=== PATIENT | female | born 1970 | race Caucasian/White ===

== ENCOUNTER 2022-02-21 08:33 | Emergency (ER) | payer MEDICAID, SELFPAY ==
[2022-02-21 08:35] VITALS: BP 126/90; PULSE 88; RESP 18; TEMP 36.3; O2SAT 99; BMI 25.0
--- NOTE | 2022-02-21 08:50 | CT_ITS ---
EXAM: CT HEAD WITHOUT INTRAVENOUS CONTRAST CLINICAL INDICATION: pain TECHNIQUE: Multiple axial images were obtained of the head without intravenous contrast. This CT exam was performed using one or more of the following dose reduction techniques: automated exposure control, adjustment of the mA and/or kV according to patient size, and/or use of iterative reconstruction technique. This report was created using [employer] report generation technology. COMPARISON: None. FINDINGS: BRAIN AND EXTRA-AXIAL SPACES: Unremarkable. No intra- or extra-axial hemorrhage. No evidence of acute infarct. No intracranial mass or mass effect. There is preservation of the garcia/white matter interface. Posterior fossa structures are unremarkable. Ventricles are appropriate for age. No hydrocephalus. Basal cisterns are patent. BONES/JOINTS: Unremarkable. No discrete lytic or blastic abnormalities. SINUSES: Unremarkable as visualized. Clear. MASTOID AIR CELLS: Unremarkable. Clear. ORBITS: Visualized globes, extraocular muscles, optic nerves and retrobulbar fat appear unremarkable. CT/Brain/Head without Contrast IMPRESSION: No acute abnormality. Electronically Signed: Price Ngo MD at 9:26 EDT ,
--- NOTE | 2022-02-21 08:50 | CT_ITS ---
EXAM: CT CERVICAL SPINE WITHOUT INTRAVENOUS CONTRAST CLINICAL INDICATION: pain TECHNIQUE: Helically acquired images were obtained of the cervical spine without intravenous contrast. 2D reformatted images were reviewed. This CT exam was performed using one or more of the following dose reduction techniques: automated exposure control, adjustment of the mA and/or kV according to patient size, and/or use of iterative reconstruction technique. This report was created using [employer] report generation technology. COMPARISON: None. FINDINGS: VERTEBRAE: Loss of the cervical lordosis suggestive of muscle spasm. No fracture. No traumatic subluxation. No discrete lytic or blastic abnormality. Normal craniocervical junction and cervicothoracic junction. DISCS/SPINAL CANAL/NEURAL FORAMINA: C5-6 disc space narrowing. Mild narrowing of the C5-6 neural foramina related to uncinate joint hypertrophy. SOFT TISSUES: Unremarkable. No prevertebral soft tissue swelling. LYMPH NODES: Unremarkable. No cervical adenopathy. LUNG APICES: Unremarkable as visualized. Clear. CT/Spine Cervical without Contras IMPRESSION: 1. No acute fracture or subluxation. 2. C5-6 spondylosis. Electronically Signed: Price Ngo MD at 9:28 EDT ,
--- NOTE | 2022-02-21 08:51 | EX.ED.DYSGE1 ---
HPI History of Present Illness Chief Complaint: Headache Detail of Chief Complaint: Headache, neck pain, nausea, Informant: patient Onset/Context/Timing Onset: Days Context: Gradual Onset Current Severity: Moderate Maximum Severity: Severe Narrative Narrative: Patient presents secondary to neck and right shoulder pain for the past 3 days. She describes spasm and stiffness. Yesterday she developed a headache along with nausea and vomiting. No fall or recent trauma. No fever or chills. She does report paresthesias in the bilateral hands. No chest pain. [facility] Medical History Herniated disc History of ITP Home Medications cyclobenzaprine 10 mg PO BID PRN #10 tab 02/21/22 [Rx Last Taken Unknown] hydrocodone-acetaminophen 1 tab PO Q6H PRN 3 Days #10 tab 02/21/22 [Rx Last Taken Unknown] naproxen [Naprosyn] 500 mg PO BID PRN #20 tab 02/21/22 [Rx Last Taken Unknown] Allergy/AdvReac Type Severity Reaction Status Date / Time erythromycin base Allergy Nausea Verified 02/21/22 08:34 Penicillins Allergy Nausea Verified 02/21/22 08:34 Social History Smoking Status: Current every day smoker tobacco type: cigarettes ROS ROS ED Constitutional Constitutional ED: Denies chills or fever(s) Eyes Eyes: Denies change in vision ENT ENT ED: Denies sore throat Cardiovascular Cardiovascular: Denies chest pain or palpitations Respiratory/Chest Respiratory/Chest: Denies cough or dyspnea Gastrointestinal Gastrointestinal: Reports nausea and vomiting; Denies abdominal pain or diarrhea Genitourinary Genitourinary ED: Denies dysuria Musculoskeletal Musculoskeletal: Reports arthralgias and neck pain; Denies back pain Integumentary Denies rash Neurologic Neurologic: Reports headache(s); Denies weakness Allergic/Immunologic Allergic/Immunologic ED: Denies urticaria EXAM Physical Exam Const Vital Signs: 02/21/22 08:35 Temperature 97.3 F L Temperature Source Temporal Pulse Rate 88 Respiratory Rate 18 Blood Pressure 126/90 H Blood Pressure Mean 102 Pulse Ox 99 Oxygen Delivery Method Room Air Positive well nourished and well developed General Appearance ED: well developed HEENT Reports normocephalic, head/scalp atraumatic and moist mucous membranes Eyes PERRL and EOMs intact bilaterally Neck supple Neck Narrative: Tenderness in the bilateral cervical paraspinal muscles. No meningismus. Chest Wall inspection of chest normal and palpation of chest normal Resp normal respiratory effort and clear to auscultation bilaterally Cardio regular rate and regular rhythm GI normal to inspection, nondistended, normoactive bowel sounds Palpation: soft Back/Spine no CVA tenderness Extremity normal to inspection Neuro oriented x3 and no sensory deficits noted Sensorium / Orientation: alert Motor Exam: strength 5/5 throughout Psych Mood & Affect: anxious and tearful Skin no rashes or lesions noted MDM MDM MDM Narrative Medical decision making narrative: Patient initially given Toradol, Valium, Zofran, IV fluids. Lab work obtained along with CT scan of the head and C-spine. Lab Data Attestation: I reviewed the patient's lab results. Labs: Laboratory Results - last 24 hr 02/21/22 02/21/22 09:00 09:00 WBC 10.8 RBC 4.72 Hgb 15.6 H Hct 45.4 MCV 96.2 MCH 33.1 H MCHC 34.4 RDW Std Deviation 46.0 H RDW Coeff of Jeanna 12.9 Plt Count 276 MPV 10.5 Immature Gran % (Auto) 0.300 Neut % (Auto) 70.1 H Lymph % (Auto) 21.7 [place] % (Auto) 6.9 Eos % (Auto) 0.6 Baso % (Auto) 0.4 Absolute Neuts (auto) 7.6 Absolute Lymphs (auto) 2.34 Nucleated RBC % 0 Sodium 138 Potassium 4.5 Chloride 105 Carbon Dioxide 26.0 Anion Gap 7 BUN 10 Creatinine 0.80 Estim Creat Clear Calc 78.76 Est GFR (MDRD) Af Amer 98 Est GFR (MDRD) Non-Af 81 BUN/Creatinine Ratio 12.6 Glucose 85 Calcium 8.6 Radiography Diagnostic Testing: Clinical Impression(s) from Imaging Studies Brain CT 02/21/22 08:50 IMPRESSION: No acute abnormality. Electronically Signed: Price Ngo MD at 9:26 EDT Reading Location ID and State: [facility] / [place] Tel , Service support , Cervical Spine CT 02/21/22 08:50 IMPRESSION: 1. No acute fracture or subluxation. 2. C5-6 spondylosis. Electronically Signed: Price Ngo MD at 9:28 EDT , Treatment and Re-Evaluation Narrative: CT scans reveal chronic changes. Lab work unremarkable. On repeat evaluation patient still tearful and in pain. She is given dose of morphine and Phenergan. Lidoderm patches applied topically. At this time patient resting more comfortably. She does have significant muscle spasm will require analgesics at home over the next several days. She is an appointment to establish new primary care physician next week at the [facility]. Prescriptions will be sent to [facility] pharmacy for her. Return instructions given. Discharge Plan Triage Chief Complaint: Headache ED Provider: Inocencia Cervantes Dx/Rx/DC Orders Clinical Impression: Cervical paraspinal muscle spasm, Cervical radiculopathy, Cephalgia Instructions: ED Headache Unspecified, ED Neck Spasm, No Trauma, ED Radiculopathy, Cervical Prescriptions: New naproxen [Naprosyn] 500 mg tablet 500 mg PO BID PRN (Reason: pain) Qty: 20 RF: 0 hydrocodone-acetaminophen 5-325 mg tablet 1 tab PO Q6H PRN (Reason: pain) 3 Days Qty: 10 RF: 0 cyclobenzaprine 10 mg tablet 10 mg PO BID PRN (Reason: muscle spasm) Qty: 10 RF: 0 Primary Care Provider: Care Physician,No Primary Referrals: Care Physician,No Primary [Primary Care Provider] - Activity Restrictions/Additional Instructions: Follow-up with your new PCP next week as scheduled. Disposition Disposition: Home, Self Care
[2022-02-21] MEDS: Ondansetron 4 MG/2 ML Vial IV (08:58)
[2022-02-21] MEDS: 0.9% Normal Saline 1,000 ML 999 ML IV (08:58)
[2022-02-21] MEDS: Ketorolac 30 MG/ML Syringe IV (08:58)
[2022-02-21] MEDS: diazePAM 5 MG Tablet 2.5 MG PO (08:58)
[2022-02-21 09:12] LABS: Absolute Lymphocyte Count 2.34 X10^3/uL (0.83-4.51); Absolute Neutrophil Count 7.6 X10^3/uL (2.0-7.7); Basophil# 0.04 X10^3/uL; Basophil% 0.4 % (0-1); Eosinophil# 0.06 X10^3/uL; Eosinophils% 0.6 % (0-5); Hematocrit 45.4 % (37-47); Hemoglobin 15.6 g/dL (12.0-15.0); Lymphocyte # 2.34 X10^3/ul (0.83-4.51); Lymphocyte % 21.7 % (19-41); Mean Corp Hgb Conc 34.4 g/dL (32-36); Mean Corpuscular Hgb 33.1 pg (27.0-32.0); Mean Corpuscular Volume 96.2 fL (81-99); Mean Platelet Vol. 10.5 fl (6.2-12.0); Monocyte# 0.74 X10^3/uL; Monocyte% 6.9 % (0-10); NRBC Flagged by Analyzer 0 % (0-5); Neutrophil # 7.57 X10^3/uL (2.7-7.7); Neutrophil % 70.1 % (47-70); Platelet Count 276 K/mm3 (150-450); RBC Distribution Width CV 12.9 % (11.6-14.6); Red Blood Count 4.72 M/mm3 (4.2-5.4); White Blood Count 10.8 K/mm3 (4.4-11.0)
[2022-02-21 09:25] LABS: Anion Gap 7 (5-15); BUN 10 mg/dL (7-18); BUN/Creat Ratio 12.6 RATIO (10-20); Calcium,Total 8.6 mg/dL (8.5-10.1); Chloride 105 mmol/L (98-107); EST Glomerular Filtration Rate 81 mL/min (>60); Est Glom Filt Rate - Afr Amer 98 mL/min (>60); Estimated Creatinine Clearance 78.76 ml/min; Glucose 85 mg/dL (74-106); Potassium 4.5 mmol/L (3.5-5.1); Sodium Level 138 mmol/L (136-145)
[2022-02-21] MEDS: Lidocaine 5% Patch 1 PATCH TOPICAL (09:40)
[2022-02-21] MEDS: proMETHazine 25 MG Tablet 12.5 MG PO (09:42)
[2022-02-21] MEDS: Morphine 4 MG/ML Syringe IV (09:44)
[2022-02-21 10:39] VITALS: BP 124/77; PULSE 62; RESP 17; O2SAT 98
== END 2022-02-21 10:43 | disposition home or self-care (01) ==
PROVIDERS: Emergency Provider Emergency Medicine; Visit Provider Emergency Medicine
DX: M54.12 Radiculopathy, cervical region (principal); M62.830 Muscle spasm of back; M54.2 Cervicalgia; R11.0 Nausea; M25.511 Pain in right shoulder; R51.9 Headache, unspecified; F17.210 Nicotine dependence, cigarettes, uncomplicated; Z79.1 Long term (current) use of non-steroidal anti-inflammatories (NSAID); Z79.899 Other long term (current) drug therapy
CPT/HCPCS: 70450; 72125; 80048; 85025; 96361; 96374; 96375; 99284; J7030; A4216; J2405

== ENCOUNTER → 2025-04-04 | Outpatient (CLI) | payer MEDICAID, SELFPAY ==
--- NOTE | 2025-04-04 12:58 | RAD_ITS ---
PROCEDURE: LUMBAR SPINE 2 OR 3 VIEWS 04/04/2025 REASON FOR EXAM: LOW BACK PAIN TECHNIQUE: 2 view(s) of the lumbar spine COMPARISON: None FINDINGS: Vertebrae: Minimal anterior spondylosis at the L2-L3 level. Discs: Disc space heights are preserved. Alignment: No evidence of scoliosis. Other: Moderate amount of fecal material is seen in the colon. RAD/Lumbar Spine 2 or 3 Views IMPRESSION: Degenerative changes at the L2-L3 level. Reading Location: [place] [id number]
--- NOTE | 2025-04-04 13:00 | RAD_ITS ---
PROCEDURE: FOOT MIN 3 VIEWS 04/04/2025 REASON FOR EXAM: PAIN Posterior foot pain. TECHNIQUE: 3 views of the right foot. COMPARISON: None FINDINGS: Bones: Plantar calcaneal spur. Joints: Normal alignment. Mild degenerative changes at the 1st metatarsophalangeal joint. Soft tissues: Soft tissues are unremarkable. Other: RAD/Foot min 3 Views IMPRESSION: Plantar calcaneal spur. Reading Location: [id number]
== END | disposition home or self-care (01) ==
LOC: MTRAD 12:54
PROVIDERS: Referring Provider Physician Assistant; Visit Provider Physician Assistant
DX: M54.50 Low back pain, unspecified (principal); M79.671 Pain in right foot
CPT/HCPCS: 72100; 73630

== ENCOUNTER 2025-04-11 14:24 | Emergency (ER) | payer MEDICAID, SELFPAY ==
[2025-04-11 14:24] VITALS: BP 125/86; PULSE 84; RESP 16; TEMP 36.8; O2SAT 99
[2025-04-11 14:26] VITALS: BMI 27.0
--- NOTE | 2025-04-11 15:19 | EDS_ITS ---
HPI History of Present Illness Chief Complaint: Back Onset/Context/Timing Onset: Today Context: Sudden Onset Injury: bending Timing: Continuous Quality: Burning Location: Lumbar, Buttock and Right Leg Worsened by: improves with Ambulation and - (Standing) Relieved by: Nothing Associated Symptoms Associated Symptoms: Radiation to Right Leg; Negative for Numbness, Tingling, Radiation to Left Leg, Fever, Abdominal Pain, Dysuria, Unable to Ambulate, Unable to Transfer, Urinary Retention, Urinary Incontinence, Constipation or Fecal Incontinence Narrative Narrative: Patient presents with low back pain that became worse today. Patient states her pain is in her lower lumbar area. Patient states she was bending forward today and she felt a pop. Patient states the pain radiates down her right leg. Patient states her pain is worse with standing and walking. Patient denies any paresthesias or weakness. Patient denies any bowel or bladder changes. Patient denies any saddle anesthesia. Patient states she has seen [place] [facility] in the past. Patient states she saw them 1 week ago and had x-rays done at that time. Prior similar symptoms: Yes and With Prior Back Pain [facility] Medical History (Updated 04/11/25 @ 18:[address] Ian Dupree, DO) Anxiety and depression Plantar fasciitis of right foot Low back pain Contact with or exposure to other viral diseases URI (upper respiratory infection) Endometriosis History of ITP Herniated disc Home Medications ?Medication ?Instructions ?Recorded ?Last Taken ?Type fluoxetine 20 mg capsule (Prozac) 20 mg PO QDAY #30 ca ps 04/04/25 Unknown Rx gabapentin 300 mg capsule 300 mg PO QHS 04/11/25 Unkno wn History Held on 04/11/25. Instructions: Order Completed oxycodone-acetaminophen 5 mg-325 1 tab PO Q8H PRN pain 3 days #10 04/11/25 Unknown Rx mg tablet (Percocet) tabs prednisone 20 mg tablet 60 mg (3 x 20 mg) PO DAILY # 15 04/11/25 Unknown Rx TABLETS Allergy/AdvReac Type Severity Reaction Status Date / Time erythromycin base Allergy Nausea Verified 04/11/25 14:24 Penicillins Allergy Nausea Verified 04/11/25 14:24 Surgical History Hx of laparoscopy History of section Social History Smoking Status: Current every day smoker tobacco type: cigarettes ROS ROS ED Constitutional Constitutional ED: Denies chills or fever(s) Eyes Eyes: Denies blurry vision or change in vision ENT ENT ED: Denies rhinorrhea or sore throat Cardiovascular Cardiovascular: Denies chest pain or palpitations Respiratory/Chest Respiratory/Chest: Denies cough or dyspnea Gastrointestinal Gastrointestinal: Reports nausea; Denies vomiting Genitourinary Genitourinary ED: Denies dysuria or hematuria Musculoskeletal Musculoskeletal: Reports back pain; Denies neck pain Integumentary Denies abscess or rash Neurologic Neurologic: Denies headache(s) or weakness Allergic/Immunologic Allergic/Immunologic ED: Denies mouth swelling or urticaria EXAM Physical Exam Const Vital Signs: 04/11/25 14:24 04/11/25 16:24 04/11/25 17:53 Temperature 98.2 F 97.8 F Temperature Source Oral Oral Pulse Rate 84 87 92 Respiratory Rate 16 22 H 15 Blood Pressure 125/86 H 121/70 H 139/90 H Blood Pressure Mean 99 87 106 Pulse Ox 99 98 100 Oxygen Delivery Method Room Air Room Air 04/11/25 18:28 Temperature 97.4 F L Temperature Source Oral Pulse Rate 62 Respiratory Rate 17 Blood Pressure 120/75 Blood Pressure Mean 90 Pulse Ox 100 Oxygen Delivery Method Room Air Positive well nourished and well developed General Appearance ED: well developed and NAD HEENT Reports moist mucous membranes Neck supple and no JVD Back/Spine Back/Spine Narrative: There is tenderness and spasm of the lumbar paraspinal muscles on the right. There is mild midline tenderness. There is no bony crepitance or step-off noted. Strength is 5/5 bilaterally in the lower extremities. There are no sensory deficits noted. Deep tendon reflexes are 2/4 bilaterally in the lower extremity. There is pain with straight leg raising on the right at approximately 50 degrees. Lumbar Spine / Lower Back: ROM limited and straight leg raise positive right at 50 degrees Neuro oriented x3 and no sensory deficits noted Sensorium / Orientation: alert Motor Exam: strength 5/5 throughout Deep Tendon Reflexes: Rt Patellar (L4): 2+, Lt Patellar (L4): 2+, Rt Ankle (S1): 2+ and Lt Ankle (S1): 2+ Deep Tendon Reflexes Back: Rt Patellar (L4): 2+, Lt Patellar (L4): 2+, Rt Ankle (S1): 2+ and Lt Ankle (S1): 2+ Psych mental status grossly normal MDM MDM MDM Narrative Medical decision making narrative: Differential diagnosis includes spondylolisthesis, lumbar radiculopathy, com pression fracture, and lumbosacral strain. X-rays of the lumbar spine will be obtained to assess for fracture and spondylolisthesis. Treatment and Re-Evaluation Narrative: Patient was given an injection of morphine. Patient had minimal relief with this. Patient was given injection of Dilaudid. Patient felt better after this. Patient was given prescriptions for Percocet and prednisone. Patient was instructed to follow-up with Dr. Villalpando as an outpatient. Patient was instructed to use ice to her back. Patient was instructed to return if worse in any way. Patient understood and was agreeable with the plan. All questions were answered. Discharge Plan Triage Chief Complaint: Back ED Provider: Ian Dupree Dx/Rx/DC Orders Clinical Impression: Low back pain, Lumbar radiculopathy Instructions: ED Back Pain (Acute or Chronic), ED Sciatica Prescriptions: New oxycodone-acetaminophen [Percocet] 5-325 mg tablet 1 tab PO Q8H PRN (Reason: pain) 3 Days Qty: 10 0RF prednisone 20 mg tablet 60 mg PO DAILY Qty: 15 0RF No Action fluoxetine [Prozac] 20 mg capsule 20 mg PO QDAY Qty: 30 0RF gabapentin 300 mg capsule 300 mg PO QHS Primary Care Provider: Valeria Cesar NP Referrals: Rafat Villalpando MD [Med Staff - Active Staff] - 5-7 Days Valeria Cesar NP, DESIGN DIRECTOR-C [Primary Care Provider] - 5-7 Days Print Language: Persian Disposition Disposition: Home, Self Care
--- NOTE | 2025-04-11 15:35 | RAD_ITS ---
PROCEDURE: LUMBAR SPINE 2 OR 3 VIEWS 04/11/2025 REASON FOR EXAM: INJURY/PAIN TECHNIQUE: LUMBAR SPINE 2 OR 3 VIEWS COMPARISON: 04/08/2025 RAD/Lumbar Spine 2 or 3 Views IMPRESSION: No acute compression fracture or subluxations. No definite listhesis. Minimal multilevel degenerative changes of the lumbar spine most prominent at L2-L3. If there is continued concern for spinal pathol ogy, consider CT/MR for further evaluation. Reading Location: [id number]
[2025-04-11] MEDS: Morphine 4 MG/ML Syringe IM (15:46)
[2025-04-11 16:24] VITALS: BP 121/70; PULSE 87; RESP 22; O2SAT 98
[2025-04-11] MEDS: HYDROmorphone 1 MG/ML Syringe IM (17:45)
[2025-04-11 17:53] VITALS: BP 139/90; PULSE 92; RESP 15; TEMP 36.6; O2SAT 100
[2025-04-11 18:28] VITALS: BP 120/75; PULSE 62; RESP 17; TEMP 36.3; O2SAT 100
[2025-04-11 19:23] VITALS: BP 120/75; PULSE 62; RESP 17; TEMP 36.3; O2SAT 100
== END 2025-04-11 19:24 | disposition home or self-care (01) ==
PROVIDERS: Emergency Provider Emergency Medicine; PCP Nurse Practitioner Family; Visit Provider Emergency Medicine
DX: M54.16 Radiculopathy, lumbar region (principal); X50.1XXA Overexertion from prolonged static or awkward postures, initial encounter; F41.9 Anxiety disorder, unspecified; F32.A Depression, unspecified; Z79.899 Other long term (current) drug therapy; F17.210 Nicotine dependence, cigarettes, uncomplicated
CPT/HCPCS: 72100; 96372; 99282

== ENCOUNTER 2025-04-26 10:29 | Emergency (ER) | payer MEDICAID, SELFPAY ==
[2025-04-26 10:30] VITALS: BP 153/87; PULSE 92; RESP 14; TEMP 36.6; O2SAT 98; BMI 27.3
--- NOTE | 2025-04-26 11:20 | RAD_ITS ---
PROCEDURE: LUMBAR SPINE 2 OR 3 VIEWS 04/26/2025 REASON FOR EXAM: FALL AND PAIN TECHNIQUE: LUMBAR SPINE 2 OR 3 VIEWS COMPARISON: 04/11/2020 FINDINGS: Vertebrae: No fracture or suspicious osseous lesion Discs: Mild disc space narrowing throughout the lumbar spine. Alignment: Alignment is anatomic Other: RAD/Lumbar Spine 2 or 3 Views IMPRESSION: Mild degenerative changes, no acute findings Reading Location: [id number]
--- NOTE | 2025-04-26 11:21 | ED.VIS.BACK ---
HPI History of Present Illness Chief Complaint: Back Informant: patient Onset/Context/Timing Onset: Days Context: Gradual Onset Injury: fall Timing: Continuous Quality: Sharp Location: Lumbar Current Severity: Moderate Maximum Severity: Moderate Worsened by: improves with Movement Relieved by: Nothing Associated Symptoms Associated Symptoms: Radiation to Right Leg; Negative for Unable to Ambulate, Unable to Transfer, Urinary Retention, Urinary Incontinence, Constipation or Fecal Incontinence Narrative Narrative: 54-year-old female history of degenerative disc disease of lumbar spine. Patient states that she had a fall recently. Increased her low back pain. She saw her painter tumbling barrel yesterday who gave her an IM injection of Toradol. Yesterday she tripped and fell at home landing on her buttock causing increased pain in her lower back. Denies any head injury or LOC. No bowel or bladder incontinence. She has an upcoming MRI that they canceled due to her insurance she states. She is to go to physical therapy then determine if she still needs the MRI. Prior similar symptoms: Yes and With Prior Back Pain Recent Illness/Hospitalization: No PFSH PFSH Medical History Anxiety and depression Plantar fasciitis of right foot Low back pain Contact with or exposure to other viral diseases URI (upper respiratory infection) Endometriosis History of ITP Herniated disc Home Medications ?Medication ?Instructions ?Recorded ?Last Taken ?Type fluoxetine 20 mg capsule (Prozac) 20 mg PO QDAY #30 caps 04/04/25 Unknown Rx gabapentin 300 mg capsule 300 mg PO QHS 04/11/25 Unknown History Held on 04/11/25. Instructions: Order Completed oxycodone-acetaminophen 5 mg-325 1 tab PO Q8H PRN pain 3 days #10 04/11/25 Unknown Rx mg tablet (Percocet) tabs prednisone 20 mg tablet 60 mg (3 x 20 mg) PO DAILY #15 04/11/25 Unknown Rx TABLETS oxycodone 5 mg capsule 5 mg PO Q6H PRN pain 3 days #10 04/26/25 Unknown Rx caps Allergy/AdvReac Type Severity Reaction Status Date / Time erythromycin base Allergy Nausea Verified 04/26/25 10:30 Penicillins Allergy Nausea Verified 04/26/25 10:30 Surgical History Hx of laparoscopy History of section Social History Smoking Status: Current every day smoker tobacco type: cigarettes ROS ROS ED ROS Narrative Denies recent illness. Constitutional Constitutional ED: Denies chills or fever(s) Eyes Eyes: Denies blurry vision ENT ENT ED: Denies ear pain Cardiovascular Cardiovascular: Denies chest pain Respiratory/Chest Respiratory/Chest: Denies dyspnea Gastrointestinal Gastrointestinal: Denies abdominal pain, diarrhea, nausea or vomiting Genitourinary Genitourinary ED: Denies dysuria or hematuria Musculoskeletal Musculoskeletal: Reports back pain; Denies arthralgias, myalgias or neck pain Integumentary Denies abscess Neurologic Neurologic: Denies headache(s) Psychiatric Psychiatric: Denies anxiety Endocrine Endocrinology: Denies cold intolerance Hematologic/Lymphatic Hematologic/Lymphatic: Denies easy bleeding Allergic/Immunologic Allergic/Immunologic ED: Denies mouth swelling EXAM Physical Exam Narrative Exam Narrative: 54-year-old female vital signs stable afebrile. She is emotionally upset and tearful. Complaining of back pain. H EENT exam pupils round to light. Extra motions are intact. No trauma to her face or scalp. Nontender. C-spine and trachea nontender. Back thoracic spine nontender. No ecchymosis or bruising. She complains of tenderness over her lumbar spine and paralumbar soft tissue. There is no ecchymosis or bruising. Pelvic girdle intact. Moving all 4 extremities. Normal strength. Normal sensation. No cauda equina. Positive straight leg raise test on the right negative on the left. 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 Neurologically she is awake alert. Answer questions following commands. Const Vital Signs: 04/26/25 10:30 Temperature 98 F Temperature Source Temporal Pulse Rate 92 Respiratory Rate 14 Blood Pressure 153/87 H Blood Pressure Mean 109 Pulse Ox 98 Oxygen Delivery Method Room Air Positive well nourished and well developed; Negative for cachectic, contractures or unkempt General Appearance ED: well developed; Negative for unkempt, cachectic, contractures, NAD or pallor Nutritional Appearance: Negative for cachectic HEENT Reports moist mucous membranes Negative for trauma or tenderness Eyes PERRL and EOMs intact bilaterally Neck no lymphadenopathy, supple and no JVD Resp normal respiratory effort and clear to auscultation bilaterally Effort and Inspection: Negative for pain with movement Auscultation: Negative for rales, rhonchi, wheezes or diminished lung sounds Cardio regular rate, regular rhythm, S1 normal heart sound, S2 normal heart sound and no murmurs GI normal to inspection, nondistended, normoactive bowel sounds, soft to palpation, non-tender, non-distended and no masses Palpation: Negative for tender, guarding or rebound tenderness present Back/Spine normal to inspection and no thoracic nor lumbar tenderness Back/Spine Narrative: Lumbar and paralumbar tenderness. General Back: Negative for CVA tenderness Cervical Spine: Negative for cervical spine tenderness Thoracic Spine / Upper Back: Negative for paraspinal muscle tenderness Lumbar Spine / Lower Back: straight leg raise positive right Extremity normal to inspection and no clubbing, cyanosis or edema General Extremety ED: Negative for edema or tenderness General Extremity: Negative for edema Neuro oriented x3 and no sensory deficits noted Neuro Narrative: Emotionally upset and tearful. Sensorium / Orientation: Negative for alert, confused, lethargic or stuporous Motor Exam: strength 5/5 throughout Psych mental status grossly normal Appearance: Negative for unkempt Mood & Affect: tearful Skin no rashes or lesions noted and no wounds General Skin Exam: Negative for jaundice or pallor Lesions: No lesion noted Rashes: No rashes noted Trauma: Negative for abrasion or puncture Wounds: Negative for wounds noted MDM MDM MDM Narrative Medical decision making narrative: 54-year-old female acute on chronic back pain after a fall. Lumbar spine x-ray being obtained to rule out compression fracture. IV morphine for pain and Zofran to prevent nausea. I do not think she needs any lab work. Repeat exam patient is doing well at 12:30 PM. She will be also given some Toradol for some additional pain. Her pain management physician called her in a muscle relaxant she believes yesterday. I will call her in some limited oxycodone 10 no refill. She will need to follow-up with her pain management physician. And follow-up to see if they can get her this MRI. She does not need acutely right now. She is not having any signs of cauda equina. History & Record Review Discussion w/independent historian: Patient Additional record(s) reviewed:: Prior inpatient record, Prior outpatient record, Prior ED visit and Prior labs Radiography Diagnostic Testing: Clinical Impression(s) from Imaging Studies Lumbar Spine X-Ray 04/26/25 11:20 IMPRESSION: Mild degenerative changes, no acute findings Reading Location: [facility] Discharge Plan Triage Chief Complaint: Back ED Provider: Calin Weber Dx/Rx/DC Orders Clinical Impression: Back pain, History of degenerative disc disease Instructions: ED Back Pain (Acute or Chronic) Prescriptions: New oxycodone 5 mg capsule 5 mg PO Q6H PRN (Reason: pain) 3 Days Qty: 10 0RF No Action fluoxetine [Prozac] 20 mg capsule 20 mg PO QDAY Qty: 30 0RF gabapentin 300 mg capsule 300 mg PO QHS oxycodone-acetaminophen [Percocet] 5-325 mg tablet 1 tab PO Q8H PRN (Reason: pain) 3 Days Qty: 10 0RF prednisone 20 mg tablet 60 mg PO DAILY Qty: 15 0RF Primary Care Provider: Care Physician,No Primary Referrals: Valeria Cesar [employer] PRODUCTION MACHINE OPERATOR, [employer]ODUCTION MACHINE OPERATOR-[employer] [Non-Staff] - As Needed Activity Restrictions/Additional Instructions: Follow-up with your pain management doctor soon as possible. Limited oxycodone for pain. Muscle relaxant as prescribed by your pain management doctor. If not improving follow-up to see then get the lumbar MRI. Return if worsening pain, fever, bowel or bladder incontinence or retention. Or if you are developing weakness in your legs. Print Language: Malawian Disposition Disposition: Home, Self Care
[2025-04-26] MEDS: Ketorolac 30 MG/ML Syringe IV (12:37)
[2025-04-26 12:44] VITALS: BP 143/91; PULSE 64; RESP 18; TEMP 36.6; O2SAT 99
== END 2025-04-26 12:45 | disposition home or self-care (01) ==
PROVIDERS: Emergency Provider Emergency Medicine; Visit Provider Emergency Medicine
DX: M51.369 Other intervertebral disc degeneration, lumbar region without mention of lumbar back pain or lower extremity pain (principal); G89.29 Other chronic pain; F17.210 Nicotine dependence, cigarettes, uncomplicated
CPT/HCPCS: 72100; 96374; 96375; 99282; A4216; J2405

== ENCOUNTER 2025-06-05 16:34 | Observation (INO) | payer MEDICAID, SELFPAY ==
[2025-06-05 16:35] VITALS: BP 144/92; PULSE 85; RESP 18; TEMP 36.8; O2SAT 98; BMI 26.9
--- NOTE | 2025-06-05 16:51 | EDS_ITS ---
HPI History of Present Illness Chief Complaint: Back Detail of Chief Complaint: Back pain Informant: patient Narrative Narrative: Patient presents to the emergency department with complaint of back pain has been ongoing for years. Patient states that she was supposed to have surgery on her back before Dr. Blair left the state to have a fusion at L4 and L5. Her last MRI was more than a year ago. She saw nurse practitioner for Dr. Wallace recently and was told that she would need to try physical therapy first for her back. She describes increased pain since yesterday. No new injury. She complains of pain radiating down her right leg with some numbness and tingling. At times the leg feels weak. She denies loss of sensation in the groin. She denies loss of bowel or bladder function. She denies any new falls or injuries. Patient also tells me she was referred to pain management and saw Dr. Garcia who did some trigger point injections on her. Patient also complains of pain in her neck and pain in her right foot from a heel spur. [facility] Medical History Anxiety and depression Plantar fasciitis of right foot Low back pain Contact with or exposure to other viral diseases URI (upper respiratory infection) Endometriosis History of ITP Herniated disc Home Medications ?Medication ?Instructions ?Recorded ?Last Taken ?Type fluoxetine 20 mg capsule (Prozac) 20 mg PO QDAY #30 ca ps 04/04/25 Unknown Rx gabapentin 300 mg capsule 300 mg PO QHS 04/11/25 Unkno wn History Held on 04/11/25. Instructions: Order Completed oxycodone-acetaminophen 5 mg-325 1 tab PO Q8H PRN pain 3 days #10 04/11/25 Unknown Rx mg tablet (Percocet) tabs prednisone 20 mg tablet 60 mg (3 x 20 mg) PO DAILY # 15 04/11/25 Unknown Rx TABLETS oxycodone 5 mg capsule 5 mg PO Q6H PRN pain 3 days #10 04/26/25 Unknown Rx caps Allergy/AdvReac Type Severity Reaction Status Date / Time erythromycin base Allergy Nausea Verified 06/05/25 16:36 Penicillins Allergy Nausea Verified 06/05/25 16:36 Surgical History Hx of laparoscopy History of section Social History (Updated 06/05/25 @ 16:39 by Elsy Richards) household members: family Smoking Status: Current every day smoker tobacco type: cigarettes ROS ROS ED Review of Systems ROS Unobtainable: other Constitutional Constitutional ED: Reports lethargy; Denies chills, fever(s), sweats or weight loss Eyes Eyes: Denies blurry vision, change in vision or diplopia ENT ENT ED: Denies rhinorrhea or sore throat Cardiovascular Cardiovascular: Denies chest pain, orthopnea or racing heartbeat Respiratory/Chest Respiratory/Chest: Denies cough, dyspnea, dyspnea on exertion, orthopnea or sputum Gastrointestinal Gastrointestinal: Denies abdominal pain, diarrhea, nausea or vomiting Genitourinary Genitourinary ED: Denies dysuria, hematuria or urinary frequency Musculoskeletal Musculoskeletal: Reports back pain; Denies arthralgias, myalgias or neck pain Integumentary Denies abscess, Abrasions or rash Neurologic Neurologic: Denies headache(s) or weakness Psychiatric Psychiatric: Denies anxiety, depression or suicidal thoughts Endocrine Endocrinology: Denies polydipsia, polyphagia or polyuria Hematologic/Lymphatic Hematologic/Lymphatic: Denies easy bleeding, easy bruising or lymphadenopathy Allergic/Immunologic Allergic/Immunologic ED: Denies mouth swelling, tongue swelling or urticaria EXAM Physical Exam Const Vital Signs: 06/05/25 16:35 Temperature 98.3 F Temperature Source Oral Pulse Rate 85 Respiratory Rate 18 Blood Pressure 144/92 H Blood Pressure Mean 109 Pulse Ox 98 Oxygen Delivery Method Room Air Positive well nourished and well developed General Appearance ED: well developed and NAD HEENT Reports TM's clear and moist mucous membranes normocephalic and atraumatic; Negative for trauma or tenderness Tympanic Membrane ED: Yes TM's clear Eyes PERRL and EOMs intact bilaterally General Eye ED: Negative for pale conjunctiva or scleral icterus Neck no lymphadenopathy, supple and no JVD General: Negative for tenderness Chest Wall inspection of chest normal and palpation of chest normal Chest: Negative for tenderness Resp normal respiratory effort and clear to auscultation bilaterally Effort and Inspection: Negative for respiratory distress or pain with movement Auscultation: Negative for rhonchi, wheezes or diminished lung sounds Cardio regular rate, regular rhythm, S1 normal heart sound, S2 normal heart sound and no murmurs Peripheral Pulses: pulses 2+ throughout GI normal to inspection, nondistended, normoactive bowel sounds, soft to palpation, non-tender, non-distended and no masses Back/Spine no CVA tenderness Back/Spine Narrative: Diffuse tenderness palpation over the lumbar spine and lumbar paraspinal musculature bilaterally. Patient has a positive straight leg raise on the right with pain about 30 degrees while seated. Deep tendon reflexes are plus 2 out of 4 bilaterally at the patella and Achilles. Patient has normal L5 extension bilaterally. Patient has normal sensation to light touch. Extremity normal to inspection General Extremety ED: Negative for edema General Extremity: Negative for edema Neuro oriented x3, CN's II-XII intact bilaterally, no sensory deficits noted and gait normal Sensorium / Orientation: awake, alert, oriented to person, oriented to place and oriented to time Motor Exam: strength 5/5 throughout and strength abnormal Psych mental status grossly normal Skin no rashes or lesions noted and no wounds MDM MDM MDM Narrative Medical decision making narrative: Patient presents with acute exacerbation of her chronic back pain. History of sciatica. Following up with pain management and back specialist. Will treat with Dilaudid as well as Norflex and Toradol. Will start on prednisone. Patient was medicated with Dilaudid as well as Toradol. Continue to have pain and was given a second dose of Dilaudid. Continues to complain of significant pain. Discussed case with hospitalist will evaluate patient for admission for pain management and possible further imaging such as MRI tomorrow. Currently do not appreciate any significant red flags for cauda equina. Feel she likely has a lumbar radiculopathy. Discharge Plan Triage Chief Complaint: Back ED Provider: Adrienne Garcia Dx/Rx/DC Orders Clinical Impression: Back pain, Lumbar radiculopathy Prescriptions: No Action fluoxetine [Prozac] 20 mg capsule 20 mg PO QDAY Qty: 30 0RF oxycodone 5 mg capsule 5 mg PO Q6H PRN (Reason: pain) 3 Days Qty: 10 0RF gabapentin 300 mg capsule 300 mg PO QHS oxycodone-acetaminophen [Percocet] 5-325 mg tablet 1 tab PO Q8H PRN (Reason: pain) 3 Days Qty: 10 0RF prednisone 20 mg tablet 60 mg PO DAILY Qty: 15 0RF Primary Care Provider: Duncan Cesar Referrals: Care Physician,No Primary [Non-Staff] - Print Language: [place]i Disposition Disposition: Acute Care Hospital [facility]
[2025-06-05] MEDS: Ketorolac 30 MG/ML Syringe IM (17:10)
[2025-06-05] MEDS: Orphenadrine 60 MG/2 ML Ampul IM (17:11)
--- OUTSIDE RECORDS SUMMARY | 2025-06-05 17:13 | XMS RPT_ITS | CCD ---
Author Organization [facility] Care Team Providers [employer] Counselor Name Role Phone COLON, WENDIE (SW) Unavailable Unavailable COLON, WENDIE (SW) Unavailable Unavailable VUCETIC, BEN E Unavailable Unavailable VUCETIC, BEN E Unavailable Unavailable NO REFERRING Unavailable Unavailable VUCETIC, BEN E Unavailable Unavailable VUCETIC, BEN E Unavailable Unavailable NO REFERRING Unavailable Unavailable IMCA Unavailable Unavailable CHE GARDNER Unavailable Unavailable IMCA Unavailable Unavailable CHE GARDNER Unavailable Unavailable IMCA Unavailable Unavailable CHE GARDNER Unavailable Unavailable Franklin Upton Jr. (Hist) Unavailable Mara Philip MD Primary Care Provider Franklin Upton Jr. (Hist) Unavailable Mara Philip MD Primary Care Provider Alexsandra Gamble MD, Paul Anthony Unavailable Mara Philip MD Primary Care Provider Subramanian PUBLIC RECORDS RESEARCHER.RELIGIOUS ACTIVITIES DIRECTOR, Cristine Unavailable Loco PUBLIC RECORDS RESEARCHER.FAMILY PRACTITIONER, Nava Unavailable Loco PUBLIC RECORDS RESEARCHER.FAMILY PRACTITIONER, Nava Unavailable Care Physician, No Primary Primary Care Provider Unavailable Care Physician, No Primary Referring Provider Un available Erasto Richmond Attending Provider Erasto Richmond Referring Provider Georgie Espitia Attending Provider Marcio MORAN, Dr. Fowler Attending Provider Davy COORDINATOR OF LIBRARY SERVICES-David Lewis Primary Care Provider Dr. Ian Dupree DO Emergency Provider [phone] Dr. Ian Dupree DO Attending Provider [phone] Dr. Calin Weber MD Emergency Provider Care Physician, No Primary Referring Unava ilable Care Physician, No Primary Primary Care Unava ilable Erasto Richmond Attending Unavailable Care Physician, No Primary Primary Care Unava ilable Malcolm Buckley Attending Unavailable Georgie Ashley Attending Unavailable Care Physician, No Primary Referring Unava ilable Care Physician, No Primary Primary Care Unava ilable Care Physician, No Primary Primary Care Unava ilable Erasto Richmond Referring Unavailable Erasto Richmond Attending Unavailable Care Physician, No Primary Primary Care Unava ilable Calin Weber Attending Unavailable Ian Dupree Attending Unavailable David Cesar NP Primary Care Unavailable KATIE JAVIER MD Attending Unavailable KATIE JAVIER MD Admitting Unavailable DAVID CESAR CNP Consulting Unavailable DAVID CESAR CNP Referring Unavailable KATIE JAVIER MD Primary Care Unavailable PROVIDER, UNKNOWN Consulting Unavailable PROVIDER, UNKNOWN Consulting Unavailable GEORGIE ASHLEY Attending Unavailable GEORGIE ASHLEY Admitting Unavailable DAVID CESAR CNP Consulting Unavailable GEORGIE ASHLEY Primary Care Unavailable PROVIDER, UNKNOWN Consulting Unavailable PROVIDER, UNKNOWN Consulting Unavailable DAVID CESAR CNP Attending Unavailable DAVID CESAR CNP Admitting Unavailable DAVID CESAR CNP Primary Care Unavailable DAVID CESAR CNP Consulting Unavailable PROVIDER, UNKNOWN Consulting Unavailable PROVIDER, UNKNOWN Consulting Unavailable DAVID CESAR CNP Consulting Unavailable [facility] Attending Unavailable [facility] Admitting [facility] Primary Care Unavailable PROVIDER, UNKNOWN Consulting Unavailable PROVIDER, UNKNOWN Consulting Unavailable DUNCAN MISTRY DO Attending Unavailable DUNCAN MISTRY DO Admitting Unavailable DAVID CESAR CNP Consulting Unavailable DAVID CESAR CNP Referring Unavailable DUNCAN MISTRY DO Primary Care Unavailable PROVIDER, UNKNOWN Consulting Unavailable PROVIDER, UNKNOWN Consulting Unavailable DAVID CESAR CNP Consulting Unavailable DAVID CESAR CNP Referring Unavailable VALDEZ GTZ Primary Care Unavailable VALDEZ GTZ Attending Unavailable VALDEZ GTZ Admitting Unavailable PROVIDER, UNKNOWN Consulting Unavailable PROVIDER, UNKNOWN Consulting Unavailable DAVID CESAR CNP Referring Unavailable DAVID CESAR CNP Consulting Unavailable TIN RHODES Attending Unavailable TIN RHODES Admitting Unavailable TIN RHODES Primary Care Unavailable PROVIDER, UNKNOWN Consulting Unavailable PROVIDER, UNKNOWN Consulting Unavailable DAVID CESAR CNP Consulting Unavailable HAI, TIP Mcgovern Attending Unavailable HAI, TIP E Admitting Unavailable HAI, TIP E Primary Care Unavailable PROVIDER, UNKNOWN Consulting Unavailable PROVIDER, UNKNOWN Consulting Unavailable DAVID CESAR CNP Referring Unavailable HAI, TIP E Attending Unavailable HAI, TIP E Admitting Unavailable HAI, TIP E Primary Care Unavailable DAVID CESAR CNP Consulting Unavailable PROVIDER, UNKNOWN Consulting Unavailable PROVIDER, UNKNOWN Consulting Unavailable Allergies Allergy Classification Reported Allergen(s) Allergy Type Date of Onset Reaction(s) Facility (14 sources) erythromycin; Translations: [ERYTHROMYCIN] Drug Allergy 7 Other: See Comments, Vomiting [facility] Repository (13 sources) penicillin; Translations: [PENICILLIN] Drug Allergy 7 GI Upset, Vomiting [facility] Repository (1 source) erythromycin; Translations: [ERYTHROCIN] Drug Allergy [facility] Repository (9 sources) Penicillins; Translations: [PENICILLINS] Propensity to adverse reactions (disorder) 2 Nausea [facility] Repository (7 sources) Erythromycin Drug Allergy 2 Nausea [facility] (1 source) Erythromycin Drug Allergy 5 [facility] Repository (1 source) Penicillin Drug Allergy [facility] Repository Medications Current Medications Medication Drug Class(es) Dates Sig (Normalized) Sig (Original) acetaminophen 325 mg / oxyCODONE hydrochloride 5 mg oral tablet (2 sources) Opioid Agonist Start: 04-11-2025 take 1 tablet by mouth every eight hours as needed for pain Oxycodone-Acetaminop hen (Percocet) 5-325 mg tablet Active 1 {tbl} PO Q8H as needed for pain 10 3 0 April 11, 2025 Low back pain Low back pain, unspecified baclofen 10 mg oral tablet (13 sources) gamma-Aminobutyr ic Acid-ergic Agonist Start: 01-31-2022 End: 02-25-2022 take 1 tablet by mouth three times daily as needed for muscle spasms and pain baclofen (LIORESAL) 10 mg tablet Indications: History of herniated intervertebral disc , Muscle strain Take 1 tablet by mouth three times daily as needed (muscle spasms). and back pain. may make drowsy 30 tablet 2 02/25/2022 Active Comment on above: Take 1 tablet by hay th three times daily as needed (muscle spasms). Take 1 tablet by hay th three times daily as needed (muscle spasms). and back pain. may make drowsy escitalopram 10 mg oral tablet (9 sources) Serotonin Reuptake Inhibitor Start: 02-25-2022 End: 02-25-2022 take 1 tablet by mouth once daily for anxiety escitalopram oxalate (LEXAPRO) 10 mg tablet Indications: KATHRIN (generalized anxiety disorder) , Anxiety attack Take 1 tablet by mouth once daily. for anxiety 30 tablet 11 02/25/2022 Active Comment on above: Take 1 tablet by hay th once daily. for anxiety ferrous sulfate 325 mg oral tablet (11 sources) Start: 12-18-2016 take 1 tablet by mouth twice daily ferrous sulfate (IRON) 325 mg (65 mg iron) tablet Indications: Chronic midline low back pain without sciatica , Spinal stenosis, lumbar region, without neurogenic claudication , KATHRIN (generalized anxiety disorder) , Recurrent major depression in partial remission , Malaise and fatigue , Iron deficiency Take 1 tablet by mouth twice daily. 60 tablet 1 12/18/2016 Active Comment on above: Take 1 tablet by hay twice daily. FLUoxetine 20 mg oral capsule (6 sources) Serotonin Reuptake Inhibitor Start: 04-04-2025 take 1 capsule by mouth once daily Fluoxetine (Prozac) 20 mg capsule Active 20 mg PO daily 30 0 April 04, 2025 12:00am gabapentin 300 mg oral capsule (10 sources) Anti-epileptic Agent Start: 04-08-2025 End: 04-11-2025 take 1 capsule by mouth at bedtime Gabapentin 300 mg capsule Active 300 mg PO AT BEDTIME April 11, 2025 12:00am On Hold: Order Completed Start: 12-03-2017 End: 03-14-2022 take 1 tablet by mouth three times daily gabapentin (NEURONTIN) 600 mg tablet Indications: Radiculopathy, lumbar region Take 1 tablet by mouth three times daily for 30 days. 90 tablet 0 12/03/2017 03/14/2022 Discontinued Comment on above: Take 1 tablet by hay th three times daily for 30 days. hydrOXYzine pamoate 25 mg oral capsule (13 sources) Antihistamine Start: 02-01-20 End: 02-26-20 take 1 capsule by mouth three times daily as needed for anxiety hydrOXYzine pamoate (VISTARIL) 25 mg capsule Indications: Anxiety attack Take 1 capsule by mouth three times daily as needed for anxiety. 30 capsule 2 02/25/2022 Active Comment on above: Take 1 capsule by [facility] three times daily as needed. Take 1 capsule by [facility] three times daily as needed for anxiety. meloxicam 15 mg oral tablet (5 sources) Nonsteroidal Anti-inflammatory Drug Start: 02-26-20 End: 03-27-20 take 1 tablet by mouth once daily for pain meloxicam (MOBIC) 15 mg tablet Indications: History of herniated intervertebral disc Take 1 tablet by mouth once daily. for pain. Take with food. for back pain 30 tablet 2 02/25/2022 03/27/2022 Active Comment on above: Take 1 tablet by [facility] once daily. for pain. Take with food. for back pain oxyCODONE hydrochloride 5 mg oral capsule (1 source) Opioid Agonist Start: 04-26-20 take 1 capsule by mouth every six hours as needed for pain Oxycodone 5 mg capsule Active 5 mg PO EVERY 6 HOURS as needed for pain 10 3 0 April 26, 2025 Lumbar radiculopathy Back pain Radiculopathy, lumbar region Dorsalgia, unspecified Start: 04-26-2025 take 1 capsule by [facility] every six hours as needed for pain Oxycodone 5 mg capsule Active 5 mg PO EVERY 6 HOURS as needed for pain 10 3 0 April 26, 2025 Lumbar radiculopathy Back pain Radiculopathy, lumbar region Dorsalgia, unspecified predniSONE 20 mg oral tablet (2 sources) Start: 04-11-2025 take 3 tablets by mouth once daily Prednisone 20 mg tablet Active 60 mg PO DAILY April 11, 2025 12:00am Completed/Discontinued Medications Medication Drug Class(es) Dates Sig (Normalized) Sig (Original) acetaminophen 325 mg / HYDROcodone bitartrate 5 mg oral tablet (8 sources) Opioid Agonist Start: 02-21-2022 End: 07-30-2023 Hydrocodone-Acetamin ophen 5-325 mg tablet Discontinued 1 {tbl} PO EVERY 6 HOURS as needed for pain 10 3 0 February 21, 2022 July 30, 2023 12:25pm Cervical radiculopathy Radiculopathy, cervical region Start: 02-21-2022 take 1 tablet by hay th every six hours Hydrocodone-Acetaminophen Active 1 TABLE T PO EVERY 6 HOURS 10 3 February 21, 2022 10:31am Comment on above: Take 1 tablet by hay th every 6 hours as needed. 24 hr amphetamine aspartate 5 mg / amphetamine sulfate 5 mg / dextroamphetamine saccharate 5 mg / dextroamphetamine sulfate 5 mg extended release oral capsule (6 sources) Central Nervous System Stimulant Start: End: take 2 capsules by mouth once daily Dextroamphetamine-Amp hetamine 20 mg capsule,extended release 24hr Discontinued 40 mg PO DAILY 0 September 12, 2023 1:00am April 11, 2025 6:30pm benzonatate 200 mg oral capsule (6 sources) Non-narcotic Antitussive Start: End: take 1 capsule by mouth three times daily as needed for cough Benzonatate 200 mg capsule Discontinued 200 mg PO THREE TIMES A DAY as needed for cough 20 0 July 30, 2023 12:00am September 12, 2023 1:03pm cyclobenzaprine hydrochloride 10 mg oral tablet (13 sources) Muscle Relaxant Start: End: take 1 tablet by mouth three times daily as needed for muscle spasms Cyclobenzaprine 10 mg tablet Discontinued 10 mg PO THREE TIMES A DAY as needed for muscle spasm 20 5 0 September 12, 2023 1:00am September 16, 2023 1:00am September 17, 2023 1:04am Start: 02-21-2022 End: 07-30-2023 take 1 tablet by mouth twice daily as needed for muscle spasms Cyclobenzaprine 10 mg tablet Discontinued 10 mg PO TWICE A DAY as needed for muscle spasm 10 0 February 21, 2022 12:00am July 30, 2023 12:25pm docusate sodium 50 mg / sennosides, mcc 8.6 mg oral tablet (7 sources) Start: 02-06-2017 End: 03-14-2022 SENEXON-S 8.6-50 mg per tablet ibuprofen 800 mg oral tablet (8 sources) Nonsteroidal Anti-inflammatory Drug Start: 10-23-2017 End: 02-25-2022 take 1 tablet by mouth twice daily as needed ibuprofen (MOTRIN) 800 mg tablet Indications: DDD (degenerative disc disease), lumbar Take 1 tablet by mouth twice daily as needed. 90 tablet 0 10/23/2017 02/25/2022 Discontinued Start: 12-02-2016 End: 02-25-2022 ibuprofen (MOTRIN) 800 mg ta blet Indications: Chronic midline low back pain without sciatica , Spinal stenosis, lumbar region, without neurogenic claudication , KATHRIN (generalized anxiety disorder) , Recurrent major depression in partial remission (HCC) , Malaise and fatigue , Iron deficiency TK 1 T PO 6-8 HOURS PRN 0 12/02/2016 02/25/2022 Discontinued Comment on above: TK 1 T PO 6-8 HOURS PRN Take 1 tablet by hay th twice daily as needed. methocarbamol 750 mg oral tablet (4 sources) Muscle Relaxant Start : 12-03 End: 02-25 take 1 tablet by mouth three times daily methocarbamol (ROBAXIN) 750 mg tablet Take 1 tablet by mouth three times daily. 90 tablet 0 12/03/2017 02/25/2022 Discontinued Comment on above: Take 1 tablet by hay th three times daily. methylPREDNISolone 4 mg oral tablet (12 sources) Corticosteroid Start : 07-30 End: 09-18 take 1 tablet by mouth once Methylprednisolone (Medrol (Ge)) 4 mg tablets,dose pack Discontinued 4 mg PO per package directions September 12, 2023 1:00am September 17, 2023 1:00am September 18, 2023 1:05am naproxen 500 mg oral tablet (8 sources) Nonsteroidal Anti-inflammatory Drug Start : 02-21 End: 07-30 take 1 tablet by mouth twice daily as needed for pain Naproxen (Naprosyn) 500 mg tablet Discontinued 500 mg PO TWICE A DAY as needed for pain February 21, 2022 12:00am July 30, 2023 12:25pm Comment on above: Take 500 mg by mouth twice daily as needed. ondansetron 8 mg disintegrating oral tablet (6 sources) Serotonin-3 Receptor Antagonist Start : 06-04 End: 06-07 take 1 tablet by mouth every eight hours as needed for nausea and vomiting Ondansetron 8 mg tablet,disintegrating Discontinued 8 mg PO Q8H as needed for nausea and vomiting 14 3 0 June 04, 2023 12:00am June 06, 2023 12:00am June 07, 2023 12:10am 12 hr orphenadrine citrate 100 mg extended release oral tablet (6 sources) Muscle Relaxant Start : 04-04 End: 04-11 take 1 tablet by mouth once daily as needed for pain Orphenadrine Citrate 100 mg tablet extended release Discontinued 100 mg PO DAILY as needed for pain 14 0 April 04, 2025 12:00am April 11, 2025 3:51pm sertraline 50 mg oral tablet (4 sources) Serotonin Reuptake Inhibitor Start : 03-07 End: 02-25 take 1 tablet by mouth once daily sertraline (ZOLOFT) 50 mg tablet Indications: Chronic midline low back pain without sciatica Take 1 tablet by mouth once daily. 30 tablet 1 03/07/2017 02/25/2022 Discontinued Comment on above: Take 1 tablet by hay once daily. sulfamethoxazole 800 mg / trimethoprim 160 mg oral tablet (7 sources) Dihydrofolate Reductase Inhibitor Antibacterial, Sulfonamide Antimicrobial Start : 02-04 End: 03-14 sulfamethoxazole-trimet hoprim (BACTRIM DS,SEPTRA DS) 800-160 mg per tablet traMADol hydrochloride 50 mg oral tablet (5 sources) Opioid Agonist Start : 03-14 End: 03-21 take 1 tablet by mouth twice daily as needed for pain traMADol (ULTRAM) 50 mg tablet Indications: History of herniated intervertebral disc Take 1 tablet by mouth twice daily as needed for pain for up to 7 days. 14 tablet 0 03/14/2022 03/21/2022 Start: 02-25-2022 End: 03-04-2022 take 1 tablet by mouth twice daily as needed for pain traMADol (ULTRAM) 50 mg tablet Indications: History of herniated intervertebral disc Take 1 tablet by mouth twice daily as needed for pain for up to 7 days. 14 tablet 0 02/25/2022 03/04/2022 Active Comment on above: Take 1 tablet by hay twice daily as needed for pain for up to 7 days. Problems Active Problems Problem Classification Problem Date Documented Date Episodic/Chronic Administrative/social admission (1 source) Unspecified housing or economic circumstance; Translations: [Housing instability] Episodic Anxiety disorders (20 sources) Anxiety attack ; Translations: [Panic disorder [episodic paroxysmal anxiety]] Onset: 12-18-2016 Chronic Headache; including migraine (7 sources) Headache; Translations: [Headache] 03-01-2022 Episodic Immunizations and screening for infectious disease (6 sources) Contact with or exposure to other viral diseases 07-30-2023 Episodic Mood disorders (11 sources) Recurrent major depression in partial remission; Translations: [Major depressive disorder, recurrent, in partial remission] Onset: 12-18-2016 12-18-2016 Chronic Noninfectious gastroenteritis (6 sources) Gastroenteritis; Translations: [Noninfective gastroenteritis and colitis, unspecified] 06-04-2023 Episodic Other connective tissue disease (7 sources) Spasm of cervical paraspinous muscle; Translations: [Other muscle spasm] 03-01-2022 Episodic Other connective tissue disease (6 sources) Tendonitis of right shoulder; Translations: [Other enthesopathies, not elsewhere classified] 09-12-2023 Episodic Other connective tissue disease (10 sources) Plantar fasciitis of right foot; Translations: [Plantar fascial fibromatosis] 04-04-2025 Episodic Other connective tissue disease (1 source) H/O: osteoarthritis; Translations: [Personal history of other diseases of the musculoskeletal system and connective tissue] 04-26-2025 Episodic Other connective tissue disease (1 source) Plantar fascial fibromatosis; Translations: [Plantar fascial fibromatosis] Onset: 04-08-2025 Episodic Other injuries and conditions due to external causes (2 sources) Muscle strain; Translations: [Other injury of unspecified body region, initial encounter] Episodic Other screening for suspected conditions (not mental disorders or infectious disease) (4 sources) Patient encounter status; Translations: [Encounter for screening mammogram for malignant neoplasm of breast] Episodic Other upper respiratory infections (6 sources) Upper respiratory infection; Translations: [Acute upper respiratory infection, unspecified] 07-30-2023 Episodic Residual codes; unclassified (1 source) Pain, unspecified; Translations: [Pain, unspecified] Onset: 04-04-2025 Episodic Spondylosis; intervertebral disc disorders; other back problems (20 sources) Other intervertebral disc degeneration, lumbar region; Translations: [Degeneration of lumbar intervertebral disc] Onset: 02-24-2017 02-24-2017 Chronic Unclassified (2 sources) Unknown / UNK(Unknown) Onset: 08-07-2017 Unclassified (6 sources) M54.50 - Low back pain, unspecified Unclassified (7 sources) Plantar fasciitis of right foot; Translations: [M72.2 - Plantar fascial fibromatosis] Unclassified (1 source) Low back pain, unspecified; Translations: [Low back pain, unspecified] Onset: 05-03-2025 Past or Other Problems Problem Classification Problem Date Documented Date Episodic/Chronic Malaise and fatigue (11 sources) Malaise and fatigue; Translations: [Other malaise] Onset: 12-18-2016 12-18-2016 Episodic Nutritional deficiencies (11 sources) Iron deficiency; Translations: [Iron deficiency] Onset: 12-18-2016 12-18-2016 Episodic Other connective tissue disease (10 sources) H/O: musculoskeletal disease; Translations: [Personal history of other diseases of the musculoskeletal system and connective tissue] Onset: 02-25-2022 Episodic Other hematologic conditions (9 sources) History of immune thrombocytopenia; Translations: [Personal history of diseases of the blood and blood-forming organs and certain disorders involving the immune mechanism] Onset: 10-27-2002 Episodic Spondylosis; intervertebral disc disorders; other back problems (20 sources) Low back pain; Translations: [Chronic low back pain] Onset: 12-18-2016 Resolved: 03-07-2017 12-18-2016 Episodic Results Test Name Value Interpretation Reference Range Facility ED MED ADMINISTRATION DETAIL on 05-23-2025 ED MED ADMINISTRATION DETAIL [facility] Medication Administration Record [address] [address] [id number] 05/09/2025 Patient: JOSEP STANLEY Sex: Female : 1970 Age: 54y MEASUREMENTS: Wt: 74.8 kg, Ht/Howie: 66.0 in, BMI: 26.63 ALLERGIES: Penicillins, erythromycin base Medication Ordered Medication Administration Date/Time KetorOLAC 17:37 05/09 KetorOLAC (Toradol) IVP 15 mg given via Site# 1. Given (Toradol) IVP 15 mg Allergies verified and confirmed 5 rights. IV patency established. IV 17:37 05/09/2025 (NOW x1) site checked: no pain, redness, or swelling. IV flushed thoroughly Valdez Culp pre-medication administration. IVP given by physician. Information R.N. reviewed with patient. Medication Wastage: 15 mg wasted. - 17:38 Scanned Valdez Culp R.N. Zofran IVP 4 mg 17:38 05/09 Zofran IVP 4 mg given via Site# 1. IV patency Given (NOW x1) established. IV site checked: no pain, redness, or swelling. IV 17:38 05/09/2025 flushed thoroughly pre-medication administration. IVP given by Valdez Culp nurse. Information reviewed with patient. Verbalizes R.N. understanding. - 17:38 Valdez Culp R.N. Scanned HYDROmorphone 17:44 05/09 HYDROmorphone (Dilaudid) IVP 0.5 mg given via Given (Dilaudid) IVP 0.5 Site# 1. Confirmed 5 rights. IV patency established. IV site checked: 17:44 05/09/2025 mg (NOW x1, HIGH no pain, redness, or swelling. IV flushed thoroughly pre-medication Valdez Culp, ALERT administration. IVP given by nurse. Information reviewed with R.NHeike MEDICATION) patient. Verbalizes understanding. Medication Wastage: 0.5 mg Scanned wasted. - 17:45 Valdez Culp R.N. 1 of 2 [facility] Medication Ordered Medication Administration Date/Time DIAZepam IVP 1 mg 17:38 05/09 DIAZepam IVP 1 mg given via Site# 1. Allergies Given (NOW x1) verified and confirmed 5 rights. IV patency established. IV site 17:38 05/09/2025 checked: no pain, redness, or swelling. IV flushed thoroughly Valdez Culp pre-medication administration. IVP given by nurse. Information R.N. reviewed with patient. Verbalizes understanding. Medication Scanned Wastage: 9 mg wasted. - 17:39 Valdez Culp, R.N. HYDROmorphone 18:36 07/14 HYDROmorphone (Dilaudid) IVP 1 mg given via Site# Given (Dilaudid) IVP 1 mg 1. Allergies verified and confirmed 5 rights. IV patency established. 18:36 05/09/2025 (NOW x1, HIGH IV site checked: no pain, redness, or swelling. IV flushed thoroughly Valdez Culp, ALERT pre-medication administration. IVP given by nurse. Information R.N. MEDICATION) reviewed with patient. Verbalizes understanding. - 18:37 Valdez Culp, R.N. DIAZepam IVP 1 mg 18:36 05/09 DIAZepam IVP 1 mg given via Site# 1. Allergies Given (NOW x1) verified and confirmed 5 rights. IV patency established. IV site 18:36 05/09/2025 checked: no pain, redness, or swelling. IV flushed thoroughly Valdez Culp, pre-medication administration. IVP given by nurse. Information R.N. reviewed with patient. Verbalizes understanding. Medication Scanned Wastage: 9 mg wasted. - 18:36 Valdez Culp, R.N. 2 of 2 Normal [facility] ED NURSES CLINICAL NOTEon ED NURSES CLINICAL NOTE Nurse Narrative Nurse Clinical Narrative [address] [address] [id number] 05/09/2025 16:32:00 Patient: JOSEP STANLEY Sex: Female : 1970 Age: 54y Disposition: Discharge to Home Disposition Decision Time: 19:22 05/09/2025 Departure Time: 19:58 05/09/2025 TRIAGE Arrived by private vehicle. Historian: (patient). Primary physician (None). Triage time: 16:52 05/09/2025. Acuity: LEVEL 3. Chief Complaint: BACK PAIN. This started today. ( Pt reports she got several trigger injections; pt reports was being seen with Violet Cesar and reports mother has had to travel to [facility] d/t her Mother and missed 3 appointments and was dismissed, offers has been attempting to do Physical Therapy and pain management). The patient has had trouble walking. No history of recent trauma. SEPSIS SCREEN: NEGATIVE. SIRS criteria negative: heart rate greater than 90. No possible sources of infection. -- 17:02 05/09/25 ROMARIO Panchal R.N. 16:56 05/09/25. BP: 139/96 MAP: 110. HR: 96. RR: 18. O2 saturation: 100% Temperature: 98.8 F. -- 16:57 05/09/25 ROMARIO Panchal R.N. 16:59 05/09/25. Pain level now 08/05. -- 16:59 05/09/25 ROMARIO Panchal R.N. Measurements: 17:00 05/09/25 Wt: 74.8 kg, Ht/Howie: 66.0 in, BMI: 26.63 -- 17:00 05/09/25 ROMARIO Panchal R.N. Medications: 1 of 4 Nurse Narrative tramadol 50 mg tablet: 1 tablet every four to six hours while awake as needed for pain. -- 17:05 05/09/25 ROMARIO Panchal R.N. orphenadrine citrate ER 100 mg tablet,extended release: 100 mg once a day.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 [facility],[address] [place], [place] [id number] Creatinine [Mass/Vol] 1.23 mg/dL High 0.55 - 1.02 [facility] Comment on above: Performed By: #### 2 21140 #### [facility],[address] [place] [address] eGFR 46 ML/MINUTE Low 60 - 999 [facility] Comment on above: Performed By: #### 2 00426 #### [facility],[address],[place] [address] eGFR(AA) 55 ML/MINUTE Low 60 - 999 [facility] Comment on above: Result Comment: ACCO RDING TO THE NATIONAL KIDNEY DISEASE EDUCATION PROGRAM(NKDE), A NORMAL eGFR IS A VALUE GREATER THAN OR EQUAL TO 60 ML/MIN/1.73 SQ METERS. CHRONIC KIDNEY DISEASE: <60mL/MIN/1.73 SQ METERS KIDNEY FAILURE: <15mL/MIN/1.73 SQ METERS THIS TEST SHOULD ONLY BE USED FOR PATIENTS 18 YEARS OF AGE AND OLDER. Performed By: #### 2 21274 #### [facility],[address] [place] [address] 35613 Globulin (S) [Mass/Vol] 3.8 g/dL Normal 1.5 - 3.8 [facility] Comment on above: Performed By: #### 2 15771 #### [facility],[address] [place] [address] 66555 Glucose [Mass/Vol] 114 mg/dL High 74 - 106 [facility] Comment on above: Performed By: #### 2 54997 #### [facility],[address] [place] [address] 10535 Potassium [Moles/Vol] 3.8 mmol/L Normal 3.5 - 5.1 [facility] Comment on above: Performed By: #### 2 46107 #### [facility],[address] [place] [address] 20686 Protein [Mass/Vol] 7.6 g/dL Normal 6.4 - 8.2 [facility] Comment on above: Performed By: #### 2 52162 #### [facility],[address] [place] [address] 62911 Sodium [Moles/Vol] 142 mmol/L Normal 136 - 145 [facility] Comment on above: Performed By: #### 2 16199 #### [facility],[address] [place] [address] 70160 Urea nitrogen [Mass/Vol] 12 mg/dL Normal 7 - 18 [facility] Comment on above: Performed By: #### 2 61072 #### [facility],[address] [facility] [address] ED MED ADMINISTRATION DETAIL on 04-08-2025 ED MED ADMINISTRATION DETAIL [facility] Maker Medication Administration Record [address] [place] [address] [id number] 04/08/2025 Patient: JOSEP STANLEY Sex: Female : 1970 Age: 54y MEASUREMENTS: Wt: 74.8 kg, Ht/Howie: 66.0 in, BMI: 26.63 ALLERGIES: Penicillins, erythromycin base Medication Ordered Medication Administration Date/Time LORazepam 12:41 04/08 LORazepam (Ativan) IVP 1 mg given via Site# 1. Given (Ativan) IVP 1 mg Allergies verified and confirmed 5 rights. IV patency established. IV 12:41 04/08/2025 (NOW x1) site checked: no pain, redness, or swelling. IV flushed thoroughly Mariah Fournier R.N. pre-medication administration. IVP given by nurse. Information Scanned reviewed with patient. Verbalizes understanding. Medication Wastage: 1 mg wasted. - 12:41 Mariah Fournier R.N. 14:31 04/08 Medication Response: Symptoms have improved. The patient feels better. - 14:56 Mariah Fournier R.N. IV NS 0.9 % 1000 13:22 04/08 IV NS 0.9 % 1000 mL started in bag#1 1000 mL at Started mL at 999 mL/hr 999 mL/hr via Site# 1. Allergies verified and confirmed 5 rights. IV 13:22 04/08/2025 (NOW x1) patency established. IV site checked: no pain, redness, or swelling. Mariah Fournier R.N. IV flushed thoroughly pre-medication administration. Information Stopped reviewed with patient. Verbalizes understanding. - 13:22 Mariah 14:51 04/08/2025 Joya Fournier R.N. Scanned 14:04/08 Medication Discontinued: bag #1 infused upon discharge. Total amount infused: 1000 mL. - 14:56 Mariah Fournier R.N. 1 of 1 Normal [facility] ED NURSES CLINICAL NOTEon ED NURSES CLINICAL NOTE Nurse Narrative Nurse Clinical Narrative [facility] [address] [place] [address] [phone] 04/08/2025 12:23:00 Patient: JOSEP STANLEY Sex: Female : 1970 Age: 54y Disposition: Discharge to Home Disposition Decision Time: 14:44 04/08/2025 Departure Time: 14:57 04/08/2025 TRIAGE Arrived by private vehicle. Historian: (patient). Triage time: 12:25 04/08/2025. Acuity: LEVEL 3. Chief Complaint: ANXIETY and (Shaky, anxious). Onset: today. The patient has had anxiety. SEPSIS SCREEN: NEGATIVE. SIRS criteria negative: heart rate greater than 90. No possible sources of infection. -- 12:04/08/25 EDT Cami Culp R.N. 12:04/08/25. BP: 168/92 MAP: 117. HR: 120. RR: 20. O2 saturation: 98% Temperature: 99.2 F. Pain level now 0/10. -- 12:04/08/25 EDT Cami Culp R.N. Measurements: 12:04/08/25 Wt: 74.8 kg, Ht/Howie: 66.0 in, BMI: 26.63 -- 12:04/08/25 ROSSANAT Cami Culp R.N. Medications: AdderalL 20 mg tablet: 20 mg twice a day . -- 12:04/08/25 EDT Cami Culp R.N. PROzac 20 mg capsule: 20 mg once a day . -- 12:04/08/25 EDT Cami Culp R.N. orphenadrine citrate ER 100 mg tablet,extended release: 100 mg once a day as needed for muscle spasm. (Pain) -- 12:04/08/25 EDT Cami Culp R.N. 1 of 4 Nurse Narrative 12:04/08/25. Preferred Pharmacy: [facility] -- 12:04/08/25 ROSSANAT Cami Culp R.N. Allergies: Penicillins -- 12:04/08/25 ROSSANAT Cami Culp R.N. erythromycin base -- 12:04/08/25 ROMARIO Culp R.N. Problems: ITP -- 12:04/08/25 ROMARIO Culp R.N. Fibromyalgia -- 12:04/08/25 ROMARIO Culp R.N. Endometriosis -- 12:04/08/25 ROMARIO Culp R.N. Anxiety disorder -- 12:04/08/25 ROMARIO Culp R.N. Surgeries: Laproscopy. (Endometriosis) -- 12:04/08/25 ROMARIO Culp R.N. . (x2) -- 12:04/08/25 ROMARIO Culp R.N. History 12:04/08/25. PAST MEDICAL HX: LNMP: No menstrual periods. The patient is post-menopausal. Denies current . SOCIAL HX: Never smoker. No alcohol use or drug use. The patient has not traveled outside the [place] Infectious disease exposure: No infectious disease exposure. ABUSE ASSESSMENT: The patient answered yes to the question(s) Do you feel safe in your home? and no to the question(s) Are you afraid to go home?. SELF HARM ASSESSMENT: Self harm assessment was performed. The patient answered no to the question(s) Have you recently felt down, depressed, or hopeless? and Do you have thoughts of harming or killing yourself?. FALL RISK ASSESSMENT: Fall risk assessment completed. No risk factors identified. -- 12:04/08/25 ROMARIO Culp R.N. 2 of 4 Nurse Narrative Interventions 12:04/08/25. Advanced care plan discussed with patient. Patient does not have advanced directive. -- 12:04/08/25 ROMARIO Culp R.N. PHYSICAL ASSESSMENT 12:55 04/08/25. GENERAL / NEURO / PSYCH: Alert. Oriented X 4. Appears anxious. Speech within normal limits. Patient's mood/affect appears tearful. Good eye contact. Patient appears well-nourished. RESPIRATORY: Respirations not labored. Breath sounds within normal limits. CVS: Cardiac rhythm: sinus tachycardia. Capillary refill less than 2 seconds. SKIN: Skin intact. Skin is warm and dry. Skin color is within normal limits. -- 12:55 04/08/25 EDT Mariah Fournier R.N. NURSING PROGRESS NOTES 12:41 04/08/25. LORazepam (Ativan) IVP 1 mg given via Site# 1. Allergies verified and confirmed 5 rights. IV patency established. IV site checked: no pain, redness, or swelling. IV flushed thoroughly pre-medication administration. IVP given by nurse. Information reviewed with patient. Verbalizes understanding. Medication Wastage: 1 mg wasted. -- 12:41 04/08/25 EDT Mariah Fournier R.N. 12:53 04/08/25. 12-LEAD EKG: EKG time: (12:49 04/08/2025). 12-Lead EKG was performed by me and shown to the ED physician (12:51 04/08/2025). -- 12:53 04/08/25 EDT Mariah Fournier R.N. 13:22 04/08/25. Rounding: Position: states comfortable. Proximity of possessions / care items: call light within easy reach. Set expectations: asked if they needed anything else at this time. -- 13:32 04/08/25 EDT Mariah Fournier R.N. 13:22 04/08/25. IV NS 0.9 % 1000 mL started in bag#1 1000 mL at 999 mL/hr via Site# 1. Allergies verified and confirmed 5 rights. IV patency established. IV site checked: no pain, redness, or swelling. IV flushed thoroughly pre-medication administration. Information reviewed with patient. Verbalizes understanding. -- 13:04/08/25 EDT Mariah Fournier R.N. 14:31 04/08/25. LORazepam (Ativan) IVP: Medication Response. Symptoms have improved. The patient feels better. -- 14:56 04/08/25 EDT Mariah Fournier R.N. 14:51 04/08/25. IV NS 0.9 %: Medic (more content not included)... Normal [facility] ED ORDER SHEET (CPOE ONLY)on 04-08-2025 ED ORDER SHEET (CPOE ONLY) Order Sheet Order Sheet [place] [address] [place] [address] [id number] 04/08/2025 Patient: JOSEP STANLEY Sex: Female : 1970 Age: 54y MEASUREMENTS: Wt: 74.8 kg, Ht/Howie: 66.0 in, BMI: 26.63 ALLERGIES: Penicillins, erythromycin base MEDICATION/IV/DRIP/FLUID ORDERS Order Description Priority Entered Acknowledged Completed LORazepam (Ativan) IVP1 mg 12:28 04/08/2025 12:41 (NOW x1) Valdez Gtz, 04/08/2025 Sofie Fournier R.N. Reason for ordering with alerts: Benefits outweigh risks --12:28 04/08/2025 Valdez Gtz D.O. IV NS 0.9 %1000 mL at 999 13:18 04/08/2025 13:22 mL/hr (NOW x1) Valdez Gtz, 04/08/2025 Sofie Fournier R.N. LAB ORDERS Order Description Priority Entered Acknowledged Collected Completed CBC w Diff Stat Stat 12:28 04/08/2025 12:44 04/08/2025 13:16 04/08/2025 Mariah Tejeda Lemasters, D.O. R.N. R.NHeike 1 of 3 Order Sheet CMP Stat Stat 12:28 04/08/2025 12:44 04/08/2025 13:16 04/08/2025 Mariah Tejeda Lemasters, D.O. R.N. R.N. Troponin-I Stat Stat 12:28 04/08/2025 12:44 04/08/2025 13:16 04/08/2025 Mariah Tejeda Lemasters, D.O. R.N. RHeikeN. EKG - ED Stat Stat 12:28 04/08/2025 12:52 04/08/2025 13:16 04/08/2025 Mariah Tejeda Lemasters, D.O. R.N. RElsie Urinalysis Stat Stat 12:28 04/08/2025 12:44 04/08/2025 13:16 04/08/2025 Mariah Tejeda Lemasters, D.O. R.N. RElsie Magnesium Stat Stat 12:28 04/08/2025 12:44 04/08/2025 13:16 04/08/2025 Mariah Tejeda Lemasters, D.O. R.N. RElsie DIAGNOSTIC STUDY ORDERS Order Description Priority Entered Acknowledged Completed Chest 1V Stat Stat 12:28 04/08/2025 12:44 13:16 Valdez Gtz, 04/08/2025 04/08/2025 Mariah Scott R.NHeike RElsie Reason for Study: confusion STAFF ORDERS Order Description Priority Entered Acknowledged Collected Completed 2 of 3 Order Sheet [Electronically signed by Valdez Gtz D.O. (04/08/2025 15:19 EDT)] 3 of 3 Normal [facility] ED PHYSICIAN CLINICAL REPORT on 04-08-2025 ED PHYSICIAN CLINICAL REPORT Narrative Physician Clinical Narrative [address] [address] [id number] 04/08/2025 12:23:00 Patient: JOSEP STANLEY Sex: Female : 1970 Age: 54y Disposition: Discharge to Home Disposition Decision Time: 14:44 04/08/2025 Departure Time: 14:57 04/08/2025 Measurements Wt: 74.8 kg, Ht/Howie: 66.0 in, BMI: 26.63 Initial Vital Sign Measured Time BP MAP HR RR O2Sat ETCO2 Temp Pain GCS RTS 12:29 04/08/2025 168/92 117 120 20 98% 99.2 F 0 Time Seen: 12:26 04/08/2025. Arrived- By private vehicle. Historian- patient. HISTORY OF PRESENT ILLNESS Chief Complaint: shaking and palpitations. This started today. (Patient states that she was started on Prozac 1 week ago. Was seen 2 days ago after having similar symptoms while taking Prozac as well as muscle relaxer. Feeling very shaky. Legs feeling very weak. Palpitations. Denies any chest pain or shortness of breath. Patient today took her Prozac with gabapentin. Patient currently has herniated disc for which she is being treated. Denies any headache, vision change, neck pain, nausea, vomiting, abdominal pain, urinary symptoms.). REVIEW OF SYSTEMS CONSTITUTIONAL: No fever or chills. GI: No abdominal pain, nausea or vomiting. 1 of 12 Narrative PAST HISTORY Anxiety disorder Endometriosis Fibromyalgia ITP Surgeries: : (x2) Laproscopy: (Endometriosis) Medications: AdderalL 20 mg tablet: 20 mg twice a day . orphenadrine citrate ER 100 mg tablet,extended release: 100 mg once a day as needed for muscle spasm. (Pain) PROzac 20 mg capsule: 20 mg once a day . Allergies: erythromycin base Penicillins SOCIAL HISTORY No alcohol use. ADDITIONAL NOTES The nursing notes have been reviewed. PHYSICAL EXAM Vital Signs: Have been reviewed. Appearance: Alert. ENT: Pharynx normal. Neck: Normal inspection. Neck supple. CVS: Tachycardia. Heart sounds normal. Pulses normal. Respiratory: No respiratory distress. Breath sounds normal. 2 of 12 Narrative Abdomen: No visible injury. Soft and nontender. Skin: Skin warm and dry. Normal skin color. Extremities: No lower extremity edema. Neuro: No motor deficit. No sensory deficit. LABS, X-RAYS, AND EKG 12-LEAD EKG: EKG time: 12:49 04/08/2025. Normal sinus rhythm. Rate: 90. Normal P waves. Normal QRS complex. Normal ST and T waves. The study has been interpreted contemporaneously by me. Interpretation time: 12:51 04/08/2025. Chest X-ray: No acute disease. The X-rays were independently viewed by me and interpreted by the radiologist. Laboratory Tests: CBC + DIFF Final AUGUSTIN: 04/08/2025 12:35:00 EDT MsgRcvd: 04/08/2025 12:50 EDT Lab Test Result Reference Status Received Comments 04/08/2025 12:50 CBC-COMPLETE CBC + DIFF Final EDT BLOOD COUNT 04/08/2025 12:50 WBC 7.3 x 10/UL 4.5 - 10.8 Final EDT 04/08/2025 12:50 RBC 4.58 x 10/UL 4.10 - 5.30 Final EDT 04/08/2025 12:50 HEMOGLOBIN 14.9 g/dl 12.0 - 16.0 Final EDT 04/08/2025 12:50 HEMATOCRIT 42.9 % 34.0 - 46.0 Final EDT 04/08/2025 12:50 MCV 94 fl 80 - 99 Final EDT 3 Narrative Lab Test Result Reference Status Received Comments 04/08/2025 12:50 MCH 33 pg 27 - 33 Final EDT 04/08/2025 12:50 MCHC 35 X10 3 32 - 36 Final EDT 04/08/2025 12:50 RDW/CV 13.3 % 12.0 - 15.6 Final EDT 04/08/2025 12:50 PLATELET 287 x10/UL 150 - 450 Final EDT 04/08/2025 12:50 AUTOMATED MPV 8.8 fl 6.6 - 10.5 Final EDT DIFFERENTIAL 04/08/2025 12:50 NEUT % 56.6 % 46.0 - 76.0 Final EDT 04/08/2025 12:50 LYMPH % 33.5 % 20.0 - 45.0 Final EDT 04/08/2025 12:50 MONOS % 7.8 % 0.0 - 10.0 Final EDT 04/08/2025 12:50 EO % 1.9 % 0.0 - 7.0 Final EDT 04/08/2025 12:50 BASO % 0.2 % 0.0 - 2.0 Final EDT 04/08/2025 12:50 Lymph # 2.45 x10/UL 0.80 - 2.80 Final EDT 04/08/2025 12:50 Neut # 4.13 x10/UL 1.50 - 7.10 Final EDT 04/08/2025 12:50 P[place]leton # 0.57 x10/UL 0.20 - 1.00 Final EDT 4 12 Narrative Lab Test Result Reference Status Received Comments 04/08/2025 12:50 EO # 0.14 x10/UL 0.00 - 0.50 Final EDT 04/08/2025 12:50 Baso # 0.01 x10/UL 0.00 - 0.10 Final EDT 04/08/2025 12:50 MANUAL DIFF N/A New Order EDT 04/08/2025 12:50 MORPHOLOGY N/A New Order EDT CMP with eGFR Final AUGUSTIN: 04/08/2025 12:35:00 EDT MsgRcvd: 04/08/2025 13:11 EDT Lab Test Result Reference Status Received Comments COMPREHENSIVE 04/08/2025 CMP with eGFR Final METABOLIC 13:11 EDT PANEL 04/08/2025 SODIUM 142 mmol/l 136 - 145 Final 13:11 EDT 04/08/2025 POTASSIUM 3.8 mmol/L 3.5 - 5.1 Final 13:11 EDT 04/08/2025 CHLORIDE 104 mmol/L 98 - 107 Final 13:11 EDT 04/08/2025 CO2 28.9 mmol/L 21.0 - 32.0 Final 13:11 EDT 114 mg/dl 06/ (more content not included)... Normal [facility] ED [facility] BILLon 04-08-2025 ED [facility] [place] [address] [phone] 04/08/2025 Patient: JOSEP STANLEY Sex: Female : 1970 Age: 54y Item Facility Professional Category Description Code Code Quantity Fee Total Drugs Normal Saline 093277 1 $0.00 $0.00 1000cc (573664) Nurse/E/M EMERGENCY 404859 1 $0.00 $0.00 DEPARTMENT VISIT HIGH/URGENT SEVERITY (92814-51) Nurse/IV/IM/Infusions Hydration 783911 1 $0.00 $0.00 additional hour (96120) Nurse/IV/IM/Infusions IVP initial 236926 1 $0.00 $0.00 (66473) Grand Total $0.00 Providers Valdez Gtz D.O. 1 of 2 [facility] Chief Complaint shaking and palpitations. Principal Diagnosis Adverse drug reaction. ICD-10 Codes T88.7xxA: Unspecified adverse effect of drug or medicament, initial encounter 2 of 2 Normal [facility] ED VISIT SUMMARYon ED VISIT SUMMARY Visit Overview Visit Overview [facility] [address] [place] [address] [phone] 04/08/2025 Patient: JOSEP STANLEY Sex: Female : 1970 Age: 54y 04/08/2025 03:19 PM EDT ED Arrival:12:23 04/08/2025 EDT Status:not Recent Travel:no Language:eng Adv Directive:No Isolation Status: Ethnicity:N Fall Risk:no risk Infectious Disease Exposure:no Measurements:5'6 / 167.6 Self-Harm Status:risk Sepsis Screen:negative cm 165.0 lb / 74.8 kg Chief Complaint:ANXIETY and (Shaky, anxious ) ALLERGIES erythromycin base Penicillins HOME MEDICATIONS AdderalL 20 mg tablet: 20 mg twice a day . orphenadrine citrate ER 100 mg tablet,extended release: 100 mg once a day as needed for muscle spasm. (Pain) PROzac 20 mg capsule: 20 mg once a day . 1 3 Visit Overview PAST MEDICAL HISTORY / PROBLEMS Anxiety disorder Endometriosis Fibromyalgia ITP LNMP: No menstrual periods. The patient is post-menopausal PAST SURGICAL HISTORY . (x2) Laproscopy. (Endometriosis) SOCIAL HISTORY Smoking status: No Alcohol use: No Drug use: No ED COURSE MEDICATIONS GIVEN IN EMERGENCY DEPARTMENT 12:41 04/08/25 LORazepam (Ativan) IVP 1 mg 13:22 04/08/25 IV NS 0.9 % 1000 mL 999 mL/hr IV SITE INFORMATION INTAKE OUTPUT REASSESMENT (most recent) 12:55 04/08/25. GENERAL / NEURO / PSYCH: Alert. Oriented X 4. Appears anxious. Speech within normal limits. Patient's mood/affect appears tearful. Good eye contact. Patient appears well-nourished. RESPIRATORY: Respirations not labored. Breath sounds within normal limits. CVS: Cardiac rhythm: sinus tachycardia. Capillary refill less than 2 seconds. SKIN: Skin intact. Skin is warm and dry. Skin color is within normal limits. VITAL SIGNS 2 of 3 Visit Overview First Vitals Last Vitals Temp 12:29 04/08/25 99.2 F Temp 14:52 04/08/25 BP 12:29 04/08/25 168/92 BP 14:52 04/08/25 124/71 HR 12:29 04/08/25 120 HR 14:52 04/08/25 82 RR 12:29 04/08/25 20 RR 14:52 04/08/25 O2 Sat 12:29 04/08/25 98% O2 Sat 14:52 04/08/25 Pain 12:29 04/08/25 0 Pain 14:52 04/08/25 ETCO2 12:29 04/08/25 ETCO2 14:52 04/08/25 GCS 12:29 04/08/25 GCS 14:52 04/08/25 RTS 12:29 04/08/25 RTS 14:52 04/08/25 PROCEDURES NURSING INTERVENTIONS LABS / STUDIES LABS / STUDIES ORDERED CBC w Diff Chest 1V CMP EKG - ED Magnesium Troponin-I Urinalysis CLINICAL IMPRESSION ADVERSE DRUG REACTION 3 of 3 Normal [facility] ED VITALS FLOW SHEETon 04-08 ED VITALS FLOW SHEET Vitals Vital Sign Flow Sheet [address] [place] [address] [phone] 04/08/2025 Patient: JOSEP STANLEY Sex: Female : 1970 Age: 54y Measurements Wt: 74.8 kg, Ht/Howie: 66.0 in, BMI: 26.63 Measured Time BP MAP HR RR O2Sat ETCO2 Temp Pain GCS RTS 14:52 04/08/2025 124/71 79 82 14:49 04/08/2025 73 94% 14:44 04/08/2025 78 95% 14:39 04/08/2025 73 95% 14:37 04/08/2025 120/72 82 82 14:34 04/08/2025 73 95% 14:29 04/08/2025 74 95% 14:24 04/08/2025 77 94% 14:22 04/08/2025 117/73 82 82 14:19 04/08/2025 75 95% 14:14 04/08/2025 79 94% 14:09 04/08/2025 78 94% 14:07 04/08/2025 121/74 83 79 14:04 04/08/2025 91 99% 13:59 04/08/2025 80 95% 1 of 2 Vitals Measured Time BP MAP HR RR O2Sat ETCO2 Temp Pain GCS RTS 13:54 04/08/2025 77 94% 13:52 04/08/2025 120/75 86 76 13:49 04/08/2025 78 94% 13:44 04/08/2025 77 93% 13:39 04/08/2025 75 94% 13:37 04/08/2025 99/53 71 77 13:34 04/08/2025 78 92% 13:29 04/08/2025 77 93% 13:24 04/08/2025 81 93% 13:22 04/08/2025 109/70 78 81 13:19 04/08/2025 93 97% 13:14 04/08/2025 87 95% 13:09 04/08/2025 86 95% 13:07 04/08/2025 109/68 85 85 13:04 04/08/2025 91 94% 12:59 04/08/2025 93 93% 12:29 04/08/2025 168/92 117 120 20 98% 99.2 F 0 2 of 2 Normal [facility] L/S Spine Bending Flex/Uneeda 04-08-2025 L/S Spine Bending Flex/Ext [facility] [address] [place] [address] [id number] L/S Spine Bending Flex/Ext MR#: [id number] Acct: [id number] Name: JOSEP STANLEY Rep #: [id number] : 1970 F 54 From: Luke Sanchez MD PCP: Care Physician,No Primary Status: DEP AMB Study: L/S Spine Bending Flex/Ext Date of Exam: 04/08 Exam# [id number] Ordering Dr: Georgie Ashley EXAM: XR Lumbosacral Spine Flexion/Extension Only, 2 or 3 Views CLINICAL INDICATION: PAIN TECHNIQUE: Lateral flexion/extension views of the lumbar spine and sacrum. COMPARISON: XR Lumbosacral Spine Flexion Extension dated 04/04/2025 FINDINGS: VERTEBRAE: Mild degenerative changes of L2-3. Normal sagittal alignment. No acute fracture or significant dynamic instability. SACRUM/COCCYX: Unremarkable as visualized. No acute fracture. DISC SPACES: See above. SOFT TISSUES: Unremarkable. RAD/L/S Spine Bending Flex/Ext IMPRESSION: No acute fracture or significant dynamic instability. Reading [facility] CC: RED Kelly; No Primary Care Physician Research Associate Molecular Biology: Signed Normal [facility] MAGNESIUMon 04-08-2025 Magnesium [Mass/Vol] 1.9 mg/dL Normal 1.8 - 2.4 [facility] Comment on above: Performed By: #### 2 [id number] ####[facility],[address] [place] [address] Orthopedic Visit Reporton Orthopedic Visit Report [facility] [address] [place] [address] [address] [place] [address] OFFICE VISIT Date of Service: 04/08/25 MR#: [id number] Acct: [id number] Name: JOSEP STANLEY Rep #: [id number] : 1970 Provider: RED Kelly Age/Sex: 54/F Location: [facility].MAISHA Status: Signed with Addenda ADDENDUM by RED Kelly on 05/05/25 at 1513 Assessment and Plan Assessment and Plan (1) Lumbar radiculopathy: Status: Acute Orders: Orders L/S Spine Bending Flex/Ext 04/08/25 RED Kelly M54.50 - Low back pain, unspecified Spine Lumbar (Routine) 04/08/25 RED Kelly M54.16 - Radiculopathy, lumbar region Referrals Podiatry RED Kelly M72.2 - Plantar fascial fibromatosis Medications: New gabapentin 300 mg PO QHS 30 caps 0RF RED Kelly On Hold gabapentin Hold Comment: Order Completed 300 mg PO QHS Juan Diego Pascual Plan Patient has attempted PT and was seen for an evaluation. This increased her pain and PT did not wish to proceed with any more sessions at this time. We will try to proceed with MRI at this time. 05/05/25 1513 Date Georgie Ashley cc: * Signed Intake Vital Signs 04/04/25 12:13 04/08/25 08:24 Height 5 ft 6 in 5 ft 6 in Weight: 167 lb BMI 26.9 Intake Visit Reasons: LUMBAR SPINE Chief Complaint: Lumbar spine pain Accompanied by: Self Is patient in pain?: Yes Pain scale (1-10): 7 Allergies erythromycin base Allergy (Verified 04/08/25 08:30) Nausea Penicillins Allergy (Verified 04/08/25 08:30) Nausea Medications ???Medication ???Instructions ???Recorded ???Confirmed ???Type dextroamphetamine-amphet amine ER 40 mg PO DAILY 09/12/23 04/08/25 H istory 20 mg 24hr capsule,extend release fluoxetine 20 mg capsule (Prozac) 20 mg PO QDAY #30 caps 04/04/25 0 04/08/25 Rx orphenadrine citrate 100 mg 100 mg PO DAILY PRN pain #14 tabs 04/04/25 04/08/25 Rx tablet,extended release gabapentin 300 mg capsule 300 mg PO QHS #30 caps 04/08/25 Rx Have you fallen in the past year?: No PFSH Medical History Anxiety and depression Plantar fasciitis of right foot Low back pain Contact with or exposure to other viral diseases URI (upper respiratory infection) Endometriosis History of ITP Herniated disc Social History Smoking Status: Current every day smoker tobacco type: cigarettes HPI LUMBAR SPINE Details: This documentation accurately reflects the service provided and the decisions made by , RED Kelly 04/08/25 0837. Part of today???s visit was documented by Park Nelson MA, acting as scribe. JOSEP STANLEY is a 54 year old F here today for lumbar spine pain. Patient is having pain in the lower back. The pain is moderate. The pain can be a constant achy, burning, and stabbing pain. The pain has been worsening over the last year. The pain goes down the right leg. Patient states that her cervical spine is pain full as well. This has been going on since 2011. The patient has seen Dr. Blair in the past who a year ago recommended a fusion procedure of her lumbar spine the patient is not certain any details of the surgery. She did not proceed with the surgery at that time. 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 Patient denies any back surgeries. Sitting down for a long period of time makes the pain worse. Walking makes the pain worse in the leg and back. Says that she can only walk about 1 block at most. She then has to sit down to alleviate the pain. The patient gets pain that extends down into her right groin and inner thigh and down the lateral right thigh, and she will also get a sharp pain into her right heel. Patient also reports pain in both the morales and calf. She denies any prior surgeries. The patient was told that both Dr. Blair and a neurologist told her that injections were not recommended for her. She is not able to go to the grocery store for long periods. Staying in one spot for a long period of time increases the pain. The hardest thing is trying to get to sleep. Patient got injections in 2016 in [place]. The injections did help a little bit but only for a brief amount of time. Patient states that she id physical therapy in the past for her back, but it didn't help. Her last physical therapy was in 2016. Patient denies any diabetes, or blood thinners. No heart or lung issues. Hx of 2 c sctions. Patient denies any smoking, or drug use. Patient does have numbness and tingling in the feet and toes on the right side. No cane or walker. She takes Tylenol and Aleve over (more content not included)... Normal [facility] TROPONINon 04-08-2025 HS TROPONIN 4.3 pg/mL Normal 0.0 - 51.4 [facility] Comment on above: Performed By: #### 2 [id number] ####[facility],[address] [place] [address] 39949 URINALYSISon 04-08-2025 Amorphous NONE Normal [facility] Comment on above: Performed By: #### 2 [id number] #### [facility],[address] [place] [address] 49803 Bacteria 1+ Normal [facility] Comment on above: Performed By: #### 2 [id number] #### [facility],[address] [place] [address] 00813 Bilirubin Ql (U) Negative Normal NORMAL: NEGATIVE [facility] Comment on above: Performed By: #### 2 [id number] #### [facility],[address] [place], [place] [id number] Casts NONE Normal [facility] Comment on above: Performed By: #### 2 [id number] #### [facility],[address] [place] [address] 35368 Clarity (U) clear Normal NORMAL: CLEAR [facility] Comment on above: Performed By: #### 2 [id number] #### [facility],[address] [place] [address] 04013 Color (U) mami Normal NORMAL: YELLOW [facility] Comment on above: Performed By: #### 2 [id number] #### [facility],[address] [place] [address] 03327 Crystals LM Nom (Urine sed) NONE Normal [facility] Comment on above: Performed By: #### 2 [id number] #### [facility],[address] [place] [address] 58161 Epi Cells OCC Normal [facility] Comment on above: Performed By: #### 2 [id number] #### [facility],[address] [place] [address] 96884 Glucose Ql (U) NORM Normal NORMAL: NORMAL [facility] Comment on above: Performed By: #### 2 [id number] #### [facility],[address] [place] [address] 87215 Hemoglobin Ql (U) 50 Abnormal NORMAL: NEGATIVE [facility] Comment on above: Performed By: #### 2 [id number] #### [facility],[address] [place] [address] 90461 Ketone 5 Abnormal NORMAL: NEGATIVE [facility] Comment on above: Performed By: #### 2 74578 #### [facility],[address] [place] [address] 67105 Leukocytes 25 Abnormal NORMAL: NEGATIVE [facility] Comment on above: Performed By: #### 2 [id number] #### [facility],[address] [place] [address] 27797 Mucous NONE Normal [facility] Comment on above: Performed By: #### 2 71676 #### [facility],[address] [place] [address] 46531 Nitrite Ql (U) Negative Normal NORMAL: NEGATIVE [facility] Comment on above: Performed By: #### 2 38462 #### [facility],[address] [place] [address] 28837 pH (U) 6.5 [pH] Normal NORMAL: 5.0-8.0 [facility] Comment on above: Performed By: #### 2 48758 #### [facility],[address] [place] [address] 44931 Protein Ql (U) 30 Abnormal NORMAL: NEGATIVE [facility] Comment on above: Performed By: #### 2 46204 #### [facility],[address] [place] [address] 98880 Rbc 0-5 Normal 0-3/hpf [facility] Comment on above: Performed By: #### 2 09503 #### [facility],[address] [place] [address] 66932 Sp [place] 1.015 Normal NORMAL: 1.010-1.030 [facility] Comment on above: Performed By: #### 2 69100 #### [facility],[address] [place] [address] Specimen Type R Normal [facility] Comment on above: Performed By: #### 2 85109 #### [facility],[address] [place] [address] 83023 Urinalysis dipstick W Reflex Microscopic panel (U) SEE BELOW Normal [facility] Comment on above: Result Comment: MICR OSCOPIC Performed By: #### 2 [id number] #### [facility],[address] [place] [address] Urobilinog NORM Normal NORMAL: NORMAL [facility] Comment on above: Performed By: #### 2 37459 #### [facility],[address] [place] [address] Wbc 1-5 Normal 0-5/hpf [facility] Comment on above: Performed By: #### 2 52644 #### [facility],[address] [place], [place] [id number] Yeast NONE Normal [facility] Comment on above: Performed By: #### 2 98005 #### [facility],[address] [place] [address] ED MED ADMINISTRATION DETAIL on 04-05-2025 ED MED ADMINISTRATION DETAIL [facility] Medication Administration Record [address] [place] [address] [id number] 04/04/2025 Patient: JOSEP STANLEY Sex: Female : 1970 Age: 54y MEASUREMENTS: Wt: 72.6 kg, Ht/Howie: 66.0 in, BMI: 25.82 ALLERGIES: Penicillins, erythromycin base Medication Ordered Medication Administration Date/Time LORazepam 00:20 04/05 LORazepam (Ativan) PO 1 mg given. Allergies verified Given (Ativan) PO 1 mg and confirmed 5 rights. Information reviewed with patient including 00:20 04/05/2025 (NOW x1) reason for taking this medication. Verbalizes understanding. - Mayuri Pagan R.N. 00:20 Mayuri Pagan R.N. Not Scanned 1 of 1 Normal [facility] ED NURSES CLINICAL NOTEon ED NURSES CLINICAL NOTE Nurse Narrative Nurse Clinical Narrative [facility] [address] [place] [address] [phone] 04/04/2025 21:51:00 Patient: JOSEP STANLEY Sex: Female : 1970 Age: 54y Disposition: Discharge to Home Disposition Decision Time: 00:30 04/05/2025 Departure Time: 00:43 04/05/2025 TRIAGE Arrived by private vehicle. Historian: (patient). Primary physician (David Cesar). Triage time: 21:56 04/04/2025. Acuity: LEVEL 3. Chief Complaint: NAUSEA (Shakiness, chest tightness, dry mouth). This started today. ( Patient two new medications today, Norflex and Prozac. Patient took medications around 1600. Patient took a shower and went to take a drink out of her water, which she states tasted salty and she spit out her water. Patient has recently been under new stress.). The patient has had weakness. ( Rapid speech). SEPSIS SCREEN: NEGATIVE. SIRS criteria positive: heart rate greater than 90 and respiratory rate greater than 20. No possible sources of infection. -- 22:16 04/04/25 EDT Dimple Suazo R.N. 22:03 04/04/25. HR: 112. Regular and tachycardic. RR: 18. Regular and unlabored. O2 saturation: 100% on room air. -- 22:03 04/04/25 EDT Dimple Suazo R.N. 22:14 04/04/25. BP: 158/101 taken on left arm, while lying. MAP: 120. Temperature: 98.8 F (oral). Pain level now 0/10. -- 22:15 04/04/25 EDT Dimple Suazo R.N. Measurements: 22:15 04/04/25 Wt: 72.6 kg, Ht/Howie: 66.0 in, BMI: 25.82 -- 22:15 04/04/25 ROSSANAT Dimple Suazo R.N. Medications: 1 of 4 Nurse Narrative AdderalL 20 mg tablet: 20 mg twice a day . -- 22:13 04/04/25 EDT Dimple Suazo R.N. PROzac 20 mg capsule: 20 mg once a day . -- 22:13 04/04/25 EDT Dimple Suazo R.N. orphenadrine citrate ER 100 mg tablet,extended release: 100 mg once a day as needed for muscle spasm. (Pain) -- 22:14 04/04/25 EDT Dimple Suazo R.N. Allergies: Penicillins -- 22:04/04/25 EDT Dimple Suazo R.N. erythromycin base -- 22:04/04/25 ROSSANAT Dimple Suazo R.N. Problems: ITP -- 22:04/04/25 ROSSANAT Dimple Suazo R.N. Fibromyalgia -- 22:04/04/25 ROSSANAT Dimple Suazo R.N. Endometriosis -- 22:04/04/25 ROSSANAT Dimple Suazo R.N. Anxiety disorder -- 22:04/04/25 ROSSANAT Dimple Suazo R.N. Surgeries: . (x2) -- 22:04/04/25 ROSSANAT Dimple Suazo R.N. Laproscopy. (Endometriosis) -- 22:04/04/25 ROSSANAT Dimple Suazo R.N. History 21:56 04/04/25. SOCIAL HX: Never smoker. No alcohol use or drug use. The patient has not traveled outside the [place] Infectious disease exposure: No infectious disease exposure. ABUSE ASSESSMENT: The patient answered yes to the question(s) Do you feel safe in your home? and no to the question(s) Are you afraid to go home?. SELF HARM ASSESSMENT: Self harm assessment was performed. The patient answered yes to the question(s) Have you recently felt down, depressed, or hopeless? and no to the question(s) Do you have thoughts of harming or killing yourself?. FALL RISK ASSESSMENT: Fall risk assessment completed. No risk factors identified. -- 22:16 04/04/25 EDT Dimple Suazo R.N. 2 of 4 Nurse Narrative Interventions 21:56 04/04/25. Allergy band on patient. Advanced care plan discussed with patient. Patient does not have advanced directive. -- 22:16 04/04/25 EDT Dimple Suazo R.N. PHYSICAL ASSESSMENT 22:34 04/04/25. GENERAL / NEURO / PSYCH: Alert. Oriented X 4. Appears anxious. HEENT: Pupils equal, round and reactive to light. No facial asymmetry noted. Mucous membranes are pink. RESPIRATORY: Respirations not labored. Chest nontender. Breath sounds within normal limits. CVS: Normal sinus rhythm noted. Capillary refill less than 2 seconds. Pulses within normal limits. GI / : Abdomen soft and nontender and normal bowel sounds. SKIN: Skin intact. Skin is warm and dry. Normal skin turgor. -- 22:34 04/04/25 EDT Mayuri Pagan R.N. NURSING PROGRESS NOTES 22:35 04/04/25. Rounding: Pain: assessed pain level. Position: states comfortable. Set expectations: advised patient of rounding protocol timing and asked if they needed anything else at this time. Two patient identifiers checked. Call light placed in reach. Side rails up x 2. Bed placed in lowest position. Brakes of bed on. -- 22:35 04/04/25 EDT Mayuri Pagan R.N. 00:05 04/05/25. Assisted patient to bathroom; tolerated well. -- 00:05 04/05/25 EDT Dimple Suazo R.N. 00:20 04/05/25. LORazepam (Ativan) PO 1 mg given. Allergies verified and confirmed 5 rights. Information reviewed with patient including reason for taking this medication. Verbalizes understanding. -- 00:20 04/05/25 EDT Mayuri Pagan R.N. 00:40 04/05/25. BP: 146/52 MAP: 98 mmHg. HR: 88 bpm. -- 00:47 04/05/25 EDT Mayuri Pagan R.N. 00:43 04/05/25. HR: 92 bpm. O2 saturation: 99%. -- 00:47 04/05/25 EDT Mayuri Pagan R.N. DISPOSITION / DISCHARGE Departure time: 00:43 04/05 (more content not included)... Normal [facility] ED ORDER SHEET (CPOE ONLY)on 04-05-2025 ED ORDER SHEET (CPOE ONLY) Order Sheet Order Sheet [facility] [address] [place] [address] [id number] 04/04/2025 Patient: JOSEP STANLEY Sex: Female : 1970 Age: 54y MEASUREMENTS: Wt: 72.6 kg, Ht/Howie: 66.0 in, BMI: 25.82 ALLERGIES: Penicillins, erythromycin base MEDICATION/IV/DRIP/FLUID ORDERS Order Description Priority Entered Acknowledged Completed LORazepam (Ativan) IVP1 mg 23:53 04/04/2025 Cancelled: Other (NOW x1) Duncan Mistry D.O. 00:15 EDT Mayuri Pagan R.N. Reason for ordering with alerts: Benefits outweigh risks --23:53 04/04/2025 Duncan Mistry D.O. LORazepam (Ativan) PO1 mg 00:17 04/05/2025 00:19 00:20 (NOW x1) Mayuri Pagan R.N. 04/05/2025 04/05/2025 Verbal Order, Auth by: Joya Hwang R.N. Robert Richter, D.O. Read back and verified Reason for ordering with alerts: Benefits outweigh risks --00:17 04/05/2025 Mayuri Pagan R.N. LAB ORDERS Order Description Priority Entered Acknowledged Collected Completed EKG - ED Stat Stat 22:08 04/04/2025 22:10 04/04/2025 22:16 04/04/2025 Josephine Song R.N. D.OHeike 1 of 2 Order Sheet CMP Stat Stat 22:08 04/04/2025 22:10 04/04/2025 22:33 04/04/2025 Josephine Song R.N. D.OHeike CBC w Diff Stat Stat 22:08 04/04/2025 22:10 04/04/2025 22:33 04/04/2025 Josephine Song R.N. D.O. DIAGNOSTIC STUDY ORDERS Order Description Priority Entered Acknowledged Completed STAFF ORDERS Order Description Priority Entered Acknowledged Collected Completed [Electronically signed by Duncan Mistry D.O. (04/05/2025 01:45 EDT)] 2 of 2 Normal [facility] ED PHYSICIAN CLINICAL REPORT on 04-05-2025 ED PHYSICIAN CLINICAL REPORT Narrative Physician Clinical Narrative [facility] [address] [place] [address] [phone] 04/04/2025 21:51:00 Patient: JOSEP STANLEY Sex: Female : 1970 Age: 54y Disposition: Discharge to Home Disposition Decision Time: 00:30 04/05/2025 Departure Time: 00:43 04/05/2025 Measurements Wt: 72.6 kg, Ht/Howie: 66.0 in, BMI: 25.82 Initial Vital Sign Measured Time BP MAP HR RR O2Sat ETCO2 Temp Pain GCS RTS 22:03 04/04/2025 112 18 100% RA Time Seen: 21:57 04/04/2025. Arrived- By private vehicle. Historian- patient. HISTORY OF PRESENT ILLNESS Chief Complaint: ANXIOUS. (this 54-year-old female presents to ER stating that she was seen at the now clinic this afternoon for some anxiety and muscle spasms. She was given prescription for Prozac and Norflex which she took at 4:00 p.m.. Shortly afterwards she felt very anxious and jittery and slightly confused. She drove here for further evaluation. She states she has chronic low back pain in his seeing Orthopedics for herniated disc this Friday. Patient states she is under a lot of chronic stress at home. Patient denies suicidal or homicidal ideation.). Has been eating. Has not been sleeping. The patient has had anxiety. The symptoms are described as moderate. REVIEW OF SYSTEMS 1 of 8 Narrative CVS: No chest pain or palpitations. GI: No abdominal pain or vomiting. NEUROLOGICAL: No headache, dizziness or weakness. PAST HISTORY See nurses notes. Anxiety disorder Endometriosis Fibromyalgia ITP Surgeries: : (x2) Laproscopy: (Endometriosis) Medications: AdderalL 20 mg tablet: 20 mg twice a day . orphenadrine citrate ER 100 mg tablet,extended release: 100 mg once a day as needed for muscle spasm. (Pain) PROzac 20 mg capsule: 20 mg once a day . Allergies: erythromycin base Penicillins SOCIAL HISTORY Never smoker. ADDITIONAL NOTES The nursing notes have been reviewed. PHYSICAL EXAM Appearance: Alert. (Patient appears anxious). CVS: Tachycardia (111). Respiratory: Painless inspiration. Breath sounds normal. Chest nontender. 2 of 8 Narrative Abdomen: Soft and nontender. Skin: Skin warm. Normal skin color. Normal skin turgor. Extremities: Extremities exhibit normal ROM. No lower extremity edema. Psych / Neuro: Oriented X 3. Cognition normal. Thought process and content normal. Cranial nerves normal (as tested). No motor deficit. No sensory deficit. LABS, X-RAYS, AND EKG 12-LEAD EKG: Tachycardia (ventricular rate 111). Normal P waves. Normal QRS complex. Normal axis. Normal ST and T waves. The EKG appears to be a good tracing. Interpretation time: 22:13 04/04/2025. Laboratory Tests: CBC + DIFF Final AUGUSTIN: 04/04/2025 22:33:00 EDT MsgRcvd: 04/04/2025 22:47 EDT Lab Test Result Reference Status Received Comments 04/04/2025 22:47 CBC-COMPLETE CBC + DIFF Final EDT BLOOD COUNT 04/04/2025 22:47 WBC 8.2 x 10/UL 4.5 - 10.8 Final EDT 04/04/2025 22:47 RBC 4.21 x 10/UL 4.10 - 5.30 Final EDT 04/04/2025 22:47 HEMOGLOBIN 13.9 g/dl 12.0 - 16.0 Final EDT 04/04/2025 22:47 HEMATOCRIT 38.6 % 34.0 - 46.0 Final EDT 04/04/2025 22:47 MCV 92 fl 80 - 99 Final EDT 04/04/2025 22:47 MCH 33 pg 27 - 33 Final EDT 3 of 8 Narrative Lab Test Result Reference Status Received Comments 04/04/2025 22:47 MCHC 36 X10 3 32 - 36 Final EDT 04/04/2025 22:47 RDW/CV 12.6 % 12.0 - 15.6 Final EDT 04/04/2025 22:47 PLATELET 240 x10/UL 150 - 450 Final EDT 04/04/2025 22:47 AUTOMATED MPV 8.6 fl 6.6 - 10.5 Final EDT DIFFERENTIAL 04/04/2025 22:47 NEUT % 61.8 % 46.0 - 76.0 Final EDT 04/04/2025 22:47 LYMPH % 28.4 % 20.0 - 45.0 Final EDT 04/04/2025 22:47 MONOS % 7.8 % 0.0 - 10.0 Final EDT 04/04/2025 22:47 EO % 1.9 % 0.0 - 7.0 Final EDT 04/04/2025 22:47 BASO % 0.2 % 0.0 - 2.0 Final EDT 04/04/2025 22:47 Lymph # 2.33 x10/UL 0.80 - 2.80 Final EDT 04/04/2025 22:47 Neut # 5.06 x10/UL 1.50 - 7.10 Final EDT 04/04/2025 22:47 [place] # 0.64 x10/UL 0.20 - 1.00 Final EDT 04/04/2025 22:47 EO # 0.15 x10/UL 0.00 - 0.50 Final EDT 4 of 8 Narrative Lab Test Result Reference Status Received Comments 04/04/2025 22:47 Baso # 0.01 x10/UL 0.00 - 0.10 Final EDT 04/04/2025 22:47 MANUAL DIFF N/A New Order EDT 04/04/2025 22:47 MORPHOLOGY N/A New Order EDT CMP with eGFR Final AUGUSTIN: 04/04/2025 22:33:00 EDT MsgRcvd: 04/04/2025 23:05 EDT Lab Test Result Reference Status Received Comments COMPREHENSIVE 04/04/2025 CMP with eGFR Final METABOLIC 23:05 EDT PANEL 04/04/2025 SODIUM 138 mmol/l 136 - 145 Final 23:05 EDT 04/04/2025 POTASSIUM 4.0 mmol/L 3.5 - 5.1 Final 23:05 EDT 04/04/2025 CHLORIDE 103 mmol/L 98 - 107 Final 23:05 ED (more content not included)... Normal [facility] ED SUPER BILLon 04-05-2025 ED SUPER BILL Superbill [address] [place] [address] [phone] 04/04/2025 Patient: JOSEP STANLEY Sex: Female : 1970 Age: 54y Item Professional Category Description Facility Code Code Quantity Fee Total Nurse/E/M EMERGENCY 028569 1 $0.00 $0.00 DEPARTMENT VISIT MODERATE SEVERITY (86823-45) Grand Total $0.00 Providers Duncan Mistry D.O. Chief Complaint ANXIOUS. Principal Diagnosis Probable anxiety reaction. Probable adverse drug reaction involving a SSRI (selective serotonin reuptake inhibitor) antidepressant and Prozac and Adderall together. adverse reaction to medications,combination of Prozac and Adderall. 1 of 2 [facility] 2 of 2 [facility] ED VISIT SUMMARYon ED VISIT SUMMARY Visit Overview Visit Overview [address] [place] [address] [id number] 04/04/2025 Patient: JOSEP STANLEY Sex: Female : 1970 Age: 54y 04/05/2025 01:45 AM EDT ED Arrival:21:51 04/04/2025 EDT Status: Recent Travel:no Language:eng Adv Directive:No Isolation Status: Ethnicity:N Fall Risk:no risk Infectious Disease Exposure:no Measurements:5'6 / 167.6 Self-Harm Status:risk Sepsis Screen:negative cm 160.0 lb / 72.6 kg Chief Complaint:NAUSEA, (David Cesar), (Patient two new medications today, Norflex and Prozac. Patient took medications around 1600. Patient took a shower and went to take a drink out of her water, which she states tasted salty and she spit out her water. Patient has recently been under new stress.), (Rapid speech), and (Shakiness, chest tightness, dry mouth) ALLERGIES 1 of 3 Visit Overview erythromycin base Penicillins HOME MEDICATIONS AdderalL 20 mg tablet: 20 mg twice a day . orphenadrine citrate ER 100 mg tablet,extended release: 100 mg once a day as needed for muscle spasm. (Pain) PROzac 20 mg capsule: 20 mg once a day . PAST MEDICAL HISTORY / PROBLEMS Anxiety disorder Endometriosis Fibromyalgia ITP See nurses notes PAST SURGICAL HISTORY . (x2) Laproscopy. (Endometriosis) SOCIAL HISTORY Smoking status: No Alcohol use: No Drug use: No ED COURSE MEDICATIONS GIVEN IN EMERGENCY DEPARTMENT 00:20 04/05/25 LORazepam (Ativan) PO 1 mg IV SITE INFORMATION INTAKE OUTPUT 2 of 3 Visit Overview REASSESMENT (most recent) 22:34 04/04/25. GENERAL / NEURO / PSYCH: Alert. Oriented X 4. Appears anxious. HEENT: Pupils equal, round and reactive to light. No facial asymmetry noted. Mucous membranes are pink. RESPIRATORY: Respirations not labored. Chest nontender. Breath sounds within normal limits. CVS: Normal sinus rhythm noted. Capillary refill less than 2 seconds. Pulses within normal limits. GI / : Abdomen soft and nontender and normal bowel sounds. SKIN: Skin intact. Skin is warm and dry. Normal skin turgor. VITAL SIGNS First Vitals Last Vitals Temp 22:03 04/04/25 Temp 00:43 04/05/25 BP 22:03 04/04/25 BP 00:43 04/05/25 HR 22:03 04/04/25 112 HR 00:43 04/05/25 92 RR 22:03 04/04/25 18 RR 00:43 04/05/25 O2 Sat 22:03 04/04/25 100% RA O2 Sat 00:43 04/05/25 99% Pain 22:03 04/04/25 Pain 00:43 04/05/25 ETCO2 22:03 04/04/25 ETCO2 00:43 04/05/25 GCS 22:03 04/04/25 GCS 00:43 04/05/25 RTS 22:03 04/04/25 RTS 00:43 04/05/25 PROCEDURES NURSING INTERVENTIONS LABS / STUDIES LABS / STUDIES ORDERED CBC w Diff CMP EKG - ED CLINICAL IMPRESSION PROBABLE ADVERSE DRUG REACTION INVOLVING A SSRI (SELECTIVE SEROTONIN REUPTAKE INHIBITOR) ANTIDEPRESSANT AND PROZAC AND ADDERALL TOGETHER PROBABLE ANXIETY REACTION 3 of 3 Normal [facility] ED VITALS FLOW SHEETon 04-05 ED VITALS FLOW SHEET Vitals Vital Sign Flow Sheet [facility] [address] [place] [address] [phone] 04/04/2025 Patient: JOSEP STANLEY Sex: Female : 1970 Age: 54y Measurements Wt: 72.6 kg, Ht/Howie: 66.0 in, BMI: 25.82 Measured Time BP MAP HR RR O2Sat ETCO2 Temp Pain GCS RTS 00:43 04/05/2025 92 99% 00:40 04/05/2025 146/52 98 88 00:38 04/05/2025 106 94% 00:33 04/05/2025 80 97% 00:28 04/05/2025 82 97% 00:24 04/05/2025 133/95 104 98 00:23 04/05/2025 85 97% 00:20 04/05/2025 130/83 93 87 23:58 04/04/2025 91 100% 23:54 04/04/2025 142/84 103 93 23:53 04/04/2025 95 99% 23:48 04/04/2025 106 100% 23:43 04/04/2025 101 100% 23:39 04/04/2025 133/79 97 95 23:38 04/04/2025 98 100% 1 of 2 Vitals Measured Time BP MAP HR RR O2Sat ETCO2 Temp Pain GCS RTS 23:33 04/04/2025 104 100% 23:28 04/04/2025 100 99% 23:24 04/04/2025 147/82 107 100 23:23 04/04/2025 104 99% 23:18 04/04/2025 104 99% 23:13 04/04/2025 108 100% 23:09 04/04/2025 163/87 104 107 23:08 04/04/2025 106 100% 23:03 04/04/2025 107 99% 22:58 04/04/2025 114 100% 22:54 04/04/2025 159/88 111 108 22:53 04/04/2025 107 99% 22:43 04/04/2025 108 97% 22:39 04/04/2025 144/87 98 102 22:38 04/04/2025 98 98% 22:35 04/04/2025 140/79 99 99 22:18 04/04/2025 105 97% 22:14 04/04/2025 158/101 120 98.8 F 0 22:13 04/04/2025 103 99% 22:09 04/04/2025 158/101 111 108 22:08 04/04/2025 108 100% 22:03 04/04/2025 113 99% 22:03 04/04/2025 112 18 100% RA 2 of 2 Normal [facility] CBC + DIFFon 04-04-2025 Baso # 0.01 x10EE3/UL Normal 0.00 - 0.10 [facility] Comment on above: Performed By: #### 2 [id number] #### [facility],[address] [place], [place] [id number] Basophils/100 WBC (Bld) 0.2 % Normal 0.0 - 2.0 [facility] Comment on above: Performed By: #### 2 14747 #### [facility],[address] [place] [address] CBC + DIFF Normal [facility] Comment on above: Result Comment: CBC- COMPLETE BLOOD COUNT Performed By: #### 2 01484 #### [facility],[address] [place] [address] 71494 EO # 0.15 x10EE3/UL Normal 0.00 - 0.50 [facility] Comment on above: Performed By: #### 2 75382 #### [facility],[address] [place] [address] 96692 Eosinophils/100 WBC (Bld) 1.9 % Normal 0.0 - 7.0 [facility] Comment on above: Performed By: #### 2 56005 #### [facility],[address] [place], [place] [id number] Erythrocyte distribution width (RBC) [Ratio] 12.6 % Normal 12.0 - 15.6 [facility] Comment on above: Performed By: #### 2 29279 #### [facility],[address] [place] [address] 85373 Hematocrit (Bld) [Volume fraction] 38.6 % Normal 34.0 - 46.0 [facility] Comment on above: Performed By: #### 2 28244 #### [facility],[address] [place] [address] 74515 Hemoglobin (Bld) [Mass/Vol] 13.9 g/dL Normal 12.0 - 16.0 [facility] Comment on above: Performed By: #### 2 86328 #### [facility],[address] [place] [address] 32430 Lymph # 2.33 x10EE3/UL Normal 0.80 - 2.80 [facility] Comment on above: Performed By: #### 2 72617 #### [facility],[address] [place] [address] 44554 Lymphocytes/100 WBC (Bld) 28.4 % Normal 20.0 - 45.0 [facility] Comment on above: Performed By: #### 2 64668 #### [facility],[address] [place] [address] 24576 MANUAL DIFF N/A Normal [facility] Comment on above: Performed By: #### 2 51582 #### [facility],[address] [place] [address] 18623 MCH (RBC) [Entitic mass] 33 pg Normal 27 - 33 [facility] Comment on above: Performed By: #### 2 07316 #### [facility],[address] [place] [address] 94230 MCHC 36 X10 3 Normal 32 - 36 [facility] Comment on above: Performed By: #### 2 47920 #### [facility],[address] [place] [address] 31941 MCV (RBC) [Entitic vol] 92 fL Normal 80 - 99 [facility] Comment on above: Performed By: #### 2 91779 #### [facility],[address] [place] [address] 73537 [place]leton # 0.64 x10EE3/UL Normal 0.20 - 1.00 [facility] Comment on above: Performed By: #### 2 81547 #### [facility],[address] [place] [address] 58490 MONOS % 7.8 % Normal 0.0 - 10.0 [facility] Comment on above: Performed By: #### 2 03937 #### [facility],[address] [place] [address] 86064 Morphology Rahul (Bld) [Interp] N/A Normal [facility] Comment on above: Performed By: #### 2 37933 #### [facility],[address] [place] [address] 99557 Neut # 5.06 x10EE3/UL Normal 1.50 - 7.10 [facility] Comment on above: Performed By: #### 2 70032 #### [facility],[address] [place] [address] 08285 Neutrophils/100 WBC (Bld) 61.8 % Normal 46.0 - 76.0 [facility] Comment on above: Performed By: #### 2 24464 #### [facility],[address] [place] [address] 96615 PLATELET 240 x10EE3/UL Normal 150 - 450 [facility] Comment on above: Performed By: #### 2 04963 #### [facility],[address] [place] [address] 38814 Platelet mean volume (Bld) [Entitic vol] 8.6 fL Normal 6.6 - 10.5 [facility] Comment on above: Result Comment: AUTO MATED DIFFERENTIAL Performed By: #### 2 80611 #### [facility],[address] [place] [address] 89588 RBC 4.21 x 10EE6/UL Normal 4.10 - 5.30 [facility] Comment on above: Performed By: #### 2 18328 #### [facility],[address] [place] [address] 75079 WBC 8.2 x 10EE3/UL Normal 4.5 - 10.8 [facility] Comment on above: Performed By: #### 2 54912 #### [facility],[address] [place] [address] 43764 CMP with eGFRon 04-04-2025 AGE 54 years Normal [facility] Comment on above: Performed By: #### 2 32423 #### [facility],[address] [place] [address] 24291 Albumin [Mass/Vol] 3.8 g/dL Normal 3.4 - 5.0 [facility] Comment on above: Performed By: #### 2 67788 #### [facility],[address] [place] [address] 74460 Albumin/Globulin [Mass ratio] 1.0 {ratio} Normal 0.9 - 1.6 [facility] Comment on above: Performed By: #### 2 59742 #### [facility],[address] [place] [address] 93441 ALK PHOS 127 U/L High 46 - 116 [facility] Comment on above: Performed By: #### 2 69945 #### [facility],[address] [place] [address] 08324 ALT [Catalytic activity/Vol] 46 U/L Normal 16 - 63 [facility] Comment on above: Performed By: #### 2 99075 #### [facility],[address] [place] [address] 79950 Anion gap [Moles/Vol] 11 mmol/L Normal 10 - 20 [facility] Comment on above: Performed By: #### 2 15509 #### [facility],[address] [place] [address] 58244 AST [Catalytic activity/Vol] 22 U/L Normal 13 - 39 [facility] Comment on above: Performed By: #### 2 39723 #### [facility],[address] [place] [address] 41890 B/C RATIO 14 ratio Normal 0 - 30 [facility] Comment on above: Performed By: #### 2 20258 #### [facility],[address] [place] [address] 76278 Bilirubin [Mass/Vol] 0.4 mg/dL Normal 0.2 - 1.0 [facility] Comment on above: Performed By: #### 2 37936 #### [facility],[address] [place] [address] 67584 Calcium [Mass/Vol] 8.7 mg/dL Normal 8.5 - 10.1 [facility] Comment on above: Performed By: #### 2 90070 #### [facility],[address] [place] [address] 84508 Chloride [Moles/Vol] 103 mmol/L Normal 98 - 107 [facility] Comment on above: Performed By: #### 2 45741 #### [facility],[address] [place] [address] 31745 CMP with eGFR Normal [facility] Comment on above: Result Comment: COMP REHENSIVE METABOLIC PANEL Performed By: #### 2 65007 #### [facility],[address] [place] [address] 60356 CO2 [Moles/Vol] 28.3 mmol/L Normal 21.0 - 32.0 [facility] Comment on above: Performed By: #### 2 61816 #### [facility],[address] [place] [address] 09166 Creatinine [Mass/Vol] 1.00 mg/dL Normal 0.55 - 1.02 [facility] Comment on above: Performed By: #### 2 79109 #### [facility],[address] [place] [address] 55557 eGFR 58 ML/MINUTE Low 60 - 999 [facility] Comment on above: Performed By: #### 2 38852 #### [facility],[address] [place] [address] 85028 GFR/1.73 sq M.predicted among non-blacks MDRD (S/P/Bld) [Vol rate/Area] mL/min/{1.73_m2} Normal 60 - 999 [facility] Comment on above: Result Comment: ACCO RDING TO THE NATIONAL KIDNEY DISEASE EDUCATION PROGRAM(NKDE), A NORMAL eGFR IS A VALUE GREATER THAN OR EQUAL TO 60 ML/MIN/1.73 SQ METERS. CHRONIC KIDNEY DISEASE: <60mL/MIN/1.73 SQ METERS KIDNEY FAILURE: <15mL/MIN/1.73 SQ METERS THIS TEST SHOULD ONLY BE USED FOR PATIENTS 18 YEARS OF AGE AND OLDER. Performed By: #### 2 58196 #### [facility],[address] [place] [address] 86786 Globulin (S) [Mass/Vol] 3.7 g/dL Normal 1.5 - 3.8 [facility] Comment on above: Performed By: #### 2 92518 #### [facility],[address] [place] [address] 58129 Glucose [Mass/Vol] 109 mg/dL High 74 - 106 [facility] Comment on above: Performed By: #### 2 94105 #### [facility],[address] [place] [address] 68556 Potassium [Moles/Vol] 4.0 mmol/L Normal 3.5 - 5.1 [facility] Comment on above: Performed By: #### 2 35126 #### [facility],[address] [place] [address] 50979 Protein [Mass/Vol] 7.5 g/dL Normal 6.4 - 8.2 [facility] Comment on above: Performed By: #### 2 83827 #### [facility],[address] [place] [address] 71132 Sodium [Moles/Vol] 138 mmol/L Normal 136 - 145 [facility] Comment on above: Performed By: #### 2 81272 #### [facility],[address] [place] [address] 85217 Urea nitrogen [Mass/Vol] 14 mg/dL Normal 7 - 18 [facility] Comment on above: Performed By: #### 2 86735 #### [facility],[address] [place] [address] 53001 Foot min 3 Viewson 5 Foot min 3 Views [facility] Services [address] [place] [address] Foot min 3 Views MR#: [id number] Acct: [id number] Name: JOSEP STANLEY ROXANA Rep #: [id number] : 1970 F 54 From: Favian jackson MD PCP: Care Physician,No Primary Status: REG CLI Study: Foot min 3 Views Date of Exam: 04/04/25 Exam# [id number] Ordering Dr: Erasto Perdomo PROCEDURE: FOOT MIN 3 VIEWS 04/04/2025 REASON FOR EXAM: PAIN Posterior foot pain. TECHNIQUE: 3 views of the right foot. COMPARISON: None FINDINGS: Bones: Plantar calcaneal spur. Joints: Normal alignment. Mild degenerative changes at the 1st metatarsophalangeal joint. Soft tissues: Soft tissues are unremarkable. Other: RAD/Foot min 3 Views IMPRESSION: Plantar calcaneal spur. [facility] CC: No Primary Care Physician; RED Moe Research Associate Molecular Biology: Signed Normal [facility] Lumbar Spine 2 or 3 Viewson 04-04-2025 Lumbar Spine 2 or 3 Views [facility] Imaging Services [address] [place] [address]691 Lumbar Spine 2 or 3 Views MR#: [id number] Acct: [id number] Name: JADENJOSEP Rep #: [id number] : 1970 F 54 From: Favian jackson MD PCP: Care Physician,No Primary Status: REG CLI Study: Lumbar Spine 2 or 3 Views Date of Exam: Exam# [id number] Ordering Dr: Erasto Perdomo PROCEDURE: LUMBAR SPINE 2 OR 3 VIEWS 04/04/2025 REASON FOR EXAM: LOW BACK PAIN TECHNIQUE: 2 view(s) of the lumbar spine COMPARISON: None FINDINGS: Vertebrae: Minimal anterior spondylosis at the L2-L3 level. Discs: Disc space heights are preserved. Alignment: No evidence of scoliosis. Other: Moderate amount of fecal material is seen in the colon. RAD/Lumbar Spine 2 or 3 Views IMPRESSION: Degenerative changes at the L2-L3 level. Reading Location: [place] [address] CC: No Primary Care Physician; RED Moe Research Associate Molecular Biology: Signed Normal [facility] Visit Reporton 0 04-04-2025 Urgent Care Visit Report [facility] [address], [address] [place] [id number] OFFICE VISIT Date of Service: 04/04/25 MR#: [id number] Acct: [id number] Name: JOSEP STANLEY Rep #: [id number] : 1970 Provider: RED Moe Age/Sex: 54/F Location: [facility] Status: Signed Intake Vital Signs 07/30/23 12:24 04/04/25 12:13 04/04/25 12:27 Height 5 ft 6 in 5 ft 6 in BP 118/82 H Blood Pressure Location Lt brachial Position Sitting Respiration 14 Pulse 83 Pulse Source Monitor Temp 98.1 F Temp Source Temporal Pulse Oximetry (%) 99 Oxygen Delivery Method room air Intake Visit Reasons: CONCERN FOR BONE SPUR ON R HEEL Chief Complaint: Right arm and elbow pain Allergies erythromycin base Allergy (Verified 04/04/25 12:29) Nausea Penicillins Allergy (Verified 04/04/25 12:29) Nausea Medications ???Medication ???Instructions ???Recorded ???Confirmed ???Type dextroamphetamine-amphet amine ER 40 mg PO DAILY 09/12/23 04/04/25 H istory 20 mg 24hr capsule,extend release fluoxetine 20 mg capsule (Prozac) 20 mg PO QDAY #30 caps 04/04/25 0 04/04/25 Rx orphenadrine citrate 100 mg 100 mg PO DAILY PRN pain #14 tabs 04/04/25 04/04/25 Rx tablet,extended release Nurse's Note: 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 states not sleeping due to the pain tx,tylenol occurring x years, states Hx of back pain [facility] this is contributing to the foot pain [facility] Medical History (Updated 04/04/25 @ 16:10 by Erasto MOON, PA) Anxiety and depression Plantar fasciitis of right foot Low back pain Contact with or exposure to other viral diseases URI (upper respiratory infection) Endometriosis History of ITP Herniated disc Social History Smoking Status: Current every day smoker tobacco type: cigarettes HPI HPI Chief Complaint: Right arm and elbow pain Details: JOSEP STANLEY, is a 54 F who presents to the office today for the following: - Low back and right foot pain, her right lateral and plantar foot has been bothering her for, quite some time and wanted to have it evaluated at this time. She notes pain is intermittent and aggravated to touch and alleviated minimally to sit/rest. She also notes having longstanding history of low back pain with intermittent paresthesias to lower extremities for which she was scheduled to have corrective surgery of an L4-5 herniated disc as she describes several years ago that was never able to follow through on that surgery due to personal issues. She would like to have her foot pain addressed as well as her low back be reevaluated by an orthospine surgeon if possible. - Additionally, patient admits chronic insomnia with sadness/crying continuously due to multiple family issues would like something to help calm her nerves as well as assist her with sleeping more efficiently. He notes no lightheadedness/dizzines s or head trauma in the past. She notes no other associated symptoms and no other alleviating/aggravating factors. ROS Const Constitutional: No other (as above) Exam Const General: cooperative and healthy appearing Orientation: alert and awake Resp Effort Inspection: normal respiratory effort and able to speak in complete sentences Cardio Rate: regular rate Pulses: radial pulses present GI Inspection: normal to inspection Palpation: soft and no hepatosplenomegaly Musc Thoracic/Lumbar Spine: thoracic and lumbar spine normal to inspection, paraspinal tenderness bilaterally in the mid lumbar and in the lower lumbar, no thoracic spinal tenderness and no lumbar spinal tenderness Skin General: no rashes or lesions noted Neuro General: patient alert, patient awake and gait normal Cognition: normal cognition Speech: speech normal Gait: normal gait Motor: muscle tone normal throughout Sensory Exam: no sensory deficits noted Extrem General: normal to inspection, full ROM, capillary refill normal and normal exam except as noted (mild tender to palpate R plantar fascia) Psych Appearance: grossly normal Mental Status: mental status grossly normal Mood: anxious mood (tearful) Affect: sad and tearful Speech and Movement: speech and movement normal Attitude: cooperative Coding Level of Care Code Off vis,est,level 4 Diagnoses Low back pain M54.50 Plantar fasciitis of right foot M72.2 Anxiety and depression F41.9; F32.A Assessment and Plan Assessment and Plan (1) Low back pain: Status: Acute (2) Plantar fasciitis of right foot: Status: Acute (3) Anxiety and depression: Status: Acute Plan: Lumbar and right foot radiographs reveal no acute osseous pathology per my review, pending radio (more content not included)... Normal [facility] CNCOon 02-11-2025 CNCO Letter Text Normal [facility] CNPAudrey 02-11-2025 CNPN Telephone ([facility]) -------- JOSEP STANLEY ([id number]) 1970 F Date Time Provider Department 02/11/25 PAYTON BURNS During your visit today, we recorded the following information about you: Elizabeth Lilly 02/11/2025 3:55 PM Signed No Show Documentation Josep Stanley no showed for an appointment on 02/11/25 with Payton Burns APRN.FAMILY PRACTITIONER at 2:30pm. She was scheduled for New patient visit. I called and left a voice mail message with the patient regarding her missed appointment. Josep stated the reason that she missed her appointment was because N/A . Resources discussed/offered to patient: Reschedule No show determined to be fault of patient: Yes This is the patients first no show in the last 12 months. Patient was rescheduled for N/A. Letter mailed : Yes Is this the Third or Fourth No Show? No Elizabeth Naranjolins February 11, 2025 3:54 PM Allergies As of Date: 02/11/2025 Noted Allergy Reaction ERYTHROMYCIN 12/18/2016 14 - Other: See Comments 11 - Vomiting Comments: Does not remember, it was as a child PENICILLIN 12/18/2016 8 - GI Upset 11 - Vomiting Date Reviewed: 02/25/2022 Reviewed by: Allyssa Patino MA - Fully Assessed Reason for Visit: No Show [1558] Cmt: No Show #1 Prescriptions as of 02/11/2025 - escitalopram oxalate (LEXAPRO) 10 mg tablet Take 1 tablet by mouth once daily. for anxiety - hydrOXYzine pamoate (VISTARIL) 25 mg capsule Take 1 capsule by mouth three times daily as needed for anxiety. - baclofen (LIORESAL) 10 mg tablet Take 1 tablet by mouth three times daily as needed (muscle spasms). and back pain. may make drowsy - ferrous sulfate (IRON) 325 mg (65 mg iron) tablet Take 1 tablet by mouth twice daily. Problem List As Of Date 02/11/2025 Noted Resolved Chronic midline low back pain without sciatica *12/18/2016 Spinal stenosis, lumbar region, without neuroge*12/18/2016 03/07/2017 KATHRIN (generalized anxiety disorder) [F41.1] 12/18/2016 Recurrent major depression in partial remission*12/18/2016 Malaise and fatigue [R53.81, R53.83] 12/18/2016 Iron deficiency [E61.1] 12/18/2016 DDD (degenerative disc disease), lumbar [M51.36*02/24/2017 Bulge of lumbar disc without myelopathy [M51.36*03/07/2017 Radiculopathy, lumbar region [M54.16] 06/13/2017 History of ITP [Z86.2] 2003 History of herniated intervertebral disc [Z87.3*02/25/2022 Encounter Status:Closed by ELIZABETH LILLY on 02/11/25 [facility] Risa 11-30-2024 CNPN Telephone ([facility]) -------- JOSEP STANLEY ([id number]) 1970 F Date Time Provider Department 11/30/24 BRANDY NIXON [facility]AG[facility] During your visit today, we recorded the following information about you: Elizabeth Lilly 11/30/2024 9:31 AM Signed Received a referral for patient to be seen by one of our providers. Made 1st attempt to contact patient to discuss scheduling. Patient did not answer. Left a voicemail requesting patient call the office to schedule. Patient referred for lumbar herniation, find out if she has had MRI or CT outside of [facility]. Allergies As of Date: 11/30/2024 Noted Allergy Reaction ERYTHROMYCIN 12/18/2016 14 - Other: See Comments 11 - Vomiting Comments: Does not remember, it was as a child PENICILLIN 12/18/2016 8 - GI Upset 11 - Vomiting Date Reviewed: 02/25/2022 Reviewed by: Allyssa Patino MA - Fully Assessed Prescriptions as of 11/30/2024 - escitalopram oxalate (LEXAPRO) 10 mg tablet Take 1 tablet by mouth once daily. for anxiety - hydrOXYzine pamoate (VISTARIL) 25 mg capsule Take 1 capsule by mouth three times daily as needed for anxiety. - baclofen (LIORESAL) 10 mg tablet Take 1 tablet by mouth three times daily as needed (muscle spasms). and back pain. may make drowsy - ferrous sulfate (IRON) 325 mg (65 mg iron) tablet Take 1 tablet by mouth twice daily. Problem List As Of Date 11/30/2024 Noted Resolved Chronic midline low back pain without sciatica *12/18/2016 Spinal stenosis, lumbar region, without neuroge*12/18/2016 03/07/2017 KATHRIN (generalized anxiety disorder) [F41.1] 12/18/2016 Recurrent major depression in partial remission*12/18/2016 Malaise and fatigue [R53.81, R53.83] 12/18/2016 Iron deficiency [E61.1] 12/18/2016 DDD (degenerative disc disease), lumbar [M51.36*02/24/2017 Bulge of lumbar disc without myelopathy [M51.36*03/07/2017 Radiculopathy, lumbar region [M54.16] 06/13/2017 History of ITP [Z86.2] 2002 History of herniated intervertebral disc [Z87.3*02/25/2022 Encounter Status:Closed by ELIZABETH LILLY on 11/30/24 [facility] ED MED ADMINISTRATION DETAIL on 11-02-2024 ED MED ADMINISTRATION DETAIL Lure Maker Medication Administration Record [address] [address] [id number] 10/29/2024 Patient: JOSEP STANLEY Sex: Female : 1970 Age: 54y MEASUREMENTS: Wt: 76.2 kg, Ht/Howie: 66.0 in, BMI: 27.12 ALLERGIES: Penicillins, erythromycin base Medication Ordered Medication Administration Date/Time Orphenadrine 20:55 10/29 Orphenadrine (Norflex) IM 60 mg given. Given in the Given (Norflex) IM 60 mg left gluteus fabián. Allergies verified and confirmed 5 rights. 20:55 10/29/2024 (NOW x1) Information reviewed with patient including reason for taking this Allyssa Gaspar, medication, signs of allergic reaction and precautions. Verbalizes R.NHeike understanding. - 20:58 Allyssa Gaspar R.N. Scanned OxyCODONE-APAP 20:54 01 OxyCODONE-APAP 5-325 (Percocet) PO 1 tab given. Given 5-325 (Percocet) PO Allergies verified and confirmed 5 rights. Information reviewed with 20:54 10/29/2024 1 tab (NOW x1) patient including reason for taking this medication, signs of allergic Allyssa Gaspar, reaction and precautions. Verbalizes understanding. - 20:55 Joya Gaspar R.N. Scanned 1 of 2 [facility] Medication Ordered Medication Administration Date/Time HYDROmorphone 22:10 10/29 HYDROmorphone (Dilaudid) IVP 0.5 mg given via Given (Dilaudid) IVP 0.5 Site# 1. Allergies verified and confirmed 5 rights. IV patency 22:10/29/2024 mg (NOW x1, HIGH established. IV site checked: no pain, redness, or swelling. IV Allyssa Gaspar ALERT flushed thoroughly pre-medication administration. IVP given by R.N. MEDICATION) nurse. Information reviewed with patient including reason for taking Scanned this medication, signs of allergic reaction and precautions. Verbalizes understanding. Medication Wastage: 0.5 mg wasted. - 22:11 Allyssa Gaspar R.N. 22:43 10/29 Medication Response: No adverse reaction. Pain is improving. Symptoms have improved. The patient feels better. (Pain rated at a 4 and improving). - 22:44 Allyssa Gaspar R.N. Zofran IVP 4 mg 22:09 10/29 Zofran IVP 4 mg given via Site# 1. Allergies verified Given (NOW x1) and confirmed 5 rights. IV patency established. IV site checked: no 22:10/29/2024 pain, redness, or swelling. IV flushed thoroughly pre-medication Allyssa Gaspar administration. IVP given by nurse. Information reviewed with R.N. patient including reason for taking this medication, signs of allergic Scanned reaction and precautions. Verbalizes understanding. - 22:10 Allyssa Gaspar R.N. IV NS 0.9 % 1000 22:08 10/29 IV NS 0.9 % 1000 mL started in bag#1 1000 mL at Started mL at 999 mL/hr 999 mL/hr via Site# 1. Allergies verified and confirmed 5 rights. IV 22:08 10/29/2024 (NOW x1) patency established. IV site checked: no pain, redness, or swelling. Allyssa Gaspar IV flushed thoroughly pre-medication administration. Information R.N. reviewed with patient including reason for taking this medication, Stopped signs of allergic reaction and precautions. Verbalizes 00:02 10/30/2024 understanding. - 22:10 Joya Valencia R.N. 00:02 10/30 Medication Discontinued: bag #1 completed upon Scanned discharge. Total amount infused: 1000 mL. IV patency established. IV site checked: no pain, redness, or swelling. IV flushed thoroughly post-medication administration. - 00:52 Allyssa Gaspar R.N. 2 of 2 Normal [facility] ED NURSES CLINICAL NOTEon ED NURSES CLINICAL NOTE Nurse Narrative Nurse Clinical Narrative [address] [place] [address] [id number] 10/29/2024 Patient: JOSEP STANLEY Sex: Female : 1970 Age: 54y Disposition: Discharge to Home Disposition Decision Time: 00:14 10/30/2024 Departure Time: 00:10/30/2024 TRIAGE 20:10/29/24. BP: 154/95 MAP: 115. HR: 96. RR: 18. O2 saturation: 98% Temperature: 98.3 F. Pain level now 08/05. -- 20:10/29/24 BLADIMIR Pettit R.N. Arrived by private vehicle. Historian: patient. Accompanied by friend. Primary physician (Davy). Triage time: 20:10/29/2024. Acuity: LEVEL 4. Chief Complaint: BACK PAIN. Alert. No acute distress. (crying). Onset. (July). The patient has had numbness, weakness and tingling. SEPSIS SCREEN: NEGATIVE. SIRS criteria negative. No possible sources of infection. -- 20:10/29/24 BLADIMIR Pettit R.N. Measurements: 20:10/29/24 Wt: 76.2 kg, Ht/Howie: 66.0 in, BMI: 27.12 -- 20:10/29/24 BLADIMIR Pettit R.N. Medications: omeprazole 20 mg capsule,delayed release: 1 capsule twice a day. Stopped 10/29/2024. -- 20:10/29/24 BLADIMIR Pettit R.N. amitriptyline 25 mg tablet: 1 tablet every night at bedtime. -- 20:14 10/29/24 BLADIMIR Pettit R.N. 1 of 4 Nurse Narrative Allergies: Penicillins -- 20:07 10/29/24 BLADIMIR Pettit R.N. erythromycin base -- 20:07 10/29/24 BLADIMIR Pettit R.N. Problems: ITP -- 20:08 10/29/24 BLADIMIR Pettit R.N. Fibromyalgia -- 20:10/29/24 BLADIMIR Pettit R.N. Endometriosis -- 20:10/29/24 BLADIMIR Pettit R.N. ADDITIONAL SURGERIES: -- 20:10/29/24 BLADIMIR Pettit R.N. Laproscopy -- 20:10/29/24 BLADIMIR Pettit R.N. History 20:04 10/29/24. SOCIAL HX: Never smoker. Occasional alcohol use. No drug use. The patient has not traveled outside the [place] Infectious disease exposure: No infectious disease exposure. ABUSE ASSESSMENT: The patient answered yes to the question(s) Do you feel safe in your home? and no to the question(s) Are you afraid to go home?. SELF HARM ASSESSMENT: Self harm assessment was performed. The patient answered no to the question(s) Have you recently felt down, depressed, or hopeless? and Do you have thoughts of harming or killing yourself?. FALL RISK ASSESSMENT: Fall risk assessment completed. No risk factors identified. -- 20:10/29/24 BLADIMIR Pettit R.N. Interventions 20:10/29/24. Identification band and allergy band on patient. -- 20:11 10/29/24 BLADIMIR Pettit R.N. PHYSICAL ASSESSMENT 2 of 4 Nurse Narrative 20:40 10/29/24. To room via wheelchair. ( Pt c/o pain from the right lower back down to right heel). GENERAL / NEURO / PSYCH: Alert. Oriented X 4. Appears in pain. RESPIRATORY: Respirations not labored. Chest nontender. Breath sounds within normal limits. CVS: Normal heart rate and rhythm. Capillary refill less than 2 seconds. GI / : Abdomen soft and nontender. Bowel sounds within normal limits. EXTREMITIES: Limited ROM present in the right hip and right lower leg. BACK: Limited ROM of the back in the lumbar spine (decreased flexion), (decreased extension), (decreased right lateral bending) and (decreased rotation to the right). -- 20:40 10/29/24 BLADIMIR Gaspar R.N. 20:40 10/29/24. Pain level now 9/10. -- 20:40 10/29/24 BLADIMIR Gaspar R.N. NURSING PROGRESS NOTES 20:26 10/29/24. ( Pt to ER 6, MD and RN aware.). -- 20:31 10/29/24 BLADIMIR Pettit R.N. 20:54 10/29/24. OxyCODONE-APAP 5-325 (Percocet) PO 1 tab given. Allergies verified and confirmed 5 rights. Information reviewed with patient including reason for taking this medication, signs of allergic reaction and precautions. Verbalizes understanding. -- 20:55 10/29/24 BLADIMIR Gaspar R.N. 20:55 10/29/24. Orphenadrine (Norflex) IM 60 mg given. Given in the left gluteus fabián. Allergies verified and confirmed 5 rights. Information reviewed with patient including reason for taking this medication, signs of allergic reaction and precautions. Verbalizes understanding. -- 20:58 10/29/24 BLADIMIR Gaspar R.N. 22:08 10/29/24. IV NS 0.9 % 1000 mL started in bag#1 1000 mL at 999 mL/hr via Site# 1. Allergies verified and confirmed 5 rights. IV patency established. IV site checked: no pain, redness, or swelling. IV flushed thoroughly pre-medication administration. Information reviewed with patient including reason for taking this medication, signs of allergic reaction and precautions. Verbalizes understanding. -- 22:10 10/29/24 BLADIMIR Gaspar R.N. 22:09 10/29/24. Zofran IVP 4 mg given via Site# 1. Allergies verified and confirmed 5 rights. IV patency established. IV site checked: no pain, redness, or swelling. IV flushed thoroughly pre-medication administration. IVP given by nurse. Information reviewed with patient (more content not included)... Normal [facility] ED ORDER SHEET (CPOE ONLY)on 11-02-2024 ED ORDER SHEET (CPOE ONLY) Order Sheet Order Sheet [facility] [place] [address] [id number] 10/29/2024 Patient: JOSEP STANLEY Sex: Female : 1970 Age: 54y MEASUREMENTS: Wt: 76.2 kg, Ht/Howie: 66.0 in, BMI: 27.12 ALLERGIES: Penicillins, erythromycin base MEDICATION/IV/DRIP/FLUID ORDERS Order Description Priority Entered Acknowledged Completed Orphenadrine (Norflex) IM60 20:38 10/29/2024 20:40 20:58 mg (NOW x1) Katie Javier M.D. 10/29/2024 10/29/2024 Joya Vazquez, R.NHeike Reason for ordering with alerts: Benefits outweigh risks --20:38 10/29/2024 Katie Javier M.D. OxyCODONE-APAP 5-325 20:38 10/29/2024 20:40 20:55 (Percocet) PO1 tab (NOW x1) Katie Javier M.D. 10/29/2024 10/29/2024 Joya Vazquez, R.NHeike Reason for ordering with alerts: Benefits outweigh risks --20:38 10/29/2024 Katie Javier M.D. HYDROmorphone (Dilaudid) 21:53 10/29/2024 21:54 22:11 IVP0.5 mg (NOW x1, HIGH Katie Javier M.D. 10/29/2024 10/29/2024 ALERT MEDICATION) Joya Vazquez, R.N. Reason for ordering with alerts: Benefits outweigh risks --21:53 10/29/2024 Katie Javier, 1 of 3 Order Rafat Zeng Zofran IVP4 mg (NOW x1) 21:53 10/29/2024 21:54 22:10 Katie Javier M.D. 10/29/2024 10/29/2024 Joya Vazquez R.N. IV NS 0.9 %1000 mL at 999 21:53 10/29/2024 21:54 22:10 mL/hr (NOW x1) Katie Javier M.D. 10/29/2024 10/29/2024 Joya Vazquez R.N. LAB ORDERS Order Description Priority Entered Acknowledged Collected Completed CBC w Diff Stat Stat 21:53 10/29/2024 21:54 10/29/2024 22:19 10/29/2024 Allyssa Murrieta M.D., R.N. [place], R.N. CMP Stat Stat 21:53 10/29/2024 21:54 10/29/2024 22:19 10/29/2024 Allyssa Murrieta M.D., R.N. [place], R.N. Urinalysis Stat Stat 21:53 10/29/2024 21:54 10/29/2024 00:51 10/30/2024 Allyssa Murrieta M.D., R.N. [place], R.NHeike DIAGNOSTIC STUDY ORDERS Order Description Priority Entered Acknowledged Completed CT L-Spine wo Cont Stat Stat 20:39 10/29/2024 20:40 21:00 Katie Javier M.D. 10/29/2024 10/29/2024 Joya Vazquez, R.N. Reason for Study: Lower Back Pain 2 of 3 Order Sheet STAFF ORDERS Order Description Priority Entered Acknowledged Collected Completed [Electronically signed by Katie Javier M.D. (10/30/2024 00:48 EST)] 3 of 3 Normal [facility] ED PHYSICIAN CLINICAL REPORT on 11-02-2024 ED PHYSICIAN CLINICAL REPORT Narrative Physician Clinical Narrative [facility] [address] [place] [address] [phone] 10/29/2024 Patient: JOSEP STANLEY [facility]#: [id number] Sex: Female : 1970 Age: 54y Disposition: Discharge to Home Disposition Decision Time: 00:14 10/30/2024 Measurements Wt: 76.2 kg, Ht/Howie: 66.0 in, BMI: 27.12 Initial Vital Sign Measured Time BP MAP HR RR O2Sat ETCO2 Temp Pain GCS RTS 20:10/29/2024 154/95 115 96 18 98% 98.3 F 10 Time Seen: 20:22 10/29/2024. Historian- patient. HISTORY OF PRESENT ILLNESS Chief Complaint: BACK PAIN; (lower back pain). Additional history - ( Patient is a 54-year-old female, history of lower back pain, stated that she has got some bulging on her L4-L5. She presents to the ED with complaint of worsening lower back pain, radiating to right lower extremity. Described as moderate to severe intensity, worse with movement, described as sharp, burning-like radiating down to a lower leg. She denies any urinary retention or incontinence. Denies any bowel changes as well. Denies any fever chills. She was initially following up with the orthopedic doctor, she states that orthopedic doctor recently moved however. She is supposed to see PCP on Friday, but pain was worse today, prompting her to come to the ED. She denies chest pain, shortness of breath, abdominal pain, nausea vomiting.). REVIEW OF SYSTEMS Negative review of system unless otherwise mentioned in HPI. 1 of 11 Narrative PAST HISTORY Endometriosis Fibromyalgia ITP Surgeries: Laproscopy Medications: amitriptyline 25 mg tablet: 1 tablet every night at bedtime. omeprazole 20 mg capsule,delayed release: 1 capsule twice a day. Stopped 10/29/2024. Allergies: erythromycin base Penicillins SOCIAL HISTORY Never smoker. ADDITIONAL NOTES The nursing notes have been reviewed. PHYSICAL EXAM Vital Signs: Have been reviewed. Appearance: Alert. Oriented X3. No acute distress. Eyes: Pupils equal, round and reactive to light. Eyes normal inspection. Neck: Normal inspection. CVS: Normal heart rate. Respiratory: No respiratory distress. Abdomen: Soft. Back: Normal inspection. No tenderness. Skin: Skin intact. Skin warm. Normal skin color. 2 of 11 Narrative Extremities: Lower extremities exhibit normal ROM. Neuro: Oriented X 3. No motor deficit. No sensory deficit. LABS, X-RAYS, AND EKG Laboratory Tests: CBC + DIFF Final AUGUSTIN: 10/29/2024 21:59:00 EST MsgRcvd: 10/29/2024 22:36 EST Lab Test Result Reference Status Received Comments 10/29/2024 22:36 CBC-COMPLETE CBC + DIFF Final EST BLOOD COUNT 10/29/2024 22:36 WBC 8.2 x 10/UL 4.5 - 10.8 Final EST 10/29/2024 22:36 RBC 4.87 x 10/UL 4.10 - 5.30 Final EST 10/29/2024 22:36 HEMOGLOBIN 15.3 g/dl 12.0 - 16.0 Final EST 10/29/2024 22:36 HEMATOCRIT 45.0 % 34.0 - 46.0 Final EST 10/29/2024 22:36 MCV 92 fl 80 - 99 Final EST 10/29/2024 22:36 MCH 31 pg 27 - 33 Final EST 10/29/2024 22:36 MCHC 34 X10 3 32 - 36 Final EST 10/29/2024 22:36 RDW/CV 13.1 % 12.0 - 15.6 Final EST 3 of 11 Narrative 10/29/2024 22:36 PLATELET 292 x10/UL 150 - 450 Final EST 10/29/2024 22:36 AUTOMATED MPV 8.9 fl 6.6 - 10.5 Final EST DIFFERENTIAL 10/29/2024 22:36 NEUT % 57.5 % 46.0 - 76.0 Final EST 10/29/2024 22:36 LYMPH % 32.7 % 20.0 - 45.0 Final EST 10/29/2024 22:36 MONOS % 7.2 % 0.0 - 10.0 Final EST 10/29/2024 22:36 EO % 2.4 % 0.0 - 7.0 Final EST 10/29/2024 22:36 BASO % 0.2 % 0.0 - 2.0 Final EST 10/29/2024 22:36 Lymph # 2.68 x10/UL 0.80 - 2.80 Final EST 10/29/2024 22:36 Neut # 4.71 x10/UL 1.50 - 7.10 Final EST 10/29/2024 22:36 [place] # 0.59 x10/UL 0.20 - 1.00 Final EST 10/29/2024 22:36 EO # 0.20 x10/UL 0.00 - 0.50 Final EST 10/29/2024 22:36 Baso # 0.01 x10/UL 0.00 - 0.10 Final EST 10/29/2024 22:36 MANUAL DIFF N/A New Order EST 10/29/2024 22:36 MORPHOLOGY N/A New Order EST 4 of 11 Narrative CMP with eGFR Final AUGUSTIN: 10/29/2024 21:59:00 EST MsgRcvd: 10/29/2024 22:48 EST Lab Test Result Reference Status Received Comments COMPREHENSIVE 10/29/2024 CMP with eGFR Final METABOLIC 22:48 EST PANEL 10/29/2024 SODIUM 139 mmol/l 136 - 145 Final 22:48 EST 10/29/2024 POTASSIUM 4.5 mmol/L 3.5 - 5.1 Final 22:48 EST 10/29/2024 CHLORIDE 100 mmol/L 98 - 107 Final 22:48 EST 10/29/2024 CO2 27.4 mmol/L 21.0 - 32.0 Final 22:48 EST 10/29/2024 GLUCOSE 94 mg/dl 74 - 106 Final 22:48 EST 10/29/2024 BUN 15 mg/dl 7 - 18 Final 22:48 EST 10/29/2024 CREATININE 0.96 mg/dl 0.55 - 1.02 Final 22:48 EST 10/29/2024 AST/SGOT 25 U/L 13 - 39 Final 22:48 EST 121 U/L 10/29/2024 ALK PHOS Above high 46 - 116 Final 22:48 EST normal 10/29/ (more content not included)... Normal [facility] ED SUPER BILLon 11-02-2024 ED SUPER BILL [facility] [address] [place] [address] [phone] 10/29/2024 Patient: JOSEP STANLEY Sex: Female : 1970 Age: 54y Item Facility Professional Category Description Code Code Quantity Fee Total Nurse/E/M EMERGENCY 146675 1 $0.00 $0.00 DEPARTMENT VISIT HIGH/URGENT SEVERITY (37952-75) Nurse/IV/IM/Infusions Hydration 724200 2 $0.00 $0.00 additional hour (87511) Nurse/IV/IM/Infusions IM/SQ (09014) 044968 1 $0.00 $0.00 Nurse/IV/IM/Infusions IVP additional 140377 1 $0.00 $0.00 push (26415) Nurse/IV/IM/Infusions IVP initial 894924 1 $0.00 $0.00 (25061) Grand Total $0.00 Providers Katie Javier M.D. 1 of 2 [facility] Chief Complaint BACK PAIN; (lower back pain). Principal Diagnosis Acute right sided sciatica with low back pain. ICD-10 Codes M54.41: Lumbago with sciatica, right side 2 of 2 Normal [facility] ED VISIT SUMMARYon ED VISIT SUMMARY Visit Overview Visit Overview [address] [place] [address] [phone] 10/29/2024 Patient: JOSEP STANLEY Sex: Female : 1970 Age: 54y 11/02/2024 10:39 AM EST ED Arrival:19:34 10/29/2024 EST Status: Recent Travel:no Language:eng Adv Directive: Isolation Status: Ethnicity:N Fall Risk:no risk Infectious Disease Exposure:no Measurements:5'6 / 167.6 Self-Harm Status:risk Sepsis Screen:negative cm 168.0 lb / 76.2 kg Chief Complaint:BACK PAIN, (Davy ), (crying ), and (July ) ALLERGIES erythromycin base Penicillins HOME MEDICATIONS amitriptyline 25 mg tablet: 1 tablet every night at bedtime. omeprazole 20 mg capsule,delayed release: 1 capsule twice a day. Stopped 10/29/2024. PAST MEDICAL HISTORY / PROBLEMS Endometriosis 1 of 3 Visit Overview Fibromyalgia ITP PAST SURGICAL HISTORY Laproscopy SOCIAL HISTORY Smoking status: No Alcohol use: Yes Drug use: No ED COURSE MEDICATIONS GIVEN IN EMERGENCY DEPARTMENT 20:54 10/29/24 OxyCODONE-APAP 5-325 (Percocet) PO 1 tab 20:55 10/29/24 Orphenadrine (Norflex) IM 60 mg 22:08 10/29/24 IV NS 0.9 % 1000 mL 999 mL/hr 22:09 10/29/24 Zofran IVP 4 mg 22:10 10/29/24 HYDROmorphone (Dilaudid) IVP 0.5 mg IV SITE INFORMATION INTAKE OUTPUT REASSESMENT (most recent) 20:40 10/29/24. To room via wheelchair. ( Pt c/o pain from the right lower back down to right heel). GENERAL / NEURO / PSYCH: Alert. Oriented X 4. Appears in pain. RESPIRATORY: Respirations not labored. Chest nontender. Breath sounds within normal limits. CVS: Normal heart rate and rhythm. Capillary refill less than 2 seconds. GI / : Abdomen soft and nontender. Bowel sounds within normal limits. EXTREMITIES: Limited ROM present in the right hip and right lower leg. BACK: Limited ROM of the back in the lumbar spine (decreased flexion), (decreased extension), (decreased right lateral bending) and (decreased rotation to the right). VITAL SIGNS 2 of 3 Visit Overview First Vitals Last Vitals Temp 20:10/29/24 98.3 F Temp 00:19 10/30/24 BP 20:10/29/24 154/95 BP 00:19 10/30/24 HR 20:01 10/29/24 96 HR 00:19 10/30/24 81 RR 20:01 10/29/24 18 RR 00:19 10/30/24 O2 Sat 20:01 10/29/24 98% O2 Sat 00:10/30/24 96% Pain 20:01 10/29/24 10 Pain 00:19 10/30/24 ETCO2 20:01 10/29/24 ETCO2 00:19 10/30/24 GCS 20:01 10/29/24 GCS 00:19 10/30/24 RTS 20:01 10/29/24 RTS 00:10/30/24 PROCEDURES NURSING INTERVENTIONS LABS / STUDIES LABS / STUDIES ORDERED CBC w Diff CMP CT L-Spine wo Cont Urinalysis LABS / STUDIES PENDING IMPORT CT LUMBAR W/O CONTRAST CLINICAL IMPRESSION ACUTE RIGHT SIDED SCIATICA WITH LOW BACK PAIN 3 of 3 Normal [facility] ED VITALS FLOW SHEETon 11-02 ED VITALS FLOW SHEET Vitals Vital Sign Flow Sheet [facility] [address] [place] [address] [phone] 10/29/2024 Patient: JOSEP STANLEY Sex: Female : 1970 Age: 54y Measurements Wt: 76.2 kg, Ht/Howie: 66.0 in, BMI: 27.12 Measured Time BP MAP HR RR O2Sat ETCO2 Temp Pain GCS RTS 00:19 10/30/2024 81 96% 00:18 10/30/2024 127/89 101 78 00:15 10/30/2024 16 4 23:24 10/29/2024 81 99% 23:19 10/29/2024 74 96% 23:14 10/29/2024 75 96% 23:09 10/29/2024 74 95% 23:04 10/29/2024 78 97% 22:59 10/29/2024 83 97% 22:54 10/29/2024 78 94% 22:49 10/29/2024 78 96% 22:44 10/29/2024 83 96% 22:39 10/29/2024 85 93% 22:34 10/29/2024 91 93% 22:29 10/29/2024 79 92% 1 of 2 Vitals Measured Time BP MAP HR RR O2Sat ETCO2 Temp Pain GCS RTS 22:24 10/29/2024 83 90% 22:19 10/29/2024 82 95% 22:14 10/29/2024 84 97% 22:09 10/29/2024 82 97% 22:04 10/29/2024 85 97% 21:59 10/29/2024 89 98% 21:54 10/29/2024 90 97% 21:49 10/29/2024 151/94 112 94 21:49 10/29/2024 98 98% 20:40 10/29/2024 9 20:01 10/29/2024 154/95 115 96 18 98% 98.3 F 10 2 of 2 Normal [facility] URINALYSISon 10-30-2024 Amorphous NONE Normal [facility] Comment on above: Performed By: #### 2 [id number] #### [facility],[address] [place] [address] 75876 Bacteria TRACE Normal [facility] Comment on above: Performed By: #### 2 [id number] #### [facility],[address] [place] [address] 17073 Bilirubin Ql (U) Negative Normal NORMAL: NEGATIVE [facility] Comment on above: Performed By: #### 2 28324 #### [facility],[address] [place] [address] 16052 Casts NONE Normal [facility] Comment on above: Performed By: #### 2 65578 #### [facility],[address] [place], [place] [id number] Clarity (U) sl.cloudy Normal NORMAL: CLEAR [facility] Comment on above: Performed By: #### 2 66032 #### [facility],[address] [place], [place] [id number] Color (U) yellow Normal NORMAL: YELLOW [facility] Comment on above: Performed By: #### 2 46217 #### [facility],[address] [place] [address] 36074 Crystals LM Nom (Urine sed) NONE Normal [facility] Comment on above: Performed By: #### 2 82221 #### [facility],[address] [place] [address] 77579 Epi Cells FEW Normal [facility] Comment on above: Performed By: #### 2 89220 #### [facility],[address] [place] [address] 68449 Glucose Ql (U) NORM Normal NORMAL: NORMAL [facility] Comment on above: Performed By: #### 2 28324 #### [facility],[address] [place] [address] 69497 Hemoglobin Ql (U) 25 Abnormal NORMAL: NEGATIVE [facility] Comment on above: Performed By: #### 2 15782 #### [facility],[address] [place], [place] [id number] Ketone Negative Normal NORMAL: NEGATIVE [facility] Comment on above: Performed By: #### 2 01875 #### [facility],[address] [place] [address] 95697 Leukocytes Negative Normal NORMAL: NEGATIVE [facility] Comment on above: Performed By: #### 2 17075 #### [facility],[address] [place], [place] [id number] Mucous TRACE Normal [facility] Comment on above: Performed By: #### 2 57344 #### [facility],[address] [place] [address] Nitrite Ql (U) Negative Normal NORMAL: NEGATIVE [facility] Comment on above: Performed By: #### 2 76567 #### [facility],[address] [place] [address] pH (U) 6.5 [pH] Normal NORMAL: 5.0-8.0 [facility] Comment on above: Performed By: #### 2 04286 #### [facility],[address] [place] [address] Protein Ql (U) 15 Abnormal NORMAL: NEGATIVE [facility] Comment on above: Performed By: #### 2 30104 #### [facility],[address] [place] [address] Rbc 0-5 Normal 0-3/hpf [facility] Comment on above: Performed By: #### 2 92538 #### [facility],[address] [place], [place] [id number] Sp [place] 1.015 Normal NORMAL: 1.010-1.030 [facility] Comment on above: Performed By: #### 2 78549 #### [facility],[address] [place] [address] Specimen Type R Normal [facility] Comment on above: Performed By: #### 2 27943 #### [facility],[address] [place], [place] [id number] Urinalysis dipstick W Reflex Microscopic panel (U) SEE BELOW Normal [facility] Comment on above: Result Comment: MICR OSCOPIC Performed By: #### 2 44960 #### [facility],[address] [place] [address] Urobilinog NORM Normal NORMAL: NORMAL [facility] Comment on above: Performed By: #### 2 61942 #### [facility],[address] [place] [address] Wbc NONE Normal 0-5/hpf [facility] Comment on above: Performed By: #### 2 87115 #### [facility],[address] [place] [address] Yeast NONE Normal [facility] Comment on above: Performed By: #### 2 86346 #### [facility],[address] [place], [place] [id number] CBC + DIFFon 10-29-2024 Baso # 0.01 x10EE3/UL Normal 0.00 - 0.10 [facility] Comment on above: Performed By: #### 2 30288 #### [facility],[address] [place] [address] 63557 Basophils/100 WBC (Bld) 0.2 % Normal 0.0 - 2.0 [facility] Comment on above: Performed By: #### 2 86455 #### [facility],[address] [place], [place] [id number] CBC + DIFF Normal [facility] Comment on above: Result Comment: CBC- COMPLETE BLOOD COUNT Performed By: #### 2 81018 #### [facility],[address] [place] [address] 08117 EO # 0.20 x10EE3/UL Normal 0.00 - 0.50 [facility] Comment on above: Performed By: #### 2 14407 #### [facility],[address] [place] [address] 12877 Eosinophils/100 WBC (Bld) 2.4 % Normal 0.0 - 7.0 [facility] Comment on above: Performed By: #### 2 76586 #### [facility],[address] [place] [address] Erythrocyte distribution width (RBC) [Ratio] 13.1 % Normal 12.0 - 15.6 [facility] Comment on above: Performed By: #### 2 26654 #### [facility],[address] [place] [address] 47295 Hematocrit (Bld) [Volume fraction] 45.0 % Normal 34.0 - 46.0 [facility] Comment on above: Performed By: #### 2 11721 #### [facility],[address] [place] [address] Hemoglobin (Bld) [Mass/Vol] 15.3 g/dL Normal 12.0 - 16.0 [facility] Comment on above: Performed By: #### 2 53350 #### [facility],[address] [place] [address] 78426 Lymph # 2.68 x10EE3/UL Normal 0.80 - 2.80 [facility] Comment on above: Performed By: #### 2 00184 #### [facility],[address] [place] [address] 06081 Lymphocytes/100 WBC (Bld) 32.7 % Normal 20.0 - 45.0 [facility] Comment on above: Performed By: #### 2 75447 #### [facility],[address] [place] [address] 18354 MANUAL DIFF N/A Normal [facility] Comment on above: Performed By: #### 2 97426 #### [facility],[address] [place] [address] 57355 MCH (RBC) [Entitic mass] 31 pg Normal 27 - 33 [facility] Comment on above: Performed By: #### 2 25093 #### [facility],[address] [place] [address] 76159 MCHC 34 X10 3 Normal 32 - 36 [facility] Comment on above: Performed By: #### 2 39406 #### [facility],[address] [place] [address] 86730 MCV (RBC) [Entitic vol] 92 fL Normal 80 - 99 [facility] Comment on above: Performed By: #### 2 38643 #### [facility],[address] [place] [address] 79055 [place] # 0.59 x10EE3/UL Normal 0.20 - 1.00 [facility] Comment on above: Performed By: #### 2 28445 #### [facility],[address] [place] [address] 76235 MONOS % 7.2 % Normal 0.0 - 10.0 [facility] Comment on above: Performed By: #### 2 69615 #### [facility],[address] [place] [address] 84795 Morphology Rahul (Bld) [Interp] N/A Normal [facility] Comment on above: Performed By: #### 2 26514 #### [facility],[address] [place] [address] 44859 Neut # 4.71 x10EE3/UL Normal 1.50 - 7.10 [facility] Comment on above: Performed By: #### 2 18024 #### [facility],[address] [place] [address] 98021 Neutrophils/100 WBC (Bld) 57.5 % Normal 46.0 - 76.0 [facility] Comment on above: Performed By: #### 2 43133 #### [facility],[address] [place] [address] 61494 PLATELET 292 x10EE3/UL Normal 150 - 450 [facility] Comment on above: Performed By: #### 2 87710 #### [facility],[address] [place] [address] 20715 Platelet mean volume (Bld) [Entitic vol] 8.9 fL Normal 6.6 - 10.5 [facility] Comment on above: Result Comment: AUTO MATED DIFFERENTIAL Performed By: #### 2 07957 #### [facility],[address] [place] [address] 19821 RBC 4.87 x 10EE6/UL Normal 4.10 - 5.30 [facility] Comment on above: Performed By: #### 2 37295 #### [facility],[address] [place] [address] 67245 WBC 8.2 x 10EE3/UL Normal 4.5 - 10.8 [facility] Comment on above: Performed By: #### 2 09149 #### [facility],[address] [place], [place] [id number] CMP with eGFRon 10-29-2024 AGE 54 years Normal [facility] Comment on above: Performed By: #### 2 82808 #### [facility],[address] [place] [address] 83958 Albumin [Mass/Vol] 3.9 g/dL Normal 3.4 - 5.0 [facility] Comment on above: Performed By: #### 2 51126 #### [facility],[address] [place] [address] 34823 Albumin/Globulin [Mass ratio] 1.2 {ratio} Normal 0.9 - 1.6 [facility] Comment on above: Performed By: #### 2 47515 #### [facility],[address] [place] [address] 88394 ALK PHOS 121 U/L High 46 - 116 [facility] Comment on above: Performed By: #### 2 47540 #### [facility],[address] [place] [address] 71519 ALT [Catalytic activity/Vol] 62 U/L Normal 16 - 63 [facility] Comment on above: Performed By: #### 2 36228 #### [facility],[address] [place] [address] Anion gap [Moles/Vol] 16 mmol/L Normal 10 - 20 [facility] Comment on above: Performed By: #### 2 [id number] #### [facility],[address] [place] [address] 67433 AST [Catalytic activity/Vol] 25 U/L Normal 13 - 39 [facility] Comment on above: Performed By: #### 2 01650 #### [facility],[address] [place] [address] 25915 B/C RATIO 16 ratio Normal 0 - 30 [facility] Comment on above: Performed By: #### 2 87167 #### [facility],[address] [place] [address] 31938 Bilirubin [Mass/Vol] 0.3 mg/dL Normal 0.2 - 1.0 [facility] Comment on above: Performed By: #### 2 64027 #### [facility],[address] [place] [address] 98416 Calcium [Mass/Vol] 9.1 mg/dL Normal 8.5 - 10.1 [facility] Comment on above: Performed By: #### 2 95753 #### [facility],[address] [place] [address] 36630 Chloride [Moles/Vol] 100 mmol/L Normal 98 - 107 [facility] Comment on above: Performed By: #### 2 25952 #### [facility],[address] [place] [address] 32404 CMP with eGFR Normal [facility] Comment on above: Result Comment: COMP REHENSIVE METABOLIC PANEL Performed By: #### 2 73714 #### [facility],[address] [place] [address] 95929 CO2 [Moles/Vol] 27.4 mmol/L Normal 21.0 - 32.0 [facility] Comment on above: Performed By: #### 2 22092 #### [facility],[address] [place] [address] 63204 Creatinine [Mass/Vol] 0.96 mg/dL Normal 0.55 - 1.02 [facility] Comment on above: Performed By: #### 2 84122 #### [facility],[address] [place] [address] GFR/1.73 sq M.predicted among non-blacks MDRD (S/P/Bld) [Vol rate/Area] mL/min/{1.73_m2} Normal 60 - 999 [facility] Comment on above: Performed By: #### 2 32354 #### [place] [address] Result Comment: ACCO RDING TO THE NATIONAL KIDNEY DISEASE EDUCATION PROGRAM(NKDE), A NORMAL eGFR IS A VALUE GREATER THAN OR EQUAL TO 60 ML/MIN/1.73 SQ METERS. CHRONIC KIDNEY DISEASE: <60mL/MIN/1.73 SQ METERS KIDNEY FAILURE: <15mL/MIN/1.73 SQ METERS THIS TEST SHOULD ONLY BE USED FOR PATIENTS 18 YEARS OF AGE AND OLDER. Globulin (S) [Mass/Vol] 3.3 g/dL Normal 1.5 - 3.8 [facility] Comment on above: Performed By: #### 2 00941 #### [address] [address] Glucose [Mass/Vol] 94 mg/dL Normal 74 - 106 [facility] Comment on above: Performed By: #### 2 22066 #### [address] [address] Potassium [Moles/Vol] 4.5 mmol/L Normal 3.5 - 5.1 [facility] Comment on above: Performed By: #### 2 37732 #### [address] [address] Protein [Mass/Vol] 7.2 g/dL Normal 6.4 - 8.2 [facility] Comment on above: Performed By: #### 2 21352 #### [facility],[address] [place] [address] 17493 Sodium [Moles/Vol] 139 mmol/L Normal 136 - 145 [facility] Comment on above: Performed By: #### 2 63419 #### [facility],[address] [place] [address] 82219 Urea nitrogen [Mass/Vol] 15 mg/dL Normal 7 - 18 [facility] Comment on above: Performed By: #### 2 24536 #### [facility],[address] [place] [address] LUMBAR W/O CONTRASTon CT LUMBAR W/O CONTRAST [place] [address] Patient: JOSEP STANLEY Phone#: : 1970 Age: 54 Gender: F Pt. Type: ER Account: [id number] Location: [facility] Ordering: DR. KATIE JAVIER Exam Date: 10/29/2024/21:02 Family Phys: DAVID DAVY Charge Code: 988038 Physician: Humphreys Order #: [id number] Dose#: [id number] PROCEDURE: CT LUMBAR SPINE WITHOUT CONTRAST COMPARISON: [facility], CT, LUMBAR SPINE W/O CON, 01/26/2024, 12:46. INDICATIONS: Lower back pain. TECHNIQUE: After obtaining the patient's consent, multi-planar CT images were created without intravenous contrast material. All CT scans at this facility use dose modulation, iterative reconstruction, and/or weight based dosing when appropriate to reduce radiation dose to as low as reasonably achievable. IV CONTRAST: No IV contrast used,0.0ml TOTAL DOSE: 18.00 CTDIvol(mGy) FINDINGS: PARASPINAL AREA: Normal with no visible mass. BONES: Vertebral bodies are maintained in height and alignment. No fracture or subluxation. LUMBAR DISC LEVELS: L1-L2: No significant disc/facet abnormality, spinal stenosis, or foraminal stenosis. L2-L3: No significant disc/facet abnormality, spinal stenosis, or foraminal stenosis. L3-L4: No significant disc/facet abnormality, spinal stenosis, or foraminal stenosis. L4-L5: Circumferential disc bulge, stone lightly eccentric to the right. Disc bulge contributes to mild bilateral foraminal narrowing L5-S1: No significant disc/facet abnormality, spinal stenosis, or foraminal stenosis. CONCLUSION: Circumferential disc bulge at L4-5 contributes to mild bilateral foraminal narrowing Dictated by: Daly Oconnor MD on 10/30/2024 at 22:06 Approved by: Daly Oconnor MD on 10/30/2024 at 22:15 [facility] FACILITY CODING SUMMARYon FACILITY CODING SUMMARY Facility Coding Facility Coding Summary [address] [address] [id number] 08/07/2024 Patient: JOSEP STANLEY Sex: Female : 1970 Age: 54y Providers: Jeremias Mcdonough D.O. and Tip Jones D.O. DIAGNOSTIC WORKUP Chief Complaint ABDOMINAL PAIN. -- Jeremias Mcdonough D.O. Principal Diagnosis Chronic generalized abdominal pain of undetermined cause. -- Jeremias Mcdonough D.O. ICD-10 Codes R10.84: Generalized abdominal pain PROCEDURES Procedures from Providers: Procedures from Nurses/Facility: Injection Bentyl IM (CPT: 48555) IV Hydration (CPT: 18456 X2) IV Push Zofran IVP (CPT: 69777) IV Push Protonix (Pantoprazole) IVP (CPT: 35121) IV Push KetorOLAC (Toradol) IVP (CPT: 65117) IV Push MORPHine IVP (CPT: 87088) IV Push Zofran IVP (CPT: 09358) 1 of 2 Facility Coding SUPPLIES [facility] 18475-88 This is a partial abstract of information documented in the full record. [employer] must use independent judgment in selecting codes. CPT copyright 2022 [employer]. All Rights Reserved. 2 of 2 [facility] MED ADMINISTRATION DETAILon 08-08-2024 MED ADMINISTRATION DETAIL [facility] Medication Administration Record [place] [address] [facility] [place] [address] [id number] 08/07/2024 Patient: JOSEP STANLEY Sex: Female : 1970 Age: 54y MEASUREMENTS: Wt: 71.7 kg, Ht/Howie: 66.0 in, BMI: 25.50 ALLERGIES: Penicillins, erythromycin base Medication Ordered Medication Administration Date/Time KetorOLAC 20:34 08/07 KetorOLAC (Toradol) IVP 30 mg given via Site# 1. Given (Toradol) IVP 30 mg Allergies verified and confirmed 5 rights. IV patency established. IV 20:34 08/07/2024 (NOW x1) site checked: no pain, redness, or swelling. IV flushed thoroughly Vinayak Shana, R.N. pre-medication administration. IVP given by nurse. Information Scanned reviewed with patient. Verbalizes understanding. - 20:35 Vinayak Shana, R.N. IV NS 0.9 % 1000 20:30 08/07 IV NS 0.9 % 1000 mL started in bag#1 1000 mL at Started mL at 250 mL/hr 250 mL/hr via Site# 1. Allergies verified and confirmed 5 rights. IV 20:30 08/07/2024 (NOW x1) patency established. IV site checked: no pain, redness, or swelling. Vinayak Shana, R.N. IV flushed thoroughly pre-medication administration. Information Stopped reviewed with patient. - 20:31 Vinayak Shana, R.N. 22:43 08/07/2024 Vinayak Shana, R.N. 22:43 08/07 Medication Discontinued: bag #1 discontinued. Total Scanned amount infused: 1000 mL. IV patency established. IV site checked: no pain, redness, or swelling. IV flushed thoroughly post-medication administration. - 22:43 Vinayak Shana, R.N. Zofran IVP 4 mg 20:32 08/07 Zofran IVP 4 mg given via Site# 1. Confirmed 5 rights. Given (NOW x1) IVP given by nurse. Information reviewed with patient including 20:32 08/07/2024 reason for taking this medication. Verbalizes understanding. - Vinayak Shana, RHeikeNHeike 20:32 Vinayak Saldana R.N. Scanned 1 of 2 [facility] [employer] Medication Ordered Medication Administration Date/Time MORPHine IVP 2 20:32 10 MORPHine IVP 2 mg given via Site# 1. Allergies Given mg (NOW x1, HIGH verified and confirmed 5 rights. IV patency established. IV site 20:32 08/07/2024 ALERT checked: no pain, redness, or swelling. IV flushed thoroughly Vinayak Saldana R.N. MEDICATION) pre-medication administration. IVP given by nurse. Information Scanned reviewed with patient including reason for taking this medication and sedative warning. Verbalizes understanding. - 20:33 Vinayak Saldana R.N. GI Cocktail PO 20:48 10 GI Cocktail PO given. Allergies verified and confirmed Given (Maalox Oral 30 mL, 5 rights. Information reviewed with patient including reason for 20:48 08/07/2024 Lidocaine Viscous taking this medication. Verbalizes understanding. (Gi cocktail would Vinayak Saldana R.N. Mouth/Throat 5 mL, not scan). - 20:48 Vinayak Saldana R.N. Not Scanned hyoscyamine Sublingual 0.125 mg) (NOW x1) Bentyl IM 20 mg 22:32 08/07 Bentyl IM 20 mg given. Given in the right deltoid and Given left deltoid (split dose). Information reviewed with patient including 22:32 08/07/2024 reason for taking this medication. Verbalizes understanding. - Vinayak Saldana R.N. 22:32 Vinayak Saldana R.N. Not Scanned Protonix 22:25 08/07 Protonix (Pantoprazole) IVP 40 mg given via Site# 1. Given (Pantoprazole) IVP Confirmed 5 rights. IV patency established. IV site checked: no 22:25 08/07/2024 40 mg (NOW x1) pain, redness, or swelling. IV flushed thoroughly pre-medication Vinayak Saldana, R.N. administration. IVP given by nurse. Information reviewed with Scanned patient including reason for taking this medication. Verbalizes understanding. - 22:26 Vinayak Saldana, R.N. Zofran IVP 4 mg 22:41 08/07 Zofran IVP 4 mg given via Site# 1. Allergies verified Given (NOW x1) and confirmed 5 rights. IV patency established. IV site checked: no 22:41 08/07/2024 pain, redness, or swelling. IV flushed thoroughly pre-medication Vinayak Saldana R.N. administration. IVP given by nurse. Information reviewed with Scanned patient including reason for taking this medication. Verbalizes understanding. - 22:41 Vinayak Saldana R.N. 2 of 2 Normal [facility] NURSES CLINICAL REPORT (NOTE S)on 08-08-2024 NURSES CLINICAL REPORT (NOTES) Nurse Narrative Nurse Clinical Narrative [place] [address] [place] [address] [id number] 08/07/2024 Patient: JOSEP STANLEY Sex: Female : 1970 Age: 54y Disposition: Discharge to Home Disposition Decision Time: 22:33 08/07/2024 Departure Time: 23:05 08/07/2024 TRIAGE Arrived by private vehicle. Primary physician (davy). Triage time: 19:23 08/07/2024. Chief Complaint: ABDOMINAL PAIN and NAUSEA. Alert. No acute distress. Onset. (this morning, worsening). The patient has had nausea and abdominal pain. No vomiting. SEPSIS SCREEN: NEGATIVE. SIRS criteria negative. No possible sources of infection. -- :08/07/24 ROMARIO Pettit R.N. 19:08/07/24. BP: 141/88 MAP: 106. HR: 85. RR: 16. O2 saturation: 97% Temperature: 97.2 F. Pain level now 8/10. -- 19:28 08/07/24 ROMARIO Pettit R.N. Acuity: LEVEL 3. 19:08/07/24. -- 19:08/07/24 ROMARIO Pettit R.N. Measurements: 19:08/07/24 Wt: 71.7 kg, Ht/Howie: 66.0 in, BMI: 25.50 -- 08/07/24 ROMARIO Pettit R.N. Medications: 1 of 5 Nurse Narrative amphetamine ER 20 mg tablet, immediate and extended release 24 hour: twice a day . -- 19:08/07/24 ROMARIO Pettit R.N. omeprazole 20 mg capsule,delayed release: 1 capsule twice a day. -- 22:45 08/07/24 EDT Jeremias Mcdonough D.O. Allergies: Penicillins -- 19:08/07/24 ROMARIO Pettit R.N. erythromycin base -- 19:08/07/24 ROSSANAT Tameka Pettit R.N. Problems: ITP -- 19:08/07/24 ROMARIO Pettit R.N. Fibromyalgia -- 19:08/07/24 ROSSANAT Tameka Pettit R.N. Endometriosis -- 19:08/07/24 ROMARIO Pettit R.N. 19:08/07/24. Preferred pharmacy ([facility]). -- 19:08/07/24 ROMARIO Pettit R.N. ADDITIONAL SURGERIES: -- 19:08/07/24 ROMARIO Pettit R.N. History 19:08/07/24. SOCIAL HX: Never smoker. Alcohol use; consumes beer occasionally and wine occasionally. No drug use. The patient has not traveled outside the [place] Infectious disease exposure: No infectious disease exposure. ABUSE ASSESSMENT: The patient answered yes to the question(s) Do you feel safe in your home? and no to the question(s) Are you afraid to go home?. SELF HARM ASSESSMENT: Self harm assessment was performed. The patient answered no to the question(s) Have you recently felt down, depressed, or hopeless? and Do you have thoughts of harming or killing yourself?. 2 of 5 Nurse Narrative FALL RISK ASSESSMENT: Fall risk assessment completed. No risk factors identified. -- 19:08/07/24 ROMARIO Pettit R.N. 19:08/07/24. PAST MEDICAL HX: No menstrual periods. -- 19:08/07/24 ROMARIO Pettit R.N. Interventions 19:08/07/24. Identification band and allergy band on patient. -- 19:29 08/07/24 ROMARIO Pettit R.N. PHYSICAL ASSESSMENT 20:04 08/07/24. Ambulatory to room. GENERAL / NEURO / PSYCH: Alert. Oriented X 4. Appears anxious. The patient appears in pain and appears anxious. HEENT: Mucous membranes are pink. RESPIRATORY: Respirations not labored. Breath sounds within normal limits. CVS: Normal sinus rhythm noted. Capillary refill less than 2 seconds. GI / : The patient has had nausea. Abdominal tenderness in the left upper quadrant, left side of the abdomen and left lower quadrant. Abnormal bowel sounds present (Hypoactive). No abdominal distention or diarrhea. No emesis noted. SKIN: Skin is warm. -- 20:14 08/07/24 EDT Vinayak Saldana R.N. NURSING PROGRESS NOTES 19:54 08/07/24. HR: 84 bpm. O2 saturation: 98%. -- 23:06 08/07/24 EDT Vinayak Saldana R.N. 20:02 08/07/24. HR: 79 bpm. O2 saturation: 95%. -- 23:06 08/07/24 EDT Vinayak Saldana R.N. 20:17 08/07/24. Monitoring of patient in place; (refused at this time due to anxiety). Patient gowned. Reassurance given. Two patient identifiers checked. Call light placed in reach. Side rails up x 1. Bed placed in lowest position. Brakes of bed on. -- 20:17 08/07/24 EDShubham Saldana R.N. 20:21 08/07/24. Site #1 started via IV in the right antecubital space with a 20g angiocath with aseptic technique and good blood return; 2 attempts. Blood drawn: rainbow set and garcia tube(s). Saline lock flushed with 5 mL saline. -- 20:31 08/07/24 EDT Vinayak Saldana, R.N. 20:30 08/07/24. IV NS 0.9 % 1000 mL started in bag#1 1000 mL at 250 mL/hr via Site# 1. Allergies verified and confirmed 5 rights. IV patency established. IV site checked: no pain, redness, or swelling. IV flushed thoroughly pre-medication administration. Information reviewed with patient. -- 20:31 08/07/24 EDT Vinayak Saldana R.N. 20:32 08/07/24. Zofran IVP 4 mg given via Site# 1. Confirmed 5 rights. IVP given by nurse. Information reviewed with patient including reason for taking this medication. Verbalizes understanding. -- 20:32 08/07/24 EDT Vinayak Saldana R.N. 3 of 5 Nurse Narrative (more content not included)... Normal [facility] ORDER SHEET (CPOE ONLY)on ORDER SHEET (CPOE ONLY) Order Sheet Order Sheet [place] [address] [facility] [place] [address] [id number] 08/07/2024 Patient: JOSEP STANLEY Sex: Female : 1970 Age: 54y MEASUREMENTS: Wt: 71.7 kg, Ht/Howie: 66.0 in, BMI: 25.50 ALLERGIES: Penicillins, erythromycin base MEDICATION/IV/DRIP/FLUID ORDERS Order Description Priority Entered Acknowledged Completed KetorOLAC (Toradol) IVP30 mg 20:27 08/07/2024 20:27 20:35 (NOW x1) Jeremias Mcdonough D.O. 08/07/2024 08/07/2024 Joya Dale R.NHeike IV NS 0.9 %1000 mL at 250 20:27 08/07/2024 20:27 20:31 mL/hr (NOW x1) Jeremias Mcdonough D.O. 08/07/2024 08/07/2024 Joya Dale R.N. Zofran IVP4 mg (NOW x1) 20:27 08/07/2024 20:27 20:32 Violet RussellOHeike 08/07/2024 08/07/2024 Joya Dale R.NHeike MORPHine IVP2 mg (NOW x1, 20:27 08/07/2024 20:27 20:33 HIGH ALERT MEDICATION) Jeremias Mcdonough D.O. 08/07/2024 08/07/2024 Joya Dale R.NHeike Reason for ordering with alerts: Benefits outweigh risks --20:27 08/07/2024 Jeremias Mcdonough D.O. GI Cocktail PO(Maalox Oral 30 20:28 08/07/2024 20:35 20:48 mL, Lidocaine Viscous Jermeias Mcdonough D.O. 08/07/2024 08/07/2024 Mouth/Throat 5 mL, hyoscyamine Leslie DaleNHeike Saldana R.N. 1 of 4 Order Sheet Sublingual 0.125 mg) (NOW x1) Bentyl IM20 mg 21:48 08/07/2024 22:16 22:32 Tip Jones, 08/07/2024 08/07/2024 VioletOJoya Page R.N. Protonix (Pantoprazole) IVP40 21:49 08/07/2024 22:16 22:26 mg (NOW x1) Tip Jones, 08/07/2024 08/07/2024 Joya Garibay RElsie Reason for ordering with alerts: Benefits outweigh risks --21:49 08/07/2024 Tip Jones D.O. Zofran IVP4 mg (NOW x1) 22:40 08/07/2024 22:40 22:41 Vinayak Saldana R.N. 08/07/2024 08/07/2024 Verbal Order, Auth by: Joya Dale R.N. Timothy Omley, D.O. Read back and verified Reason for ordering with alerts: Clinical consideration given --22:40 08/07/2024 Vinayak Saldana R.N. LAB ORDERS Order Description Priority Entered Acknowledged Collected Completed CBC w Diff Stat Stat 20:16 08/07/2024 20:17 08/07/2024 Vinayak Collier R.N. D.O. CMP Stat Stat 20:16 08/07/2024 20:17 08/07/2024 Vinayak Collier R.N. D.O. Troponin-I (Sched: q3h Stat 20:16 08/07/2024 20:17 08/07/2024 X2); Stat 1 of 2 Vinayak Collier R.N. D.OHeike 2 of 4 Order Sheet Troponin-I (Sched: q3h Stat 20:16 08/07/2024 X2); Stat 2 of 2 Tip Jones D.O. Urinalysis Stat Stat 20:16 08/07/2024 20:17 08/07/2024 Vinayak Collier R.N. D.O. EKG - ED Stat Stat 20:16 08/07/2024 20:17 08/07/2024 20:17 08/07/2024 Vinayak Collier R.N. Seth Lapp RHeikeNHeike LazoO. Lactate, Serum Stat Stat 20:16 08/07/2024 20:17 08/07/2024 20:18 08/07/2024 Vinayak Collier R.N. Seth Lapp RHeikeNHeike Oscar.O. Lipase Stat Stat 20:16 08/07/2024 20:17 08/07/2024 Vinayak Collier R.N. D.OHeike DIAGNOSTIC STUDY ORDERS Order Description Priority Entered Acknowledged Completed CT ABD/PEL w IV Cont Stat Stat 20:16 08/07/2024 20:18 22:18 Tip Jones 08/07/2024 08/07/2024 Joya Garibay R.NHeike Order Comments: 20:16 08/07/2024: Status: Not . Tip Jones D.O. Reason for Study: Abdominal Pain STAFF ORDERS Order Description Priority Entered Acknowledged Collected Completed IV Saline Lock 20:16 08/07/2024 20:18 08/07/2024 3 of 4 Order Sheet Vinayak Collier R.N. DHeikeOHeike [Electronically signed by Tip Jones D.O. (08/08/2024 15:25 EDT)] [Electronically signed by Jeremias Mcdonough D.O. (08/08/2024 22:53 EDT)] 4 of 4 Normal [facility] PHYS CLINICAL REPORT AND ADD ENon 08-08-2024 PHYS CLINICAL REPORT AND ADDEN Narrative Physician Clinical [facility] [address] [place] [id number] [phone] 08/07/2024 [id number] Sex: Female : 1970 Age: 54y Disposition: Discharge to Home Disposition Decision Time: 22:33 08/07/2024 Departure Time: 23:05 08/07/2024 Measurements Wt: 71.7 kg, Ht/Howie: 66.0 in, BMI: 25.50 Initial Vital Sign Measured Time BP MAP HR RR O2Sat ETCO2 Temp Pain GCS RTS 19:28 08/07/2024 141/88 106 85 16 97% 97.2 F 8 Time Seen: 19:45 08/07/2024. Arrived- By private vehicle. Historian- patient. HISTORY OF PRESENT ILLNESS Chief Complaint: ABDOMINAL PAIN. This started 2 weeks. It is described as burning and diffuse and it is described as located in the periumbilical area. The patient has had nausea. No loss of appetite, vomiting or diarrhea. REVIEW OF SYSTEMS RESPIRATORY: No difficulty breathing. CVS: The patient has had chest pain. CONSTITUTIONAL: No fever or chills. : No difficulty with urination. GI: The patient has had constipation. No black stools or bloody stools. PAST HISTORY Endometriosis 1 of 10 Narrative Fibromyalgia ITP Surgeries: Medications: amphetamine ER 20 mg tablet, immediate and extended release 24 hour: twice a day . omeprazole 20 mg capsule,delayed release: 1 capsule twice a day. Allergies: erythromycin base Penicillins SOCIAL HISTORY Never smoker. No alcohol use. ADDITIONAL NOTES The nursing notes have been reviewed. LABS, X-RAYS, AND EKG Laboratory Tests: CBC + DIFF Final AUGUSTIN: 08/07/2024 20:00:00 EDT MsgRcvd: 08/07/2024 20:45 EDT Lab Test Result Reference Status Received Comments 08/07/2024 20:45 CBC-COMPLETE CBC + DIFF Final EDT BLOOD COUNT 08/07/2024 20:45 WBC 7.3 x 10/UL 4.5 - 10.8 Final EDT 2 of 10 Narrative 08/07/2024 20:45 RBC 4.39 x 10/UL 4.10 - 5.30 Final EDT 08/07/2024 20:45 HEMOGLOBIN 14.4 g/dl 12.0 - 16.0 Final EDT 08/07/2024 20:45 HEMATOCRIT 41.2 % 34.0 - 46.0 Final EDT 08/07/2024 20:45 MCV 94 fl 80 - 99 Final EDT 08/07/2024 20:45 MCH 33 pg 27 - 33 Final EDT 08/07/2024 20:45 MCHC 35 X10 3 32 - 36 Final EDT 08/07/2024 20:45 RDW/CV 12.8 % 12.0 - 15.6 Final EDT 08/07/2024 20:45 PLATELET 243 x10/UL 150 - 450 Final EDT 08/07/2024 20:45 AUTOMATED MPV 9.6 fl 6.6 - 10.5 Final EDT DIFFERENTIAL 08/07/2024 20:45 NEUT % 62.0 % 46.0 - 76.0 Final EDT 08/07/2024 20:45 LYMPH % 28.0 % 20.0 - 45.0 Final EDT 08/07/2024 20:45 MONOS % 8.3 % 0.0 - 10.0 Final EDT 08/07/2024 20:45 EO % 1.6 % 0.0 - 7.0 Final EDT 08/07/2024 20:45 BASO % 0.2 % 0.0 - 2.0 Final EDT 3 of 10 Narrative 08/07/2024 20:45 Lymph # 2.03 x10/UL 0.80 - 2.80 Final EDT 08/07/2024 20:45 Neut # 4.50 x10/UL 1.50 - 7.10 Final EDT 08/07/2024 20:45 Pendleton # 0.60 x10/UL 0.20 - 1.00 Final EDT 08/07/2024 20:45 EO # 0.12 x10/UL 0.00 - 0.50 Final EDT 08/07/2024 20:45 Baso # 0.01 x10/UL 0.00 - 0.10 Final EDT 08/07/2024 20:45 MANUAL DIFF N/A New Order EDT 08/07/2024 20:45 MORPHOLOGY N/A New Order EDT CMP with eGFR Final AUGUSTIN: 08/07/2024 20:00:00 EDT MsgRcvd: 08/07/2024 20:41 EDT Lab Test Result Reference Status Received Comments COMPREHENSIVE 08/07/2024 CMP with eGFR Final METABOLIC 20:41 EDT PANEL 08/07/2024 SODIUM 140 mmol/l 136 - 145 Final 20:41 EDT 08/07/2024 POTASSIUM 3.7 mmol/L 3.5 - 5.1 Final 20:41 EDT 08/07/2024 CHLORIDE 106 mmol/L 98 - 107 Final 20:41 EDT 4 of 10 Narrative 08/07/2024 CO2 28.7 mmol/L 21.0 - 32.0 Final 20:41 EDT 118 mg/dl 08/07/2024 GLUCOSE Above high 74 - 106 Final 20:41 EDT normal 08/07/2024 BUN 18 mg/dl 7 - 18 Final 20:41 EDT 1.20 mg/dl 08/07/2024 CREATININE Above high 0.55 - 1.02 Final 20:41 EDT normal 08/07/2024 AST/SGOT 23 U/L 13 - 39 Final 20:41 EDT 08/07/2024 ALK PHOS 96 U/L 46 - 116 Final 20:41 EDT 08/07/2024 CALCIUM 9.1 mg/dl 8.5 - 10.1 Final 20:41 EDT TOTAL 08/07/2024 7.6 g/dl 6.4 - 8.2 Final PROTEIN 20:41 EDT 08/07/2024 ALBUMIN 3.8 g/dL 3.4 - 5.0 Final 20:41 EDT 08/07/2024 GLOBULIN 3.8 G/DL 1.5 - 3.8 Final 20:41 EDT 08/07/2024 A/G RATIO 1.0 0.9 - 1.6 Final 20:41 EDT 08/07/2024 TOTAL BILI 0.4 mg/dl 0.2 - 1.0 Final 20:41 EDT 08/07/2024 B/C RATIO 15 ratio 0 - 30 Final 20:41 EDT 5 of 10 Narrative 08/07/2024 ALT/SGPT 34 U/L 16 - 63 Final 20:41 EDT 9 mmol/L 08/07/2024 ANION GAP 10 - 20 Final Below low normal 20:41 EDT 08/07/2024 AGE 54 years Final 20:41 EDT 47 ML/MINUTE 08/07/2024 eGFR 60 - 999 Final Below low normal 20:41 EDT ACCORDING TO THE NATIONAL KIDNEY DISEASE EDUCATION PROGRAM(NKDE), A NORMAL eGFR IS A VALUE GREATER THAN OR E (more content not included)... Normal [facility] PHYS CODING SUMMARY HEAD ANIMAL KEEPER AB Hinojosa 08-08-2024 PHYS CODING SUMMARY HEAD ANIMAL KEEPER ABST Coding Summary Coding Summary [place] [address] [place] [address] [phone] 08/07/2024 Patient: JOSEP STANLEY Sex: Female : 1970 Age: 54y ICD-10 Codes R10.84: Generalized abdominal pain This is a partial abstract of information documented in the full record. [employer] must use independent judgment in selecting codes. CPT copyright 2022 [employer]. All Rights Reserved. 1 of 1 [facility] SUPER BILLon 08-08-2024 [address]PER [address] [place] [address] [phone] 08/07/2024 Patient: JOSEP STANLEY Sex: Female : 1970 Age: 54y Facility Professional Category Item Description Code Code Quantity Fee Total Drugs Normal Saline 081729 1 $0.00 $0.00 1000cc (158900) Nurse/E/M EMERGENCY 831912 1 $0.00 $0.00 DEPT VISIT HIGH SEVERITYFUNCJ (87758-29) Nurse/IV/IM/Infusions Hydration 906587 2 $0.00 $0.00 additional hour (43795) Nurse/IV/IM/Infusions IM/SQ (28937) 591317 1 $0.00 $0.00 Nurse/IV/IM/Infusions IVP additional 063742 3 $0.00 $0.00 push (89773) Nurse/IV/IM/Infusions IVP initial (84721) 442767 1 $0.00 $0.00 Nurse/IV/IM/Infusions IVP same med [id number] 1 $0.00 $0.00 (31 min apart) ([id number]) Grand $0.00 Total 1 of 2 Superbill Providers Sofie Collier D.O. Chief Complaint ABDOMINAL PAIN. Principal Diagnosis Chronic generalized abdominal pain of undetermined cause. ICD-10 Codes R10.84: Generalized abdominal pain 2 of 2 Normal [facility] VISIT SUMMARYon 08-08-2024 VISIT SUMMARY Visit Overview Visit Overview [facility] [address] [place] [address] [phone] 08/07/2024 Patient: JOSEP STANLEY Sex: Female : 1970 Age: 54y 08/08/2024 10:53 PM EDT ED Arrival:19:17 08/07/2024 EDT Status:not Recent Travel:no Language:eng Adv Directive: Isolation Status: Ethnicity:N Fall Risk:no risk Infectious Disease Exposure:no Measurements:5'6 / 167.6 Self-Harm Status:risk Sepsis Screen:negative cm 158.0 lb / 71.7 kg Chief Complaint:ABDOMINAL PAIN, NAUSEA, (davy ), and (this morning, worsening ) ALLERGIES erythromycin base Penicillins HOME MEDICATIONS amphetamine ER 20 mg tablet, immediate and extended release 24 hour: twice a day . omeprazole 20 mg capsule,delayed release: 1 capsule twice a day. PAST MEDICAL HISTORY / PROBLEMS 1 of 3 Visit Overview Endometriosis Fibromyalgia ITP No menstrual periods PAST SURGICAL HISTORY SOCIAL HISTORY Smoking status: No Alcohol use: Yes Drug use: No ED COURSE MEDICATIONS GIVEN IN EMERGENCY DEPARTMENT 20:30 08/07/24 IV NS 0.9 % 1000 mL 250 mL/hr 20:32 08/07/24 Zofran IVP 4 mg 20:32 08/07/24 MORPHine IVP 2 mg 20:34 08/07/24 KetorOLAC (Toradol) IVP 30 mg 20:48 08/07/24 GI Cocktail PO 22:25 08/07/24 Protonix (Pantoprazole) IVP 40 mg 22:32 08/07/24 Bentyl IM 20 mg 22:41 08/07/24 Zofran IVP 4 mg IV SITE INFORMATION INTAKE OUTPUT REASSESMENT (most recent) 22:07 08/07/24. Reassessment after medication administered. Pain still present but improving. Nausea still present but improving. Reassessment after fluids administered. Call light placed in reach. Side rails up x 2. VITAL SIGNS 2 of 3 Visit Overview First Vitals Last Vitals Temp 19:28 08/07/24 97.2 F Temp 23:04 08/07/24 BP 19:28 08/07/24 141/88 BP 23:04 08/07/24 143/85 HR 19:28 08/07/24 85 HR 23:04 08/07/24 53 RR 19:28 08/07/24 16 RR 23:04 08/07/24 O2 Sat 19:28 08/07/24 97% O2 Sat 23:04 08/07/24 Pain 19:28 08/07/24 8 Pain 23:04 08/07/24 ETCO2 19:28 08/07/24 ETCO2 23:04 08/07/24 GCS 19:28 08/07/24 GCS 23:04 08/07/24 RTS 19:28 08/07/24 RTS 23:04 08/07/24 PROCEDURES NURSING INTERVENTIONS LABS / STUDIES LABS / STUDIES ORDERED CBC w Diff CMP CT ABD/PEL w IV Cont EKG - ED Lactate, Serum Lipase Troponin-I Troponin-I Urinalysis CLINICAL IMPRESSION CHRONIC GENERALIZED ABDOMINAL PAIN OF UNDETERMINED CAUSE 3 of 3 Normal [facility] CBC + DIFFon 08-07-2024 Baso # 0.01 x10EE3/UL Normal 0.00 - 0.10 [facility] Comment on above: Performed By: #### 2 [id number] #### [facility],[address] [place] [address] Basophils/100 WBC (Bld) 0.2 % Normal 0.0 - 2.0 [facility] Comment on above: Performed By: #### 2 80926 #### [facility],[address] [place] [address] CBC + DIFF Normal [facility] Comment on above: Result Comment: CBC- COMPLETE BLOOD COUNT Performed By: #### 2 53542 #### [facility],[address] [place] [address] EO # 0.12 x10EE3/UL Normal 0.00 - 0.50 [facility] Comment on above: Performed By: #### 2 41831 #### [facility],[address] [place] [address] Eosinophils/100 WBC (Bld) 1.6 % Normal 0.0 - 7.0 [facility] Comment on above: Performed By: #### 2 82485 #### [facility],[address] [place], [place] [address] Erythrocyte distribution width (RBC) [Ratio] 12.8 % Normal 12.0 - 15.6 [facility] Comment on above: Performed By: #### 2 41394 #### [facility],[address] [place] [address] Hematocrit (Bld) [Volume fraction] 41.2 % Normal 34.0 - 46.0 [facility] Comment on above: Performed By: #### 2 86297 #### [place] [address] Hemoglobin (Bld) [Mass/Vol] 14.4 g/dL Normal 12.0 - 16.0 [facility] Comment on above: Performed By: #### 2 83008 #### [facility],[address] [place] [address] Lymph # 2.03 x10EE3/UL Normal 0.80 - 2.80 [facility] Comment on above: Performed By: #### 2 32805 #### [facility],[address] [place], [place] [address] Lymphocytes/100 WBC (Bld) 28.0 % Normal 20.0 - 45.0 [facility] Comment on above: Performed By: #### 2 50003 #### [address] [address] MANUAL DIFF N/A Normal [facility] Comment on above: Performed By: #### 2 32767 #### [address] [address] MCH (RBC) [Entitic mass] 33 pg Normal 27 - 33 [facility] Comment on above: Performed By: #### 2 50110 #### [facility],[address] [place] [address]697 MCHC 35 X10 3 Normal 32 - 36 [facility] Comment on above: Performed By: #### 2 34456 #### [facility],[address] [place] [address] MCV (RBC) [Entitic vol] 94 fL Normal 80 - 99 [facility] Comment on above: Performed By: #### 2 95177 #### [facility],[address] [place] [address] [place] # 0.60 x10EE3/UL Normal 0.20 - 1.00 [facility] Comment on above: Performed By: #### 2 25858 #### [facility],[address] [place] [address] 15812 MONOS % 8.3 % Normal 0.0 - 10.0 [facility] Comment on above: Performed By: #### 2 76774 #### [facility],[address] [place] [address]209 Morphology Rahul (Bld) [Interp] N/A Normal [facility] Comment on above: Performed By: #### 2 21622 #### [facility],[address] [place] [address]59 Neut # 4.50 x10EE3/UL Normal 1.50 - 7.10 [facility] Comment on above: Performed By: #### 2 81254 #### [facility],[address] [place] [address]64 Neutrophils/100 WBC (Bld) 62.0 % Normal 46.0 - 76.0 [facility] Comment on above: Performed By: #### 2 92156 #### [facility],[address] [place] [address]208 PLATELET 243 x10EE3/UL Normal 150 - 450 [facility] Comment on above: Performed By: #### 2 61417 #### [facility],[address] [place] [address] Platelet mean volume (Bld) [Entitic vol] 9.6 fL Normal 6.6 - 10.5 [facility] Comment on above: Result Comment: AUTO MATED DIFFERENTIAL Performed By: #### 2 84005 #### [facility],[address] [place] [address] RBC 4.39 x 10EE6/UL Normal 4.10 - 5.30 [facility] Comment on above: Performed By: #### 2 44475 #### [facility],[address] [place] [address] WBC 7.3 x 10EE3/UL Normal 4.5 - 10.8 [facility] Comment on above: Performed By: #### 2 47800 #### [facility],[address] [place] [address] CMP with eGFRon 08-07-2024 AGE 54 years Normal [facility] Comment on above: Performed By: #### 2 40013 #### [facility],[address] [place] [address] Albumin [Mass/Vol] 3.8 g/dL Normal 3.4 - 5.0 [facility] Comment on above: Performed By: #### 2 70258 #### [facility],[address] [place], [place] [id number] Albumin/Globulin [Mass ratio] 1.0 {ratio} Normal 0.9 - 1.6 [facility] Comment on above: Performed By: #### 2 56633 #### [facility],[address] [place], [place] [id number] ALK PHOS 96 U/L Normal 46 - 116 [facility] Comment on above: Performed By: #### 2 82709 #### [facility],[address],[place] [address] ALT [Catalytic activity/Vol] 34 U/L Normal 16 - 63 [facility] Comment on above: Performed By: #### 2 34878 #### [facility],[address] [place] [address] Anion gap [Moles/Vol] 9 mmol/L Low 10 - 20 [facility] Comment on above: Performed By: #### 2 43991 #### [facility],[address] [place] [address] AST [Catalytic activity/Vol] 23 U/L Normal 13 - 39 [facility] Comment on above: Performed By: #### 2 66126 #### [facility],[address] [place] [address] B/C RATIO 15 ratio Normal 0 - 30 [facility] Comment on above: Performed By: #### 2 92652 #### [facility],[address] [place] [address] Bilirubin [Mass/Vol] 0.4 mg/dL Normal 0.2 - 1.0 [facility] Comment on above: Performed By: #### 2 82154 #### [facility],[address] [place] [address] Calcium [Mass/Vol] 9.1 mg/dL Normal 8.5 - 10.1 [facility] Comment on above: Performed By: #### 2 62318 #### [facility],[address] [place] [address] Chloride [Moles/Vol] 106 mmol/L Normal 98 - 107 [facility] Comment on above: Performed By: #### 2 73846 #### [facility],[address] [place], [place] [id number] CMP with eGFR Normal [facility] Comment on above: Result Comment: COMP REHENSIVE METABOLIC PANEL Performed By: #### 2 68391 #### [facility],[address] [place], [place] [id number] CO2 [Moles/Vol] 28.7 mmol/L Normal 21.0 - 32.0 [facility] Comment on above: Performed By: #### 2 22591 #### [facility],[address] [place] [address] Creatinine [Mass/Vol] 1.20 mg/dL High 0.55 - 1.02 [facility] Comment on above: Performed By: #### 2 83045 #### [facility],[address] [place] [address] eGFR 47 ML/MINUTE Low 60 - 999 [facility] Comment on above: Performed By: #### 2 57111 #### [facility],[address] [place] [address] eGFR(AA) 57 ML/MINUTE Low 60 - 999 [facility] Comment on above: Result Comment: ACCO RDING TO THE NATIONAL KIDNEY DISEASE EDUCATION PROGRAM(NKDE), A NORMAL eGFR IS A VALUE GREATER THAN OR EQUAL TO 60 ML/MIN/1.73 SQ METERS. CHRONIC KIDNEY DISEASE: <60mL/MIN/1.73 SQ METERS KIDNEY FAILURE: <15mL/MIN/1.73 SQ METERS THIS TEST SHOULD ONLY BE USED FOR PATIENTS 18 YEARS OF AGE AND OLDER. Performed By: #### 2 03637 #### [facility],[address] [place] [address] Globulin (S) [Mass/Vol] 3.8 g/dL Normal 1.5 - 3.8 [facility] Comment on above: Performed By: #### 2 58683 #### [facility],[address] [place] [address]174 Glucose [Mass/Vol] 118 mg/dL High 74 - 106 [facility] Comment on above: Performed By: #### 2 75101 #### [facility],[address] [place] [address] Potassium [Moles/Vol] 3.7 mmol/L Normal 3.5 - 5.1 [facility] Comment on above: Performed By: #### 2 47436 #### [facility],[address] [place] [address] Protein [Mass/Vol] 7.6 g/dL Normal 6.4 - 8.2 [facility] Comment on above: Performed By: #### 2 69994 #### [facility],[address] [place] [address] Sodium [Moles/Vol] 140 mmol/L Normal 136 - 145 [facility] Comment on above: Performed By: #### 2 86040 #### [facility],[address] [place] [address] Urea nitrogen [Mass/Vol] 18 mg/dL Normal 7 - 18 [facility] Comment on above: Performed By: #### 2 68184 #### [facility],[address] [place], [place] [address] CT ABDOMEN/PELVIS [facility] 2023 CT ABDOMEN/PELVIS [place] [address] Patient: JOSEP STANLEY Phone#: : 1970 Age: 54 Gender: F Pt. Type: ER Account: [id number] Location: [facility] Ordering: TIP JONES Exam Date: 08/07/2024/21:10 Family Phys: DAVID CESAR Charge Code: 611353 Physician: Humphreys Order #: [id number] Dose#: 13.4 mGy PROCEDURE: CT ABDOMEN/PELVIS WITH CONTRAST COMPARISON: [facility], CT, ABDOMEN/PELVIS W CON, 07/24/2023, 9:26. INDICATIONS: Abdominal pain. TECHNIQUE: After obtaining the patient's consent, CT images were created with non-ionic intravenous contrast material. All CT scans at this facility use dose modulation, iterative reconstruction, and/or weight based dosing when appropriate to reduce radiation dose to as low as reasonably achievable. IV CONTRAST: Omnipaque 350,80ml TOTAL DOSE: 13.4 CTDIvol(mGy) FINDINGS: LIVER: Fatty changes of the liver present. There is no evidence of focal abnormality. BILIARY: The gallbladder is mildly contracted. There is no evidence of biliary dilatation. PANCREAS: Normal. No lesion, fluid collection, ductal dilatation, or atrophy. SPLEEN: Normal. No enlargement or focal lesion. KIDNEYS: Normal. No mass, obstruction, or calcification. ADRENALS: Normal. No mass or enlargement. AORTA/VASCULAR: Normal. No aneurysm or dissection. RETROPERITONEUM: Normal. No mass or adenopathy. BOWEL/MESENTERY: Moderate stool retention. ABDOMINAL WALL: Normal. No mass or hernia. URINARY BLADDER: Normal. No visible focal wall thickening, lesion, or calculus. PELVIC NODES: Normal. No adenopathy. PELVIC ORGANS: Normal. No visible mass. Pelvic organs appropriate for patient age. BONES: Normal. No bony lesion or fracture. LUNG BASES: Normal. No visible pulmonary or pleural disease. OTHER: Negative. CONCLUSION: 1. There is no evidence of acute abdominal or pelvic abnormality. Continued Report - Page 2 of 2 Patient: JOSEP STANLEY Phone#: : 1970 Age: 54 Gender: F Pt. Type: ER Account: [id number] Location: 052 Ordering: TIP JONES Exam Date: 08/07/2024/21:10 Family Phys: DAVID CESAR Charge Code: 577894 Physician: Humphreys Order #: [id number] Dose#: 13.4 mGy 2. Moderate stool retention. Dictated by: Sonal Kimble MD on 08/09/2024 at 11:46 Approved by: Sonal Kimble MD on 08/09/2024 at 11:49 Normal [facility] LACTATEon 08-07-2024 Lactate [Moles/Vol] 0.6 mmol/L Normal 0.4 - 2.0 [facility] Comment on above: Performed By: #### 2 34367 #### [facility],[address] [place] [address] LIPASEon 08-07-2024 Lipase [Catalytic activity/Vol] 31.0 U/L Normal 15.0 - 78.0 [facility] Comment on above: Result Comment: *PLE ASE NOTE THAT RANGES FOR LIPASE HAVE CHANGED OF 10/24/23 DUE TO AN ASSAY UPDATE BY THE REGULATORY LEADER.THE NEW ASSAY RANGE IS 6-250 U/L, WITH A REFERENCE RANGE OF 16-77 U/L. Performed By: #### 2 99941 #### [facility],[address] [place] [address] TROPONINon 08-07-2024 HS TROPONIN <4.0 Normal 0.0 - 51.4 [facility] Comment on above: Performed By: #### 2 96477 #### [facility],[address] [place] [address] 94287 Absolute lymphocyte counton 02-21-2022 Lymphocytes Auto (Unsp spec) [#/Vol] 2.34 10*3/uL 0.83-4.51 [facility] Work Phone: Basophil percentageon 2021 Basophils/100 WBC (Bld) 0.4 % 0-1 [facility] Work Phone: Chloride [Moles/Vol] 105 mmol/L 98-107 [facility] Work Phone: Eosinophils/100 WBC (Bld) 0.6 % 0-5 [facility] Work Phone: Glucose [Mass/Vol] 85 mg/dL 74-106 [facility] Work Phone: Neutrophils (Bld) [#/Vol] 7.6 10*3/uL 2.0-7.7 [facility] Work Phone: Neutrophils/100 WBC (Bld) 70.1 % 47-70 [facility] Work Phone: Potassium [Moles/Vol] 4.5 mmol/L 3.5-5.1 [facility] Work Phone: Sodium [Moles/Vol] 138 mmol/L 136-145 [facility] Work Phone: WBC (Bld) [#/Vol] 10.8 10*3/uL 4.4-11.0 [facility] Work Phone: Blood erythrocytes count (nu mber/volume)on 02-21-2022 RBC (Bld) [#/Vol] 4.72 10*6/uL 4.2-5.4 [facility] Work Phone: Blood hemoglobin measurement (mass/volume)on 02-21-2022 Hemoglobin (Bld) [Mass/Vol] 15.6 g/dL 12.0-15.0 [facility] Work Phone: Blood lymphocytes/100 leukoc yteson 02-21-2022 Lymphocytes/100 WBC (Bld) 21.7 % 19-41 [facility] Work Phone: Blood monocytes/100 leukocyt eson 02-21-2022 Monocytes/100 WBC (Bld) 6.9 % 0-10 [facility] Work Phone: Blood platelet mean volumeon 02-21-2022 Platelet mean volume (Bld) [Entitic vol] 10.5 fL 6.2-12.0 [facility] Work Phone: Determination of erythrocyte mean corpuscular volume (MCV)on 02-21-2022 MCV (RBC) [Entitic vol] 96.2 fL 81-99 [facility] Work Phone: Hematocrit Auto (Bld) [Volum e fraction]on 02-21-2022 Hematocrit (Bld) [Volume fraction] 45.4 % 37-47 [facility] Work Phone: Laboratory - Chemistry and C hemistry - challengeon 02-21-2022 CO2 [Moles/Vol] 26.0 mmol/L 21.0-32.0 [facility] Work Phone: Urea nitrogen/Creatinine [Mass ratio] 12.6 mg/mg 10-20 [facility] Work Phone: Laboratory - Hematology and Cell countson 02-21-2022 Erythrocyte distribution width (RBC) [Entitic vol] 46.0 fL 35.1-43.9 [facility] Work Phone: Erythrocyte distribution width (RBC) [Ratio] 12.9 % 11.6-14.6 [facility] Work Phone: Immature granulocytes/100 WBC (Bld) 0.300 % 0.0-0.9 [facility] Work Phone: Comment on above: IG% - Immature Granu locytes (promyelocytes, myelocytes and metamyelocytes) > 1% indicates that a LEFT SHIFT is Present. MCH (RBC) [Entitic mass] 33.1 pg 27.0-32.0 [facility] Work Phone: Nucleated RBC/100 WBC (Bld) [Ratio] 0 % 0-5 [facility] Work Phone: MCHC Auto (RBC) [Mass/Vol]on 02-21-2022 MCHC (RBC) [Mass/Vol] 34.4 g/dL 32-36 [facility] Work Phone: No Panel Informationon 02-21 Estimated Creatinine Clearance Calc 78.76 ml/min [facility] Work Phone: Estimated GFR (MDRD) Amer 98 mL/min >60 [facility] Work Phone: Comment on above: GFR Calc Estimated GFR (MDRD) Non-Af Amer 81 mL/min >60 [facility] Work Phone: Comment on above: Non- GFR Calc Platelets bldon 02-21-2022 Platelets (Bld) [#/Vol] 276 10*3/uL 150-450 [facility] Work Phone: Serum or plasma calcium palak urement (mass/volume)on 02-21-2022 Calcium [Mass/Vol] 8.6 mg/dL 8.5-10.1 [facility] Work Phone: Serum or plasma creatinine m easurement (mass/volume)on 02-21-2022 Creatinine [Mass/Vol] 0.80 mg/dL 0.55-1.02 [facility] Work Phone: Comment on above: The validity of the calculated GFR & GFRAA in patients over 70 years has not been determined. Clinical correlation is essential. Serum or plasma urea nitroge n measurement (mass/volume)on 02-21-2022 Urea nitrogen [Mass/Vol] 10 mg/dL 05-13 [facility] Work Phone: Thin prep Papanicolaou smear with manual screeningon 02-21-2022 Thin prep Papanicolaou smear with manual screening 04 30- [facility] Work Phone: Vital Signs Date Time Vital Sign Value Performing Clinician Sammie araiza 04-26-2025 12:44-0400 Body temperature 97.8 [degF] No Primary Care Physician [facility] 04-26-2025 12:44-0400 Diastolic blood pressure 91 mm[Hg] No Primary Care Physician [facility] 04-26-2025 12:44-0400 Heart rate 64 /min No Primary Care Physician [facility] 04-26-2025 12:44-0400 Respiratory rate 18 /min No Primary Care Physician [facility] 04-26-2025 12:44-0400 SaO2% (BldA) [Mass fraction] 99 % No Primary Care Physician [facility] 04-26-2025 12:44-0400 Systolic blood pressure 143 mm[Hg] No Primary Care Physician [facility] 04-26-2025 10:30-0400 Body height 167.64 cm No Primary Care Physician [facility] 04-26-2025 10:30-0400 Body mass index (BMI) [Ratio] 27.3 kg/m2 No Primary Care Physician [facility] 04-26-2025 10:30-0400 Body weight 76.8 kg No Primary Care Physician [facility] 04-11-2025 19:23-0400 Body temperature 97.4 [degF] No Primary Care Physician [facility] 04-11-2025 19:23-0400 Diastolic blood pressure 75 mm[Hg] No Primary Care Physician [facility] 04-11-2025 19:23-0400 Heart rate 62 /min No Primary Care Physician [facility] 04-11-2025 19:23-0400 Respiratory rate 17 /min No Primary Care Physician [facility] 04-11-2025 19:23-0400 SaO2% (BldA) [Mass fraction] 100 % No Primary Care Physician [facility] 04-11-2025 19:23-0400 Systolic blood pressure 120 mm[Hg] No Primary Care Physician [facility] 04-11-2025 14:26-0400 Body mass index (BMI) [Ratio] 27 kg/m2 No Primary Care Physician [facility] 04-11-2025 14:26-0400 Body weight 75.97 kg No Primary Care Physician [facility] 04-11-2025 14:24-0400 Body height 167.64 cm No Primary Care Physician [facility] 04-08-2025 08:24-0400 Body height 167.64 cm No Primary Care Physician [facility] 04-08-2025 08:24-0400 Body mass index (BMI) [Ratio] 26.9 kg/m2 No Primary Care Physician [facility] 04-08-2025 08:24-0400 Body weight 75.74 kg No Primary Care Physician [facility] 04-04-2025 12:27-0400 Body temperature 98.1 [degF] No Primary Care Physician [facility] 04-04-2025 12:27-0400 Diastolic blood pressure 82 mm[Hg] No Primary Care Physician [facility] 04-04-2025 12:27-0400 Heart rate 83 /min No Primary Care Physician [facility] 04-04-2025 12:27-0400 Respiratory rate 14 /min No Primary Care Physician [facility] 04-04-2025 12:27-0400 SaO2% (BldA) [Mass fraction] 99 % No Primary Care Physician [facility] 04-04-2025 12:27-0400 Systolic blood pressure 118 mm[Hg] No Primary Care Physician [facility] 04-04-2025 12:13-0400 Body height 167.64 cm No Primary Care Physician [facility] 02-25-2022 13:17-0400 Body height 168.9 cm Cristine Subramanian PUBLIC RECORDS RESEARCHER.RELIGIOUS ACTIVITIES DIRECTOR Work Phone: [facility] 02-25-2022 13:17-0400 Body temperature 97.7 [degF] Cristine Subramanian PUBLIC RECORDS RESEARCHER.RELIGIOUS ACTIVITIES DIRECTOR Work Phone: [facility] 02-25-2022 13:17-0400 Body weight 73.21 kg Cristine Subramanian PUBLIC RECORDS RESEARCHER.RELIGIOUS ACTIVITIES DIRECTOR Work Phone: [facility] 02-25-2022 13:17-0400 Diastolic blood pressure 82 mm[Hg] Cristine Subramanian PUBLIC RECORDS RESEARCHER.RELIGIOUS ACTIVITIES DIRECTOR Work Phone: [facility] 02-25-2022 13:17-0400 Heart rate 75 /min Cristine Subramanian PUBLIC RECORDS RESEARCHER.RELIGIOUS ACTIVITIES DIRECTOR Work Phone: [facility] 02-25-2022 13:17-0400 Respiratory rate 16 /min Cristine Subramanian PUBLIC RECORDS RESEARCHER.RELIGIOUS ACTIVITIES DIRECTOR Work Phone: [facility] 02-25-2022 13:17-0400 SaO2% (BldA) [Mass fraction] 100 % Cristine Subramanian PUBLIC RECORDS RESEARCHER.RELIGIOUS ACTIVITIES DIRECTOR Work Phone: [facility] 02-25-2022 13:17-0400 Systolic blood pressure 144 mm[Hg] Cristine Subramanian PUBLIC RECORDS RESEARCHER.RELIGIOUS ACTIVITIES DIRECTOR Work Phone: [facility] 02-21-2022 10:39-0400 Diastolic blood pressure 77 mm[Hg] [facility] Work Phone: 02-21-2022 10:39-0400 Heart rate 62 /min [facility] Work Phone: 02-21-2022 10:39-0400 Respiratory rate 17 /min [facility] Work Phone: 02-21-2022 10:39-0400 SaO2% (BldA) [Mass fraction] 98 % [facility] Work Phone: 02-21-2022 10:39-0400 Systolic blood pressure 124 mm[Hg] [facility] Work Phone: 02-21-2022 08:35-0400 Body height 167.64 cm [facility] Work Phone: 02-21-2022 08:35-0400 Body mass index (BMI) [Ratio] 25 kg/m2 [facility] Work Phone: 02-21-2022 08:35-0400 Body temperature 97.3 [degF] [facility] Work Phone: 02-21-2022 08:35-0400 Body weight 70.3 kg [facility] Work Phone: 01-31-2022 14:38-0400 Body temperature 98.6 [degF] Alfie Juanito PUBLIC RECORDS RESEARCHER.FAMILY PRACTITIONER Work Phone: [facility] 01-31-2022 14:38-0400 Body weight 70.76 kg Alfie Juanito PUBLIC RECORDS RESEARCHER.FAMILY PRACTITIONER Work Phone: [facility] 01-31-2022 14:38-0400 Diastolic blood pressure 98 mm[Hg] Alfie Juanito PUBLIC RECORDS RESEARCHER.FAMILY PRACTITIONER Work Phone: [facility] 01-31-2022 14:38-0400 Heart rate 85 /min Alfie Juanito PUBLIC RECORDS RESEARCHER.FAMILY PRACTITIONER Work Phone: [facility] 01-31-2022 14:38-0400 Respiratory rate 21 /min Alfie Juanito PUBLIC RECORDS RESEARCHER.FAMILY PRACTITIONER Work Phone: [facility] 01-31-2022 14:38-0400 SaO2% (BldA) [Mass fraction] 100 % Alfie Juanito PUBLIC RECORDS RESEARCHER.FAMILY PRACTITIONER Work Phone: [facility] 01-31-2022 14:38-0400 Systolic blood pressure 138 mm[Hg] Alfie Juanito PUBLIC RECORDS RESEARCHER.FAMILY PRACTITIONER Work Phone: [facility] Encounters Encounter Date Encounter Type Care Provider Facility Start: 05-21-2025 End: 05-21-2025 Emergency department patient visit DAVID RICHMOND [facility] Start: 05-09-2025 End: 05-09-2025 Emergency department patient visit DAVID RICHMOND [facility] Start: 05-04-2025 ambulatory GEORGIE ASHLEY [facility] Start: 04-26-2025 End: 04-26-2025 Emergency department patient visit No Primary Care Physician -Emergency Department Work Phone: Start: 04-11-2025 End: 04-11-2025 Emergency department patient visit No Primary Care Physician -Emergency Department Work Phone: Start: 04-08-2025 End: 04-08-2025 Emergency department patient visit DAVID RICHMOND [facility] Start: 04-08-2025 End: 04-08-[address] Malcolm Buckley MD [facility] Start: 04-08-2025 End: 04-08-2025 ambulatory No Primary Care Physician [facility] Work Phone: Start: 04-04-2025 End: 04-05-2025 Emergency department patient visit DUNCAN DARDEN [facility] Start: 04-04-2025 End: 04-04-2025 Patient encounter procedure Erasto Perdomo [facility] Work Phone: Start: 04-04-2025 End: 04-04-2025 ambulatory No Primary Care Physician [facility] Work Phone: Start: 04-04-2025 End: 04-04-2025 ambulatory No Primary Care Physician Facility:[facility] Start: 02-11-2025 End: 02-11-2025 Telephone encounter Payton Burns APRN.FAMILY PRACTITIONER Work Phone: [facility] Comment on above: No Show (No Show #1) Start: 11-30-2024 End: 11-30-2024 Telephone encounter Brandy Nixon APRN.FAMILY PRACTITIONER Work Phone: [facility] Start: 10-29-2024 End: 10-30-2024 Emergency department patient visit KATIE JAVIER [facility] Start: 09-27-2024 ambulatory DAVID RICHMOND [facility] Start: 08-07-2024 End: 08-07-2024 Emergency department patient visit DAVID RICHMOND [facility] Start: 07-31-2024 End: 07-31-2024 ambulatory [facility]ACTITION[facility] Start: 12-31-2023 ambulatory Mara garcia MD Work Phone: [facility] [place] Start: 01-22-2023 ambulatory Mara garcia MD Work Phone: [facility] [place] Start: 03-14-2022 Refill Mara garcia MD Work Phone: Internal [facility] Comment on above: Refill Request Start: 02-28-2022 Telephone encounter Philip Rashid MD Work Phone: [facility] Comment on above: Returning Patient's Call Start: 02-25-2022 Telephone encounter Karla Mcpherson Navigation Comment on above: housing resource ass istance Start: 02-25-2022 End: 02-25-2022 Patient encounter procedure Cristine Subramanian APRN.RELIGIOUS ACTIVITIES DIRECTOR Work Phone: [facility] Comment on above: KATHRIN (generalized anx iety disorder) (Primary Dx); Anxiety attack; Housing instability; History of herniated intervertebral disc; Muscle strain; Screening for lipid disorders; History of ITP Start: 02-21-2022 End: 02-21-2022 Emergency department patient visit [facility] Start: 02-11-2022 Telephone encounter Alfie campos APRN.FAMILY PRACTITIONER Work Phone: [facility] Comment on above: Patient Question Start: 02-06-2022 ambulatory Mara garcia MD Work Phone: Internal [facility] Start: 01-31-2022 End: 01-31-2022 Patient encounter procedure Alfie Solomon APRN.FAMILY PRACTITIONER Work Phone: [facility] Comment on above: Anxiety attack (Prim gianfranco Dx); Muscle strain Start: 10-31-2017 Ambulatory WENDIE (ARLETTE) [facility] Start: 09-25-2017 End: 09-25-2017 Ambulatory IMCA Facility:[facility] Start: 09-04-[address] [facility] Start: 08-07-2017 End: 08-07-2017 Ambulatory [facility] Facility:[facility] Start: 06-20-2017 End: 06-21-2017 [facility] Start: 05-05-2017 End: 05-06-2017 Ambulatory [place] [facility] Facility:[facility] Procedures Date Procedure Procedure Detail Performing Clinician Start: 04-26-2025 X-ray of lumbar spin e, two or three views No Primary Care Physician Start: 04-11-2025 X-ray of lumbar spin e, two or three views No Primary Care Physician Start: 04-08-2025 Urinalysis KATIE SCHERER Comment on above: Result Comment: URIN ALYSIS Performed By: #### [id number] #### [facility],[address] [place] [address] Start: 04-08-2025 X-ray of lumbosacral spine No Primary Care Physician Start: 04-04-2025 X-ray of foot, three or more views No Primary Care Physician Start: 04-04-2025 X-ray of lumbar spin e, two or three views No Primary Care Physician Start: 10-30-2024 Urinalysis KATIE SCHERER Comment on above: Result Comment: URIN ALYSIS Performed By: #### [id number] #### [facility],[address] [place] [address] Start: 02-21-2022 CT cervical spine wi thout contrast Start: 02-21-2022 CT of head without contrast Plan of Treatment Date Care Activity Detail Author Start: 04-11-2025 [facility] Start: 04-11-2025 X-ray of lumbar spin e, two or three views Lumbar Spine 2 or 3 Views [facility] Start: 04-11-2025 XR Lumbar spine 2 or 3 Views [facility] Start: 04-08-2025 Patient referral [facility] Work Phone: Start: 04-08-2025 X-ray of lumbosacral spine L/S Spine Bending Flex/Ext [facility] Start: 04-08-2025 XR Spine Lumbar and Sacrum Views [facility] Start: 04-04-2025 Patient referral [facility] Work Phone: Start: 02-21-2025 DIABETES SCREEN DIABETES SCREEN [facility] Start: 02-21-2025 Diabetes Screening Diabetes Screenin g [facility] Start: 06-27-2024 Covid-19 Vaccine ( season) Covid-19 Vaccine ( season) [facility] Start: 06-27-2024 Influenza vaccination Influenza Vacc ine (#1) [facility] Start: 06-27-2023 Influenza vaccination Influenza Vacc ine (#1) [facility] Start: 06-27-2022 Influenza vaccination [facility] Start: 02-25-2022 End: 04-27-2022 LIPID PANEL BASIC LIPID PANEL BASIC Lab Routine Screening for lipid disorders Expected: 02/25/2022, Expires: 04/27/2022 [facility] Work Phone: Comment on above: Expected: 02/25/2022 , Expires: 04/27/2022 Start: 2021 Pneumococcal Vaccine : 50+ (1 of 1 - PCV) Pneumococcal Vaccine: 50+ (1 of 1 - PCV) [facility] Start: 2021 SHINGRIX VACCINE (1 of 2) SHINGRIX VACCINE (1 of 2) [facility] Start: 05-15-2020 HPV TESTING HPV TESTING [facility] Start: 05-15-2020 PAP TESTING PAP TESTING [facility] Start: 05-15-2020 Screening for malign ant neoplasm of cervix [facility] Start: 06-10-2019 DIABETES SCREEN DIABETES SCREEN [facility] Start: 05-15-2018 Screening for malign ant neoplasm of cervix Cervical Cancer Screening [facility] Start: 2016 COLOGUARD (FIT-DNA) COLOGUARD (FIT-D NA) [facility] Start: 2016 Colonoscopy COLONOSCOPY [facility] Start: 2016 COLORECTAL CANCER SCREENING COLORECTAL CANCER SCREENING [facility] Start: [address] COLONOGRAPHY [facility] Start: 2016 FECAL OCCULT BLOOD FECAL OCCULT BLOO D [facility] Start: 2016 Lipid panel Lipid Screening [facility] Start: 2016 LIPID SCREEN LIPID SCREEN [facility] Start: 2016 Screening for malign ant neoplasm of colon [facility] Start: 2016 SIGMOIDOSCOPY SIGMOIDOSCOPY [facility] Start: 2011 Mammography MAMMOGRAM [facility] Start: 2011 Screening for malign ant neoplasm of breast Mammogram Screening [facility] Start: 1990 Hepatitis B Vaccine (1 of 3 - 19+ 3-dose series) Hepatitis B Vaccine (1 of 3 - 19+ 3-dose series) [facility] Start: 1990 Urine microalbumin profile [facility] Start: 1989 HEPATITIS C SCREENING HEPATITIS C [facility] Start: 1989 Hepatitis C screening Hepatitis C [facility] Start: 1989 HIV SCREENING HIV SCREENING [facility] Start: 1989 HIV screening HIV Screening [facility] Start: 1976 COVID-19 VACCINE (#1) COVID-19 VACCI NE (#1) [facility] Start: 1976 COVID-19 VACCINE (1) COVID-19 VACCIN E (1) [facility] Start: 02-04-1972 COVID-19 VACCINE (#1) COVID-19 VACCI NE (#1) [facility] Start: 1971 HEPATITIS B (1 of 3 - 3-dose series) HEPATITIS B (1 of 3 - 3-dose series) [facility] Start: 1971 Hepatitis B Vaccine (1 of 3 - 3-dose series) Hepatitis B Vaccine (1 of 3 - 3-dose series) [facility] End: 02-21-2024 CAROLANN SCREENING [facility] Radiology Routine Encounter for screening mammogram for breast cancer 1 Occurrences starting 01/22/2023 until 02/21/2024 [facility] Work Phone: Comment on above: 1 Occurrences starti ng 01/22/2023 until 02/21/2024 End: 01-29-2025 MG Breast Screening [facility] SCREENING Radiology Routine Encounter for screening mammogram for breast cancer 1 Occurrences starting 12/31/2023 until 01/29/2025 [facility] Work Phone: Comment on above: 1 Occurrences starti ng 12/31/2023 until 01/29/2025 MR Lumbar spine [facility] Patient Education [facility] Work Phone: Patient referral [facility] Work Phone: End: 03-08-2023 Screening mammography bi 2-view breast inc cad [facility] Radiology Routine Encounter for screening mammogram for breast cancer 1 Occurrences starting 02/06/2022 until 03/08/2023 [facility] Work Phone: Comment on above: 1 Occurrences starti ng 02/06/2022 until 03/08/2023 [facility] Immunizations Immunization Date Immunization Notes Care Provider Fa [facility] 12-18-2016 influenza virus vacc ine, unspecified formulation Mara Philip MD Work Phone: [facility] Payers Date Payer Category Payer Self-pay [id number] 2025 Unknown [id number] 2022 Medicaid [id number] 2021 Medicaid [place] [employer] [place] [employer] [id number] 2021-Present [phone] [address] [place] [address] Medicaid [id number] 1970 Unknown [id number] 1970 Unknown [id number] 1971 Unknown [id number] 1971 Unknown [id number] 1971 Unknown [id number] 1971 Unknown [id number] 1970 Unknown [id number] 1970 Unknown [id number] [id number] Medicaid [id number] Unknown [id number] Unknown [id number] [id number] Unknown [id number] [id number] Unknown [id number] [id number] Unknown [id number] [id number] Unknown [id number] [id number] Unknown [id number] Social History Date Type Detail Facility [facility]: [facility]13-[facility] Start: 06-13-2017 Tobacco use and exposure Smokeless tobacco non-user [facility] Start: 01-31-2022 End: 02-25-2022 Alcohol intake Current drinker of alcohol (finding) [facility] Start: 12-18-2016 History SDOH Alcohol Comment ocassional [facility] Start: 1970 Sex Assigned At Not on file [facility] Start: 01-20-2022 End: 02-27-2022 Exposure to SARS-CoV-2 (event) Not sure [facility] Work Phone: Start: 02-21-2022 [facility] ever [facility] Work Phone: Start: 1970 Sex Assigned At Female [facility] Start: 02-25-2022 End: 02-11-2025 History of Social function [facility] Start: 02-25-2022 End: 02-11-2025 Tobacco use panel [facility] National Score (1-100), lower number is lower risk Not on file [facility] Start: 04-04-2025 End: 04-26-2025 Tobacco smoking status NHIS Smokes tobacco daily (finding) [facility] Functional Status Date Assessment Result Facility 12-18-2016 Are you deaf, or do you have serious difficulty hearing No 12/18/2016 1:26 PM Bonny Balderas MD No [facility] 12-18-2016 Are you blind, or do you have serious difficulty seeing, even when wearing glasses No 12/18/2016 1:26 PM Bonny Balderas MD No [facility] 12-18-2016 Do you have serious difficulty walking or climbing stairs No 12/18/2016 1:26 PM Bonny Balderas MD No [facility] 12-18-2016 Do you have difficul ty dressing or bathing No 12/18/2016 1:26 PM Bonny Balderas MD No [facility] 12-18-2016 Because of a physica l, mental, or emotional condition, do you have difficulty doing errands alone such as visiting a physician's office or shopping No 12/18/2016 1:26 PM Bonny Balderas MD [facility] Mental Status Date Assessment Result Facility 02-21-2022 Cognitive function Level Of Cons ciousness Awake;Alert;Appropriate;Fol lows Commands [facility] Work Phone: 12-18-2016 Because of a physica l, mental, or emotional condition, do you have serious difficulty concentrating, remembering, or making decisions No 12/18/2016 1:26 PM Bonny Balderas MD No [facility] Clinical Notes 12-18-2016 to 04-26-2025 Note Date & Type Note Facility 04-26-2025 Discharge summary [facility] 04-26-2025 Radiology Diagnostic study note [facility] Imaging Services [address] [place] [address] Lumbar Spine 2 or 3 Views MR#: [id number] Acct: [id number] Name: JOSEP STANLEY Rep #: [id number] : 1970 F 54 From: Nic Olguin MD PCP: [place] Physician,No Primary Status: REG ER Study:Lumbar Spine 2 or 3 Views Date of Exam: 04/26/25 Exam# [id number] Ordering Dr: Silas Weber MD PROCEDURE: LUMBAR SPINE 2 OR 3 VIEWS 04/26/2025 REASON FOR EXAM: FALL AND PAIN TECHNIQUE: LUMBAR SPINE 2 OR 3 VIEWS COMPARISON: 04/11/2020 FINDINGS: Vertebrae: No fracture or suspicious osseous lesion Discs: Mild disc space narrowing throughout the lumbar spine. Alignment: Alignment is anatomic Other: RAD/Lumbar Spine 2 or 3 Views IMPRESSION: Mild degenerative changes, no acute findings Reading Location: [id number] CC: Dr. Calin Weber MD; No Primary Care Physician ~ Research Associate Molecular Biology: Signed [facility] 04-04-2025 Evaluation note Diagnosis Onset Date Resolution Anxiety and depression acute [facility] 2024 12:15pm Low back pain acute April 04 025 12:15pm Plantar fasciitis of right foot acute April 04, 2025 1 2:15pm [facility] Work Phone: 1(612) 138-547106-09-2025 Evaluation note* Diagnosis Onset Date Resolution Status Admit Date Anxiety and depression acute [facility] 2024 12:15pm Low back pain acute April 04 025 12:15pm Plantar fasciitis of right foot acut e April 04, 2025 12:15pm Lumbar radiculopathy acute April 08, 2025 8:23am [facility] Work Phone: 1(167) 111-422906-09-2025 Radiology Diagnostic study note [facility] Imaging Services [address] [place], [place] [address] Lumbar Spine 2 or 3 Views MR#: [id number] Acct: [id number] Name: JOSEP STANLEY Rep #: [id number] : 1970 F 54 From: Beau May MD PCP: Care Physician,No Primary Status: REG CLI Study:Lumbar Spine 2 or 3 Views Date of Exam: 04/04/25 Exam# [id number] Ordering Dr: St faiza Perdomo PROCEDURE: LUMBAR SPINE 2 OR 3 VIEWS 04/04/2025 REASON FOR EXAM: LOW BACK PAIN TECHNIQUE: 2 view(s) of the lumbar spine COMPARISON: None FINDINGS: Vertebrae: Minimal anterior spondylosis at the L2-L3 level. Discs: Disc space heights are preserved. Alignment: No evidence of scoliosis. Other: Moderate amount of fecal material is seen in the colon. RAD/Lumbar Spine 2 or 3 Views IMPRESSION: Degenerative changes at the L2-L3 level. Reading Location: [place] [address] CC: No Primary Care Physician; RED Moe ~ Research Associate Molecular Biology: Signed [facility]06-09-2025 Radiology Diagnostic study note [facility] Imaging Services [address] [place] [address] [id number] Foot min 3 Views MR#: [id number] Acct: [id number] Name: JOSEP STANLEY Rep #: [id number] : 1970 F 54 From: Beau May MD PCP: Care Physician,No Primary Status: REG CLI Study:Foot min 3 Views Date of Exam: 07/21 Exam# [id number] Ordering Dr: St faiza Perdomo PROCEDURE: FOOT MIN 3 VIEWS 04/04/2025 REASON FOR EXAM: PAIN Posterior foot pain. TECHNIQUE: 3 views of the right foot. COMPARISON: None FINDINGS: Bones: Plantar calcaneal spur. Joints: Normal alignment. Mild degenerative changes at the 1st metatarsophalangeal joint. Soft tissues: Soft tissues are unremarkable. Other: RAD/Foot min 3 Views IMPRESSION: Plantar calcaneal spur. Reading Location: [place] [address] CC: No Primary Care Physician; RED Moe ~ Research Associate Molecular Biology: Signed [facility]04-18-2025 Telephone encounter Note* Telephone Encounter - Elizabeth Lilly - 02/11/2025 3:53 PM EDT No Show Documentation Josep Stanley no showed for an appointment on 02/11/25 with Payton Burns APRN.CNP at 2:30pm. She was scheduled for New patient visit. I called and left a voice mail message with the patient regarding her missed appointment. Josep stated the reason that she missed her appointment was because N/A . Resources discussed/offered to patient: Reschedule No show determined to be fault of patient: Yes This is the patients first no show in the last 12 months. Patient was rescheduled for N/A. Letter mailed : Yes Is this the Third or Fourth No Show? No Elizabeth Lilly February 11, 2025 3:54 PM [facility]04-18-2025 Miscellaneous Notes* Telephone Encounter - Elizabeth Lilly - 02/11/2025 3:53 PM EDT No Show Documentation Josep Stanley no showed for an appointment on 02/11/25 with Payton Burns APRN.CNP at 2:30pm. She was scheduled for New patient visit. I called and left a voice mail message with the patient regarding her missed appointment. Josep stated the reason that she missed her appointment was because N/A . Resources discussed/offered to patient: Reschedule No show determined to be fault of patient: Yes This is the patients first no show in the last 12 months. Patient was rescheduled for N/A. Letter mailed : Yes Is this the Third or Fourth No Show? No Elizabeth Lilly February 11, 2025 3:54 PM [facility] Telephone encounter Note * Telephone Encounter - Elizabeth Lilly - 11/30/2024 9:30 AM EST Received a referral for patient to be seen by one of our providers. Made 1st attempt to contact patient to discuss scheduling. Patient did not answer. Left a voicemail requesting patient call the office to schedule. Patient referred for lumbar herniation, find out if she has had MRI or CT outside of [facility]. [facility]02-04-2025 Miscellaneous Notes* Telephone Encounter - Elizabeth Lilly - 11/30/2024 9:30 AM EST Received a referral for patient to be seen by one of our providers. Made 1st attempt to contact patient to discuss scheduling. Patient did not answer. Left a voicemail requesting patient call the office to schedule. Patient referred for lumbar herniation, find out if she has had MRI or CT outside of [facility]. documented in [facility]01-[facility]-2025 NoteDischarge Instructions Discharge Summary [address] [address] [id number] 10/29/2024 Patient: JOSEP STANLEY Sex: Female : 1970 Age: 54y Thank you for visiting [facility]. You have been evaluated today by Katie Javier M.D. for the following condition(s): Principal Diagnosis Acute right sided sciatica with low back pain. INSTRUCTIONS Follow-up: Follow up with doctor. Please follow-up with your primary care physician in the next 1-2 days as wediscussed. Follow-up with: Alf Pettit MD,FAAOS, [facility], Orthopedic, Phone: [phone], [address] [address]. Follow up tomorrow. You have been given the following additional information: Sciatica Patient Signature Facility [employer] Date/Time 1 of 4 Discharge Instructions General Instructions with ExitWriter [address] [address] [id number] 10/29/2024 Patient: JOSEP STANLEY Sex: Female : 1970 Age: 54y Thank you for visiting [facility]. You have been evaluated today by Katie Javier M.D. for the following condition(s): Principal Diagnosis Acute right sided sciatica with low back pain. INSTRUCTIONS Follow-up: Follow up with doctor. Please follow-up with your primary care physician in the next 1-2 days as wediscussed. Follow-up with: Alf Pettit MD,[facility], Orthopedic, Phone: [phone], [address] [address]. Follow up tomorrow. ADDITIONAL INFORMATION 2 of 4 Discharge Instructions Sciatica Sciatica is a condition that causes pain in the lower back that spreads down into the buttock, hip,and leg. Sometimes the leg pain can happen without any back pain. Sciatica happens when a spinal nerve is irritated or has pressure put on it as it comes out of the spinal canal in the lower back. This most often happens when a bulge or rupture of a nearby spinal disk presses on the nerve. Sciatica can also be caused by a narrowingof the spinal canal (spinal stenosis) or spasm of the muscle in the buttocks that the sciatic nerve passes through (piriformis muscle). Sciatica may also be called lumbar radiculopathy. Sciatica may start after a sudden twisting or bending force, such as in a car accident. Or it can happen after a simple awkward movement. In either case, muscle spasm often also happens. Muscle spasm makes the pain worse. A healthcare provider makes a diagnosis of sciatica from your symptoms and a physical exam. Unless you had an injury from a car accident or fall, you usually won't have X-rays taken at this time. This is because the nerves and disks in your back can't be seen on an X-ray. If the provider sees signs of a compressed nerve, youwill need to schedule an MRI scan. Nerve conductions studies and electromyography are nerve tests that can also help find the cause of nerve pain. Signs of a compressed nerve include loss of strength in a leg. Most sciatica gets better with medicine, exercise, and physical therapy. If your symptoms continue after medical treatment, you may need surgery or injections to your lower back, depending on how severe your symptoms are. 3 of 4 Discharge Instructions Home care Follow these tips when caring for yourself at home: As soon as possible, start sitting up or walking. This will help you prevent problems that come from staying in bed for long periods. When in bed, try to find a position that is comfortable. A firm mattress is best. Try lying flat onyour back with pillows under your knees. You can also try lying on your side with your knees bent up toward your chest and a pillow between your knees. Don't sit for long periods. This puts more stress on your lower back than standing or walking. Use heat from a hot shower, hot bath, or heating pad to help ease pain. Massage can also help. You can also try using an ice pack. You can make your own ice pack by putting ice cubes in a plastic bag. Wrap the bag in a thin towel. Try both heat and cold to see which works best. Use the method that feels bestfor 20 minutes several times a day. You may use acetaminophen or ibuprofen to ease pain, unless another pain medicine was prescribed. Note: If you have chronic liver or kidney disease, talk with your healthcare provider before takingthese medicines. Also talk with your provider if you've had a stomach ulcer or gastrointestinal bleeding. Use safe lifting methods. Don't lift anything heavier than 15 pounds until all of the pain is gone. Follow-up care Follow up with your healthcare provider, or as advised. You may need physical therapy or more tests. If X-rays were taken, a radiologist will look at (more content not included)... [facility]10-13-2024 NoteDischarge Instructions Discharge Summary [address] [address] [id number] 08/07/2024 Patient: JOSEP STANLEY Sex: Female : 1970 Age: 54y Thank you for visiting [facility]. You have been evaluated today by Tip Jones D.O. 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 You have been evaluated today by Tip Jones D.O. for the following condition(s): 1 of 6 Discharge Instructions Discharge Summary [address] [address] [id number] 08/07/2024 Patient: JOSEP STANLEY Sex: Female : 1970 Age: 54y Thank you for visiting [facility]. You have been evaluated today by Jeremias Mcdonough D.O. for the following condition(s): Principal Diagnosis Chronic generalized abdominal pain of undetermined cause. INSTRUCTIONS Prescription Medications: dicyclomine tablet: Take 1 tablet by mouth twice a day for 10 days, dispense 20 tablet. Refills 0. Pharmacy: [facility]. - [address] [place] [address]. Follow-up with: David Cesar DNP, ANGELICA, [place], [facility], Adult and [facility], [facility], , [address] [place] [address]. Follow up in three. Call for an appointment. (Return if worse). 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 You have been evaluated today by Jeremias Mcdonough D.O. for the following condition(s): Principal Diagnosis Chronic generalized abdominal pain of undetermined cause. INSTRUCTIONS Prescription Medications: dicyclomine tablet: Take 1 tablet by mouth twice a day for 10 days, dispense 20 tablet. Refills 0. Pharmacy: [facility]. - [address] [place] [address]. Follow-up with: David Cesar DNP, APRN, [place], [facility], Adult and Pediatric, [facility], , [address] [place] [address]. Follow up in three. Call for an appointment. (Return if worse). ADDITIONAL INFORMATION 3 of 6 Discharge Instructions Unknown Causes of Abdominal Pain (Female) The exact cause of your belly (abdominal) pain is not clear. This does not mean that this is something to worry about. Everyone likes to know the exact cause of the problem. But sometimes with belly pain, there is no clear-cut cause, and this could be a good thing. The good news is that your symptoms can be treated, and you will feel better. Your condition does not seem serious now. But sometimes the signs of a serious problem may take more time to appear. For this reason, it is important for you to watch for any new symptoms, problems, or worsening of your condition. Over the next few days, the abdominal pain may come and go. Or it may be constant. Other common symptoms can include nausea and vomiting. Sometimes it can be difficult to tell if you feel nauseous. You may just feel bad and not connect that feeling to nausea. Constipation, diarrhea, and a fever may go along with the pain. The pain may continue even if treated correctly over the following days. Depending on how things go, sometimes the cause can become clear and may need more or different treatment. Additional evaluations, medicines, or tests may also be needed. 4 of 6 Discharge Instructions Home care Your healthcare provider may prescribe medicine for pain, symptoms, or an infection. Follow the healthcare provider's instructions for taking these medicines. General care Rest as much as you can until your next exam. No strenuous activities. Try to find positions that ease discomfort. A small pillow placed on the abdomen may help relieve pain. Something warm on your abdomen (such as a heating pad) may help, but be careful not to burn yourself. Diet Don't force yourself to eat, especially if having cramps, vomiting, or diarrhea. Water is important so you don't get dehydrated. Soup may also be good. Sports drinks may also help, especially if they are not too acidic. Don't drink sugary drinks as this can make thin (more content not included)...[facility] 12-31-2023 NotePatient Outreach (INTMMN) JOSEP STANLEY ([id number]) 1970 F Date Time Provider Department 12/31/23 MARA PHILIP During your visit today, we recorded the following information about you: Allergies As of Date: 12/31/2023 Noted Allergy Reaction ERYTHROMYCIN 12/18/2016 14 - Other: See Comments 11 - Vomiting Comments: Does not remember, it was as a child PENICILLIN 12/18/2016 8 - GI Upset 11 - Vomiting Date Reviewed: 02/25/2022 Reviewed by: Allyssa Patino MA - Fully Assessed Visit Diagnosis:Encounter for screening mammogram for breast cancer [Z12.31] Order(s):[facility] SCREENING [[id number]] Order #: [id number] FUTURE Prescriptions as of 01/05/2024 - escitalopram oxalate (LEXAPRO) 10 mg tablet Take 1 tablet by mouth once daily. for anxiety - hydrOXYzine pamoate (VISTARIL) 25 mg capsule Take 1 capsule by mouth three times daily as needed for anxiety. - baclofen (LIORESAL) 10 mg tablet Take 1 tablet by mouth three times daily as needed (muscle spasms). and back pain. may make drowsy - ferrous sulfate (IRON) 325 mg (65 mg iron) tablet Take 1 tablet by mouth twice daily. Problem List As Of Date 12/31/2023 Noted Resolved Chronic midline low back pain without sciatica *12/18/2016 Spinal stenosis, lumbar region, without neuroge*12/18/2016 03/07/2017 KATHRIN (generalized anxiety disorder) [F41.1] 12/18/2016 Recurrent major depression in partial remission*12/18/2016 Malaise and fatigue [R53.81, R53.83] 12/18/2016 Iron deficiency [E61.1] 12/18/2016 DDD (degenerative disc disease), lumbar [M51.36]02/24/2017 Bulge of lumbar disc without myelopathy [M51.36]03/07/2017 Radiculopathy, lumbar region [M54.16] 06/13/2017 History of ITP [Z86.2] 2002 History of herniated intervertebral disc [Z87.3*02/25/2022 Encounter Status:Closed by EPIC, PRODUSER on 01/05/24[facility] 01-22-2023 NotePatient Outreach (INTMMN) JOSEP STANLEY ([id number]) 1970 F Date Time Provider Department 01/22/23 MARA PHILIP INTMMN During your visit today, we recorded the following information about you: Allergies As of Date: 01/22/2023 Noted Allergy Reaction ERYTHROMYCIN 12/18/2016 14 - Other: See Comments 11 - Vomiting Comments: Does not remember, it was as a child PENICILLIN 12/18/2016 8 - GI Upset 11 - Vomiting Date Reviewed: 02/25/2022 Reviewed by: Allyssa Patino MA - Fully Assessed Visit Diagnosis:Encounter for screening mammogram for breast cancer [Z12.31] Order(s):[facility] SCREENING [[id number]] Order #: [id number] FUTURE Prescriptions as of 01/27/2023 - escitalopram oxalate (LEXAPRO) 10 mg tablet Take 1 tablet by mouth once daily. for anxiety - hydrOXYzine pamoate (VISTARIL) 25 mg capsule Take 1 capsule by mouth three times daily as needed for anxiety. - baclofen (LIORESAL) 10 mg tablet Take 1 tablet by mouth three times daily as needed (muscle spasms). and back pain. may make drowsy - ferrous sulfate (IRON) 325 mg (65 mg iron) tablet Take 1 tablet by mouth twice daily. Problem List As Of Date 01/22/2023 Noted Resolved Chronic midline low back pain without sciatica *12/18/2016 Spinal stenosis, lumbar region, without neuroge*12/18/2016 03/07/2017 KATHRIN (generalized anxiety disorder) [F41.1] 12/18/2016 Recurrent major depression in partial remission*12/18/2016 Malaise and fatigue [R53.81, R53.83] 12/18/2016 Iron deficiency [E61.1] 12/18/2016 DDD (degenerative disc disease), lumbar [M51.36]02/24/2017 Bulge of lumbar disc without myelopathy [M51.36]03/07/2017 Radiculopathy, lumbar region [M54.16] 06/13/2017 History of ITP [Z86.2] 2002 History of herniated intervertebral disc [Z87.3*02/25/2022 Encounter Status:Closed by ERICH RODRIGUEZ on 01/27/23[facility] 03-14-2022 Miscellaneous Notes* Telephone Encounter - Cristine Subramanian APRN.CNS - 03/14/2022 2:55 PM EDT Pain management has been unable to reach her by phone and there is no scheduled pain management visit. Internal medicine social security benefits interviewer (regarding housing instability) and behavioral health social security benefits interviewer(regarding anxiety) have not been able to contact her by phone. She was a no-show for the spine center provider visit 02/28. She did not return for a follow up visit with me as scheduled on 03/11. Do we have her correct phone number? Reschedule if willing to do so with spine and me. Can refill tramadol one more time. Recommend she routinely take meloxicam and muscle relaxer which were previously ordered. PDMP website checked and validated. All prescriptions have been APPROPRIATELY filled. No suspiciousactivity was identified. 03/14/2022 by Cristine Subramanian APRN.MOMO * Telephone Encounter - Jenae Dyer RN - 03/14/2022 1:14 PM EDT Patient has been identified by name and date of : Yes Patient phones for refill(s): Pending Prescriptions Disp Refills TRAMADOL 50 MG TABLET 14 tablet 0 Sig: Take 1 tablet by mouth twice daily as needed for pain for up to 7 days. VANESSA Class: C-IV DENZEL: No Patient requesting refill of Tramadol until she sees Pain Management. She saw SRINIVASA Luciano and will be having injection scheduled 04/15. Pain Management is supposed to call her today. She is waiting to hear back from [facility]. Made aware of unread My Chart messages. Date of last office visit with pcp: Date of last office visit in primary care: 02/25/22 Last 2 Encounter Wt Readings: Date: Wt: 02/25/2022 73.2 kg (161 lb 6.4 oz) 01/31/2022 70.8 kg (156 lb) Previous labs/tests for medication: Not applicable Please advise. Thank you. Jenae Dyer RN documented in this encounterK[facility]22 Miscellaneous Notes* Telephone Encounter - Kamryn Kurtz - 02/28/2022 9:12 AM EDT I have attempted to contact this patient by phone, Left brief message on cell voicemail stating that I was returning her phone call from yesterday and if she needed to call me back she could at [phone] ext [phone] Kamryn Kurtz documented in this encounterK[facility]05-04-2022 Miscellaneous Notes* Telephone Encounter - IRMA Mandel - 02/27/2022 1:03 PM EDT Arlette left patient message in regards to housing resource needs. Arlette noted that patient has been sent Tradier message as well, so to take a look at that. Arlette left her direct number in case patient has any other questions or needs. * Telephone Encounter - IRMA Mandel - 02/25/2022 3:54 PM EDT Arlette called to speak with patient regarding housing assistance. No answer and vmail is not set up so unable to leave message. Arlette will send patient My Chart message to be provide patient with housing resource options in [facility]. documented in this encounterKettering [facility]05-02-2022 History of Present illness Narrative* Cristine ANGELICA Subramanian.RELIGIOUS ACTIVITIES DIRECTOR - 02/25/2022 1:00 PM EDT SUBJECTIVE: COVID-19 VACCINE(1) Never done HEPATITIS C SCREENING Never done HIV SCREENING Never done DTAP,TDAP,TD(1 - Tdap) Never done MAMMOGRAM Never done LIPID SCREEN Never done COLORECTAL CANCER SCREENING Never done PAP TESTING due on 05/15/2020 HPV TESTING due on 05/15/2020 SHINGRIX VACCINE(1 of 2) Never done HPI Josep Stanley is a 51 year old female. Presents today to establish care with Mara Philip MD. [facility] has not seen doctor for two years. Current /previous PCP:unknown Labwork:unknown ER/Hospitalization: unknown Outside records: none CC VV 12/04/2021 with Eleuterio Arndt MD requesting referral to psychiatrist for anxiety. Subsequently seen 01/31/2022 in urgent care for anxiety attack and muscle strain. She reported remotechronic intermittent pain following an accident. She reported herniated disc. She noted severe anxiety breaking up with menopause and stress. States she is seeing a counselor and has an appointment upcoming. She was treated with baclofen and hydroxyzine 3 times daily. [facility] ER visit 02/21/2022 for headache, neck and right shoulder pain for 3 days prior to arrival. 1 day prior to arrival also developed nausea and vomiting and paresthesias bilateral hands. CBC, CMP in acceptable range. CT head and cervical spine showed chronic changes only. No acute changes head. C5-6 spondylosis, no fracture or subluxation. On exam did have muscle spasms noted. Treated with cyclobenzaprine, hydrocodone acetominophen and naproxen. Chart review shows she was seen by Dr Romero at in the past for chronic pain. She reports social difficulties. She reports moving to the area about 2 years ago. 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 Now reports living in a hotel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 March 12:15pm pain- RIGHT FOOT April 04, 2025 12:53 pm Reason for Visit Admit Date Low back pain April 04, 2025 12:15 pm Reason for Visit Admit Date Anxiety and depression April 04, 2025 12 :15pm Low back pain April 04, 2025 12:15 pm Plantar fasciitis of right foot March 12:15pm Chief Complaint Admit Date CONCERN FOR BONE SPUR ON R HEEL March 12:15pm pain- RIGHT FOOT April 04, 2025 12:53 pm LUMBAR SPINE April 08, 2025 8:23 am Room 3 April 08, 2025 8:41 am Chief Complaint Admit Date CONCERN FOR BONE SPUR ON R HEEL March 12:15pm pain- RIGHT FOOT April 04, 2025 12:53 pm LUMBAR SPINE April 08, 2025 8:23 am Room 3 April 08, 2025 8:41 am BACK April 11, 2025 2:24 pm Reason for Visit Admit Date Anxiety and depression April 04, 2025 12 :15pm Low back pain April 04, 2025 12:15 pm Plantar fasciitis of right foot March 12:15pm Lumbar radiculopathy April 08, 2025 8:2 3am Chief Complaint Admit Date CONCERN FOR BONE SPUR ON R HEEL March 12:15pm pain- RIGHT FOOT April 04, 2025 12:53 pm LUMBAR SPINE April 08, 2025 8:23 am Room 3 April 08, 2025 8:41 am BACK April 11, 2025 2:24 pm FALL April 26, 2025 10:29 am Reason for Referral Specialty Diagnoses / Procedures Referred By Contac t Referred To Contact Pain Management Diagnoses History of herniated intervertebral disc Procedures CONSULT TO PAIN MGT OFFICE/OUTPATIENT NEW HIGH MDM 60-74 MINUTES Cristine Subramanian, PUBLIC RECORDS RESEARCHER.RELIGIOUS ACTIVITIES DIRECTOR [address] [place] [address] Referral ID Status Reason Start Date Expiration Date Visits Requested Visits Authorized [id number] Authorized PCP Requested Referral 02/25/2022 02/25/2023 1 1 Additional Source Comments INFORMATION SOURCE (unrecogn ized section and content) DATE CREATED AUTHOR 04/21/2018 [facility] DATE CREATED AUTHOR AUTHOR'S ORGANIZ ATION 04/21/2018 [facility] DATE CREATED AUTHOR AUTHOR'S ORGANIZ ATION 01/05/2024 [facility] DATE CREATED AUTHOR AUTHOR'S ORGANIZ ATION 02/14/2025 [facility] DATE CREATED AUTHOR AUTHOR'S ORGANIZ ATION 05/08/2025 [facility] DATE CREATED AUTHOR AUTHOR'S ORGANIZ ATION 05/25/2025 Jules Glasgow [facility] Source Comments (unrecognize d section and content) In the event this informatio n is protected by the Federal Confidentiality of Alcohol and Drug Abuse Patient Records regulations: The Federal rules restrict any use of the information to criminally investigate or prosecute any alcohol or drug abuse patient.[facility] the event this information is protected by the Federal Confidentiality of Alcohol and Drug Abuse Patient Records regulations: The Federal rules restrict any use of the information to criminally investigate or prosecute any alcohol or drug abuse patient.[facility] the event this information is protected by the Federal Confidentiality of Alcohol and Drug Abuse Patient Records regulations: The Federal rules restrict any use of the information to criminally investigate or prosecute any alcohol or drug abuse patient.[facility] the event this information is protected by the Federal Confidentiality of Alcohol and Drug Abuse Patient Records regulations: The Federal rules restrict any use of the information to criminally investigate or prosecute any alcohol or drug abuse patient.[facility] Hospital[facility] the event this information is protected by the Federal Confidentiality of Alcohol and Drug Abuse Patient Records regulations: The Federal rules restrict any use of the information to criminally investigate or prosecute any alcohol or drug abuse patient.[facility] the event this information is protected by the Federal Confidentiality of Alcohol and Drug Abuse Patient Records regulations: The Federal rules restrict any use of the information to criminally investigate or prosecute any alcohol or drug abuse patient.[facility] the event this information is protected by the Federal Confidentiality of Alcohol and Drug Abuse Patient Records regulations: The Federal rules restrict any use of the information to criminally investigate or prosecute any alcohol or drug abuse patient.[facility] the event this information is protected by the Federal Confidentiality of Alcohol and Drug Abuse Patient Records regulations: The Federal rules restrict any use of the information to criminally investigate or prosecute any alcohol or drug abuse patient.[facility] Hospital[facility] the event this information is protected by the Federal Confidentiality of Alcohol and Drug Abuse Patient Records regulations: The Federal rules restrict any use of the information to criminally investigate or prosecute any alcohol or drug abuse patient.[facility] the event this information is protected by the Federal Confidentiality of Alcohol and Drug Abuse Patient Records regulations: The Federal rules restrict any use of the information to criminally investigate or prosecute any alcohol or drug abuse patient.[facility] Hospital[facility] the event this information is protected by the Federal Confidentiality of Alcohol and Drug Abuse Patient Records regulations: The Federal rules restrict any use of the information to criminally investigate or prosecute any alcohol or drug abuse patient.[facility] Reason for Visit (unrecogniz ed section and content) Reason Comments Pain herniated disk in ba ck, happened in 2012, having a lot of pain today all over Reason Comments Patient Question Reason Comments Physical Reason Comments housing resource assistance Reason Comments Returning Patient's Call Reason Onset Date Comments Refill Request 03/14/2022 Reason Comments No Show No Show #1 Care Teams (unrecognized sec tion and content) Elementary School Counselor Relationship Specialty Start Date End Date Mara Philip MD [address] [place] [address] PCP - General Internal Medicine 01/31/22 Franklin Upton (Hist) Jr. [address] [place] [address] Referring Orthopedics 02/24/17 Elementary School Counselor Relationship Specialty Start Date End Date Mara Philip MD [address] [place] [address] PCP - General Internal Medicine 01/31/22 Franklin Upton (Hist) Jr. [address] [place] [address] Referring Orthopedics 02/24/17 Elementary School Counselor Relationship Specialty Start Date End Date Mara Philip MD [address] [place] [address] PCP - General Internal Medicine 01/31/22 Franklin Upton (Hist) Jr. [address] [place] [address] Referring Orthopedics 02/24/17 Elementary School Counselor Relationship Specialty Start Date End Date Mara Philip MD [address] [place] [address] PCP - General Internal Medicine 01/31/22 Franklin Upton (Hist) Jr. [address] [place] [address] Referring Orthopedics 02/24/17 Elementary School Counselor Relationship Specialty Start Date End Date Mara Philip MD [address] [place] [address] PCP - General Internal Medicine 01/31/22 Franklin Upton (Hist) . [address] [place] [address] Referring Orthopedics 02/24/17 Elementary School Counselor Relationship Specialty Start Date End Date Mara Philip MD [address] [place] [address] PCP - General Internal Medicine 01/31/22 Franklin Upton (Hist) [address] [place] [address] Referring Orthopedics 02/24/17 Elementary School Counselor Relationship Specialty Start Date End Date Mara Philip MD [address] [place] [address] PCP - General Internal Medicine 01/31/22 Franklin Upton (Hist) [address] [place] [address], [place] [address] Referring Orthopedics 02/24/17 Elementary School Counselor Relationship Specialty Start Date End Date Mara Philip MD [address] [place] [address] PCP - General Internal Medicine 01/31/22 Franklin Upton Jr., MD [address] [place] [address] Referring Orthopedics 02/24/17 Cristine Subramanian APRN.RELIGIOUS ACTIVITIES DIRECTOR [address] [place] [address] Hospital Television Rental Clerk Internal Medicine 10/04/24 Nava Adan APRN.FAMILY PRACTITIONER [address] [place], [place] [address] [facility] Internal Medicine 10/04/24 Elementary School Counselor Relationship Specialty Start Date End Date Mara Philip MD [address] [place], [place] [address] PCP - General Internal Medicine 01/31/22 Franklin Upton Jr., MD [address] [place] [id number] Referring Orthopedics 02/24/17 Cristine Subramanian APRN.RELIGIOUS ACTIVITIES DIRECTOR [address] [place] [address] [facility] Internal Medicine 10/04/24 Nava Adan PUBLIC RECORDS RESEARCHER.FAMILY PRACTITIONER [address] [place], [place] [address] Hospital Television Rental Clerk Internal Medicine 01/18/25 Team Status: Active Member Role Status Dates No Primary Care Physician Primary Care Provider Active Team Status: Inactive Member Role Status Dates No Primary Care Physician Primary Care Provider Active Start: April 04, 2025 End: April 04, 2025 No Primary Care Physician Referring Provider Active Start: April 04, 2025 End: April 04, 2025 RED Bean Attending Provider Active Start: April 04, 2025 End: April 04, 2025 Team Status: Active Member Role Status Dates No Primary Care Physician Primary Care Provider Active Start: April 04, 2025 RED Bean Attending Provider Active Start: April 04, 2025 RED Bean Referring Provider Active Start: April 04, 2025 Team Status: Inactive Member Role Status Dates No Primary Care Physician Primary Care Provider Active Start: April 04, 2025 End: April 04, 2025 RED Bean Attending Provider Active Start: April 04, 2025 End: April 04, 2025 RED Bean Referring Provider Active Start: April 04, 2025 End: April 04, 2025 Team Status: Active Member Role Status Dates No Primary Care Physician Primary Care Provider Active Start: April 08, 2025 No Primary Care Physician Referring Provider Active Start: April 08, 2025 RED Kelly Attending Provider Active Star t: April 08, 2025 Team Status: Inactive Member Role Status Dates No Primary Care Physician Primary Care Provider Active Start: April 08, 2025 End: April 08, 2025 Dr. Malcolm Buckley MD Attending Provider Active S tart: April 08, 2025 End: April 08, 2025 Team Status: Inactive Member Role Status Dates No Primary Care Physician Primary Care Provider Active Start: April 08, 2025 End: April 08, 2025 No Primary Care Physician Referring Provider Active Start: April 08, 2025 End: April 08, 2025 RED Kelly Attending Provider Active Star t: April 08, 2025 End: April 08, 2025 Team Status: Active Member Role Status Dates David Cesar COORDINATOR OF LIBRARY SERVICES, COORDINATOR OF LIBRARY SERVICES-C Primary Care Provider Active Team Status: Inactive Member Role Status Dates David Cesar COORDINATOR OF LIBRARY SERVICES, COORDINATOR OF LIBRARY SERVICES-C Primary Care Provider Active Start: April 11, 2025 End: April 11, 2025 Dr. Ian Dupree DO Emergency Provider Active Start: April 11, 2025 End: April 11, 2025 Team Status: Active Member Role/Relationship Status Dates No Primary Care Physician Primary Care Provider Active Team Status: Inactive Member Role/Relationship Status Dates No Primary Care Physician Primary Care Provider Active Start: April 04, 2025 End: April 04, 2025 No Primary Care Physician Referring Provider Active Start: April 04, 2025 End: April 04, 2025 Erasto MOON PA Attending Provider Active Start: April 04, 2025 End: April 04, 2025 Team Status: Inactive Member Role/Relationship Status Dates No Primary Care Physician Primary Care Provider Active Start: April 04, 2025 End: April 04, 2025 RED Bean Attending Provider Active Start: April 04, 2025 End: April 04, 2025 RED Bean Referring Provider Active Start: April 04, 2025 End: April 04, 2025 Team Status: Inactive Member Role/Relationship Status Dates No Primary Care Physician Primary Care Provider Active Start: April 08, 2025 End: April 08, 2025 No Primary Care Physician Referring Provider Active Start: April 08, 2025 End: April 08, 2025 RED Kelly Attending Provider Active Star t: April 08, 2025 End: April 08, 2025 Team Status: Inactive Member Role/Relationship Status Dates No Primary Care Physician Primary Care Provider Active Start: April 08, 2025 End: April 08, 2025 Dr. Malcolm Buckley MD Attending Provider Active S tart: April 08, 2025 End: April 08, 2025 Team Status: Inactive Member Role/Relationship Status Dates David Cesar COORDINATOR OF LIBRARY SERVICES, COORDINATOR OF LIBRARY SERVICES-C Primary Care Provider Active Start: April 11, 2025 End: April 11, 2025 Dr. Ian Dupree DO Attending Provider Active Start: April 11, 2025 End: April 11, 2025 Dr. Ian Dupree DO Emergency Provider Active Start: April 11, 2025 End: April 11, 2025 Team Status: Inactive Member Role/Relationship Status Dates Dr. Calin Weber MD Emergency Provider Active S tart: April 26, 2025 End: April 26, 2025 No Primary Care Physician Primary Care Provider Active Start: April 26, 2025 End: April 26, 2025 Goals (unrecognized section and content) Goals may be documented in a n alternate sectionGoals may be documented in an alternate sectionGoals may be documented in an alternate sectionGoals may be documented in an alternate sectionGoals may be documented in an alternate sectionGoals may be documented in an alternate sectionGoals may be documented in an alternate section FOR RECORDS PERTAINING TO PATIENTS WHO ARE OR HAVE BEEN ENROLLED IN A CHEMICAL DEPENDENCY/SUBSTANCEABUSE PROGRAM, SOME INFORMATION MAY BE OMITTED. This clinical summary was aggregated from multiple sources. Caution should be exercised in using it in the provision of clinical care. This summary normalizes information from multiple sources, and as a consequence, information in this document may materially change the coding, format and clinical context of patient data. In addition, data may be omitted in some cases. CLINICAL DECISIONS SHOULD BE BASED ON THE PRIMARY CLINICAL RECORDS. [facility] [employer] [facility] provides no warranty or guarantee of the accuracy or completeness of information in this document.
--- NOTE | 2025-06-05 20:02 | MRI_ITS ---
PROCEDURE: SPINE LUMBAR (ROUTINE) 06/06/2025 REASON FOR EXAM: BACK PAIN TECHNIQUE: SPINE LUMBAR (ROUTINE) COMPARISON: None. FINDINGS: Vertebrae: Present in height and signal. Alignment: Normal. Conus Medullaris: Unremarkable. L1-2: Unremarkable. L2-3: Unremarkable. L3-4: Unremarkable. L4-5: Small disc bulge. Facet joint arthropathy. Mild inferior bilateral foramina stenosis. No canal stenosis. L5-S1: Small disc bulge. No significant foraminal or canal stenosis. Sacrum: Unremarkable. MRI/Spine Lumbar (Routine) IMPRESSION: Small disc bulge at L4-L5 and L5-S1 with facet joint arthropathy and without si gnificant foraminal or canal stenosis. Reading Location: [id number]
--- NOTE | 2025-06-05 20:02 | PCM.HP.STD ---
HPI - General General Date of Service: 06/05/25 Chief Complaint: Back pain HPI Narrative JOSEP STANLEY, is a 54 F who presents with worsening radicular back pain. Patient has been having pain in her back going down her right leg. This been going on for the past few days to the point where she is sleeping very poorly. Said that she drove self here to the emergency room but had to use her left foot to break because her right leg was just weaker. Patient has complained, over the past couple years of some intermittent saddle anesthesia. States a couple years ago she had an episode of bladder incontinence but now she is able to control her bladder though she does admit to some dribbling before she does get herself to the bathroom. Patient was previously to have surgery with by Dr. Blair but she had to delay due to financial reasons and when she was ready to have surgery he had left the area. She has been seeing pain management with Dr. Mercado who has done some trigger point injections and is try to get established with Dr. Villalpando. FORMERLY [facility], [facility] Medical History Anxiety and depression Plantar fasciitis of right foot Low back pain Contact with or exposure to other viral diseases URI (upper respiratory infection) Endometriosis History of ITP Herniated disc Home Medications ?Medication ?Instructions ?Recorded ?Last Taken ?Type baclofen 10 mg tablet 5 - 10 mg PO Q8H PRN 06/05/25 Unknown History pregabalin 100 mg capsule 100 mg PO TID PRN 06/05/25 Unknown History Allergy/AdvReac Type Severity Reaction Status Date / Time erythromycin base Allergy Nausea Verified 06/05/25 16:36 Penicillins Allergy Nausea Verified 06/05/25 16:36 Surgical History Hx of laparoscopy History of section Social History household members: family Smoking Status: Current every day smoker tobacco type: cigarettes ROS ROS Narrative All review of systems were negative except as mentioned above in the history of present illness and the other review of systems. Vital Signs Vital Signs Vital Signs: 06/05/25 16:35 Temperature 36.8 C Temperature Source Oral Pulse Rate 85 Respiratory Rate 18 Blood Pressure 144/92 H Blood Pressure Mean 109 Pulse Ox 98 Oxygen Delivery Method Room Air Weight Weight: 75.75 kg Body Mass Index (BMI) 26.9 Physical Exam Const alert Constitutional Narrative: Anxious. Was sitting up with the bed at the bedside when I first walked in and was on the phone. HEENT normocephalic and head/scalp atraumatic Resp normal respiratory effort and no retractions Extremity normal to inspection, full ROM and no clubbing, cyanosis or edema Skin Skin Narrative: No rashes or lesions Neuro Neuro Narrative: 5-5 plantarflexion bilaterally and 5-5 dorsiflexion of the left great toe and 4 out of 5 dorsiflexion of the right great toe but there appear to be some giveaway weakness perhaps due to pain in her leg when she was doing that. DTRs 1 out of 4 patellar bilaterally. No clonus bilaterally. Sensorium / Orientation: awake and alert Psych Mood & Affect: anxious Assessment & Plan Assessment/Plan (1) Back pain: PLAN: With radicular pain going down to her foot on the right side. Patient has had a history of a herniated disc but has been told that she has spinal stenosis as well as degenerative disc disease. She had an MRI about a year ago but that is not in [facility]. Will order another MRI. In the meantime we will try to optimize pain control with scheduled acetaminophen, as needed ketorolac, oxycodone and hydromorphone. Patient did receive a 40 mg of prednisone in the ED. Will continue with prednisone daily starting the . PT OT evaluate and treat. I did tell the patient that Dr. Villalpando is out of town and will be available until the . PLAN: Plan History of ITP: Patient said it has been few years since her last episode. Will check a CBC Anxiety/ADHD: Continue with fluoxetine VTE prophylaxis: Low risk not indicated at this time. Charges/Coding Visit Charges Inpatient E&M: 23091 Init Hosp L2
--- OUTSIDE RECORDS SUMMARY | 2025-06-05 20:07 | XMS RPT_ITS | CCD ---
Author Organization [facility] Care Team Providers Care Fire Alarm Repairer Name Role Phone COLON, WENDIE (SW) Unavailable [...] Mara Philip MD Primary Care Provider Subramanian LOCKS INSPECTOR.PUBLIC RELATIONS SALES MARKETING, Cristine Unavailable Loco LOCKS INSPECTOR.MANAGER PACKAGE, Nava Unavailable Loco LOCKS INSPECTOR.MANAGER PACKAGE, Nava Unavailable Care Physician, No Primary Primary Care Provider Unavailable Care Physician, No Primary Referring Provider Un available Erasto Richmond Attending Provider Erasto Richmond Referring Provider Georgie Espitia Attending Provider Marcio MORAN, Dr. Fowler Attending Provider Davy PUBLIC POLICY ASSOCIATE-David Lewis Primary Care Provider Dr. Ian Dupree DO Emergency Provider Dr. Ian Dupree DO Attending Provider [phone] Dr. Calin Weber MD Emergency Provider [phone] Care Physician, No Primary Referring Unava ilable [...] Consulting Unavailable DAVID CESAR CNP Consulting Unavailable [facility] Attending Unavailable [facility] Admitting Unavailable [facility] Primary Care Unavailable PROVIDER, UNKNOWN Consulting Unavailable [...] Drug Allergy 7 Other: See Comments, Vomiting [facility] Repository (13 sources) penicillin; Translations: [PENICILLIN] Drug Allergy 7 GI Upset, Vomiting [facility] Repository (1 source) erythromycin; Translations: [ERYTHROCIN] Drug Allergy [facility] Repository (9 sources) Penicillins; Translations: [PENICILLINS] Propensity to adverse reactions (disorder) 2 Nausea [facility] Repository (7 sources) Erythromycin Drug Allergy 2 Nausea [facility] (1 source) Erythromycin Drug Allergy 5 [facility] Repository (1 source) Penicillin Drug Allergy [facility] Repository Medications Current Medications Medication Drug Class(es) [...] Comment on above: Take 1 capsule by [facility] three times daily as needed. Take 1 capsule by [facility] three times daily as needed for anxiety. [...] Comment on above: Take 1 tablet by [facility] once daily. for pain. Take with food. 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 1 of 2 Mechanical [employer] Car Checker Medication Ordered Medication Administration Date/Time DIAZepam IVP [...] Valdez Culp, R.N. 2 of 2 Normal [facility] ED NURSES CLINICAL NOTEon ED NURSES CLINICAL NOTE Nurse Narrative Nurse Clinical Narrative [address] [address] [id number] 05/09/2025 16:32:00 Patient: JOSEP STANLEY Sex: Female [...] reports mother has had to travel to [facility] d/t her Mother and missed 3 [...] ROMARIO Panchal R.N. 16:52 05/09/25. Preferred Pharmacy: ([facility]). -- 17:02 05/09/25 ROMARIO Panchal R.N. [...] Narrative administr (more content not included)... Normal [facility] ED ORDER SHEET (CPOE ONLY)on 05-23-2025 ED ORDER SHEET (CPOE ONLY) Order Sheet Order Sheet [address] [place] [address] [id number] 05/09/2025 Patient: JOSEP STANLEY Sex: Female : [...] (05/14/2025 07:31 EDT)] 2 of 2 Normal [facility] ED PHYSICIAN CLINICAL REPORT on 05-23-2025 ED PHYSICIAN CLINICAL REPORT Narrative Physician Clinical [address] [address] [id number] 05/09/2025 16:32:00 [id number] Sex: Female : 1970 Age: 54y Disposition: [...] per. He is presently being evaluated by family engagement specialist and pain management physician. She is in the process of trying to get an MR another MRI which apparently is scheduled within the next several weeks. She saw her pain management physician and he try giving her trigger point injections in her back. However she states that with an even just an hour of th (more content not included)... Normal [facility] ED SUPER BILLon 05-23-2025 ED [facility] BILL [address] [address] [id number] 05/09/2025 Patient: JOSEP STANLEY Sex: Female : 1970 Age: 54y Item Facility Professional Category Description Code Code Quantity Fee Total Nurse/E/M EMERGENCY 176153 1 $0.00 $0.00 DEPARTMENT VISIT HIGH/URGENT SEVERITY (38326-09) Nurse/IV/IM/Infusions IVP additional 592154 3 $0.00 $0.00 push (79989) Nurse/IV/IM/Infusions IVP initial 871811 1 $0.00 $0.00 (45610) Nurse/IV/IM/Infusions IVP same med 887692 2 $0.00 $0.00 (31 min apart) (52908) Grand Total $0.00 Providers Tin Rhodes M.D. Chief Complaint 1 of 2 Superbill BACK PAIN and CHRONIC BACK PAIN. Principal Diagnosis Acute nontraumatic pain in the middle and lower back (with radiation to the leg). Acute sciatica. ICD-10 Codes M54.89: Other dorsalgia M54.30: Sciatica, unspecified side M54.40: Lumbago with sciatica, unspecified side M54.30: Sciatica, unspecified side 2 of 2 Normal [facility] ED VISIT SUMMARYon ED VISIT SUMMARY Visit Overview Visit Overview [address] [address] [id number] 05/09/2025 Patient: JOSEP STANLEY Sex: Female : [...] reports mother has had to travel to [facility] d/t her Mother and missed 3 [...] LEG) ACUTE SCIATICA 3 of 3 Normal [facility] ED VITALS FLOW SHEETon 05-23 ED VITALS FLOW SHEET Vitals Vital Sign Flow Sheet [address] 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 [address] [id number] 05/21/2025 Patient: JOSEP STANLEY Sex: Female : [...] Armando DicksonT.-PHeike Scanned 1 of 1 Normal [facility] ED NURSES CLINICAL NOTEon ED NURSES CLINICAL NOTE Nurse Narrative Nurse Clinical Narrative [facility] [address] [place] [address] [id number] 05/21/2025 17:55:00 Patient: JOSEP STANLEY Sex: Female [...] R.N. 18:30 05/21/25. [facility]acy: [facility] [place]). -- 18:37 05/21/25 ROMARIO Panchal R.N. Allergies: Penicillins -- 18:35 05/21/25 ORMARIO Panchal R.N. erythromycin base -- 18:35 05/21/25 [...] bpm. -- (more content not included)... Normal [facility] ED ORDER SHEET (CPOE ONLY)on 05-22-2025 ED ORDER SHEET (CPOE ONLY) Order Sheet Order Sheet [place] [address] [place] [address] [id number] 05/21/2025 Patient: JOSEP STANLEY Sex: Female : [...] (05/21/2025 21:52 EDT)] 2 of 2 Normal [facility] ED PHYSICIAN CLINICAL REPORT on 05-22-2025 ED PHYSICIAN CLINICAL REPORT Narrative Physician Clinical [address] [address] [id number] 05/21/2025 17:55:00 Patient: JOSEP STANLEY Sex: Female [...] 5 Narrative Follow-up with: RED Hernández Moon [facility], Phone: [phone], 329 Who@ [place] [phone]. Follow up in two days. Call for an appointment. (Electronically signed by Maya Bernal D.O. 05/21/25 21:52:24 EDT) Generated by [facility] Physician Clinical Narrative [address] [place] [address] [id number] 05/21/2025 17:55:00 Patient: JOSEP STANLEY Sex: Female [...] to b (more content not included)... Normal [facility] ED SUPER BILLon 05-22-[address] [address] [id number] 05/21/2025 Patient: JOSEP STANLEY Sex: Female : 1970 Age: 54y Item Facility Professional Category Description Code Code Quantity Fee Total Nurse/E/M EMERGENCY 637602 1 $0.00 $0.00 DEPARTMENT VISIT HIGH/URGENT SEVERITY (07189-13) Nurse/IV/IM/Infusions IM/SQ (90918) 212088 1 $0.00 $0.00 Grand Total $0.00 Providers [...] consciousness, initial encounter 2 of 2 Normal [facility] ED VISIT SUMMARYon ED VISIT SUMMARY Visit Overview Visit Overview [address] [address] [id number] 05/21/2025 Patient: JOSEP STANLEY Sex: Female : [...] OR SKULL FRACTURE 3 of 3 Normal [facility] ED VITALS FLOW SHEETon 05-22 ED VITALS FLOW SHEET Vitals Vital Sign Flow Sheet [address] [place] [address] [id number] 05/21/2025 [facility]: [id number] Sex: Female : 1970 Age: 54y Measurements [...] 97.7 F 8 1 of 1 Normal [facility] Emergency Department Summary on 04-26-2025 Emergency Department Summary [facility] Medical Records Department [address] [place] [address] Emergency Department Summary 04/26/25 MR#: [id number] Acct: [id number] Name: JOSEP STANLEY Rep #: [id number] : 1970 54 From: Calin Weber MD [...] her low back pain. She saw her painter apprentice yesterday who gave her an IM injection [...] Prior Back Pain Recent Illness/Hospitalization: No PFSH [facility] Medical History Anxiety and depression Plantar fasciitis [...] the right negative on the left. 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 Neurologically she is [...] unkempt, ca (more content not included)... Normal [facility] Lumbar Spine 2 or 3 Viewson 04-26-2025 Lumbar Spine 2 or 3 Views [facility] Imaging Services [address] [place] [address] Lumbar Spine 2 or 3 Views MR#: [id number] Acct: [id number] Name: JOSEP STANLEY Rep #: [id number] : 1970 F 54 From: Johny Olguin MD PCP: Care Physician,No Primary Status: REG ER Study: Lumbar Spine 2 or 3 Views Date of Exam: Exam# [id number] Ordering Dr: Calin Weber MD PROCEDURE: LUMBAR [...] degenerative changes, no acute findings Reading Location: [facility] CC: Dr. Calin Weber MD; No Primary Care Physician Hand Sprayer: Signed Normal [facility] Emergency Department Summary on 04-11-2025 Emergency Department Summary [facility] Medical Records Department [address] [place] [address] Emergency Department Summary 04/11/25 MR#: [id number] Acct: [id number] Name: JOSEP STANLEY Rep #: [id number] : 1970 54 From: Ian Dupree DO [...] saddle anesthesia. Patient states she has seen [facility] in the past. Patient states she saw them 1 week ago and had x-rays done at that time. Prior similar symptoms: Yes and With Prior Back Pain [facility] Medical History (Updated 04/11/25 @ 18:47 by [...] 5/5 throughout (more content not included)... Normal [facility] Lumbar Spine 2 or 3 Viewson 04-11-2025 Lumbar Spine 2 or 3 Views [facility] Imaging Services [address] [place] [address] Lumbar Spine 2 or 3 Views MR#: [id number] Acct: [id number] Name: JADENJOSEP [facility] #: [id number] : 1970 F 54 From: Mendez Oscar PCP: IVETTE Lemon Status[facility] Study: Lumbar Spine 2 or 3 Views Date of Exam: Exam# [id number] Ordering Dr: Ian Dupree DO PROCEDURE: LUMBAR [...] consider CT/MR for further evaluation. Reading Location: [facility] CC: PUBLIC POLICY ASSOCIATE-C David Cesar; Dr. Ian Dupree DO Hand Sprayer: Signed Normal [facility] CBC + DIFFon 04-08-2025 Baso # 0.01 x10EE3/UL Normal 0.00 - 0.10 [facility] Comment on above: Performed By: #### 2 37729 #### [place] [address] Basophils/100 WBC (Bld) 0.2 % Normal 0.0 - 2.0 [facility] Comment on above: Performed By: #### 2 03518 #### [place] [address] CBC + DIFF Normal [facility] Comment on above: Result Comment: CBC- COMPLETE BLOOD COUNT Performed By: #### 2 20233 #### [place] [address] EO # 0.14 x10EE3/UL Normal 0.00 - 0.50 [facility] Comment on above: Performed By: #### 2 90664 #### [address] [address] Eosinophils/100 WBC (Bld) 1.9 % Normal 0.0 - 7.0 [facility] Comment on above: Performed By: #### 2 33622 #### [facility],[address] [place], [place] [address] Erythrocyte distribution width (RBC) [Ratio] 13.3 % Normal 12.0 - 15.6 [facility] Comment on above: Performed By: #### 2 00751 #### [facility],[address] [place] [address] Hematocrit (Bld) [Volume fraction] 42.9 % Normal 34.0 - 46.0 [facility] Comment on above: Performed By: #### 2 79558 #### [facility],[address] [place] [address] Hemoglobin (Bld) [Mass/Vol] 14.9 g/dL Normal 12.0 - 16.0 [facility] Comment on above: Performed By: #### 2 80110 #### [facility],[address] [place], [place] [address] Lymph # 2.45 x10EE3/UL Normal 0.80 - 2.80 [facility] Comment on above: Performed By: #### 2 80731 #### [facility],[address] [place], [place] [address] Lymphocytes/100 WBC (Bld) 33.5 % Normal 20.0 - 45.0 [facility] Comment on above: Performed By: #### 2 47543 #### [facility],[address] [place] [address] MANUAL DIFF N/A Normal [facility] Comment on above: Performed By: #### 2 70674 #### [facility],[address] [place] [address] MCH (RBC) [Entitic mass] 33 pg Normal 27 - 33 [facility] Comment on above: Performed By: #### 2 00001 #### [facility],[address] [place] [address] MCHC 35 X10 3 Normal 32 - 36 [facility] Comment on above: Performed By: #### 2 06230 #### [facility],[address] [place] [address] MCV (RBC) [Entitic vol] 94 fL Normal 80 - 99 [facility] Comment on above: Performed By: #### 2 96050 #### [facility],[address] [place] [address] Ware # 0.57 x10EE3/UL Normal 0.20 - 1.00 [facility] Comment on above: Performed By: #### 2 75250 #### [facility],[address] [place] [address] MONOS % 7.8 % Normal 0.0 - 10.0 [facility] Comment on above: Performed By: #### 2 73997 #### [facility],[address] [place] [address] Morphology Rahul (Bld) [Interp] N/A Normal [facility] Comment on above: Performed By: #### 2 59430 #### [facility],[address] [place] [address] Neut # 4.13 x10EE3/UL Normal 1.50 - 7.10 [facility] Comment on above: Performed By: #### 2 27979 #### [facility],[address] [place] [address] Neutrophils/100 WBC (Bld) 56.6 % Normal 46.0 - 76.0 [facility] Comment on above: Performed By: #### 2 00162 #### [facility],[address] [place] [address] PLATELET 287 x10EE3/UL Normal 150 - 450 [facility] Comment on above: Performed By: #### 2 83117 #### [facility],[address] [place] [address] Platelet mean volume (Bld) [Entitic vol] 8.8 fL Normal 6.6 - 10.5 [facility] Comment on above: Result Comment: AUTO MATED DIFFERENTIAL Performed By: #### 2 79242 #### [facility],[address] [place] [address] RBC 4.58 x 10EE6/UL Normal 4.10 - 5.30 [facility] Comment on above: Performed By: #### 2 71984 #### [facility],[address] [place] [address] WBC 7.3 x 10EE3/UL Normal 4.5 - 10.8 [facility] Comment on above: Performed By: #### 2 60004 #### [facility],[address] [place] [address] CHEST 1 VIEWon 04-08-2025 CHEST 1 VIEW [place] [address] Patient: JOSEP STANLEY Phone#: : 1970 Age: 54 Gender: F Pt. Type: ER Account: [id number] Location: [facility] Ordering: VALDEZ GTZ Exam Date: 04/08/2025/12:33 Family Phys: DAVID CESAR Charge Code: [id number] Physician: [place] Order #: [id number] Dose#: PROCEDURE: X-RAY CHEST 1 VIEW COMPARISON: [facility], XR, CHEST 2 VIEWS, 12/25/2023, 10:50. INDICATIONS: [...] Kimble MD on 04/08/2025 at 12:46 Normal [facility] CMP with eGFRon 04-08-2025 AGE 54 years Normal [facility] Comment on above: Performed By: #### 2 40976 #### [facility],[address] [place] [address] Albumin [Mass/Vol] 3.8 g/dL Normal 3.4 - 5.0 [facility] Comment on above: Performed By: #### 2 14245 #### [facility],[address] [place] [address] Albumin/Globulin [Mass ratio] 1.0 {ratio} Normal 0.9 - 1.6 [facility] Comment on above: Performed By: #### 2 41436 #### [facility],[address] [place] [address] ALK PHOS 125 U/L High 46 - 116 [facility] Comment on above: Performed By: #### 2 19730 #### [facility],[address] [place] [address] ALT [Catalytic activity/Vol] 38 U/L Normal 16 - 63 [facility] Comment on above: Performed By: #### 2 39416 #### [facility],[address] [place] [address] Anion gap [Moles/Vol] 13 mmol/L Normal 10 - 20 [facility] Comment on above: Performed By: #### 2 38330 #### [address] [address] AST [Catalytic activity/Vol] 21 U/L Normal 13 - 39 [facility] Comment on above: Performed By: #### 2 34194 #### [facility],[address] [place] [address] B/C RATIO 10 ratio Normal 0 - 30 [facility] Comment on above: Performed By: #### 2 07477 #### [facility],[address] [place] [address] Bilirubin [Mass/Vol] 0.5 mg/dL Normal 0.2 - 1.0 [facility] Comment on above: Performed By: #### 2 88461 #### [facility],[address] [place] [address] Calcium [Mass/Vol] 8.7 mg/dL Normal 8.5 - 10.1 [facility] Comment on above: Performed By: #### 2 63317 #### [facility],[address] [place] [address] Chloride [Moles/Vol] 104 mmol/L Normal 98 - 107 [facility] Comment on above: Performed By: #### 2 56170 #### [facility],[address] [place] [address] CMP with eGFR Normal [facility] Comment on above: Result Comment: COMP REHENSIVE METABOLIC PANEL Performed By: #### 2 47699 #### [facility],[address] [place] [address] CO2 [Moles/Vol] 28.9 mmol/L Normal 21.0 - 32.0 [facility] Comment on above: Performed By: #### 2 12261 #### [facility],[address] [place], [place] [address] Creatinine [Mass/Vol] 1.23 mg/dL High 0.55 - 1.02 [facility] Comment on above: Performed By: #### 2 15834 #### [facility],[address] [place] [address] eGFR 46 ML/MINUTE Low 60 - 999 [facility] Comment on above: Performed By: #### 2 85899 #### [facility],[address],[place] [address] eGFR(AA) 55 ML/MINUTE Low 60 - 999 [facility] Comment on above: Result Comment: ACCO RDING TO THE NATIONAL KIDNEY DISEASE EDUCATION PROGRAM(NKDE), A NORMAL eGFR IS A VALUE GREATER THAN OR EQUAL TO 60 ML/MIN/1.73 SQ METERS. CHRONIC KIDNEY DISEASE: <60mL/MIN/1.73 SQ METERS KIDNEY FAILURE: <15mL/MIN/1.73 SQ METERS THIS TEST SHOULD ONLY BE USED FOR PATIENTS 18 YEARS OF AGE AND OLDER. Performed By: #### 2 31578 #### [facility],[address] [place] [address] Globulin (S) [Mass/Vol] 3.8 g/dL Normal 1.5 - 3.8 [facility] Comment on above: Performed By: #### 2 45074 #### [facility],[address] [place] [address] Glucose [Mass/Vol] 114 mg/dL High 74 - 106 [facility] Comment on above: Performed By: #### 2 82416 #### [facility],[address] [place] [address] Potassium [Moles/Vol] 3.8 mmol/L Normal 3.5 - 5.1 [facility] Comment on above: Performed By: #### 2 69261 #### [facility],[address] [place] [address] Protein [Mass/Vol] 7.6 g/dL Normal 6.4 - 8.2 [facility] Comment on above: Performed By: #### 2 08310 #### [facility],[address] [place] [address] Sodium [Moles/Vol] 142 mmol/L Normal 136 - 145 [facility] Comment on above: Performed By: #### 2 01694 #### [facility],[address] [place] [address] Urea nitrogen [Mass/Vol] 12 mg/dL Normal 7 - 18 [facility] Comment on above: Performed By: #### 2 34340 #### [facility],[address] [facility] [address] ED MED ADMINISTRATION DETAIL on 04-08-2025 ED MED ADMINISTRATION DETAIL 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 [address] [id number] 04/08/2025 Patient: JOSEP STANLEY Sex: Female : [...] Mariah Fournier R.N. 1 of 1 Normal [facility] ED NURSES CLINICAL NOTEon ED NURSES CLINICAL NOTE Nurse Narrative Nurse Clinical Narrative [facility] [address] [place] [address] [phone] 04/08/2025 12:23:00 Patient: JOSEP STANLEY Sex: Female [...] of 4 Nurse Narrative 12:04/08/25. Preferred Pharmacy: [facility] -- 12:04/08/25 ROSSANAT Cami Culp R.N. Allergies: Penicillins -- 12:04/08/25 ROSSANAT Cami Culp R.N. erythromycin base -- 12:04/08/25 ROMARIO Culp R.N. Problems: ITP -- 12:04/08/25 ROMARIO Culp R.N. Fibromyalgia -- 12:04/08/25 ROMARIO Culp R.N. Endometriosis -- 12:04/08/25 ROMARIO Culp R.N. Anxiety disorder -- 12:04/08/25 RMOARIO Culp R.N. Surgeries: Laproscopy. (Endometriosis) -- 12:04/08/25 [...] %: Medic (more content not included)... Normal [facility] ED ORDER SHEET (CPOE ONLY)on 04-08-2025 ED ORDER SHEET (CPOE ONLY) Order Sheet Order Sheet [place] [address] [place] [address] [phone] 04/08/2025 Patient: JOSEP STANLEY Sex: Female : [...] (04/08/2025 15:19 EDT)] 3 of 3 Normal [facility] ED PHYSICIAN CLINICAL REPORT on 04-08-2025 ED PHYSICIAN CLINICAL REPORT Narrative Physician Clinical Narrative [address] [address] [id number] 04/08/2025 12:23:00 Patient: JOSEP STANLEY Sex: Female [...] 1.50 - 7.10 Final EDT 04/08/2025 12:50 Ware # 0.57 x10/UL 0.20 - 1.00 Final [...] mg/dl 06/ (more content not included)... Normal [facility] ED [facility] [place] [address] [id number] 04/08/2025 Patient: JOSEP STANLEY Sex: Female : 1970 Age: 54y Item Facility Professional Category Description Code Code Quantity Fee Total Drugs Normal Saline 326320 1 $0.00 $0.00 1000cc (658124) Nurse/E/M EMERGENCY 455860 1 $0.00 $0.00 DEPARTMENT VISIT HIGH/URGENT SEVERITY (51840-57) Nurse/IV/IM/Infusions Hydration 247322 1 $0.00 $0.00 additional hour (78495) Nurse/IV/IM/Infusions IVP initial 840719 1 $0.00 $0.00 (92725) Grand Total $0.00 Providers Valdez Gtz D.O. 1 of 2 [facility] Chief Complaint shaking and palpitations. Principal Diagnosis Adverse drug reaction. ICD-10 Codes T88.7xxA: Unspecified adverse effect of drug or medicament, initial encounter 2 of 2 Normal [facility] ED VISIT SUMMARYon ED VISIT SUMMARY Visit Overview Visit Overview [facility] [address] [place] [address] [id number] 04/08/2025 Patient: JOSEP STANLEY Sex: Female : [...] ADVERSE DRUG REACTION 3 of 3 Normal [facility] ED VITALS FLOW SHEETon 04-08 ED VITALS FLOW SHEET Vitals Vital Sign Flow Sheet [address] [place] [address] [phone] 04/08/2025 Patient: JOSEP STANLEY Sex: Female : [...] 99.2 F 0 2 of 2 Normal [facility] L/S Spine Bending Flex/[place] 04-08-2025 L/S Spine Bending Flex/Ext [facility] Imaging Services [address] [place] [address] [id number] L/S Spine Bending Flex/Ext MR#: [id number] Acct: [id number] Name: JOSEP STANLEY Rep #: [id number] : 1970 F 54 From: Luke Sanchez MD PCP: Care Physician,No Primary Status: DEP AMB Study: L/S Spine Bending Flex/Ext Date of Exam: 04/08 Exam# [id number] Ordering Dr: Georgie Ashley EXAM: XR Lumbosacral [...] fracture or significant dynamic instability. Reading Location[facility] CC: RED Kelly; No Primary Care Physician Hand Sprayer: Signed Normal [facility] MAGNESIUMon 04-08-2025 Magnesium [Mass/Vol] 1.9 mg/dL Normal 1.8 - 2.4 [facility] Comment on above: Performed By: #### 2 06704 ####[facility],[address] [place] [address] Orthopedic Visit Reporton Orthopedic Visit Report [facility] [address] [place] [address] [address] [place] [address] OFFICE VISIT Date of Service: 04/08/25 MR#: [id number] Acct: [id number] Name: JOSEP STANLEY Rep #: [id number] : 1970 Provider: RED Kelly Age/Sex: 54/F Location: [facility] Status: Signed with Addenda ADDENDUM by RED [...] decisions made by , RED Kelly 04/08/25 0851. 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 Patient got injections in 2016 in [place]. The injections did help a little bit [...] Aleve over (more content not included)... Normal [facility] TROPONINon 04-08-2025 HS TROPONIN 4.3 pg/mL Normal 0.0 - 51.4 [facility] Comment on above: Performed By: #### 2 90468 ####[facility],[address] [place] [address] 77665 URINALYSISon 04-08-2025 Amorphous NONE Normal [facility] Comment on above: Performed By: #### 2 35761 #### [facility],[address] [place] [address] 78297 Bacteria 1+ Normal [facility] Comment on above: Performed By: #### 2 01583 #### [facility],[address] [place] [address] 37109 Bilirubin Ql (U) Negative Normal NORMAL: NEGATIVE [facility] Comment on above: Performed By: #### 2 17733 #### [facility],[address] [place], [place] [address] Casts NONE Normal [facility] Comment on above: Performed By: #### 2 20001 #### [facility],[address] [place] [address] 72421 Clarity (U) clear Normal NORMAL: CLEAR [facility] Comment on above: Performed By: #### 2 15530 #### [facility],[address] [place] [address] 50661 Color (U) mami Normal NORMAL: YELLOW [facility] Comment on above: Performed By: #### 2 12584 #### [facility],[address] [place] [address] 61786 Crystals LM Nom (Urine sed) NONE Normal [facility] Comment on above: Performed By: #### 2 02192 #### [facility],[address] [place] [address] 62786 Epi Cells OCC Normal [facility] Comment on above: Performed By: #### 2 55460 #### [facility],[address] [place] [address] 35144 Glucose Ql (U) NORM Normal NORMAL: NORMAL [facility] Comment on above: Performed By: #### 2 89046 #### [facility],[address] [place] [address] 46545 Hemoglobin Ql (U) 50 Abnormal NORMAL: NEGATIVE [facility] Comment on above: Performed By: #### 2 53001 #### [facility],[address] [place] [address] 05908 Ketone 5 Abnormal NORMAL: NEGATIVE [facility] Comment on above: Performed By: #### 2 11556 #### [facility],[address] [place] [address] 90007 Leukocytes 25 Abnormal NORMAL: NEGATIVE [facility] Comment on above: Performed By: #### 2 38563 #### [facility],[address] [place] [address] 38133 Mucous NONE Normal [facility] Comment on above: Performed By: #### 2 01363 #### [facility],[address] [place] [address] 82208 Nitrite Ql (U) Negative Normal NORMAL: NEGATIVE [facility] Comment on above: Performed By: #### 2 49557 #### [facility],[address] [place] [address] 23644 pH (U) 6.5 [pH] Normal NORMAL: 5.0-8.0 [facility] Comment on above: Performed By: #### 2 52755 #### [facility],[address] [place] [address] 87661 Protein Ql (U) 30 Abnormal NORMAL: NEGATIVE [facility] Comment on above: Performed By: #### 2 51088 #### [facility],[address] [place] [address] 49191 Rbc 0-5 Normal 0-3/hpf [facility] Comment on above: Performed By: #### 2 44373 #### [facility],[address] [place] [address] 04799 Sp Norton 1.015 Normal NORMAL: 1.010-1.030 [facility] Comment on above: Performed By: #### 2 17317 #### [facility],[address] [place] [address] Specimen Type R Normal [facility] Comment on above: Performed By: #### 2 46568 #### [facility],[address] [place] [address] 58797 Urinalysis dipstick W Reflex Microscopic panel (U) SEE BELOW Normal [facility] Comment on above: Result Comment: MICR OSCOPIC Performed By: #### 2 47980 #### [facility],[address] [place] [address] Urobilinog NORM Normal NORMAL: NORMAL [facility] Comment on above: Performed By: #### 2 66334 #### [facility],[address] [place] [address] Wbc 1-5 Normal 0-5/hpf [facility] Comment on above: Performed By: #### 2 89249 #### [facility],[address] [place], [place] [address] Yeast NONE Normal [facility] Comment on above: Performed By: #### 2 84743 #### [facility],[address] [place] [address] ED MED ADMINISTRATION DETAIL on 04-05-2025 ED MED ADMINISTRATION DETAIL 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 [address] [id number] 04/04/2025 Patient: JOSEP STANLEY Sex: Female : [...] R.N. Not Scanned 1 of 1 Normal [facility] ED NURSES CLINICAL NOTEon ED NURSES CLINICAL NOTE Nurse Narrative Nurse Clinical Narrative [facility] [address] [place] [address] [id number] 04/04/2025 21:51:00 Patient: JOSEP STANLEY Sex: Female [...] 00:43 04/05 (more content not included)... Normal [facility] ED ORDER SHEET (CPOE ONLY)on 04-05-2025 ED ORDER SHEET (CPOE ONLY) Order Sheet Order Sheet [facility] [address] [place] [address] [id number] 04/04/2025 Patient: JOSEP STANLEY Sex: Female : [...] (04/05/2025 01:45 EDT)] 2 of 2 Normal [facility] ED PHYSICIAN CLINICAL REPORT on 04-05-2025 ED PHYSICIAN CLINICAL REPORT Narrative Physician Clinical Narrative [place] [address] [place] [address] [id number] 04/04/2025 21:51:00 Patient: JOSEP STANLEY Sex: Female [...] 1.50 - 7.10 Final EDT 04/04/2025 22:47 Ware # 0.64 x10/UL 0.20 - 1.00 Final [...] 23:05 ED (more content not included)... Normal [facility] ED SUPER BILLon 04-05-2025 ED SUPER BILL Superbill [address] [place] [address] [id number] 04/04/2025 Patient: JOSEP STANLEY Sex: Female : 1970 Age: 54y Item Professional Category Description Facility Code Code Quantity Fee Total Nurse/E/M EMERGENCY 655803 1 $0.00 $0.00 DEPARTMENT VISIT MODERATE SEVERITY (49924-99) Grand Total $0.00 Providers Duncan Mistry D.O. Chief Complaint ANXIOUS. Principal Diagnosis Probable anxiety reaction. Probable adverse drug reaction involving a SSRI (selective serotonin reuptake inhibitor) antidepressant and Prozac and Adderall together. adverse reaction to medications,combination of Prozac and Adderall. 1 of 2 [facility] 2 of 2 [facility] ED VISIT SUMMARYon ED VISIT SUMMARY Visit Overview Visit Overview [address] [place] [address] [id number] 04/04/2025 Patient: JOSEP STANLEY Sex: Female : [...] PROBABLE ANXIETY REACTION 3 of 3 Normal [facility] ED VITALS FLOW SHEETon 04-05 ED VITALS FLOW SHEET Vitals Vital Sign Flow Sheet [facility] [address] [place] [address] [id number] 04/04/2025 Patient: JOSEP STANLEY Sex: Female : [...] 18 100% RA 2 of 2 Normal [facility] CBC + DIFFon 04-04-2025 Baso # 0.01 x10EE3/UL Normal 0.00 - 0.10 [facility] Comment on above: Performed By: #### 2 14515 #### [facility],[address] [place], [place] [address] Basophils/100 WBC (Bld) 0.2 % Normal 0.0 - 2.0 [facility] Comment on above: Performed By: #### 2 27351 #### [facility],[address] [place] [address] CBC + DIFF Normal [facility] Comment on above: Result Comment: CBC- COMPLETE BLOOD COUNT Performed By: #### 2 91655 #### [facility],[address] [place] [address] 14792 EO # 0.15 x10EE3/UL Normal 0.00 - 0.50 [facility] Comment on above: Performed By: #### 2 78128 #### [facility],[address] [place] [address] 98828 Eosinophils/100 WBC (Bld) 1.9 % Normal 0.0 - 7.0 [facility] Comment on above: Performed By: #### 2 05903 #### [facility],[address] [place], [place] [address] Erythrocyte distribution width (RBC) [Ratio] 12.6 % Normal 12.0 - 15.6 [facility] Comment on above: Performed By: #### 2 63277 #### [facility],[address] [place] [address] 85241 Hematocrit (Bld) [Volume fraction] 38.6 % Normal 34.0 - 46.0 [facility] Comment on above: Performed By: #### 2 48101 #### [facility],[address] [place] [address] 63325 Hemoglobin (Bld) [Mass/Vol] 13.9 g/dL Normal 12.0 - 16.0 [facility] Comment on above: Performed By: #### 2 73031 #### [facility],[address] [place] [address] 27539 Lymph # 2.33 x10EE3/UL Normal 0.80 - 2.80 [facility] Comment on above: Performed By: #### 2 90133 #### [facility],[address] [place] [address] 33093 Lymphocytes/100 WBC (Bld) 28.4 % Normal 20.0 - 45.0 [facility] Comment on above: Performed By: #### 2 06193 #### [facility],[address] [place] [address] 49117 MANUAL DIFF N/A Normal [facility] Comment on above: Performed By: #### 2 91290 #### [facility],[address] [place] [address] 39300 MCH (RBC) [Entitic mass] 33 pg Normal 27 - 33 [facility] Comment on above: Performed By: #### 2 47831 #### [facility],[address] [place] [address] 01731 MCHC 36 X10 3 Normal 32 - 36 [facility] Comment on above: Performed By: #### 2 76658 #### [facility],[address] [place] [address] 25591 MCV (RBC) [Entitic vol] 92 fL Normal 80 - 99 [facility] Comment on above: Performed By: #### 2 20977 #### [facility],[address] [place] [address] 57129 Ware # 0.64 x10EE3/UL Normal 0.20 - 1.00 [facility] Comment on above: Performed By: #### 2 51925 #### [facility],[address] [place] [address] 82907 MONOS % 7.8 % Normal 0.0 - 10.0 [facility] Comment on above: Performed By: #### 2 43988 #### [facility],[address] [place] [address] 45307 Morphology Rahul (Bld) [Interp] N/A Normal [facility] Comment on above: Performed By: #### 2 95880 #### [facility],[address] [place] [address] 88633 Neut # 5.06 x10EE3/UL Normal 1.50 - 7.10 [facility] Comment on above: Performed By: #### 2 89591 #### [facility],[address] [place] [address] 54044 Neutrophils/100 WBC (Bld) 61.8 % Normal 46.0 - 76.0 [facility] Comment on above: Performed By: #### 2 73835 #### [facility],[address] [place] [address] 24772 PLATELET 240 x10EE3/UL Normal 150 - 450 [facility] Comment on above: Performed By: #### 2 93069 #### [facility],[address] [place] [address] 15724 Platelet mean volume (Bld) [Entitic vol] 8.6 fL Normal 6.6 - 10.5 [facility] Comment on above: Result Comment: AUTO MATED DIFFERENTIAL Performed By: #### 2 21076 #### [facility],[address] [place] [address] 46962 RBC 4.21 x 10EE6/UL Normal 4.10 - 5.30 [facility] Comment on above: Performed By: #### 2 14471 #### [facility],[address] [place] [address] 46329 WBC 8.2 x 10EE3/UL Normal 4.5 - 10.8 [facility] Comment on above: Performed By: #### 2 58754 #### [facility],[address] [place] [address] 50692 CMP with eGFRon 04-04-2025 AGE 54 years Normal [facility] Comment on above: Performed By: #### 2 30229 #### [facility],[address] [place] [address] 76942 Albumin [Mass/Vol] 3.8 g/dL Normal 3.4 - 5.0 [facility] Comment on above: Performed By: #### 2 31328 #### [facility],[address] [place] [address] 42154 Albumin/Globulin [Mass ratio] 1.0 {ratio} Normal 0.9 - 1.6 [facility] Comment on above: Performed By: #### 2 43311 #### [facility],[address] [place] [address] 78285 ALK PHOS 127 U/L High 46 - 116 [facility] Comment on above: Performed By: #### 2 34153 #### [facility],[address] [place] [address] 23090 ALT [Catalytic activity/Vol] 46 U/L Normal 16 - 63 [facility] Comment on above: Performed By: #### 2 27093 #### [facility],[address] [place] [address] 12231 Anion gap [Moles/Vol] 11 mmol/L Normal 10 - 20 [facility] Comment on above: Performed By: #### 2 15761 #### [facility],[address] [place] [address] 22284 AST [Catalytic activity/Vol] 22 U/L Normal 13 - 39 [facility] Comment on above: Performed By: #### 2 27676 #### [facility],[address] [place] [address] 71596 B/C RATIO 14 ratio Normal 0 - 30 [facility] Comment on above: Performed By: #### 2 81393 #### [facility],[address] [place] [address] 75585 Bilirubin [Mass/Vol] 0.4 mg/dL Normal 0.2 - 1.0 [facility] Comment on above: Performed By: #### 2 57344 #### [facility],[address] [place] [address] 25721 Calcium [Mass/Vol] 8.7 mg/dL Normal 8.5 - 10.1 [facility] Comment on above: Performed By: #### 2 50384 #### [facility],[address] [place] [address] 81805 Chloride [Moles/Vol] 103 mmol/L Normal 98 - 107 [facility] Comment on above: Performed By: #### 2 89290 #### [facility],[address] [place] [address] 14414 CMP with eGFR Normal [facility] Comment on above: Result Comment: COMP REHENSIVE METABOLIC PANEL Performed By: #### 2 87232 #### [facility],[address] [place] [address] 24012 CO2 [Moles/Vol] 28.3 mmol/L Normal 21.0 - 32.0 [facility] Comment on above: Performed By: #### 2 12263 #### [facility],[address] [place] [address] 00553 Creatinine [Mass/Vol] 1.00 mg/dL Normal 0.55 - 1.02 [facility] Comment on above: Performed By: #### 2 67713 #### [facility],[address] [place] [address] 71930 eGFR 58 ML/MINUTE Low 60 - 999 [facility] Comment on above: Performed By: #### 2 36127 #### [facility],[address] [place] [address] 21516 GFR/1.73 sq M.predicted among non-blacks MDRD (S/P/Bld) [Vol rate/Area] mL/min/{1.73_m2} Normal 60 - 999 [facility] Comment on above: Result Comment: ACCO RDING TO THE NATIONAL KIDNEY DISEASE EDUCATION PROGRAM(NKDE), A NORMAL eGFR IS A VALUE GREATER THAN OR EQUAL TO 60 ML/MIN/1.73 SQ METERS. CHRONIC KIDNEY DISEASE: <60mL/MIN/1.73 SQ METERS KIDNEY FAILURE: <15mL/MIN/1.73 SQ METERS THIS TEST SHOULD ONLY BE USED FOR PATIENTS 18 YEARS OF AGE AND OLDER. Performed By: #### 2 94407 #### [facility],[address] [place] [address] 59980 Globulin (S) [Mass/Vol] 3.7 g/dL Normal 1.5 - 3.8 [facility] Comment on above: Performed By: #### 2 74929 #### [facility],[address] [place] [address] 54059 Glucose [Mass/Vol] 109 mg/dL High 74 - 106 [facility] Comment on above: Performed By: #### 2 63632 #### [facility],[address] [place] [address] 64689 Potassium [Moles/Vol] 4.0 mmol/L Normal 3.5 - 5.1 [facility] Comment on above: Performed By: #### 2 03866 #### [facility],[address] [place] [address] 69369 Protein [Mass/Vol] 7.5 g/dL Normal 6.4 - 8.2 [facility] Comment on above: Performed By: #### 2 39589 #### [facility],[address] [place] [address] 70590 Sodium [Moles/Vol] 138 mmol/L Normal 136 - 145 [facility] Comment on above: Performed By: #### 2 95081 #### [facility],[address] [place] [address] 43356 Urea nitrogen [Mass/Vol] 14 mg/dL Normal 7 - 18 [facility] Comment on above: Performed By: #### 2 96681 #### [facility],[address] [place] [address] 96312 Foot min 3 Viewson 5 Foot min 3 Views [facility] Imaging Services [address] [place] [address] Foot min 3 Views MR#: [id number] Acct: [id number] Name: JOSEP STANLEY ROXANA Rep #: [id number] : 1970 F 54 From: Favian jackson MD PCP: Care Physician,No Primary Status: REG CLI Study: Foot min 3 Views Date of Exam: 04/04/25 Exam# [id number] Ordering Dr: Erasto Perdomo PROCEDURE: FOOT MIN 3 VIEWS 04/04/2025 REASON FOR EXAM: PAIN Posterior foot pain. TECHNIQUE: 3 views of the right foot. COMPARISON: None FINDINGS: Bones: Plantar calcaneal spur. Joints: Normal alignment. Mild degenerative changes at the 1st metatarsophalangeal joint. Soft tissues: Soft tissues are unremarkable. Other: RAD/Foot min 3 Views IMPRESSION: Plantar calcaneal spur. [facility] CC: No Primary Care Physician; RED Moe Hand Sprayer: Signed Normal [facility] Lumbar Spine 2 or 3 Viewson 04-04-2025 Lumbar Spine 2 or 3 Views [facility] Imaging Services [address] [place] [address] 44691 Lumbar Spine 2 or 3 Views MR#: [id number] Acct: [id number] Name: JADENJOSEP Rep #: [id number] : 1970 F 54 From: Favian jackson MD PCP: Care Physician,No Primary Status: REG CLI Study: Lumbar Spine 2 or 3 Views Date of Exam: Exam# [id number] Ordering Dr: Erasto Perdomo PROCEDURE: LUMBAR SPINE [...] changes at the L2-L3 level. Reading Location: [place] [address] CC: No Primary Care Physician; RED Moe Hand Sprayer: Signed Normal [facility] Urgent Care Visit Reporton 0 04-04-2025 Urgent Care Visit Report [facility] [address], [address] [place] [id number] OFFICE VISIT Date of Service: 04/04/25 MR#: [id number] Acct: [id number] Name: JOSEP STANLEY Rep #: [id number] : 1970 Provider: RED Moe Age/Sex: 54/F Location: [facility] Status: Signed Intake Vital Signs 07/30/23 12:24 [...] tablet,extended release Nurse's Note: wants referral to [facility] liner possible heel spur on right foot sx, burning , pain with ambulation and weight bearing, tingling. states not sleeping due to the pain tx,tylenol occurring x years, states Hx of back pain [facility] this is contributing to the foot pain [facility] Medical History (Updated 04/04/25 @ 16:10 by [...] pending radio (more content not included)... Normal [facility] CNCOon 02-11-2025 CNCO Letter Text Normal [facility] CNPAudrey 02-11-2025 CNPN Telephone (NEAGCLM) -------- JOSEP STANLEY ([id number]) 1970 F Date Time Provider Department 02/11/25 PAYTON BURNS During your visit today, we recorded the following information about you: Elizabeth Lilly 02/11/2025 3:55 PM Signed No Show Documentation Josep Stanley no showed for an appointment on 02/11/25 with Payton Burns APRN.MANAGER PACKAGE at 2:30pm. She was scheduled for New [...] Encounter Status:Closed by ELIZABETH LILLY on 02/11/25 [facility] Risa 11-30-2024 CNPN Telephone (NEAGCLM) -------- JOSEP STANLEY ([id number]) 1970 F Date Time Provider Department 11/30/24 [...] Encounter Status:Closed by ELIZABETH LILLY on 11/30/24 [facility] ED MED ADMINISTRATION DETAIL on 11-02-2024 ED MED ADMINISTRATION DETAIL [employer]er Medication Administration Record [address] [address] [id number] 10/29/2024 Patient: JOSEP STANLEY Sex: Female : [...] Joya Gaspar R.N. Scanned 1 of 2 [employer] Medication Ordered Medication Administration Date/Time HYDROmorphone 22:10 [...] Allyssa Gaspar R.N. 2 of 2 Normal [facility] ED NURSES CLINICAL NOTEon ED NURSES CLINICAL NOTE Nurse Narrative Nurse Clinical Narrative [address] [place] [address] [id number] 10/29/2024 Patient: JOSEP STANLEY Sex: Female : [...] SHEET (CPOE ONLY) Order Sheet Order Sheet [facility] [place] [address] [id number] 10/29/2024 Patient: JOSEP STANLEY Sex: Female : [...] Cont Stat Stat 20:39 10/29/2024 20:40 21:00 aKtie Javier M.D. 10/29/2024 10/29/2024 Joya Vazquez, R.N. Reason for Study: Lower Back Pain 2 of 3 Order Sheet STAFF ORDERS Order Description Priority Entered Acknowledged Collected Completed [Electronically signed by Katie Javier M.D. (10/30/2024 00:48 EST)] 3 of 3 Normal [facility] ED PHYSICIAN CLINICAL REPORT on 11-02-2024 ED PHYSICIAN CLINICAL REPORT Narrative Physician Clinical Narrative [facility] [address] [place] [address] [id number] 10/29/2024 Patient: JOSEP STANLEY [facility]#: [id number] Sex: Female : 1970 Age: 54y Disposition: [...] 1.50 - 7.10 Final EST 10/29/2024 22:36 Ware # 0.59 x10/UL 0.20 - 1.00 Final [...] normal 10/29/ (more content not included)... Normal [facility] ED SUPER BILLon 11-02-2024 ED SUPER BILL [facility] [address] [place] [address] [id number] 10/29/2024 Patient: JOSEP STANLEY Sex: Female : 1970 Age: 54y Item Facility Professional Category Description Code Code Quantity Fee Total Nurse/E/M EMERGENCY 035940 1 $0.00 $0.00 DEPARTMENT VISIT HIGH/URGENT SEVERITY (54223-24) Nurse/IV/IM/Infusions Hydration 680781 2 $0.00 $0.00 additional hour (54824) Nurse/IV/IM/Infusions IM/SQ (20591) 345725 1 $0.00 $0.00 Nurse/IV/IM/Infusions IVP additional 331838 1 $0.00 $0.00 push (51236) Nurse/IV/IM/Infusions IVP initial 298888 1 $0.00 $0.00 (89841) Grand Total $0.00 Providers Katie Javier M.D. 1 of 2 [facility] Chief Complaint BACK PAIN; (lower back pain). Principal Diagnosis Acute right sided sciatica with low back pain. ICD-10 Codes M54.41: Lumbago with sciatica, right side 2 of 2 Normal [facility] ED VISIT SUMMARYon ED VISIT SUMMARY Visit Overview Visit Overview [address] [place] [address] [id number] 10/29/2024 Patient: JOSEP STANLEY Sex: Female : [...] LOW BACK PAIN 3 of 3 Normal [facility] ED VITALS FLOW SHEETon 11-02 ED VITALS FLOW SHEET Vitals Vital Sign Flow Sheet [facility] [address] [place] [address] [id number] 10/29/2024 Patient: JOSEP STANLEY Sex: Female : [...] 98.3 F 10 2 of 2 Normal [facility] URINALYSISon 10-30-2024 Amorphous NONE Normal [facility] Comment on above: Performed By: #### 2 04626 #### [facility],[address] [place] [address] 537[address] Bacteria TRACE Normal [facility] Comment on above: Performed By: #### 2 69841 #### [facility],[address] [place] [address] 85546 Bilirubin Ql (U) Negative Normal NORMAL: NEGATIVE [facility] Comment on above: Performed By: #### 2 82435 #### [facility],[address] [place] [address] 38103 Casts NONE Normal [facility] Comment on above: Performed By: #### 2 16311 #### [facility],[address] [place], [place] [address] Clarity (U) sl.cloudy Normal NORMAL: CLEAR [facility] Comment on above: Performed By: #### 2 63289 #### [facility],[address] [place], [place] [phone] Color (U) yellow Normal NORMAL: YELLOW [facility] Comment on above: Performed By: #### 2 32499 #### [facility],[address] [place] [address] 42594 Crystals LM Nom (Urine sed) NONE Normal [facility] Comment on above: Performed By: #### 2 71591 #### [facility],[address] [place] [address] 59485 Epi Cells FEW Normal [facility] Comment on above: Performed By: #### 2 72520 #### [facility],[address] [place] [address] 44344 Glucose Ql (U) NORM Normal NORMAL: NORMAL [facility] Comment on above: Performed By: #### 2 86812 #### [facility],[address] [place] [address] 94016 Hemoglobin Ql (U) 25 Abnormal NORMAL: NEGATIVE [facility] Comment on above: Performed By: #### 2 62200 #### [facility],[address] [place], [place] [address] Ketone Negative Normal NORMAL: NEGATIVE [facility] Comment on above: Performed By: #### 2 48201 #### [facility],[address] [place] [address]122 Leukocytes Negative Normal NORMAL: NEGATIVE [facility] Comment on above: Performed By: #### 2 58024 #### [facility],[address] [place], [place] [address] Mucous TRACE Normal [facility] Comment on above: Performed By: #### 2 27415 #### [facility],[address] [place] [address] Nitrite Ql (U) Negative Normal NORMAL: NEGATIVE [facility] Comment on above: Performed By: #### 2 00410 #### [facility],[address] [place] [address] pH (U) 6.5 [pH] Normal NORMAL: 5.0-8.0 [facility] Comment on above: Performed By: #### 2 16861 #### [facility],[address] [place] [address] Protein Ql (U) 15 Abnormal NORMAL: NEGATIVE [facility] Comment on above: Performed By: #### 2 47153 #### [facility],[address] [place] [address] Rbc 0-5 Normal 0-3/hpf [facility] Comment on above: Performed By: #### 2 74860 #### [facility],[address] [place], [place] [address] Sp Norton 1.015 Normal NORMAL: 1.010-1.030 [facility] Comment on above: Performed By: #### 2 05648 #### [facility],[address] [place] [address] Specimen Type R Normal [facility] Comment on above: Performed By: #### 2 41750 #### [facility],[address] [place], [place] [address] Urinalysis dipstick W Reflex Microscopic panel (U) SEE BELOW Normal [facility] Comment on above: Result Comment: MICR OSCOPIC Performed By: #### 2 38855 #### [facility],[address] [place] [address] Urobilinog NORM Normal NORMAL: NORMAL [facility] Comment on above: Performed By: #### 2 57763 #### [facility],[address] [place] [address] Wbc NONE Normal 0-5/hpf [facility] Comment on above: Performed By: #### 2 66629 #### [facility],[address] [place] [address] Yeast NONE Normal [facility] Comment on above: Performed By: #### 2 25905 #### [facility],[address] [place], [place] [address] CBC + DIFFon 10-29-2024 Baso # 0.01 x10EE3/UL Normal 0.00 - 0.10 [facility] Comment on above: Performed By: #### 2 30733 #### [facility],[address] [place] [address] 29[address] Basophils/100 WBC (Bld) 0.2 % Normal 0.0 - 2.0 [facility] Comment on above: Performed By: #### 2 42946 #### [facility],[address] [place], [place] [address] CBC + DIFF Normal [facility] Comment on above: Result Comment: CBC- COMPLETE BLOOD COUNT Performed By: #### 2 60290 #### [facility],[address] [place] [address] EO # 0.20 x10EE3/UL Normal 0.00 - 0.50 [facility] Comment on above: Performed By: #### 2 49918 #### [facility],[address] [place] [address] 83920 Eosinophils/100 WBC (Bld) 2.4 % Normal 0.0 - 7.0 [facility] Comment on above: Performed By: #### 2 20567 #### [facility],[address] [place] [address] Erythrocyte distribution width (RBC) [Ratio] 13.1 % Normal 12.0 - 15.6 [facility] Comment on above: Performed By: #### 2 70101 #### [facility],[address] [place] [address] 35[address] Hematocrit (Bld) [Volume fraction] 45.0 % Normal 34.0 - 46.0 [facility] Comment on above: Performed By: #### 2 19872 #### [facility],[address] [place] [address] Hemoglobin (Bld) [Mass/Vol] 15.3 g/dL Normal 12.0 - 16.0 [facility] Comment on above: Performed By: #### 2 49880 #### [facility],[address] [place] [address] 27844 Lymph # 2.68 x10EE3/UL Normal 0.80 - 2.80 [facility] Comment on above: Performed By: #### 2 67783 #### [facility],[address] [place] [address] 65260 Lymphocytes/100 WBC (Bld) 32.7 % Normal 20.0 - 45.0 [facility] Comment on above: Performed By: #### 2 64594 #### [facility],[address] [place] [address] 35851 MANUAL DIFF N/A Normal [facility] Comment on above: Performed By: #### 2 91580 #### [facility],[address] [place] [address] 82501 MCH (RBC) [Entitic mass] 31 pg Normal 27 - 33 [facility] Comment on above: Performed By: #### 2 41294 #### [facility],[address] [place] [address] 58121 MCHC 34 X10 3 Normal 32 - 36 [facility] Comment on above: Performed By: #### 2 33823 #### [facility],[address] [place] [address] 90442 MCV (RBC) [Entitic vol] 92 fL Normal 80 - 99 [facility] Comment on above: Performed By: #### 2 50587 #### [facility],[address] [place] [address] 28277 Ware # 0.59 x10EE3/UL Normal 0.20 - 1.00 [facility] Comment on above: Performed By: #### 2 15766 #### [facility],[address] [place] [address] 53608 MONOS % 7.2 % Normal 0.0 - 10.0 [facility] Comment on above: Performed By: #### 2 11187 #### [facility],[address] [place] [address] 32501 Morphology Rahul (Bld) [Interp] N/A Normal [facility] Comment on above: Performed By: #### 2 12469 #### [facility],[address] [place] [address] 13156 Neut # 4.71 x10EE3/UL Normal 1.50 - 7.10 [facility] Comment on above: Performed By: #### 2 10974 #### [facility],[address] [place] [address] 33617 Neutrophils/100 WBC (Bld) 57.5 % Normal 46.0 - 76.0 [facility] Comment on above: Performed By: #### 2 67159 #### [facility],[address] [place] [address] 20664 PLATELET 292 x10EE3/UL Normal 150 - 450 [facility] Comment on above: Performed By: #### 2 73571 #### [facility],[address] [place] [address] 91201 Platelet mean volume (Bld) [Entitic vol] 8.9 fL Normal 6.6 - 10.5 [facility] Comment on above: Result Comment: AUTO MATED DIFFERENTIAL Performed By: #### 2 77632 #### [facility],[address] [place] [address] 75634 RBC 4.87 x 10EE6/UL Normal 4.10 - 5.30 [facility] Comment on above: Performed By: #### 2 60588 #### [facility],[address] [place] [address] 95775 WBC 8.2 x 10EE3/UL Normal 4.5 - 10.8 [facility] Comment on above: Performed By: #### 2 90127 #### [facility],[address] [place], [place] [address] CMP with eGFRon 10-29-2024 AGE 54 years Normal [facility] Comment on above: Performed By: #### 2 36243 #### [facility],[address] [place] [address] 13057 Albumin [Mass/Vol] 3.9 g/dL Normal 3.4 - 5.0 [facility] Comment on above: Performed By: #### 2 84405 #### [facility],[address] [place] [address] 41849 Albumin/Globulin [Mass ratio] 1.2 {ratio} Normal 0.9 - 1.6 [facility] Comment on above: Performed By: #### 2 30491 #### [facility],[address] [place] [address] 71152 ALK PHOS 121 U/L High 46 - 116 [facility] Comment on above: Performed By: #### 2 78360 #### [facility],[address] [place] [address] 10335 ALT [Catalytic activity/Vol] 62 U/L Normal 16 - 63 [facility] Comment on above: Performed By: #### 2 20735 #### [facility],[address] [place] [address] 28483 Anion gap [Moles/Vol] 16 mmol/L Normal 10 - 20 [facility] Comment on above: Performed By: #### 2 94571 #### [facility],[address] [place] [address] 38986 AST [Catalytic activity/Vol] 25 U/L Normal 13 - 39 [facility] Comment on above: Performed By: #### 2 57440 #### [facility],[address] [place] [address] 19550 B/C RATIO 16 ratio Normal 0 - 30 [facility] Comment on above: Performed By: #### 2 75378 #### [facility],[address] [place] [address] 80835 Bilirubin [Mass/Vol] 0.3 mg/dL Normal 0.2 - 1.0 [facility] Comment on above: Performed By: #### 2 16265 #### [facility],[address] [place] [address] 72395 Calcium [Mass/Vol] 9.1 mg/dL Normal 8.5 - 10.1 [facility] Comment on above: Performed By: #### 2 19871 #### [facility],[address] [place] [address] 45263 Chloride [Moles/Vol] 100 mmol/L Normal 98 - 107 [facility] Comment on above: Performed By: #### 2 82101 #### [facility],[address] [place] [address] 74297 CMP with eGFR Normal [facility] Comment on above: Result Comment: COMP REHENSIVE METABOLIC PANEL Performed By: #### 2 78383 #### [facility],[address] [place] [address] 95320 CO2 [Moles/Vol] 27.4 mmol/L Normal 21.0 - 32.0 [facility] Comment on above: Performed By: #### 2 05151 #### [facility],[address] [place] [address] 29066 Creatinine [Mass/Vol] 0.96 mg/dL Normal 0.55 - 1.02 [facility] Comment on above: Performed By: #### 2 53730 #### [facility],[address] [place] [address] GFR/1.73 sq M.predicted among non-blacks MDRD (S/P/Bld) [Vol rate/Area] mL/min/{1.73_m2} Normal 60 - 999 [facility] Comment on above: Performed By: #### 2 26059 #### [place] [address] Result Comment: ACCO RDING TO THE NATIONAL KIDNEY DISEASE EDUCATION PROGRAM(NKDE), A NORMAL eGFR IS A VALUE GREATER THAN OR EQUAL TO 60 ML/MIN/1.73 SQ METERS. CHRONIC KIDNEY DISEASE: <60mL/MIN/1.73 SQ METERS KIDNEY FAILURE: <15mL/MIN/1.73 SQ METERS THIS TEST SHOULD ONLY BE USED FOR PATIENTS 18 YEARS OF AGE AND OLDER. Globulin (S) [Mass/Vol] 3.3 g/dL Normal 1.5 - 3.8 [facility] Comment on above: Performed By: #### 2 07984 #### [address] [address] Glucose [Mass/Vol] 94 mg/dL Normal 74 - 106 [facility] Comment on above: Performed By: #### 2 75770 #### [address] [address] Potassium [Moles/Vol] 4.5 mmol/L Normal 3.5 - 5.1 [facility] Comment on above: Performed By: #### 2 56155 #### [address] [address] Protein [Mass/Vol] 7.2 g/dL Normal 6.4 - 8.2 [facility] Comment on above: Performed By: #### 2 76043 #### [facility],[address] [place] [address] 56943 Sodium [Moles/Vol] 139 mmol/L Normal 136 - 145 [facility] Comment on above: Performed By: #### 2 25605 #### [facility],[address] [place] [address] 92778 Urea nitrogen [Mass/Vol] 15 mg/dL Normal 7 - 18 [facility] Comment on above: Performed By: #### 2 34857 #### [facility],[address] [place] [address] LUMBAR W/O CONTRASTon CT LUMBAR W/O CONTRAST [place] [address] Patient: JOSEP STANLEY Phone#: : 1970 Age: 54 Gender: F Pt. Type: ER Account: [id number] Location: [facility] Ordering: DR. KATIE JAVIER Exam Date: 10/29/2024/21:02 Family Phys: DAVID DAVY Charge Code: 308452 Physician: [place] Order #: [id number] Dose#: 18.00 PROCEDURE: CT LUMBAR SPINE WITHOUT CONTRAST COMPARISON: [facility], CT, LUMBAR SPINE W/O CON, 01/26/2024, 12:46. [...] Daly Oconnor MD on 10/30/2024 at 22:15 [facility] FACILITY CODING SUMMARYon FACILITY CODING SUMMARY Facility Coding Facility Coding Summary [address] [address] [id number] 08/07/2024 Patient: JOSEP STANLEY Sex: Female : 1970 Age: 54y Providers: Jeremias Mcdonough D.O. and Tip Jones D.O. DIAGNOSTIC WORKUP Chief Complaint ABDOMINAL PAIN. -- Jeremias Mcdonough D.O. Principal Diagnosis Chronic generalized abdominal pain of undetermined cause. -- Jeremias Mcdonough D.O. ICD-10 Codes R10.84: Generalized abdominal pain PROCEDURES Procedures from Providers: Procedures from Nurses/Facility: Injection Bentyl IM (CPT: 77565) IV Hydration (CPT: 49273 X2) IV Push Zofran IVP (CPT: 44288) IV Push Protonix (Pantoprazole) IVP (CPT: 31919) IV Push KetorOLAC (Toradol) IVP (CPT: 06872) IV Push MORPHine IVP (CPT: 90914) IV Push Zofran IVP (CPT: 10524) 1 of 2 Facility Coding SUPPLIES [facility] 40272-75 This is a partial abstract of information documented in the full record. [employer] Laborer must use independent judgment in selecting codes. CPT copyright 2022 [employer]. All Rights Reserved. 2 of 2 [facility] MED ADMINISTRATION DETAILon 08-08-2024 MED ADMINISTRATION DETAIL [employer] Checker Medication Administration Record [place] [address] [place] [address] [id number] 08/07/2024 Patient: JOSEP STANLEY Sex: Female : [...] Vinayak Saldana R.N. Scanned 1 of 2 [employer] Medication Ordered Medication Administration Date/Time MORPHine IVP [...] Vinayak Saldana R.N. 2 of 2 Normal [facility] NURSES CLINICAL REPORT (NOTE S)on 08-08-2024 NURSES CLINICAL REPORT (NOTES) Nurse Narrative Nurse Clinical Narrative [place] [address] [place] [address] [id number] 08/07/2024 Patient: JOSEP STANLEY Sex: Female : [...] 19:08/07/24 ROMARIO Pettit R.N. 19:08/07/24. Preferred pharmacy ([facility] -- 19:08/07/24 ROMARIO Pettit R.N. ADDITIONAL SURGERIES: [...] band on patient. -- 19:29 08/07/24 ROMARIO Pettti R.N. PHYSICAL ASSESSMENT 20:04 08/07/24. Ambulatory to [...] Nurse Narrative (more content not included)... Normal [facility] ORDER SHEET (CPOE ONLY)on ORDER SHEET (CPOE ONLY) Order Sheet Order Sheet [place] [address] [place] [address] [id number] 08/07/2024 Patient: JOSEP STANLEY Sex: Female : [...] 20:28 08/07/2024 20:35 20:48 mL, Lidocaine Viscous Jeremias Mcdonough D.O. 08/07/2024 08/07/2024 Mouth/Throat 5 mL, hyoscyamine Leslie DaleNHeike Saldana R.N. 1 of 4 Order Sheet Sublingual 0.125 mg) (NOW x1) Bentyl IM20 mg 21:48 08/07/2024 22:16 22:32 Tip Jones, 08/07/2024 08/07/2024 VioletOJoya Page R.N. Protonix (Pantoprazole) IVP40 21:49 08/07/2024 22:16 22:26 mg (NOW x1) Tip Jones, 08/07/2024 08/07/2024 Jyoa Garibay RElsie Reason for ordering with alerts: [...] (08/08/2024 22:53 EDT)] 4 of 4 Normal [facility] PHYS CLINICAL REPORT AND ADD ENon 08-08-2024 PHYS CLINICAL REPORT AND ADDEN Narrative Physician Clinical [facility] [address] [place] [address] [id number] 08/07/2024 [id number] Sex: Female : 1970 Age: 54y Disposition: [...] 1.50 - 7.10 Final EDT 08/07/2024 20:45 Ware # 0.60 x10/UL 0.20 - 1.00 Final [...] OR E (more content not included)... 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 [address] [id number] 08/07/2024 Patient: JOSEP STANLEY Sex: Female : 1970 Age: 54y ICD-10 Codes R10.84: Generalized abdominal pain This is a partial abstract of information documented in the full record. [employer] Laborer must use independent judgment in selecting codes. CPT copyright 2022 [employer] [employer]. All Rights Reserved. 1 of 1 [facility] SUPER BILLon 08-08-2024 SUPER BILL [address] [place] [address] [id number] 08/07/2024 Patient: JOSEP STANLEY Sex: Female : 1970 Age: 54y Facility Professional Category Item Description Code Code Quantity Fee Total Drugs Normal Saline 663923 1 $0.00 $0.00 1000cc (272534) Nurse/E/M EMERGENCY 926902 1 $0.00 $0.00 DEPT VISIT HIGH SEVERITYFUNCJ (95986-95) Nurse/IV/IM/Infusions Hydration 379327 2 $0.00 $0.00 additional hour (42292) Nurse/IV/IM/Infusions IM/SQ (58239) 614474 1 $0.00 $0.00 Nurse/IV/IM/Infusions IVP additional 939336 3 $0.00 $0.00 push (28989) Nurse/IV/IM/Infusions IVP initial (56549) 477395 1 $0.00 $0.00 Nurse/IV/IM/Infusions IVP same med 071440 1 $0.00 $0.00 (31 min apart) (75309) Grand $0.00 Total 1 of 2 Superbill Providers Sofie Collier D.O. Chief Complaint ABDOMINAL PAIN. Principal Diagnosis Chronic generalized abdominal pain of undetermined cause. ICD-10 Codes R10.84: Generalized abdominal pain 2 of 2 Normal Jules [facility] VISIT SUMMARYon 08-08-2024 VISIT SUMMARY Visit Overview Visit Overview [facility] [address] [place] [address] [phone] 08/07/2024 Patient: JOSEP STANLEY Sex: Female : [...] OF UNDETERMINED CAUSE 3 of 3 Normal [facility] CBC + DIFFon 08-07-2024 Baso # 0.01 x10EE3/UL Normal 0.00 - 0.10 [facility] Comment on above: Performed By: #### 2 [id number] #### [facility],[address] [place] [address] Basophils/100 WBC (Bld) 0.2 % Normal 0.0 - 2.0 [facility] Comment on above: Performed By: #### 2 53390 #### [facility],[address] [place] [address] CBC + DIFF Normal [facility] Comment on above: Result Comment: CBC- COMPLETE BLOOD COUNT Performed By: #### 2 95881 #### [facility],[address] [place] [address] EO # 0.12 x10EE3/UL Normal 0.00 - 0.50 [facility] Comment on above: Performed By: #### 2 62978 #### [facility],[address] [place] [address] Eosinophils/100 WBC (Bld) 1.6 % Normal 0.0 - 7.0 [facility] Comment on above: Performed By: #### 2 95493 #### [facility],[address] [place], [place] [id number] Erythrocyte distribution width (RBC) [Ratio] 12.8 % Normal 12.0 - 15.6 [facility] Comment on above: Performed By: #### 2 59593 #### [facility],[address] [place] [address] Hematocrit (Bld) [Volume fraction] 41.2 % Normal 34.0 - 46.0 [facility] Comment on above: Performed By: #### 2 74267 #### [place] [address] Hemoglobin (Bld) [Mass/Vol] 14.4 g/dL Normal 12.0 - 16.0 [facility] Comment on above: Performed By: #### 2 04045 #### [facility],[address] [place] [address] Lymph # 2.03 x10EE3/UL Normal 0.80 - 2.80 [facility] Comment on above: Performed By: #### 2 69091 #### [facility],[address] [place], [place] [id number] Lymphocytes/100 WBC (Bld) 28.0 % Normal 20.0 - 45.0 [facility] Comment on above: Performed By: #### 2 29385 #### [address] [address] MANUAL DIFF N/A Normal [facility] Comment on above: Performed By: #### 2 19227 #### [address] [address] MCH (RBC) [Entitic mass] 33 pg Normal 27 - 33 [facility] Comment on above: Performed By: #### 2 98279 #### [facility],[address] [place] [address] MCHC 35 X10 3 Normal 32 - 36 [facility] Comment on above: Performed By: #### 2 77583 #### [facility],[address] [place] [address] 27672 MCV (RBC) [Entitic vol] 94 fL Normal 80 - 99 [facility] Comment on above: Performed By: #### 2 40684 #### [facility],[address] [place] [address] Ware # 0.60 x10EE3/UL Normal 0.20 - 1.00 [facility] Comment on above: Performed By: #### 2 65398 #### [facility],[address] [place] [address] MONOS % 8.3 % Normal 0.0 - 10.0 [facility] Comment on above: Performed By: #### 2 18269 #### [facility],[address] [place] [address] Morphology Rahul (Bld) [Interp] N/A Normal [facility] Comment on above: Performed By: #### 2 45179 #### [facility],[address] [place] [address] Neut # 4.50 x10EE3/UL Normal 1.50 - 7.10 [facility] Comment on above: Performed By: #### 2 93633 #### [facility],[address] [place] [address] Neutrophils/100 WBC (Bld) 62.0 % Normal 46.0 - 76.0 [facility] Comment on above: Performed By: #### 2 53310 #### [facility],[address] [place] [address] PLATELET 243 x10EE3/UL Normal 150 - 450 [facility] Comment on above: Performed By: #### 2 48010 #### [facility],[address] [place] [address] 87052 Platelet mean volume (Bld) [Entitic vol] 9.6 fL Normal 6.6 - 10.5 [facility] Comment on above: Result Comment: AUTO MATED DIFFERENTIAL Performed By: #### 2 69772 #### [facility],[address] [place] [address] RBC 4.39 x 10EE6/UL Normal 4.10 - 5.30 [facility] Comment on above: Performed By: #### 2 97796 #### [facility],[address] [place] [address] WBC 7.3 x 10EE3/UL Normal 4.5 - 10.8 [facility] Comment on above: Performed By: #### 2 89785 #### [facility],[address] [place] [address] CMP with eGFRon 08-07-2024 AGE 54 years Normal [facility] Comment on above: Performed By: #### 2 09226 #### [facility],[address] [place] [address] Albumin [Mass/Vol] 3.8 g/dL Normal 3.4 - 5.0 [facility] Comment on above: Performed By: #### 2 73551 #### [facility],[address] [place], [place] [phone] Albumin/Globulin [Mass ratio] 1.0 {ratio} Normal 0.9 - 1.6 [facility] Comment on above: Performed By: #### 2 87005 #### [facility],[address] [place], [place] [id number] ALK PHOS 96 U/L Normal 46 - 116 [facility] Comment on above: Performed By: #### 2 15413 #### [facility],[address],[place] [address] ALT [Catalytic activity/Vol] 34 U/L Normal 16 - 63 [facility] Comment on above: Performed By: #### 2 31520 #### [facility],[address] [place] [address] Anion gap [Moles/Vol] 9 mmol/L Low 10 - 20 [facility] Comment on above: Performed By: #### 2 21800 #### [facility],[address] [place] [address] AST [Catalytic activity/Vol] 23 U/L Normal 13 - 39 [facility] Comment on above: Performed By: #### 2 80164 #### [facility],[address] [place] [address] B/C RATIO 15 ratio Normal 0 - 30 [facility] Comment on above: Performed By: #### 2 63869 #### [facility],[address] [place] [address] Bilirubin [Mass/Vol] 0.4 mg/dL Normal 0.2 - 1.0 [facility] Comment on above: Performed By: #### 2 17275 #### [facility],[address] [place] [address] Calcium [Mass/Vol] 9.1 mg/dL Normal 8.5 - 10.1 [facility] Comment on above: Performed By: #### 2 14222 #### [facility],[address] [place] [address] Chloride [Moles/Vol] 106 mmol/L Normal 98 - 107 [facility] Comment on above: Performed By: #### 2 58280 #### [facility],[address] [place], [place] [id number] CMP with eGFR Normal [facility] Comment on above: Result Comment: COMP REHENSIVE METABOLIC PANEL Performed By: #### 2 89399 #### [facility],[address] [place], [place] [id number] CO2 [Moles/Vol] 28.7 mmol/L Normal 21.0 - 32.0 [facility] Comment on above: Performed By: #### 2 84634 #### [facility],[address] [place] [address] Creatinine [Mass/Vol] 1.20 mg/dL High 0.55 - 1.02 [facility] Comment on above: Performed By: #### 2 46569 #### [facility],[address] [place] [address] eGFR 47 ML/MINUTE Low 60 - 999 [facility] Comment on above: Performed By: #### 2 45085 #### [facility],[address] [place] [address] eGFR(AA) 57 ML/MINUTE Low 60 - 999 [facility] Comment on above: Result Comment: ACCO RDING TO THE NATIONAL KIDNEY DISEASE EDUCATION PROGRAM(NKDE), A NORMAL eGFR IS A VALUE GREATER THAN OR EQUAL TO 60 ML/MIN/1.73 SQ METERS. CHRONIC KIDNEY DISEASE: <60mL/MIN/1.73 SQ METERS KIDNEY FAILURE: <15mL/MIN/1.73 SQ METERS THIS TEST SHOULD ONLY BE USED FOR PATIENTS 18 YEARS OF AGE AND OLDER. Performed By: #### 2 13177 #### [facility],[address] [place] [address] Globulin (S) [Mass/Vol] 3.8 g/dL Normal 1.5 - 3.8 [facility] Comment on above: Performed By: #### 2 61447 #### [facility],[address] [place] [address]46 Glucose [Mass/Vol] 118 mg/dL High 74 - 106 [facility] Comment on above: Performed By: #### 2 57899 #### [facility],[address] [place] [address] Potassium [Moles/Vol] 3.7 mmol/L Normal 3.5 - 5.1 [facility] Comment on above: Performed By: #### 2 72059 #### [facility],[address] [place] [address] Protein [Mass/Vol] 7.6 g/dL Normal 6.4 - 8.2 [facility] Comment on above: Performed By: #### 2 54084 #### [facility],[address] [place] [address] Sodium [Moles/Vol] 140 mmol/L Normal 136 - 145 [facility] Comment on above: Performed By: #### 2 92846 #### [facility],[address] [place] [address] Urea nitrogen [Mass/Vol] 18 mg/dL Normal 7 - 18 [facility] Comment on above: Performed By: #### 2 47311 #### [facility],[address] [place], [place] [id number] CT ABDOMEN/PELVIS [facility] 2023 CT ABDOMEN/PELVIS [place] [address] Patient: JOSEP STANLEY Phone#: : 1970 Age: 54 Gender: F Pt. Type: ER Account: [id number] Location: [facility] Ordering: TIP JONES Exam Date: 08/07/2024/21:10 Family Phys: DAVID CESAR Charge Code: [id number] Physician: [place] Order #: [id number] Dose#: 13.4 mGy PROCEDURE: CT ABDOMEN/PELVIS WITH CONTRAST COMPARISON: [facility], CT, ABDOMEN/PELVIS W CON, 07/24/2023, 9:26. INDICATIONS: [...] 54 Gender: F Pt. Type: ER Account: [id number] Location: 052 Ordering: TIP JONES Exam Date: 08/07/2024/21:10 Family Phys: DAVID CESAR Charge Code: [id number] Physician: [place] Order #: [id number] Dose#: 13.4 mGy 2. Moderate stool retention. Dictated by: Sonal Kimble MD on 08/09/2024 at 11:46 Approved by: Sonal Kimble MD on 08/09/2024 at 11:49 Normal [facility] LACTATEon 08-07-2024 Lactate [Moles/Vol] 0.6 mmol/L Normal 0.4 - 2.0 [facility] Comment on above: Performed By: #### 2 19846 #### [facility],[address] [place] [address] LIPASEon 08-07-2024 Lipase [Catalytic activity/Vol] 31.0 U/L Normal 15.0 - 78.0 [facility] Comment on above: Result Comment: *PLE ASE NOTE THAT RANGES FOR LIPASE HAVE CHANGED OF 10/24/23 DUE TO AN ASSAY UPDATE BY THE SUPERINTENDENT JOB.THE NEW ASSAY RANGE IS 6-250 U/L, WITH A REFERENCE RANGE OF 16-77 U/L. Performed By: #### 2 65732 #### [facility],[address] [place] [address] TROPONINon 08-07-2024 HS TROPONIN <4.0 Normal 0.0 - 51.4 [facility] Comment on above: Performed By: #### 2 51664 #### [facility],[address] [place] [address]113 Absolute lymphocyte counton 02-21-2022 Lymphocytes Auto (Unsp spec) [#/Vol] 2.34 10*3/uL 0.83-4.51 [facility] Work Phone: Basophil percentageon 2021 Basophils/100 WBC (Bld) 0.4 % 0-1 [facility] Work Phone: Chloride [Moles/Vol] 105 mmol/L 98-107 [facility] Work Phone: Eosinophils/100 WBC (Bld) 0.6 % 0-5 [facility] Work Phone: Glucose [Mass/Vol] 85 mg/dL 74-[address] [facility] Work Phone: Neutrophils (Bld) [#/Vol] 7.6 10*3/uL 2.0-7.7 [facility] Work Phone: Neutrophils/100 WBC (Bld) 70.1 % 47-70 [facility] Work Phone: Potassium [Moles/Vol] 4.5 mmol/L 3.5-5.1 [facility] Work Phone: Sodium [Moles/Vol] 138 mmol/L 136-[address] [facility] Work Phone: WBC (Bld) [#/Vol] 10.8 10*3/uL 4.4-11.0 [facility] Work Phone: Blood erythrocytes count (nu mber/volume)on 02-21-2022 RBC (Bld) [#/Vol] 4.72 10*6/uL 4.2-5.4 [facility] Work Phone: Blood hemoglobin measurement (mass/volume)on 02-21-2022 Hemoglobin (Bld) [Mass/Vol] 15.6 g/dL 12.0-15.0 [facility] Work Phone: Blood lymphocytes/100 leukoc yteson 02-21-2022 Lymphocytes/100 WBC (Bld) 21.7 % 19-41 [facility] Work Phone: Blood monocytes/100 leukocyt eson 02-21-2022 Monocytes/100 WBC (Bld) 6.9 % 0-10 [facility] Work Phone: Blood platelet mean volumeon 02-21-2022 Platelet mean volume (Bld) [Entitic vol] 10.5 fL 6.2-12.0 [facility] Work Phone: Determination of erythrocyte mean corpuscular volume (MCV)on 02-21-2022 MCV (RBC) [Entitic vol] 96.2 fL 81-99 [facility] Work Phone: Hematocrit Auto (Bld) [Volum e fraction]on 02-21-2022 Hematocrit (Bld) [Volume fraction] 45.4 % 37-47 [facility] Work Phone: Laboratory - Chemistry and C hemistry - challengeon 02-21-2022 CO2 [Moles/Vol] 26.0 mmol/L 21.0-32.0 [facility] Work Phone: Urea nitrogen/Creatinine [Mass ratio] 12.6 mg/mg 10-20 [facility] Work Phone: Laboratory - Hematology and Cell countson 02-21-2022 Erythrocyte distribution width (RBC) [Entitic vol] 46.0 fL 35.1-43.9 [facility] Work Phone: Erythrocyte distribution width (RBC) [Ratio] 12.9 % 11.6-14.6 [facility] Work Phone: Immature granulocytes/100 WBC (Bld) 0.300 % 0.0-0.9 [facility] Work Phone: Comment on above: IG% - Immature Granu locytes (promyelocytes, myelocytes and metamyelocytes) > 1% indicates that a LEFT SHIFT is Present. MCH (RBC) [Entitic mass] 33.1 pg 27.0-32.0 [facility] Work Phone: Nucleated RBC/100 WBC (Bld) [Ratio] 0 % 0-5 [facility] Work Phone: MCHC Auto (RBC) [Mass/Vol]on 02-21-2022 MCHC (RBC) [Mass/Vol] 34.4 g/dL 32-36 [facility] Work Phone: No Panel Informationon 02-21 Estimated Creatinine Clearance Calc 78.76 ml/min [facility] Work Phone: Estimated GFR (MDRD) Amer 98 mL/min >60 [facility] Work Phone: Comment on above: GFR Calc Estimated GFR (MDRD) Non-Af Amer 81 mL/min >60 [facility] Work Phone: Comment on above: Non- GFR Calc Platelets bldon 02-21-2022 Platelets (Bld) [#/Vol] 276 10*3/uL 150-450 [facility] Work Phone: Serum or plasma calcium palak urement (mass/volume)on 02-21-2022 Calcium [Mass/Vol] 8.6 mg/dL 8.5-10.[address] [facility] Work Phone: Serum or plasma creatinine m easurement (mass/volume)on 02-21-2022 Creatinine [Mass/Vol] 0.80 mg/dL 0.55-1.02 [facility] Work Phone: Comment on above: The validity of the calculated GFR & GFRAA in patients over 70 years has not been determined. Clinical correlation is essential. Serum or plasma urea nitroge n measurement (mass/volume)on 02-21-2022 Urea nitrogen [Mass/Vol] 10 mg/dL 05-13 [facility] Work Phone: Thin prep Papanicolaou smear with manual screeningon 02-21-2022 Thin prep Papanicolaou smear with manual screening 04 30- [facility] Work Phone: Vital Signs Date Time Vital Sign Value Performing Clinician Sammie araiza 04-26-2025 12:44-0400 Body temperature 97.8 [degF] No Primary Care Physician [facility] 04-26-2025 12:44-0400 Diastolic blood pressure 91 mm[Hg] No Primary Care Physician [facility] 04-26-2025 12:44-0400 Heart rate 64 /min No Primary Care Physician [facility] 04-26-2025 12:44-0400 Respiratory rate 18 /min No Primary Care Physician [facility] 04-26-2025 12:44-0400 SaO2% (BldA) [Mass fraction] 99 % No Primary Care Physician [facility] 04-26-2025 12:44-0400 Systolic blood pressure 143 mm[Hg] No Primary Care Physician [facility] 04-26-2025 10:30-0400 Body height 167.64 cm No Primary Care Physician [facility] 04-26-2025 10:30-0400 Body mass index (BMI) [Ratio] 27.3 kg/m2 No Primary Care Physician [facility] 04-26-2025 10:30-0400 Body weight 76.8 kg No Primary Care Physician [facility] 04-11-2025 19:23-0400 Body temperature 97.4 [degF] No Primary Care Physician [facility] 04-11-2025 19:23-0400 Diastolic blood pressure 75 mm[Hg] No Primary Care Physician [facility] 04-11-2025 19:23-0400 Heart rate 62 /min No Primary Care Physician [facility] 04-11-2025 19:23-0400 Respiratory rate 17 /min No Primary Care Physician [facility] 04-11-2025 19:23-0400 SaO2% (BldA) [Mass fraction] 100 % No Primary Care Physician [facility] 04-11-2025 19:23-0400 Systolic blood pressure 120 mm[Hg] No Primary Care Physician [facility] 04-11-2025 14:26-0400 Body mass index (BMI) [Ratio] 27 kg/m2 No Primary Care Physician [facility] 04-11-2025 14:26-0400 Body weight 75.97 kg No Primary Care Physician [facility] 04-11-2025 14:24-0400 Body height 167.64 cm No Primary Care Physician [facility] 04-08-2025 08:24-0400 Body height 167.64 cm No Primary Care Physician [facility] 04-08-2025 08:24-0400 Body mass index (BMI) [Ratio] 26.9 kg/m2 No Primary Care Physician [facility] 04-08-2025 08:24-0400 Body weight 75.74 kg No Primary Care Physician [facility] 04-04-2025 12:27-0400 Body temperature 98.1 [degF] No Primary Care Physician [facility] 04-04-2025 12:27-0400 Diastolic blood pressure 82 mm[Hg] No Primary Care Physician [facility] 04-04-2025 12:27-0400 Heart rate 83 /min No Primary Care Physician [facility] 04-04-2025 12:27-0400 Respiratory rate 14 /min No Primary Care Physician [facility] 04-04-2025 12:27-0400 SaO2% (BldA) [Mass fraction] 99 % No Primary Care Physician [facility] 04-04-2025 12:27-0400 Systolic blood pressure 118 mm[Hg] No Primary Care Physician [facility] 04-04-2025 12:13-0400 Body height 167.64 cm No Primary Care Physician [facility] 02-25-2022 13:17-0400 Body height 168.9 cm Cristine Subramanian [employer] Work Phone: [facility] 02-25-2022 13:17-0400 Body temperature 97.7 [degF] Cristine Subramanian [employer] INS[employer] Work Phone: [facility] 02-25-2022 13:17-0400 Body weight 73.21 kg Cristine Subramanian [employer]S INS[employer] Work Phone: [facility] 02-25-2022 13:17-0400 Diastolic blood pressure 82 mm[Hg] Cristine Subramanian [employer]S INS[employer] Work Phone: [facility] 02-25-2022 13:17-0400 Heart rate 75 /min Cristine Subramanian [employer]S INS[employer] Work Phone: [facility] 02-25-2022 13:17-0400 Respiratory rate 16 /min Cristine Subramanian [employer]S INSPECTOR[employer] Work Phone: [facility] 02-25-2022 13:17-0400 SaO2% (BldA) [Mass fraction] 100 % Cristine Subramanian [employer]S INSPECTOR[employer] Work Phone: [facility] 02-25-2022 13:17-0400 Systolic blood pressure 144 mm[Hg] Cristine Subramanian [employer]S INS[employer] Work Phone: [facility] 02-21-2022 10:39-0400 Diastolic blood pressure 77 mm[Hg] [facility] Work Phone: 02-21-2022 10:39-0400 Heart rate 62 /min [facility] Work Phone: 02-21-2022 10:39-0400 Respiratory rate 17 /min [facility] Work Phone: 02-21-2022 10:39-0400 SaO2% (BldA) [Mass fraction] 98 % [facility] Work Phone: 02-21-2022 10:39-0400 Systolic blood pressure 124 mm[Hg] [facility] Work Phone: 02-21-2022 08:35-0400 Body height 167.64 cm [facility] Work Phone: 02-21-2022 08:35-0400 Body mass index (BMI) [Ratio] 25 kg/m2 [facility] Work Phone: 02-21-2022 08:35-0400 Body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 03/07/2017 documented as of this encounter (statuses as of 02/28/2022) [facility] History of Past illness Narrative* Problem Noted Date Resolved Date Spinal stenosis, lumbar brenda on, without neurogenic claudication 12/18/2016 03/07/2017 documented as of this encounter (statuses as of 03/26/2022) [facility] History of Past illness Narrative* Problem Noted Date Resolved Date Spinal stenosis, lumbar brenda on, without neurogenic claudication 12/18/2016 03/07/2017 documented as of this encounter (statuses as of 01/27/2023) [facility] History of Past illness Narrative* Problem Noted Date Diagnosed Date Resolved Date Spinal stenosis, lumbar brenda on, without neurogenic claudication 12/18/2016 03/07/2017 documented as of this encounter (statuses as of 01/05/2024) [facility] Calin Weber [facility] Note Date/Time April 26, 2025 12:35 pm [facility] Medical Records Department [address] [place] [address] Emergency Department Summary 04/26/25 MR#: [id number] Acct: [id number] Name: JOSEP STANLEY Rep #:[id number] : 1970 54 From: Calin Weber [...] her low back pain. She saw her painter apprentice yesterday who gave her an IM injection [...] the right negative on the left. 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 Neurologically she is awake [...] degenerative changes, no acute findings Reading Location: [facility] Discharge Plan Triage Chief Complaint: Back [...] Provider: Care Physician,No Primary Referrals: David Cesar PUBLIC POLICY ASSOCIATE, PUBLIC POLICY ASSOCIATE-C [Non-Staff] - As Needed Activity Restrictions/Additional Instructions: Follow-up with your pain management doctor soon as possible. Limited oxycodone for pain. Muscle relaxant as prescribed by your pain management doctor. If not improving follow-up to see then get the lumbar MRI. Return if worsening pain, fever, bowel or bladder incontinence or retention. Or if you are developing weakness in your legs. Print Language: Czech Disposition Disposition: Home, Self Care What to do if you have Problems For any increased pain, shortness of breath, bleeding, nausea or vomiting, chestpain, or any unexpected problems, contact your Primary Care Provider. Call [facility] ([phone]) or report to the closest Emergency Room. Call 911 if necessary. 04/26/25 0116 <Electronically signed by Calin Weber MD> Altafigner Signature (if applicable): CC: No Primary Care Physician ~ Signed [facility] Work Phone: Evaluation note* Diagnosis Anxiety attack- Primary Panic disorder without agoraphobia Muscle strain Unspecified site of sprain and strain [facility] Diagnosis Encounter for screening mammogram for breast cancer documented in this encounter [facility] noteNo assessment [facility] Work Phone: Evaluation note* Diagnosis KATHRIN (generalized anxiety disorder)- Primary Generalized anxiety disorder Anxiety attack Panic disorder without agoraphobia Housing instability History of herniated intervertebral disc Muscle strain Unspecified site of sprain and strain Screening for lipid disorders History of ITP Personal history of diseases of blood and blood-forming organs documented in this encounter [facility] note* Diagnosis History of herniated intervertebral disc documented in this encounter [facility] note* Diagnosis Encounter for screening mammogram for breast cancer documented in this encounter [facility] note* Diagnosis Encounter for screening mammogram for breast cancer documented in this encounter [facility] note* Diagnosis Onset Date Resolution Status Admit Date Low back pain acute April 04 025 12:15pm [facility] Work Phone: Hospital Discharge instructions Additional Instructions Follow-up with your new PCP next week as scheduled.[facility] Work Phone: Hospital Discharge instructionsAdditional Instructions Follow-up with your pain management doctor soon as possible. Limited oxycodone for pain. Muscle relaxant as prescribed by your pain management doctor. If not improving follow-up to see then get the lumbar MRI. Return if worsening pain, fever, bowel or bladder incontinence or retention. Or if you are developing weakness in your legs.[facility] Work Phone: Reason for referral (narrative)* Diagnostic Procedure Only (Routine) - Authorized Specialty Diagnoses / Procedures Referred By Addy luna Referred To Contact [facility] Diagnoses Encounter for screening mammogram for breast cancer Procedures CAROLANN SCREENING SCREENING MAMMOGRAPHY BI 2-VIEW BREAST INC Mara Smith MD [address] [place] [id number] [place] [address] Referral ID Status Reason Start Date Expiration Date Visits Requested Visits Authorized [id number] Authorized Auto-Generat ed Referral 02/06/2022 03/08/2023 1 1 [facility] for referral (narrative)* Diagnostic Procedure Only (Routine) - Pending Review Specialty Diagnoses / Procedures Referred By Addy luna Referred To Contact [facility] Diagnoses Encounter for screening mammogram for breast cancer Procedures CAROLANN SCREENING SCREENING MAMMOGRAPHY BI 2-VIEW BREAST INC Mara Smith MD [facility] [place] [address] [facility] [address] [place] [address] Referral ID Status Reason Start Date Expiration Date Visits Requested Visits Authorized [id number] Pending Review Auto-Generat ed Referral 01/22/2023 02/21/2024 1 1 [facility] Diagnostic Procedure Only (Routine) - Pending Review Specialty Diagnoses / Procedures Referred By Addy t Referred To Contact [facility] Diagnoses Encounter for screening mammogram for breast cancer Procedures CAROLANN SCREENING SCREENING MAMMOGRAPHY BI 2-VIEW BREAST INC CAD Mara Philip MD [address] [place] [address] [facility] [address] [place] [address] Referral ID Status Reason Start Date Expiration Date Visits Requested Visits Authorized [id number] Pending Review Auto-Generat ed Referral 12/31/2023 01/29/2025 1 1 [facility] Summary Purpose Family History No Family History Records FoundNo Family History Records FoundNo Family History Records FoundNo Family History Records FoundNo Family History Records FoundNo Family History Records Found Advance Directives No Advanced Directives Records Found Advance Directive Response Recorded Date/ Time Living Will No February 21, 2022 9:10am Power of Manager Distribution No February 21 9:10am Advance Directive Response Recorded Date/ Time Do you have a Healthcare Power of Manager Distribution? No April 11, 2025 3:49pm Advance Directive Response Recorded Date/ Time Do you have a Healthcare Power of Manager Distribution? No April 26, 2025 11:01am Do you have a Healthcare Power of Manager Distribution? No April 11, 2025 3:49pm Chief Complaint [...] NEW HIGH MDM 60-74 MINUTES Cristine Subramanian, LOCKS INSPECTOR.PUBLIC RELATIONS SALES MARKETING [address] [place] [address] Referral ID Status Reason Start Date Expiration Date Visits Requested Visits Authorized [id number] Authorized PCP Requested Referral 02/25/2022 02/25/2023 1 1 Additional Source Comments INFORMATION SOURCE (unrecogn ized section and content) DATE CREATED AUTHOR 04/21/2018 [facility] DATE CREATED AUTHOR AUTHOR'S ORGANIZ ATION 04/21/2018 [facility] DATE CREATED AUTHOR AUTHOR'S ORGANIZ ATION 01/05/2024 [facility] DATE CREATED AUTHOR AUTHOR'S ORGANIZ ATION 02/14/2025 [facility] DATE CREATED AUTHOR AUTHOR'S ORGANIZ ATION 05/08/2025 [facility] DATE CREATED AUTHOR AUTHOR'S ORGANIZ ATION 05/25/2025 Jules Glasgow [facility] Source Comments (unrecognize d section and content) In the event this informatio n is protected by the Federal Confidentiality of Alcohol and Drug Abuse Patient Records regulations: The Federal rules restrict any use of the information to criminally investigate or prosecute any alcohol or drug abuse patient.[facility] the event this information is protected by the Federal Confidentiality of Alcohol and Drug Abuse Patient Records regulations: The Federal rules restrict any use of the information to criminally investigate or prosecute any alcohol or drug abuse patient.[facility] the event this information is protected by the Federal Confidentiality of Alcohol and Drug Abuse Patient Records regulations: The Federal rules restrict any use of the information to criminally investigate or prosecute any alcohol or drug abuse patient.[facility] the event this information is protected by the Federal Confidentiality of Alcohol and Drug Abuse Patient Records regulations: The Federal rules restrict any use of the information to criminally investigate or prosecute any alcohol or drug abuse patient.[facility] the event this information is protected by the Federal Confidentiality of Alcohol and Drug Abuse Patient Records regulations: The Federal rules restrict any use of the information to criminally investigate or prosecute any alcohol or drug abuse patient.[facility] Hospital[facility] the event this information is protected by the Federal Confidentiality of Alcohol and Drug Abuse Patient Records regulations: The Federal rules restrict any use of the information to criminally investigate or prosecute any alcohol or drug abuse patient.[facility] the event this information is protected by the Federal Confidentiality of Alcohol and Drug Abuse Patient Records regulations: The Federal rules restrict any use of the information to criminally investigate or prosecute any alcohol or drug abuse patient.[facility] Hospital[facility] the event this information is protected by the Federal Confidentiality of Alcohol and Drug Abuse Patient Records regulations: The Federal rules restrict any use of the information to criminally investigate or prosecute any alcohol or drug abuse patient.[facility] Hospital[facility] the event this information is protected by the Federal Confidentiality of Alcohol and Drug Abuse Patient Records regulations: The Federal rules restrict any use of the information to criminally investigate or prosecute any alcohol or drug abuse patient.[facility] Hospital[facility] the event this information is protected by the Federal Confidentiality of Alcohol and Drug Abuse Patient Records regulations: The Federal rules restrict any use of the information to criminally investigate or prosecute any alcohol or drug abuse patient.[facility] the event this information is protected by the Federal Confidentiality of Alcohol and Drug Abuse Patient Records regulations: The Federal rules restrict any use of the information to criminally investigate or prosecute any alcohol or drug abuse patient.[facility] Reason for Visit (unrecogniz ed section [...] Care Teams (unrecognized sec tion and content) Fire Alarm Repairer Relationship Specialty Start Date End Date Mara Philip MD [address] [place] [address] PCP - General Internal Medicine 01/31/22 Franklin Upton (Hist) Jr. [address] [place] [address] Referring Orthopedics 02/24/17 Fire Alarm Repairer Relationship Specialty Start Date End Date Mara Philip MD [address] [place] [address] PCP - General Internal Medicine 01/31/22 Franklin Upton (Hist) Jr. [address] [place] [address] Referring Orthopedics 02/24/17 Fire Alarm Repairer Relationship Specialty Start Date End Date Mara Philip MD [address] [place] [address] PCP - General Internal Medicine 01/31/22 Franklin Upton (Hist) Jr. [address] [place] [address] Referring Orthopedics 02/24/17 Fire Alarm Repairer Relationship Specialty Start Date End Date Mara Philip MD [address] [place] [address] PCP - General Internal Medicine 01/31/22 Franklin Upton (Hist) Jr. [address] [place] [address] Referring Orthopedics 02/24/17 Fire Alarm Repairer Relationship Specialty Start Date End Date Mara Philip MD [address] [place] [address] PCP - General Internal Medicine 01/31/22 Franklin Upton (Hist) . [address] [place] [address] Referring Orthopedics 02/24/17 Fire Alarm Repairer Relationship Specialty Start Date End Date Mara Philip MD [address] [place] [address] PCP - General Internal Medicine 01/31/22 Franklin Upton (Hist) [address] [place] [address] Referring Orthopedics 02/24/17 Fire Alarm Repairer Relationship Specialty Start Date End Date Mara Philip MD [address] [place] [address] PCP - General Internal Medicine 01/31/22 Franklin Upton (Hist) [address] [place] [address], [place] [address] Referring Orthopedics 02/24/17 Fire Alarm Repairer Relationship Specialty Start Date End Date Mara Philip MD [address] [place] [address] PCP - General Internal Medicine 01/31/22 Franklin Upton Jr., MD [address] [place] [address] Referring Orthopedics 02/24/17 Cristine Subramanian APRN.PUBLIC RELATIONS SALES MARKETING [address] [place] [address] Materials Analyst Internal Medicine 10/04/24 Nava Adan APRN.MANAGER PACKAGE [address] [place], [place] [address] [facility] Internal Medicine 10/04/24 Fire Alarm Repairer Relationship Specialty Start Date End Date Mara Philip MD [address] [place], [place] [address] PCP - General Internal Medicine 01/31/22 Franklin Upton Jr., MD [address] [place] [id number] Referring Orthopedics 02/24/17 Cristine Subramanian APRN.PUBLIC RELATIONS SALES MARKETING [address] [place] [address] [facility] Internal Medicine 10/04/24 Nava Adan LOCKS INSPECTOR.MANAGER PACKAGE [address] [place], [place] [address] Materials Analyst Internal Medicine 01/18/25 Team Status: Active Member [...] Active Member Role Status Dates David Cesar PUBLIC POLICY ASSOCIATE, PUBLIC POLICY ASSOCIATE-C Primary Care Provider Active Team Status: Inactive Member Role Status Dates David Cesar PUBLIC POLICY ASSOCIATE, PUBLIC POLICY ASSOCIATE-C Primary Care Provider Active Start: April 11, [...] Inactive Member Role/Relationship Status Dates David Cesar PUBLIC POLICY ASSOCIATE, PUBLIC POLICY ASSOCIATE-C Primary Care Provider Active Start: April 11, [...] BE BASED ON THE PRIMARY CLINICAL RECORDS. [facility] [employer] [facility]. provides no warranty or guarantee of the accuracy or completeness of information in this document.
[2025-06-05 20:08] VITALS: BP 99/83; PULSE 50; RESP 16; TEMP 37.1; O2SAT 100
[2025-06-05 20:40] VITALS: BMI 26.6
[2025-06-05 21:04] VITALS: BP 144/88; PULSE 52; RESP 18; TEMP 36.7; O2SAT 100
[2025-06-05 21:25] LABS: Hematocrit 42.9 % (37-47); Hemoglobin 14.2 g/dL (12.0-15.0); Immature Granulocytes Count 0.010 X10^3/uL (0.0-0.0); Mean Corp Hgb Conc 33.1 g/dL (32-36); Mean Corpuscular Volume 96.2 fL (81-99); Mean Platelet Vol. 11.2 fl (6.2-12.0); NRBC Flagged by Analyzer 0 % (0-5); Platelet Count 217 K/mm3 (150-450); RBC Distribution Width CV 13.0 % (11.6-14.6); RBC Distribution Width SD 46.1 fl (35.1-43.9); Red Blood Count 4.46 M/mm3 (4.2-5.4); White Blood Count 5.9 K/mm3 (4.4-11.0)
[2025-06-05 22:00] LABS: Anion Gap 12 (5-15); BUN 14 mg/dL (4-19); BUN/Creat Ratio 15.2 RATIO (10-20); Calcium,Total 9.2 mg/dL (7.6-11.0); Carbon Dioxide 23.2 mmol/L (21.0-32.0); Chloride 103 mmol/L (98-108); Estimated Creatinine Clearance 74.77 ml/min (50-250); Glucose 113 mg/dL (70-99); Potassium 4.0 mmol/L (3.3-5.1)
[2025-06-06] MEDS: Ketorolac 30 MG/ML Syringe IV ×3 (03:07→21:31)
[2025-06-06] MEDS: 0.9% Saline Lock 10 ML Syringe IV ×3 (03:08→23:35)
[2025-06-06 03:14] VITALS: BP 119/77; PULSE 57; RESP 16; TEMP 36.4; O2SAT 100
[2025-06-06 06:12] VITALS: BP 108/72; PULSE 57; RESP 16; TEMP 36.4; O2SAT 100
[2025-06-06 08:07] VITALS: BP 110/73; PULSE 58; RESP 16; TEMP 36.4; O2SAT 100
--- NOTE | 2025-06-06 11:14 | PN.HOSP_ITS ---
Reason for Visit Chief Complaint: Back pain Objective Data Objective Data Vital Signs: Vital Signs Temp Pulse Resp BP Pulse Ox O2 Del Method 97.5 F L 58 L 16 110/73 100 Room Air 06/06/25 08:07 06/06/25 08:07 06/06/25 08:07 06/06/25 08:07 06/06/25 08:07 06/06/25 08:07 Oxygen Delivery Method Room Air Weight: 165 lb Body Mass Index (BMI) 26.6 Lab / Micro Data 06/05/25 21:15 06/05/25 21:15 Labs: Laboratory Results - last 24 hr 06/05/25 21:15: WBC 5.9, RBC 4.46, Hgb 14.2, Hct 42.9, MCV 96.2, MCH 31.8, MCHC 33.1, RDW Std Deviation 46.1 H, RDW Coeff of Jeanna 13.0, Plt Count 217, MPV 11.2, Immature Gran % (Auto) 0.200, Neut % (Auto) 83.4 H, Lymph % (Auto) 14.0 L, [place] % (Auto) 1.9, Eos % (Auto) 0.2, Baso % (Auto) 0.3, Absolute Neuts (auto) 4.9, Absolute Lymphs (auto) 0.83, Nucleated RBC % 0, Sodium 138, Potassium 4.0, Chloride 103, Carbon Dioxide 23.2, Anion Gap 12, BUN 14, Creatinine 0.90, Estim Creat Clear Calc 74.77, Est GFR (MDRD) Non-Af 77, BUN/Creatinine Ratio 15.2, Glucose 113 H, Calcium 9.2 Radiography Diagnostic Testing: Radiology Impression Lumbar Spine MRI 06/05/25 20:02 IMPRESSION: Small disc bulge at L4-L5 and L5-S1 with facet joint arthropathy and without significant foraminal or canal stenosis. Reading Location: [id number] Assessment & Plan Assessment/Plan (1) Back pain: PLAN: She complained of more right thigh and internal rotators. In the past she had more back pain and sciatica pain. She further said she was seen by Dr. Dewayne Blair was planning surgery but there was some insurance problem but he has left [facility]. MRI shows small joint arthropathy and disc bulge at L4-5 L5-S1. No major foraminal or canal stenosis. optimize pain control with scheduled acetaminophen, as needed ketorolac, oxycodone and hydromorphone. Patient did receive a 40 mg of prednisone in the ED. Will continue with prednisone daily starting the . PT OT evaluate and treat. Pain management Dr. Velez present consulted I did tell the patient that Dr. Villalpando is out of town and willn't be available until the . PLAN: Plan History of ITP: Patient said it has been few years since her last episode. CBC shows H&H 14.2/43%. Platelet count 217K. Anxiety/ADHD: Continue with fluoxetine VTE prophylaxis: Low risk not indicated at this time. Laboratory Results 06/05/25 21:15: WBC 5.9, RBC 4.46, Hgb 14.2, Hct 42.9, MCV 96.2, MCH 31.8, MCHC 33.1, RDW Std Deviation 46.1 H, RDW Coeff of Jeanna 13.0, Plt Count 217, MPV 11.2, Immature Gran % (Auto) 0.200, Neut % (Auto) 83.4 H, Lymph % (Auto) 14.0 L, [place] % (Auto) 1.9, Eos % (Auto) 0.2, Baso % (Auto) 0.3, Absolute Neuts (auto) 4.9, Absolute Lymphs (auto) 0.83, Nucleated RBC % 0, Sodium 138, Potassium 4.0, Chloride 103, Carbon Dioxide 23.2, Anion Gap 12, BUN 14, Creatinine 0.90, Estim Creat Clear Calc 74.77, Est GFR (MDRD) Non-Af 77, BUN/Creatinine Ratio 15.2, G lucose 113 H, Calcium 9.2 06/06/25 14:42: Urine Color Yellow, Urine Clarity Clear, Urine pH 6.0, Ur Specific [place] 1.020, Urine Protein 15 H, Urine Glucose (UA) 1000 H, Urine Ketones 5 H, Urine Occult Blood 50 H, Urine Nitrite Negative, Urine Bilirubin Negative, Urine Urobilinogen Normal, Ur Leukocyte Esterase Negative, Urine RBC 0 SEEN, Urine WBC 0 SEEN, Ur Squamous Epith Cells 0-5 SEEN, Urine Bacteria 0 SEEN, Urine Mucus 0 SEEN Charges/Coding Visit Charges Inpatient E&M: 05826 Subs Hosp L2
[2025-06-06] MEDS: Polyethylene Glycol 3350 17 GM PACKET PO (13:08)
[2025-06-06 13:59] VITALS: BP 123/62; PULSE 72; RESP 16; TEMP 36.4; O2SAT 97
[2025-06-06 14:51] LABS: Mucous, Urine 0 SEEN /hpf (<or=2+); Red Blood Cells-Urine 0 SEEN /hpf (0-5)
[2025-06-06 14:56] LABS: Color, Urine Yellow (Yellow); Glucose, Dipstick 1000 mg/dl (Normal); Ketone-Dipstick 5 mg/dl (Negative); Leukocyte Esterase-Dipstick Negative /ul (Negative); Nitrite-Dipstick Negative (Negative); Occult Blood-Urine 50 /ul (Negative); Protein-Dipstick 15 mg/dl (Negative); Specific Gravity, Urine 1.020 (1.002-1.030); Urine Bilirubin Dipstick Negative (Negative)
[2025-06-06 15:06] LABS: Squamous Epithelial Cells - UA 0-5 SEEN /hpf (5-10)
--- NOTE | 2025-06-06 16:12 | CHAPLAIN ---
Type of Pastoral Visit _x__ Initial Visit ___ Follow-up Visit ___ On-call Visit ___ General Patient Visit ___ Spiritual Assessment ___ Family Conference ___ Bereavement ___ Rapid Response ___ Code Blue ___ Other (describe below) Pastoral Care Referral From _x__ Patient ___ Family ___ Nurse ___ Physician ___ Trauma Director ___ Servicing Rep ___ Other (describe below) Sacrament/Intervention _x__ Active listening ___ Anointing ___ Jain ___ Bereavement ___ Communion _x__ Rajwinder exploration ___ _x__ Life review _x__ Prayer ___ Reconciliation ___ Sacrament of Sick _x__ Supportive presence ___ Wedding ___ Other (describe below) Pastoral Comments patient speaks of eagerness for spiritual support and care; pt identifies self as a believer and who finds great comfort in hearing the Word and pentecostalism music; pt has other issues on her mind besides the back pains; pt speaks of her family concerns and requests prayers for them as well; presence and prayer given
[2025-06-06 21:22] VITALS: BP 117/66; PULSE 58; RESP 16; TEMP 36.4; O2SAT 99
[2025-06-06] MEDS: Senna/Docusate Sodium 1 Tablet 2 TABLET PO (21:31)
[2025-06-06 23:31] VITALS: BP 132/79; PULSE 60; RESP 20; TEMP 36.4; O2SAT 100
[2025-06-07 04:55] VITALS: BP 114/67; PULSE 64; RESP 18; TEMP 36.3; O2SAT 100
[2025-06-07] MEDS: 0.9% Saline Lock 10 ML Syringe IV (05:03)
[2025-06-07] MEDS: Ketorolac 30 MG/ML Syringe IV (05:03)
[2025-06-07 07:49] VITALS: BP 139/79; PULSE 61; RESP 16; TEMP 36.5; O2SAT 100
[2025-06-07] MEDS: Polyethylene Glycol 3350 17 GM PACKET PO (07:53)
[2025-06-07] MEDS: Senna/Docusate Sodium 1 Tablet 2 TABLET PO (07:54)
--- NOTE | 2025-06-07 07:59 | PCM.CONS.GEN ---
Assessment & Plan Assessment/Plan (1) Lumbar radiculopathy: (2) Trochanteric bursitis of both hips: PLAN: Plan Continue pulse of oral steroids as it is helping. Discussed MRI results at length Plan for outpatient bilateral GTB injections HPI Consult Data Date of Consult: 06/07/25 HPI Narrative HPI Narrative: JOSEP STANLEY, is a 54 F who presents With intractable back. She has been followed as an outpatient for her about 2 months for this pain awaiting MRI. She states she has on for surgery from Dr. Matthew few years ago, but due to for circumstances was not able to pursue the surgery at that time. She is hoping for surgery. The pain is in the back radiates into the right hip leg, which is a bit different than prior complaint of more classic radiculopathy. To be severe rated 10/10 at its worse. It is constant, but waxes and wanes. Pain is worse with activity and limits her ability take perform some activities of daily living she says. Lumbar MRI was obtained during this admission which demonstrated mild degenerative changes without significant stenosis. Dr. Villalpando is out of town at this time. Has started on prednisone and starting to feel better. She denies loss of bowel bladder control or saddle numbness. [facility] Medical History Anxiety and depression Plantar fasciitis of right foot Low back pain Contact with or exposure to other viral diseases URI (upper respiratory infection) Endometriosis History of ITP Herniated disc Home Medications ?Medication ?Instructions ?Recorded ?Last Taken ?Type baclofen 10 mg tablet 5 - 10 mg PO Q8H PRN 06/05/25 Unknown History pregabalin 100 mg capsule 100 mg PO TID PRN 06/05/25 Unknown History Allergy/AdvReac Type Severity Reaction Status Date / Time erythromycin base Allergy Nausea Verified 06/05/25 16:36 Penicillins Allergy Nausea Verified 06/05/25 16:36 Surgical History Hx of laparoscopy History of section Social History household members: family Smoking Status: Never smoker Physical Exam Narrative Lumbar paraspinal tenderness + bilaterally Facet load - bilaterally SLR + on the right No Si tenderness. Si provocative maneuvers negative (fabers, gaenslens, compression) Hip provocative maneuvers negative Bilateral GTB tenderness + Const alert and oriented x3 Neuro Motor Exam: strength 5/5 throughout Lab / Micro Data 06/05/25 21:15 06/05/25 21:15 Labs: Laboratory Results - last 24 hr 06/06/25 14:42: Urine Color Yellow, Urine Clarity Clear, Urine pH 6.0, Ur Specific [place] 1.020, Urine Protein 15 H, Urine Glucose (UA) 1000 H, Urine Ketones 5 H, Urine Occult Blood 50 H, Urine Nitrite Negative, Urine Bilirubin Negative, Urine Urobilinogen Normal, Ur Leukocyte Esterase Negative, Urine RBC 0 SEEN, Urine WBC 0 SEEN, Ur Squamous Epith Cells 0-5 SEEN, Urine Bacteria 0 SEEN, Urine Mucus 0 SEEN Imaging Radiology Impression Lumbar Spine MRI 06/05/25 20:02 IMPRESSION: Small disc bulge at L4-L5 and L5-S1 with facet joint arthropathy and without significant foraminal or canal stenosis. Reading Location: [facility]
--- NOTE | 2025-06-07 10:35 | PCM.DC ---
Discharge Instructions DC O2, CPAP, BIPAP needs Home O2 Discharge instructions: No Dressing / Incision Discharge Activity: Return to Normal Activity Weight Bearing Status: Weight bearing as tolerated Dressing / Incision Call your doctor if you observe: Fever of 101 or Higher, Coldness, Increased Pain, Numbness or Tingling, Change in Color, Inability to urinate, Inability to have a bowel movement, Shortness of breath, Dizziness, Fainting spells, Swelling in the ankles, Chest pain, Prolonged hiccupping, Increased palpitations (irregular heartbeat) and Calf discomfort Follow Up Care When: IN 2 WEEKS Test Results: Test results from this visit will be discussed in further detail at your follow-up appointment, if applicable. Discharge Plan Admission Admit Date/Time: 06/05/25 19:56 Attending Provider: Noble Centeno Primary Care Provider: Duncan Cesar Consulting Providers: Ian Arita; Agustin Mercado Discharge Orders/Prescriptions Prescriptions: New sennosides-docusate sodium [Stimulant Laxative Plus] 8.6-50 mg Tablet 2 tab PO BID PRNQty: 0 0RF acetaminophen 500 mg Tablet 1,000 mg PO Q8 Qty: 0 0RF Rx Instructions: [id number]. 1 g Q8 hourly for 1 week and then 1 g Q8 hourly as needed for severe pain methylprednisolone [Medrol (Ge)] 4 mg tablets,dose pack 0 mg PO .as directed Qty: 21 0RF Rx Instructions: Take it as directed. pantoprazole [Protonix] 40 mg tablet,delayed release (DR/EC) 40 mg PO DAILY Qty: 30 0RF Continued pregabalin 100 mg capsule 100 mg PO TID PRN baclofen 10 mg tablet 5 - 10 mg PO Q8H PRN Referrals / Follow Up: Duncan Cesar DO [Primary Care Provider] - Agustin Mercado MD [[facility] Staff - Active Staff] - Within 1 Week Care Physician,No Primary [Non-Staff] - Disposition Disposition (needs filled in before D/C Order can be placed): Home, Self Care
[2025-06-07 11:18] VITALS: BP 112/66; PULSE 65; RESP 16; TEMP 36.6; O2SAT 97
--- NOTE | 2025-06-07 11:41 | DS.PCM_ITS ---
Providers Date of Admission: 06/05/25 Date of Discharge: 06/07/25 Primary Care Physician: Dr. Duncan Cesar, DO Consultations 06/06/25 16:58 Consult: Pain Management Routine Consulting Provider: Agustin Mercado Reason for Consult: Back pain and right thigh pain. MRI is done EMERGENT Consult: No MD Notified: Yes Date Notified: 06/06/25 Time Notified: 16:58 Method of Notification: Verbal Reason For Visit: BACK PAIN Diagnosis Discharge Diagnosis (1) Lumbar radiculopathy: Status: Acute Code(s): M54.16 - Radiculopathy, lumbar region (2) Trochanteric bursitis of both hips: Status: Acute Code(s): M70.61 - Trochanteric bursitis, right hip; M70.62 - Trochanteric bursitis, left hip (3) Back pain: Status: Acute Code(s): M54.9 - Dorsalgia, unspecified Plan: Patient was admitted with radicular back pain, bilateral thigh pain. She complained of more right thigh and internal rotators. In the past she had more back pain and sciatica pain. She further said she was seen by Dr. Dewayne Blair was planning surgery but there was some insurance problem but he has left [facility]. MRI shows small joint arthropathy and disc bulge at L4-5 L5-S1. No major foraminal or canal stenosis. optimize pain control with scheduled acetaminophen, as needed ketorolac, oxycodone and hydromorphone. Patient did receive a 40 mg of prednisone in the ED. Will continue with prednisone daily starting the . PT OT evaluate and treat. Pain management Dr. Velez present consulted I did tell the patient that Dr. Villalpando is out of town and willn't be available until the . 06/07: Patient was evaluated by pain management Dr. Velez patient. He advised to follow-up in the office for GTB injection. Most likely she has greater trochanteric pain syndrome. She is getting help office chart therefore discharged on Medrol Dosepak and pantoprazole. Discharge medication reconciliation done. Discharge follow-up instructions completed. Discharge process discussed with the patient and all questions were answered to patient's satisfaction. Follow with PCP in 1 to 2 weeks Total time spent, exact 35 minutes on discharge meds reconciliation, examination, coordination of care with nurses and ancillary staff, review of imaging and blood test and discussion with the patient on follow-up instructions. Plan History of ITP: Patient said it has been few years since her last episode. CBC shows H&H 14.2/43%. Platelet count 217K. Anxiety/ADHD: Continue with fluoxetine VTE prophylaxis: Low risk not indicated at this time. Laboratory Results 06/05/25 21:15: WBC 5.9, RBC 4.46, Hgb 14.2, Hct 42.9, MCV 96.2, MCH 31.8, MCHC 33.1, RDW Std Deviation 46.1 H, RDW Coeff of Jeanna 13.0, Plt Count 217, MPV 11.2, Immature Gran % (Auto) 0.200, Neut % (Auto) 83.4 H, Lymph % (Auto) 14.0 L, Otero % (Auto) 1.9, Eos % (Auto) 0.2, Baso % (Auto) 0.3, Absolute Neuts (auto) 4.9, Absolute Lymphs (auto) 0.83, Nucleated RBC % 0, Sodium 138, Potassium 4.0, Chloride 103, Carbon Dioxide 23.2, Anion Gap 12, BUN 14, Creatinine 0.90, Estim Creat Clear Calc 74.77, Est GFR (MDRD) Non-Af 77, BUN/Creatinine Ratio 15.2, G lucose 113 H, Calcium 9.2 06/06/25 14:42: Urine Color Yellow, Urine Clarity Clear, Urine pH 6.0, Ur Specific [place] 1.020, Urine Protein 15 H, Urine Glucose (UA) 1000 H, Urine Ketones 5 H, Urine Occult Blood 50 H, Urine Nitrite Negative, Urine Bilirubin Negative, Urine Urobilinogen Normal, Ur Leukocyte Esterase Negative, Urine RBC 0 SEEN, Urine WBC 0 SEEN, Ur Squamous Epith Cells 0-5 SEEN, Urine Bacteria 0 SEEN, Urine Mucus 0 SEEN Medications at Discharge Home Medications baclofen 10 mg tablet 5 - 10 mg PO Q8H PRN 06/05/25 pregabalin 100 mg capsule 100 mg PO TID PRN 06/05/25 acetaminophen 500 mg tablet 1,000 mg (2 x 500 mg) PO Q8 #0 tabs 06/07/25 methylprednisolone 4 mg tablets in a dose pack (Medrol (Ge)) 0 mg (0 x 4 mg) PO .as directed #21 tabs 06/07/25 pantoprazole 40 mg tablet,delayed release (Protonix) 40 mg PO DAILY #30 tabs 06/07/25 sennosides 8.6 mg-docusate sodium 50 mg tablet (Stimulant Laxative Plus) 2 tab PO BID PRN #0 tabs 06/07/25 Physical Exam Narrative Seen and examined Physical exam General: Alert, Oriented x3, Cooperative HEENT: Atraumatic, PERRLA, EOMI, Normocephalic. Oral: No Gingival or Mucosal Lesions/ Ulcerations Neck: Supple, No JVD, Negative Carotid Bruits Chest wall/Lungs: Air entry diminished in bilateral lung bases. No crepitation/rhonchi Cardiovascular: Regular rate and rhythm, Normal S1,S2, No M/G/R Abdomen: Bowel Sounds Present, Soft, Non Tender, Non-Distended : No dysuria. No renal angle tenderness. No suprapubic tenderness. Extremities: No edema, Capillary Refill Less than 3 Seconds Skin: No rashes, No breakdown Musculoskeletal: Mild tenderness at GTB and anterolateral thigh. Spine: No significant tenderness over lumbar spine. SLR limited because of pain/spasm in thigh but improved today Neurological: Cranial nerves II-XII grossly intact, DTR 2+/4. No acute focal neurological deficit. Psych/Mental Status: Normal Affect, Appropriate. Weight / BMI Weight Weight: 165 lb Body Mass Index (BMI) 26.6 ABG / Lab / Microbiology Data 06/05/25 21:15 06/05/25 21:15 Laboratory: Laboratory Results - last 24 hr 06/06/25 14:42: Urine Color Yellow, Urine Clarity Clear, Urine pH 6.0, Ur Specific [place] 1.020, Urine Protein 15 H, Urine Glucose (UA) 1000 H, Urine Ketones 5 H, Urine Occult Blood 50 H, Urine Nitrite Negative, Urine Bilirubin Negative, Urine Urobilinogen Normal, Ur Leukocyte Esterase Negative, Urine RBC 0 SEEN, Urine WBC 0 SEEN, Ur Squamous Epith Cells 0-5 SEEN, Urine Bacteria 0 SEEN, Urine Mucus 0 SEEN D/C Instructions Weight Bearing Status: Weight bearing as tolerated Call your doctor if you observe: Fever of 101 or Higher, Coldness, Increased Pain, Numbness or Tingling, Change in Color, Inability to urinate, Inability to have a bowel movement, Shortness of breath, Dizziness, Fainting spells, Swelling in the ankles, Chest pain, Prolonged hiccupping, Increased palpitations (irregular heartbeat) and Calf discomfort DC O2, CPAP, BIPAP Needs Home O2 Discharge instructions: No When: IN 2 WEEKS Meaningful Use Info Meaningful Use Meaningful Use Diagnoses (Choose all that apply): None applicable Discharge Plan Admission Admit Date/Time: 06/05/25 19:56 Attending Provider: Noble Centeno Primary Care Provider: Duncan Cesar Consulting Providers: Ian Arita; Agustin Mercado Discharge Orders/Prescriptions Prescriptions: New sennosides-docusate sodium [Stimulant Laxative Plus] 8.6-50 mg Tablet 2 tab PO BID PRNQty: 0 0RF acetaminophen 500 mg Tablet 1,000 mg PO Q8 Qty: 0 0RF Rx Instructions: [id number]-[id number]. 1 g Q8 hourly for 1 week and then 1 g Q8 hourly as needed for severe pain methylprednisolone [Medrol (Ge)] 4 mg tablets,dose pack 0 mg PO .as directed Qty: 21 0RF Rx Instructions: Take it as directed. pantoprazole [Protonix] 40 mg tablet,delayed release (DR/EC) 40 mg PO DAILY Qty: 30 0RF Continued pregabalin 100 mg capsule 100 mg PO TID PRN baclofen 10 mg tablet 5 - 10 mg PO Q8H PRN Referrals / Follow Up: Duncan Cesar DO [Primary Care Provider] - Agustin Mercado MD [[facility] Staff - Active Staff] - Within 1 Week Care Physician,No Primary [Non-Staff] - Disposition Disposition (needs filled in before D/C Order can be placed): Home, Self Care Charges/Coding Visit Charges Inpatient E&M: 32799 Disch Hosp >30min
--- NOTE | 2025-06-07 12:05 | CASEMGMT ---
MARIS CM into pt room, pt sitting up in bed. Pt states she has exercises at home and declines the need for therapy as an outpt. Pt states she has a walker at home should she need it. Pt denies any homegoing needs at this time.
--- NOTE | 2025-06-07 13:32 | PHA.DC.MR.R ---
Pharmacy [place] Med Reconciliation Pharmacy Service has performed discharge medication reconciliation for this patient. Medication education papers prepared, patient discharged when counseling was attempted. The patient's discharge medication list was reviewed for discrepancies and discrepancies were resolved. Medications at Discharge Home Medications baclofen 10 mg tablet 5 - 10 mg PO Q8H PRN 06/05/25 pregabalin 100 mg capsule 100 mg PO TID PRN 06/05/25 acetaminophen 500 mg tablet 1,000 mg (2 x 500 mg) PO Q8 #0 tabs 06/07/25 methylprednisolone 4 mg tablets in a dose pack (Medrol (Ge)) 0 mg (0 x 4 mg) PO .as directed #21 tabs 06/07/25 pantoprazole 40 mg tablet,delayed release (Protonix) 40 mg PO DAILY #30 tabs 06/07/25 sennosides 8.6 mg-docusate sodium 50 mg tablet (Stimulant Laxative Plus) 2 tab PO BID PRN #0 tabs 06/07/25
== END 2025-06-07 12:56 | disposition home or self-care (01) ==
LOC: ED 19:41 → MS3 20:04
PROVIDERS: Emergency Provider Emergency Medicine; PCP Family Medicine; Visit Provider Internal Medicine
DX: M51.16 Intervertebral disc disorders with radiculopathy, lumbar region (principal); D69.3 Immune thrombocytopenic purpura; M70.61 Trochanteric bursitis, right hip; M70.62 Trochanteric bursitis, left hip; M77.31 Calcaneal spur, right foot; F41.9 Anxiety disorder, unspecified; F90.9 Attention-deficit hyperactivity disorder, unspecified type; F32.A Depression, unspecified; F17.210 Nicotine dependence, cigarettes, uncomplicated; Z79.899 Other long term (current) drug therapy
CPT/HCPCS: 36415; 72148; 80048; 81001; 85025; 87086; 87088; 96372; 96374; 96375; 96376; 97162; 97166; 99221; 99283; A4216; G0378; J2405